=== PATIENT | female | born 1960 | race African-American/Black ===

== ENCOUNTER 2016-07-01 06:30 | Day surgery (SDC) | payer BC ==
[~2016-07-01] VITALS: Ht 170.2 cm; Wt 78.2 kg
[~2016-07-01 06:30] MED LIST: CARB200T16 PO; MONT10TA2 PO
[2016-07-01] MEDS ORDERED: ENBR50IN2 SQ (07:15)
[2016-07-01] MEDS ORDERED: METH2.5T PO (07:15)
[2016-07-01] MEDS ORDERED: GABA300C5 PO (07:15)
[2016-07-01] MEDS ORDERED: TIZA4CAP3 PO (07:15)
[2016-07-01] MEDS ORDERED: TOPR25TA PO (07:15)
[2016-07-01] MEDS ORDERED: TEGR200T PO (07:15)
[2016-07-01] MEDS ORDERED: MILL5TAB (07:15)
[2016-07-01] MEDS ORDERED: FOLI1TAB4 PO (07:15)
[2016-07-01] MEDS ORDERED: VITA100021 SL (07:15)
[2016-07-01 07:20] LABS: AUTOMATED NEUTROPHIL # 3.3 TH/MM3 (1.8-7.7); BASOPHIL # 0.1 TH/MM3 (0-0.2); BASOPHIL % 0.7 % (0.0-2.0); EOSINOPHIL # 0.2 TH/MM3 (0-0.4); EOSINOPHIL % 2.5 % (0.0-4.0); HEMATOCRIT 36.2 % (35.0-46.0); HEMO FLAGS DIFF FINAL; MEAN CORPUSCULAR HEMOGLOBIN 30.8 PG (27.0-34.0); MEAN CORPUSCULAR HGB CONC 33.5 % (32.0-36.0); MONO % 12.1 % (0.0-8.0); NEUT % 44.7 % (16.0-70.0); PLATELET COUNT 202 TH/MM3 (150-450); RED BLOOD COUNT 3.94 MIL/MM3 (4.00-5.30); RED CELL DISTRIBUTION WIDTH 15.8 % (11.6-17.2); WHITE BLOOD COUNT 7.5 TH/MM3 (4.0-11.0)
[2016-07-01] MEDS ORDERED: HEPARIN-NS/PF INJ 500 ML ONE (07:36)
[2016-07-01 07:39] LABS: PROTHROMBIN TIME - PATIENT 10.8 SEC (9.8-11.6)
[2016-07-01 07:41] LABS: APTT (PATIENT) 28.2 SEC (24.3-30.1)
[2016-07-01] MEDS ORDERED: HEPARIN SODIUM - IV 10,000 UNITS/10 ML VIAL ONE (07:48)
[2016-07-01] MEDS ORDERED: MIDAZOLAM HCL 2 MG/2 ML VIAL ONE ×2 (07:48→07:56)
[2016-07-01] MEDS ORDERED: VERAPAMIL HCL 5 MG/2 ML VIAL ONE (07:48)
[2016-07-01 08:12] VITALS: BP 139/79; PULSE 74; RESP 18; TEMP 98.1; O2SAT 98
--- NOTE | 2016-07-01 08:19 | CATHPROC ---
[employer] HIS Report Study Information Study Number Admission Scheduled Start Study Start [id number] 07/01/2016 07/01/2016 Jul 01 2016 7:41AM Referring Institution Admit Source Facility Department 1 Other [facility] - Complaint Clerk Physician and Clinical Staff Initial Micah Morales Process Mold Technician Leon RN, Glen Recorder Liliana Saldaña,(R) (BS) Recorder Jay TafoyaWAGON DRILL OPERATOR(BS) Scrub Elie MonsonWAGON DRILL OPERATOR(BS) Procedures Performed Procedure Location (Site) Vessel Name Coronary Angiograms LCA Left Coronary Coronary Angiograms RCA Right Coronary L Heart Cath LV Gram-hand inj. LV LV Ventricle Equipment Time Data Conversion Developer Description Size Mfg Part Number Used/Scraped TRANSDUCER, TRUWAVE 07:48 BUNDY CEVALLOS * [id number] Used W/STOCKCOCK 07:48 MALLINCKRODT SYRINGE, ANGIOMAT 150ML 150ML [id number] Used [id number] 07:48 [employer]ES PACK, CCL CUSTOM * Used *[id number] 07:48 [employer] SUPPORT, ARTERIAL ADULT [id number] Used 07:48 [employer] PACER PEN, SKIN DUAL W/ RULER * [id number] Used BAND, RADIAL COMPRESSION TR [id number] 08:11 [employer] 29CM Used LARGE 29 *[id number] BAND, RADIAL COMPRESSION TR [id number] 08:12 [employer] 24CM Used SHORT 24 *[id number] 07:48 [employer] MEDICAL WIRE, EXCHANGE 260CM 3MMJ 260CM Used *[id number] 07:45 [employer] WIRE, EXCHANGE 260CM 3MMJ 260CM Used *[id number] 07:48 NAMIC MANIFOLD, 4 PORT * Used *[id number] 08:04 [employer] OMNIPAQUE, 350 MG, 150ML 150ML [id number] Used [id number] 07:48 [employer] BLANKET,WARM AIR CCL * Used *[id number] 07:55 [employer] MEDICAL JELCO NEEDLE 4056 Used CATHETER, FR5 OPTITORQUE [id number] 07:56 [employer] FR 5 Used RADIAL TIG 4.0 *[id number] SHEATH, FR6 TRANSRADIAL 07:46 [employer] FR 6 RM*[id number] Used SLENDER 10CM Equipment Model, Serial, Lot Number and Expiration Data Description Model Number Serial Number Lot Number Expiration Date BAND, RADIAL COMPRESSION TR [id number] 10-14-2017 SHORT 24 History: Current Medications Medication Dosage/Unit Route Frequency Last Date/Time Taken Beta Vincent History: Allergies Allergy Reaction No Known Allergies History: Risk Factors Family History of Hypertension Dyslipidemia Previous KS Previous Heart Failure Premature CAD Yes No Yes No No Prior Valve Prior PCI Prior CABG Surgery No No No Cerebrovascular Peripheral Artery Chronic Lung On Dialysis Diabetes Disease Disease Disease No No No No No History: Symptoms/Diagnosis Selection Items MCKEON SOB History: Stress Tests Stress or Imaging Studies Performed No History: Other Current Smoker No Labs Hgb (g/dl) Hct (%) WBC (l/cumm) Platelets (thousands) 12.00-18.00 37.00-55.00 4.80-10.80 140.00-450.00 12.1 36.2 7.5 202 Creatinine (mg/dl) 0.10-9.00 Not Drawn CPK-MB (ng/ML) 0.00-7.00 Not Drawn Medication Medication Total Dose (Bolus/Oral) Medication Total Dosage/Unit 1% XYLOCAINE 1 mL FENTANYL 75 mcg RADIAL COCKTAIL 5 mL (Bolus) VERSED 3 mg Medications (Bolus/Oral) Medication Time Given Dosage/Unit Administered By Reason 1% XYLOCAINE 07/01/2016 7:52:50 AM 1 mL Micah Subramanian 1 mL 1% XYLOCAINE given in lab by Micah Subramanian in Right Radial via Subcutaneous. VERSED 07/01/2016 7:53:42 AM 2 mg Glen Quintero RN 2 mg VERSED given in lab by Glen Quintero RN in Left Antecubital via Peripheral IV. FENTANYL 07/01/2016 7:53:51 AM 50 mcg Glen Quintero RN 50 mcg FENTANYL given in lab by Glen Quintero RN in Left Antecubital via Peripheral IV. VERSED 07/01/2016 8:00:20 AM 1 mg Glen Quintero RN 1 mg VERSED given in lab by Glen Quintero RN in Left Antecubital via Peripheral IV. FENTANYL 07/01/2016 8:00:45 AM 25 mcg Glen Quintero RN 25 mcg FENTANYL given in lab by Glen Quintero RN in Left Antecubital via Peripheral IV. Ntg 200mcg Verapamil 2.5mg Heparin RADIAL COCKTAIL 07/01/2016 8:01:33 AM 5 mL (Bolus) Micah Subramanian 2500U 5 mL (Bolus) RADIAL COCKTAIL given in lab by Micah Subramanian via Radial. Using [Solution Name]. Ordered by Micah Subramanian. Reason: Ntg 200mcg Verapamil 2.5mg Heparin 2500U. Medication (Drip) Medication Time Given Dosage/Unit Concentration/Unit Diluent (ml) Solution IV Solutions 07/01/2016 7:42:01 AM 0 mL (IV) 500 NaCl .9 IV Solutions given in lab by Glen Quintero RN in Left Antecubital via Peripheral IV. Pump/Drip Flow = 20 ml/hr using NaCl .9. Initial Case Assessment Cardiovascular HR Rhythm NIBP Chest Pain 65 reg 154/67 0 Edema Present Skin color Skin None Normal Warm Dry Circulatory - Right Pulses Dorsalis Pedis Femoral Radial 1 1 1 Scale (0,1,2,3,4,d) Circulatory - Left Pulses Dorsalis Pedis Femoral Radial 1 1 Scale (0,1,2,3,4,d) Circulatory - Lower Extremities Color Lower Right Color Lower Left Normal Normal Neurological State Oriented to time-place- Alert Moves all extremities person Respiration - General Respiration Rate SpO2 (%) (B/min) 9 100 Final Case Assessment Cardiovascular HR Rhythm NIBP Chest Pain 70 reg 125/61 0 Edema Present Skin color Skin None Normal Warm Dry Circulatory - Right Pulses Dorsalis Pedis Femoral Radial 1 1 1 Scale (0,1,2,3,4,d) Circulatory - Left Pulses Dorsalis Pedis Femoral Radial 1 1 Scale (0,1,2,3,4,d) Circulatory - Lower Extremities Color Lower Right Color Lower Left Normal Normal Neurological State Oriented to time-place- Alert Moves all extremities person Respiration - General Respiration Rate SpO2 (%) (B/min) 9 99 Chronological Log Time Study Chronological Log 7:31:21 Patient arrived via Bed. Labs pending, aware. 7:31:26 Patient Name, D.O.B, / Armband Verified By R.N. 7:31:30 Consent signed by the physician and the patient and verified by the Complaint Clerk staff. 7:31:34 Pre-op and post- op instructions given; patient acknowledges understanding of instructions. 7:34:13 MD arrived. 7:40:02 MD arrived. 7:41:42 Verbal Stimulation=2 Physical Stimulation=2 Airway=2 Respiration=2 TOTAL=8. (0=absent, 1=li mited, 2=present) 7:41:45 Presedation assessment performed by Complaint Clerk RN. 7:41:52 Patient has been NPO for More than 6Hrs. 7:41:53 Skin Breakdown none per pt 7:41:54 Patient Warmer Placed on the Table. 7:41:59 [facility] [employer] Protected 7:42:00 A # 20 IV was noted in the Antecubital (left). Grade = 0 IV Solutions given in lab by Glen Quintero RN in Left Antecubital via Peripheral IV. Pump/Drip Fl ow = 20 ml/hr using NaCl 7:42:01 .9. 7:42:01 History and physical on the chart or being dictated. Assessment: Initial Case, HR=65 BPM, Rhythm=reg, HRJR=200/67 mmhg, Chest Pain=0, Edema=None, Col or=Normal, Skin = Warm, Dry Right Pulses: José Miguel Ped=1, Femoral=1, Radial=1 Left Pulses: José Miguel Ped=1, Femoral=1 7:42:02 Lower Right Extremities: Color=Normal Lower Left Extremities: Color=Normal Neurological: State=Alert, Ox3, BRUNO Respiration: Resp=9 B/min, EuY4=724 % Vitals capture started with the following parameters, Patient=Adult, Interval=15 min, Initial Pr xfxdzn=672 mmHg, 7:42:09 Deflation Rate=5 mmHg 7:43:33 HR=66 bpm, JGLE=172/67 mmhg, YvT3=047.0 %, Resp=8 B/min, Pain=0, Silvestre=10, León=2 7:44:53 Reference ECG taken 7:46:22 Bilateral groins prepped with 2% chlorhexidine, and with a 3 min. waiting time 7:47:53 HR=72 bpm, TGRL=761/75 mmhg, LjK2=890.0 %, Resp=16 B/min, Pain=0, Silvestre=10, León=2 7:51:23 Pressure channel 1 zero failed. 7:51:36 Pressure channel 1 zeroed. Time Out. Correct patient, correct procedure,correct physician, power injector not loaded with c ontrast with surgical 7:52:15 team present. Time Out Concurred by , individual staff in procedure 7:52:31 Case Start 7:52:50 1 mL 1% XYLOCAINE given in lab by Micah Subramanian in Right Radial via Subcutaneous. 7:52:52 HR=69 bpm, WXBV=520/74 mmhg, FqL7=800.0 %, Resp=9 B/min, Pain=0, Silvestre=10, León=2 7:53:42 2 mg VERSED given in lab by Glen Quintero RN in Left Antecubital via Peripheral IV. 7:53:51 50 mcg FENTANYL given in lab by Glen Quintero RN in Left Antecubital via Peripheral IV. 7:57:53 HR=65 bpm, QVUM=191/73 mmhg, ZwD5=708.0 %, Resp=11 B/min, Pain=0, Silvestre=10, León=2 8:00:20 1 mg VERSED given in lab by Glen Quintero RN in Left Antecubital via Peripheral IV. 8:00:45 25 mcg FENTANYL given in lab by Glen Quintero RN in Left Antecubital via Peripheral IV. 8:01:02 Access site was Right Radial Artery. A SHEATH, FR6 TRANSRADIAL SLENDER 10CM FR 6 was advanced into the Fem Art (right) using the Perc utaneous 8:01:22 technique. 5 mL (Bolus) RADIAL COCKTAIL given in lab by Micah Subramanian via Radial. Using [Solution Name]. Order ed by Micah Subramanian. 8:01:33 Reason: Ntg 200mcg Verapamil 2.5mg Heparin 2500U. A CATHETER, FR5 OPTITORQUE RADIAL TIG 4.0 FR 5 was advanced over a wire. OMNIPAQUE, 350 MG, 150M L 150ML 8:02:05 was used for injections. 8:02:52 HR=69 bpm, MSCG=086/70 mmhg, ThR0=852.0 %, Resp=12 B/min, Pain=0, Silvestre=10, León=2 8:04:04 The RCA was injected and visualized at various angles. OMNIPAQUE, 350 MG, 150ML 150ML used. 8:05:42 The LCA was injected and visualized at various angles. OMNIPAQUE, 350 MG, 150ML 150ML used. Recorded Pressure: LV, HR=79, Condition=Condition 1 8:07:30 (Left Ventricle) LV 129/8/11 8:07:42 The LV was manually injected with 10 cc's and visualized. OMNIPAQUE, 350 MG, 150ML 150ML use d. 8:07:49 HR=75 bpm, OZTC=618/61 mmhg, SpO2=97.0 %, Resp=18 B/min, Pain=0, Silvestre=10, León=2 Recorded Pressure: LV, Ao, HR=81, Condition=Condition 1 8:07:59 (Left Ventricle) LV 128/18/15, (Aorta) Ao 126/62/92 8:08:43 Catheter was removed 8:08:50 Case End Assessment: Final Case, HR=70 BPM, Rhythm=reg, ZNUO=902/61 mmhg, Chest Pain=0, Edema=None, Col or=Normal, Skin = Warm, Dry Right Pulses: José Miguel Ped=1, Femoral=1, Radial=1 Left Pulses: José Miguel Ped=1, Femoral=1 8:09:47 Lower Right Extremities: Color=Normal Lower Left Extremities: Color=Normal Neurological: State=Alert, Ox3, BRUNO Respiration: Resp=9 B/min, SpO2=99 % Radial Compression Device Used. 15 mLs of air placed in BAND, RADIAL COMPRESSION TR LARGE 29 2 9CM. Affected 8:10:43 hand 99 % O2 saturation. 8:11:05 Sterile dressing applied to site 8:11:06 No case complications noted. 8:11:07 Cine recording checked. 8:11:08 Bedside Report will be given. 8:11:11 Contrast Scanned 8:11:13 Verbal Stimulation=2 Physical Stimulation=2 Airway=2 Respiration=2 TOTAL=8. (0=absent, 1=l imited, 2=present) 8:11:20 A Left Heart Cath was performed. 8:13:31 HR=64 bpm, WFSF=786/65 mmhg, NnQ5=358.0 %, Resp=12 B/min, Pain=0, Silvestre=10, León=2 8:17:19 Vitals capture stopped. 8:20:02 [facility] - Contrast Media Used In Study Contrast Total Opened (mL) Total Used (mL) Total Wasted (mL) Omnipaque 40 40 0 End Study - Radiation Exposure Fluoro Time (minutes) 2.8 End Study - Patient Disposition Complications Transferred To Interventional Outcome No Complaint Clerk Holding No attempt made
[2016-07-01] MEDS ORDERED: oxyCODONE/ACETAMINOPHEN 5 MG/325 MG TAB PO PRN ×2 (08:30)
[2016-07-01] MEDS ORDERED: MISC INFORMATION XX ONE (08:30)
[2016-07-01] MEDS ORDERED: ATROPINE SULFATE 1 MG/ML VIAL IV PRN (08:30)
[2016-07-01] MEDS ORDERED: ONDANSETRON HCL 4 MG/2 ML VIAL IV PRN (08:30)
[2016-07-01] MEDS ORDERED: LIDOCAINE HCL 1% 50 ML VIAL INFIL PRN (08:30)
[2016-07-01] MEDS ORDERED: SODIUM CHLOR 0.9% 250 ML INJ 250 ML IV PRN (08:30)
[2016-07-01] MEDS ORDERED: LORazepam 2 MG/ML VIAL IV PRN (08:30)
[2016-07-01] MEDS ORDERED: SODIUM CHLORIDE 0.9% FLUSH 5 ML FLUSH IVF PRN (08:30)
[2016-07-01 08:49] LABS: BICARBONATE 23.8 MEQ/L (21.0-32.0); POTASSIUM 3.7 MEQ/L (3.5-5.1)
[2016-07-01] MEDS ORDERED: IOHEXOL 350 MG/ML 50 ML BTL (for Cath Lab) OTHER ONE (08:57)
[2016-07-01] MEDS ORDERED: SODIUM CHLORIDE 0.9% FLUSH 5 ML FLUSH IVF SCH (09:00)
--- NOTE | 2016-07-01 11:34 | MB ---
cc: PIERO COLON MD DATE OF CONSULTATION 07/01/2016 DATE OF 1960 REASON FOR CONSULTATION This is a very pleasant 55-year-old patient of Dr. Roberth Waite, Dr. Octavio Elias with a history of aortic insufficiency. He has recently been having some increased symptoms over the past year with dyspnea and fatigue. She has also had a little bit of some chest discomfort when she exerts herself. She underwent 2-D echocardiogram which showed an EF of 55%, right ventricle size normal, left atrium normal, right atrium normal. The aortic valve moderate to severe aortic regurgitation, the mitral valve had some mild regurgitation, the tricuspid has some mild regurgitation. We were consulted to evaluate for aortic valve replacement. PAST MEDICAL HISTORY The patient's past medical history includes: 1. Osteoarthritis 2. Rheumatoid arthritis, she is followed by a Dr. Pacheco. 3. She also has a history of sciatica. 4. She has been on chronic steroid use. 5. She is on prednisone 5 mg daily. 6. She has a history of seizure disorder. No seizures for the last two years, follows with a neurologist, Dr. Moreno. 7. She has had history of some palpitations. 8. Bilateral knee surgery ALLERGIES No known allergies. MEDICATIONS Home medications include: 1. Enbrel 50 mg q. weekly for her arthritis 2. Folic acid and Gabapentin 300 p.o. daily 3. Methotrexate 2.5 p.o. once weekly 4. Prednisone 5, she takes one and a half tablets orally daily, so she takes 7.5 daily 5. Spironolactone 25 p.o. daily 6. She takes Tegretol 200 three times a day 7. Tizanidine 4 mg p.o. three times a day 8. Toprol XL 25 p.o. extended-release daily, just started that apparently for her aortic regurgitation. FAMILY HISTORY Mother is still alive with a history of arthritis and hypertension. Father at 74 with heart disease. SOCIAL HISTORY She lives with her significant other. She is working to get disability because of her arthritis. No tobacco or alcohol. REVIEW OF SYSTEMS GENERAL: No night sweats, fever, heat or cold intolerance. SKIN: No psoriasis, itching or hives. HEENT: No blurred vision or hearing loss. RESPIRATORY: Positive for shortness of breath. No cough. CARDIOVASCULAR: Positive for fatigue, occasional chest pain with the exertion. No paroxysmal nocturnal dyspnea. No orthopnea. GASTROINTESTINAL: No diarrhea or vomiting. GENITOURINARY: No burning frequency, urgency. DATA SYSTEMS ANALYST: Positive for a history of seizure disorder. ENDOCRINOLOGY: No history of hypothyroidism and/or diabetes mellitus. PHYSICAL EXAM On exam, blood pressure 110/60, heart rate of 88 on room air. GENERAL: Patient is awake and alert, no acute distress. HEAD: Normocephalic, atraumatic. EYES: Pupils equal and reactive. EARS, NOSE, AND THROAT: Oral mucosa pink and moist. NECK: Supple. No JVD. HEART: S1-S2 with a grade 2/6 diastolic murmur present. LUNGS: Clear to auscultation. No wheezes, rales or rhonchi. ABDOMEN: Soft and nontender. No masses or organomegaly. EXTREMITIES: No cyanosis, clubbing or edema. LABORATORY FINDINGS Shows hemoglobin 12, hematocrit 36, white cell count 7.5, platelet count 202. Sodium 142, potassium 3.7, BUN 17 with a creatinine of 0.87, INR 1.0. Chest x-ray pending. 2-D echo as above. Cath report today showed no evidence of coronary disease, EF of 55%. EKG showed sinus rhythm with some T-wave inversion nonspecific in her leads 3 and aVF with normal coronaries per cath. IMPRESSION/PLAN 1. This is a very pleasant 55-year-old patient with known moderate to severe aortic regurgitation. Plan will be for aortic valve replacement minimally invasive. Procedures, alternatives and risks have been discussed by Dr. Piero Colon. 2. In the meantime she has history of chronic osteoarthritis, rheumatoid disease on chronic prednisone steroids which may need to be addressed preop and postoperatively. 3. She has a history of seizure disorder with her last seizure two years ago. We will need to continue her Tegretol. All other medications she is to continue. Plan will be for surgery on July 15 2016 and further workup pending. Dictated by ILDA Lou Piero COLLADO/HALLE /10:39 AM /11:25 AM
--- NOTE | 2016-07-01 11:49 | RADRPT ---
EXAM DATE/TIME: 07/01/2016 11:34 [facility] COMPARISON: No previous studies available for comparison. INDICATIONS : Evaluate for pneumonia, pneumothorax or communicable disease. Pre op for aortic valve surgery today. MEDICAL HISTORY : seizures SURGICAL HISTORY : heart cath today. ENCOUNTER: Initial ACUITY: 1 day PAIN SCORE: 0/10 LOCATION: Bilateral chest FINDINGS: PA and lateral views of the chest demonstrate the lungs to be symmetrically aerated without evidence of mass, infiltrate or effusion. Mild cardiomegaly. Pulmonary vessels are normal range.. Osseous str uctures are intact. CONCLUSION: 1. Mild cardiomegaly. Norbert Kwong Jr., MD on July 01, 2016 at 11:47 Board Certified Radiologist. This report was verified electronically.
[2016-07-01 11:57] LABS: BETA HCG QUANT LESS THAN 1 MIU/ML (0-5)
[2016-07-01 11:57] LABS: BLOOD, URINE NEG (NEG); COMMENT (UR) CULT NOT INDICATED; CULTURE IF INDICATED CULT NOT INDICATED; GLUCOSE,URINE NEG (NEG); KETONE, URINE NEG (NEG); MUCUS URINE FEW /lpf (OCC); NITRITE,URINE NEG (NEG); PH, URINE 5.5 (5.0-8.5); SQUAMOUS EPITHELIAL CELL URINE <1 /hpf (0-5); URINE COLOR YELLOW (YELLW/STRAW)
[2016-07-01] MEDS ORDERED: BACITRACIN OINT 0.9 GM PKT TOP ONE (13:15)
[2016-07-01 13:24] LABS: HEMOGLOBIN A1a 1.1 %; HEMOGLOBIN A1b 0.8 %; HEMOGLOBIN Ao 84.3 %; HEMOGLOBIN F 1.5 %; HEMOGLOBIN P3 5.9 %
--- NOTE | 2016-07-01 13:49 | RADRPT ---
EXAM DATE/TIME: 07/01/2016 11:55 [facility] COMPARISON: No previous studies available for comparison. INDICATIONS : PreOp cardiac surgery. MEDICAL HISTORY : Seizures. SURGICAL HISTORY : Right knee arthroscopy. ENCOUNTER: Initial ACUITY: 1 day PAIN SCORE: 2/10 LOCATION: Bilateral neck PEAK SYSTOLIC VELOCITIES (cm/sec): ICA/CCA RATIO: Right: 1.1 Left: 0.7 ICA: Right: 112 Left: 92 CCA: Right: 102 Left: 125 ECA: Right: 71 Left: 91 VERTEBRAL: Right: 66 antegrade Left: 68 antegrade Elevated flow velocities and ICA/CCA ratios have been found to correlate with increased degrees of vessel stenosis, calculated as percentage of diameter relative to a normal segment of distal ICA/CCA FINDINGS: RIGHT CAROTID: No significant stenosis is visualized. The waveforms are within normal limits. LEFT CAROTID: No significant stenosis is visualized. The waveforms are within normal limits. VERTEBRAL ARTERIES: Antegrade flow is seen in both vertebral arteries. MISCELLANEOUS: None. CONCLUSION: Normal examination. Difficult to visualize the distal internal carotid artery on the left. Alfredo Alves MD on July 01, 2016 at 13:47 Board Certified Radiologist. This report was verified electronically.
--- NOTE | 2016-07-01 16:34 | PD.CAR.PN ---
CVT Progress Note Subjective/Hospital Course: sts data discussed with pt RISK SCORES About the STS Risk Calculator Procedure: AV Replacement Risk of Mortality: 0.626% Morbidity or Mortality: 9.922% Long Length of Stay: 3.853% Short Length of Stay: 49.288% Permanent Stroke: 0.707% Prolonged Ventilation: 5.394% DSW Infection: 0.081% Renal Failure: 1.175% Reoperation: 6.217% Objective: Vital Signs Date Time Temp Pulse Resp B/P Pulse Ox O2 Delivery O2 Flow Rate FiO2 07/01/16 08:25 99 Room Air 07/01/16 08:12 98.1 74 18 139/79 98 Labs: Laboratory Tests Test 07/01/16 07/01/16 07/01/16 07/01/16 06:58 08:03 11:20 13:55 White Blood Count 7.5 TH/MM3 (4.0-11.0) Red Blood Count 3.94 MIL/MM3 (4.00-5.30) Hemoglobin 12.1 GM/DL (11.6-15.3) Hematocrit 36.2 % (35.0-46.0) Mean Corpuscular Volume 92.0 FL (80.0-100.0) Mean Corpuscular Hemoglobin 30.8 PG (27.0-34.0) Mean Corpuscular Hemoglobin 33.5 % Concent (32.0-36.0) Red Cell Distribution Width 15.8 % (11.6-17.2) Platelet Count 202 TH/MM3 (150-450) Mean Platelet Volume 8.2 FL (7.0-11.0) Neutrophils (%) (Auto) 44.7 % (16.0-70.0) Lymphocytes (%) (Auto) 40.0 % (9.0-44.0) Monocytes (%) (Auto) 12.1 % (0.0-8.0) Eosinophils (%) (Auto) 2.5 % (0.0-4.0) Basophils (%) (Auto) 0.7 % (0.0-2.0) Neutrophils # (Auto) 3.3 TH/MM3 (1.8-7.7) Lymphocytes # (Auto) 3.0 TH/MM3 (1.0-4.8) Monocytes # (Auto) 0.9 TH/MM3 (0-0.9) Eosinophils # (Auto) 0.2 TH/MM3 (0-0.4) Basophils # (Auto) 0.1 TH/MM3 (0-0.2) CBC Comment DIFF FINAL Differential Comment Prothrombin Time 10.8 SEC (9.8-11.6) Prothromb Time International 1.0 RATIO Ratio Activated Partial 28.2 SEC Thromboplast Time (24.3-30.1) Sodium Level 142 MEQ/L (136-145) Potassium Level 3.7 MEQ/L (3.5-5.1) Chloride Level 109 MEQ/L (98-107) Carbon Dioxide Level 23.8 MEQ/L (21.0-32.0) Anion Gap 9 MEQ/L (5-15) Blood Urea Nitrogen 17 MG/DL (7-18) Creatinine 0.87 MG/DL (0.50-1.00) Estimat Glomerular Filtration 82 ML/MIN (>89) Rate Random Glucose 78 MG/DL (74-106) Hemoglobin A1c 5.4 % (4.3-6.0) Calcium Level 8.1 MG/DL (8.5-10.1) Human Chorionic Gonadotropin, LESS THAN 1 Quant MIU/ML (0-5) Urine Color YELLOW (YELLW/STRAW) Urine Turbidity CLEAR (CLEAR) Urine pH 5.5 (5.0-8.5) Urine Specific [place] 1.050 (1.002-1.035) Urine Protein NEG mg/dL (NEG-TRACE) Urine Glucose (UA) NEG mg/dL (NEG) Urine Ketones NEG mg/dL (NEG) Urine Occult Blood NEG (NEG) Urine Nitrite NEG (NEG) Urine Bilirubin NEG (NEG) Urine Urobilinogen LESS THAN 2.0 MG/DL (LESS THAN 2.0) Urine Leukocyte Esterase NEG (NEG) Urine RBC LESS THAN 1 /hpf (0-3) Urine WBC LESS THAN 1 /hpf (0-5) Urine Squamous Epithelial <1 /hpf (0-5) Cells Urine Mucus FEW /lpf (OCC) Microscopic Urinalysis Comment CULT NOT INDICATED Nasal Screen MRSA (PCR) MRSA NOT DETECTED (NOT DETECT) Blood Type A POSITIVE Antibody Screen NEGATIVE Blood Bank Comment Result Diagram: 07/01/16 0658 07/01/16 0803 Laurie Mascorro July 01, 2016 16:34
--- NOTE | 2016-07-02 22:05 | EKG ---
Date Performed: 07/01/2016 Time Performed: 07:25:00 PTAGE: 55 years EKG: Sinus rhythm . Inferior ST-T changes are nonspecific Borderline ECG PREVIOUS TRACING : 01/29/2016 07.26 Compared to prior tracing no significant change DOCTOR: Micah Subramanian Interpretating Date/Time 07/02/2016 22:04:54
--- NOTE | 2016-07-06 10:39 | RSPPFT ---
DATE OF PROCEDURE: 07/01/16 COMMENTS: Spirometry demonstrates an FEV1 of 1.6 at 67% of predicted, FVC of 1.9 at 67%, FEF 25-75 is 67%. Flow volume loops are unavailable. IMPRESSION: 1. Mild obstructive disease with small airways obstruction.
--- NOTE | 2016-07-29 09:00 | MA ---
cc: MICAH PEPPER MD DATE 07/28/2016 REASON FOR PROCEDURE Severe aortic insufficiency PROCEDURE 1. Left heart catheterization 2. Coronary angiography 3. Left ventriculography TECHNIQUE After informed consent was obtained, the patient was taken to the cardiac catheterization laboratory. The patient was prepped and draped in a sterile fashion. Via modified Seldinger technique, the right radial artery was punctured and a 6-[place] sheath was placed over the guidewire. The diagnostic procedure was performed using a catheter. The patient tolerated the procedure well. No immediate complications were noted. At the end of the procedure, the sheath was removed and a TR band was placed to obtain hemostasis. LEFT VENTRICULOGRAM The left ventriculogram was performed in the PEPPER projection only. The PEPPER projection left ventriculogram did not reveal any segmental wall motion abnormalities. Estimated ejection fraction was 55%. CORONARIES ARTERIES The left main coronary artery is a moderate sized vessel without focal stenotic lesions. The left anterior descending coronary artery normal. The LAD is a moderate sized vessel which gives off multiple diagonal branches. No significant tonic lesions were identified in the left anterior descending coronary artery system. The circumflex coronary artery is a moderate sized vessel without focal stenotic lesions. The right coronary artery is moderate size dominant vessel without focal stenotic lesions. HEMODYNAMICS No significant LV/AO gradient. IMPRESSION 1. Preserved left ventricular systolic function. 2. No significant stenotic lesions identified in the coronary arteries. 3. Severe aortic insufficiency. Micah OLVERA/NINAL /9:21 PM /8:52 AM
[2016-08-02] MEDS ORDERED: COMMODE 3-IN-11 MIS (09:26)
== END 2016-07-01 14:15 | disposition home or self-care (01) ==
LOC: HCAT 06:30 → HDIC 06:31 → HCAT 14:15
PROVIDERS: ATTEND Nuclear Medicine Nuclear Cardiology
DX: I35.1 Nonrheumatic aortic (valve) insufficiency (principal); R06.00 Dyspnea, unspecified; R53.83 Other fatigue; R07.89 Other chest pain; R06.02 Shortness of breath; R94.31 Abnormal electrocardiogram [ECG] [EKG]; G40.909 Epilepsy, unspecified, not intractable, without status epilepticus; M06.9 Rheumatoid arthritis, unspecified; M54.30 Sciatica, unspecified side; Z79.52 Long term (current) use of systemic steroids; Z01.818 Encounter for other preprocedural examination
CPT/HCPCS: 71020; 80048; 81001; 83036; 84702; 85025; 85610; 85730; 86850; 86900; 86901; 87641; 93005; 93458; 93880; 94010; C1769; C1893; J1644; J2250; J3010; Q9967

== ENCOUNTER 2016-07-06 13:49 | Inpatient (IN) | payer BC ==
[~2016-07-06] VITALS: Ht 170.2 cm; Wt 74.5 kg
[~2016-07-06 13:49] MED LIST changes: -CARB200T16 PO; +ENBR50IN2 SQ; +FOLI1TAB4 PO; +GABA300C5 PO; +METH2.5T PO; +MILL5TAB; -MONT10TA2 PO; +TEGR200T PO; +TIZA4CAP3 PO; +TOPR25TA PO; +VITA100021 SL
[2016-07-15] VITALS (11 sets, daily range): BP systolic 90–140; BP diastolic 63–76; PULSE 72–156; RESP 16–18; TEMP 97.7–98.6; O2SAT 77–100
[2016-07-15] MEDS ORDERED: POVIDONE IODINE 5% (ANTISEPSIS KIT) 4 APPLICATIONS EACH NARE PRN (06:15)
[2016-07-15] MEDS ORDERED: SODIUM CHLORIDE 0.9% FLUSH 10 ML FLUSH IV FLUSH PRN ×2 (06:15→13:45)
[2016-07-15] MEDS ORDERED: CEFAZOLIN 500 MG in NS IRR BTL 500 ML IRRIGATION SCH (06:15)
[2016-07-15] MEDS ORDERED: INSULIN HUMAN REGULAR 1,000 UNITS/10 ML VIAL SQ PRN (06:15)
[2016-07-15] MEDS ORDERED: METOPROLOL TARTRATE 25 MG TAB PO PRN (06:15)
[2016-07-15] MEDS ORDERED: METOPROLOL TARTRATE 25 MG TAB PO SCH (06:15)
[2016-07-15] MEDS ORDERED: LACTATED RINGER'S 1000 ML IV PRN (06:15)
[2016-07-15] MEDS ORDERED: SODIUM CHLORID 0.9% 500 ML IV PRN (06:15)
[2016-07-15] MEDS ORDERED: INSULIN REGULAR 100 UNITS in NS 100 ML IV SCH (06:15)
[2016-07-15] MEDS ORDERED: CHLORHEXIDINE GLUCONATE 4% SOLN 120 ML BTL TOPICAL SCH (06:15)
[2016-07-15] MEDS ORDERED: CHLORHEXIDINE GLUCONATE 2 % 1 PACK (2 CLOTHS) TOPICAL PRN (06:15)
[2016-07-15] MEDS ORDERED: ceFAZolin 2 GM PREMIX 50 ML IV SCH (06:15)
[2016-07-15] MEDS ORDERED: GABA600T PO (06:19)
[2016-07-15] MEDS ORDERED: PRED2.5T PO (06:19)
[2016-07-15] MEDS ORDERED: VENTAER INH (06:19)
[2016-07-15] MEDS ORDERED: HUMI40KI SQ (06:19)
[2016-07-15] MEDS ORDERED: METH5INJ SQ (06:19)
[2016-07-15] MEDS ORDERED: FOLI20CA PO (06:19)
[2016-07-15] MEDS ORDERED: HEPARIN SODIUM - SQ 10,000 UNITS/ML VIAL ONE (06:27)
[2016-07-15] MEDS ORDERED: ceFAZolin 2 GM PREMIX 50 ML ONE (06:27)
[2016-07-15] MEDS ORDERED: VANCOMYCIN HCL 1000 MG VIAL ONE (06:27)
[2016-07-15] MEDS ORDERED: CUSTODIOL HTK IRR SOLN 1,000 ML ONE (07:28)
[2016-07-15] MEDS ORDERED: SODIUM BICARBONATE 8.4% INJ 50 ML ONE ×3 (07:29→22:55)
[2016-07-15] MEDS ORDERED: MANNITOL INJ 50 ML ONE (07:29)
[2016-07-15] MEDS ORDERED: POTASSIUM CHLORIDE 20 MEQ/10 ML VIAL ONE (07:29)
[2016-07-15] MEDS ORDERED: HEPARIN SODIUM - IV 10,000 UNITS/10 ML VIAL ONE (07:30)
[2016-07-15] MEDS ORDERED: ALBUMIN HUMAN 25% 12.5 GM/50 ML BAGP IV ONE (07:30)
[2016-07-15] MEDS ORDERED: NS 20 ML/EXPAREL 20 ML/DEXAMETHASONE 4 MG/MORPHINE 10 MG ONE ×4 (07:30)
[2016-07-15] MEDS ORDERED: PROTAMINE SULFATE 250 MG/25 ML VIAL IV ONE (08:56)
[2016-07-15] MEDS ORDERED: ceFAZolin INJ 1,000 MG VIAL IV ONE (11:40)
[2016-07-15] MEDS ORDERED: POTASSIUM CHLOR 20 MEQ PREMIX 100 ML ONE (13:36)
[2016-07-15] MEDS ORDERED: LACTATED RINGER'S 1000 ML INJ 500 ML IV PRN (13:40)
[2016-07-15] MEDS: DOBUTamine PREMIX DRIP 250 ML IV SCH (13:40)
[2016-07-15] MEDS ORDERED: EPINEPHrine (1:1000) INJ 4 MG in DEXTROSE 5% IN WATER INJ 246 ML IV SCH ×2 (13:45)
[2016-07-15] MEDS ORDERED: Post-op Orders (for Pharmacy) MISC OTHER ONE (13:45)
[2016-07-15] MEDS ORDERED: ACETAMINOPHEN 650 MG SUPP RECTAL PRN (13:45)
[2016-07-15] MEDS ORDERED: INSULIN REGULAR (IV INFUSION) 100 UNITS in SODIUM CHLORIDE 0.9% INJ 99 ML IV SCH (13:45)
[2016-07-15] MEDS ORDERED: MEPERIDINE HCL 25 MG/ML VIAL IV PRN (13:45)
[2016-07-15] MEDS ORDERED: NITROGLYCERIN-DEXTROSE INJ 250 ML IV SCH (13:45)
[2016-07-15] MEDS ORDERED: MORPHINE SULFATE 4 MG/ML INJ IV PRN (13:45)
[2016-07-15] MEDS ORDERED: ONDANSETRON HCL 4 MG/2 ML VIAL IV PUSH PRN (13:45)
[2016-07-15] MEDS ORDERED: MAGNESIUM SULFATE INJ 2 GM in SODIUM CHLORIDE 0.9% INJ 100 ML IV PRN ×4 (13:45)
[2016-07-15] MEDS ORDERED: RESP: RACEPINEPHRINE 2.25% 0.5 ML NEB NEB PRN (13:45)
[2016-07-15] MEDS ORDERED: PHENYLEPHRINE INJ 40 MG in DEXTROSE 5% IN WATE 500 ML INJ 496 ML IV SCH ×2 (13:45)
[2016-07-15] MEDS ORDERED: POTASSIUM CHLORIDE 20 MEQ CONTROLLED RELEASE TAB PO PRN ×2 (13:45)
[2016-07-15] MEDS ORDERED: CLEVIDIPINE INJ 50 ML IV SCH (13:45)
[2016-07-15] MEDS ORDERED: POTASSIUM CHLOR 20 MEQ PREMIX 100 ML IV PRN (13:45)
[2016-07-15] MEDS ORDERED: oxyCODONE/ACETAMINOPHEN 5 MG/325 MG TAB PO PRN (13:45)
[2016-07-15] MEDS ORDERED: ALBUMIN HUMAN 5% 12.5 GM/250 ML BOTTLE IV PRN (13:45)
[2016-07-15] MEDS ORDERED: CALCIUM CHLORIDE 10% 1 GRAM/10 ML VIAL IV PRN (13:45)
[2016-07-15] MEDS ORDERED: DOPamine INJ PREMIX 500 ML IV SCH (13:45)
[2016-07-15] MEDS ORDERED: DEXTROSE 50% IN WATER 50 ML VIAL(D50) IV PUSH PRN (13:45)
--- NOTE | 2016-07-15 15:11 | PD.OP ---
cc: Rufus Christianson MD; Micah Subramanian MD Operative Report Date of Surgery: Jul 15, 2016 Preoperative Diagnosis: Postoperative Diagnosis: Procedure: 1. Minimally Invasive AVR with a 19 mm OnX Mechanical Valve 2. Left Percutaneous Femoral Arterial and Venous Cannulation for CPB 3. Intercostal Nerve Block 4. Perclose Arterial Closure x 2 . Surgeon: Rufus Christianson Product Finisher(s): Yolanda To Operation and Findings: PREOPERATIVE DIAGNOSIS: 1. Severe Aortic Insufficiency 2. Moderate Left Ventricular Dysfunction POSTOPERATIVE DIAGNOSIS: Same PRPCEDURE: 1. Minimally Invasive AVR with a 19 mm OnX Mechanical Valve 2. Left Percutaneous Femoral Arterial and Venous Cannulation for CPB 3. Intercostal Nerve Block 4. Perclose Arterial Closure x 2 ANESTHESIA: SCOTTY Miller MD PETROL TANKER DRIVER: Jacinto Posada [facility] INDICATIONS: This is a 55 yo patient with severe Aortic insufficiency presenting for surgical correction of their underlying cardiac pathology. PROCEDURE: Standard monitoring lines and allison were placed. General anesthesia was induced. The patient was prepped and draped in a sterile fashion. Percutaneous access was gained to the left femoral artery and vein. Two Perclose devices were placed on the artery for later closure. The patient was heparinized for cardiopulmonary bypass. The left femoral artery was cannulated with a 17 [employer] arterial cannula percutaneously using standard seldinger technique. Similarly, the left femoral vein was cannulated with a 21 [employer] cannula under MAR guidance and the tip was confirmed to be in the SVC. A 6 cm right anterior thoracotomy was performed and the 3rd rib was shingled. The right internal mammary artery and vein were ligated and divided. An Manas retractor was placed followed by a small chest retractor. The pericardium was opened and a pericardial sling was created using interrupted 0 silk sutures. A small 1 cm incision was made at the 6th intercostal space and an LV vent and pericardial suction were placed through this access port. The LV vent was placed through the Right Superior Pulmonary Vein. The aorta was dissected posteriorly for crossclamp placement. The patient was placed on cardiopulmonary bypass. An aortic cross-clamp was applied and the heart was arrested using cold blood cardioplegia delivered through a 14F catheter. 1.6 L of antegrade Custodiol cardioplegia was infused into the aortic root and into the coronary ostia following the aortotomy. The aorta was opened above the sinotubular ridge and the aortic valve was exposed. The right and left coronary were identified. The valve was resected as well as all annular calcification and was sized for a 19 OnX mechanical valve which was placed with 2-0 pledgeted Tycron valve sutures. The valve seated well. The aorta was closed with two layers of running 4-0 Prolene suture, the first in a horizontal mattress fashion and the second layer of simple running. The patient was systemically rewarmed. The heart was vigorously deaired with a clamp on. Ventricular pacing wire was placed. The clamp was removed, deairing continued. Upon achieving normothermia and intrinsic cardiac activity, the patient was weaned from cardiopulmonary bypass. Strict hemostasis was assured and Protamine administered. Decannulation was carried out without incident and the femoral artery was closed with the Perclose devices. The entry site to the vein was closed with a horizontal mattress suture of 2-0 Silk following manual pressure. It was noted that there was a hematoma at the groin site. A small 2 cm incision was made overlying the cannulation site and the groin explored. The incision was carried down to the vein. No hematoma was encountered but bleeding was noted from the anterior aspect of the femoral vein. This was repaired with a 5- Prolene stitch and hemostasis confirmed. Intraoperative MAR following the procedure showed a well- seated aortic valve with no perivalvular leak. A 28-Slovak chest tube was positioned in the right pleural space and a 24 Joseph drain into the pericardial space. These were secured with 2-0 silk sutures. The 3rd rib was reapproximated to the sternum using a [id number] 0 Ethibond stitch, and to the adjacent rib with a 0 Vicryl suture. Intercostal nerve block was preformed at the level of the incision as well as 2 rib spaces abpve and below using Exparel solution. The fascia and pectoralis were closed with 0 Vicryl. The subcutaneous tissue was closed using a running 3-0 Monocryl suture. The skin was closed with 4-0 Monocryl. Sterile dressings were placed. Similarly, the groin was closed in 3 layers and sterile dressing applied. At the end of the operation, all sponge, instruments, and needle counts were correct. The patient tolerated the procedure well and transferred to the CVICU in stable condition. Rufus Christianson MD Jul 15, 2016 15:11
--- NOTE | 2016-07-15 15:19 | RADRPT ---
EXAM DATE/TIME: 07/15/2016 13:39 [facility] COMPARISON: No previous studies available for comparison. INDICATIONS : Intraoperative instrument count. OR. MEDICAL HISTORY : Seizures. SURGICAL HISTORY : None. ENCOUNTER: Initial ACUITY: 1 day PAIN SCORE: Non-responsive. LOCATION: Bilateral chest FINDINGS: Supine and crosstable lateral views were obtained. There is an ETT terminating just above the tami. There is a right IJ central line with tip obscured likely near the atrium caval junction. There are right-sided chest tubes in place. Lungs are hypoaerated with mild airspace disease in the right lower lung zone and associated volume loss. Cardiomegaly stop contours are exaggerated due to to low lung volumes. No definitive on expected radiopaque foreign bodies are demonstrated. CONCLUSION: 1. Tubes and lines, as above. 2. Low lung volumes with right lower lobe airspace disease and volume loss likely reflecting atelecta sis. 3. No definitive evidence for unexpected radiopaque foreign bodies. Wyatt Monzon MD on July 15, 2016 at 15:13 Board Certified Radiologist. This report was verified electronically.
--- NOTE | 2016-07-15 15:31 | HHI.FF ---
Face to Face Verification Diagnosis: (1) Severe aortic insufficiency (2) Left ventricular dysfunction (3) Seizure disorder (4) S/P AVR (aortic valve replacement) Home Health Nursing Order: Wound care and dressing changes Nursing assessment with vital signs Instructions: Heart and Vascular Surgery patients *Special attention to sternal dressing Mandatory frequency Assess and evaluation, 4 days in a row The next week 3X week 2 times a week for 4 weeks 1 time a week for 5 weeks Schedule Heart and Vascular patients for full 60 day certification period Initial visit Review Open Heart Surgery Discharge Instructions (Sternal precautions, Activity, Elastic hose, Incision care, Driving, Incentive spirometry, Smoking, [place], Work and other) Need Betadine to paint incision Medication reconciliation Importance of follow up care/ check on appointments Make calendar record temperature daily When to call [facility] at Home nurse, review instructions, phone list Incentive Spirometry, demonstration Visit 1- Begin discharge instruction for patient family and/ or caregiver using teach back method- Signs and symptoms of infection Disease characteristics Medicines and side effects Foods and nutrition/ appetite Infection control/ hand washing/ hygiene Visit 2- Continue teaching Discharge instructions- include additional information on smoking cessation , sternal dressing (sternal vac) Visit 3- Continue teaching- Cough and deep breathing, incision monitoring. Choose my plate Visit 4- Continue teaching- Discuss limitations Discuss how they are feeling Discuss progress toward goals Remaining visits- continue teaching and monitoring Incentive spirometry Q1 hr x 10, while awake, also use acapella device hourly whole awake Sternal Breast Bone Precautions: NO pushing or pulling, ( pt must use sternal pillow to support chest with all activities and with coughing ( takes up to 3 months breast bone to heal ) Daily incision care: ok to shower daily, no tub bath. Wash all incisions with liquid dial soap, clean wash cloth to each site, rinse and pat dry. Observe for any signs of infection, such as drainage which is dark yellow, mullins, green or foul smelling. Immediately report to the surgeon any drainage from the chest incision, or legs, and for any abnormal drainage from the chest tube sites. Notify surgeon if any temp >101.5 degrees F. When specialty dressing removed/ or if you do not have one, continue to shower daily as above, then rinse and pat incision dry and paint with betadine daily x 5 days. Allow steri strips to fall off if you have any. Avoid lotions, creams, salves, oils, etc. for the first month F/U appointment: as per DC instructions: PCP in 2 weeks, CV surgeon 2 weeks, [employer] 3-4 weeks For any questions regarding incisions/ dressing / meds / post op care or above Symptoms, Tuesday 8am-5pm Heart & Vascular Surgery Office ( Dr. Christianson & Dr. Licona), After Hours / Nights (5pm -8am) Weekends and Holidays Please call [facility] Cardiac Intermediate Care Unit (CIC) Charge Nurse I have seen patient Jh Portillo on 07/15/16. My clinical findings support the need for the requested home health care services because: Deconditioned w/ increased weakness I certify that my clinical findings support that this patient is homebound because: Post-op weakness Laurie Mascorro Jul 15, 2016 15:31
[2016-07-15] MEDS ORDERED: MIDAZOLAM HCL 5 MG/5 ML VIAL ONE (15:37)
[2016-07-15] MEDS ORDERED: fentaNYL CITRATE 1000 MCG/20 ML VIAL ONE (15:37)
[2016-07-15] MEDS ORDERED: RESP: RACEPINEPHRINE 2.25% 0.5 ML NEB ONE (15:51)
[2016-07-15] MEDS ORDERED: DEXAMETHASONE SOD PHOS 20 MG/5 ML VIAL ONE (15:57)
[2016-07-15] MEDS: CALCIUM CHLORIDE INJ 1 GM in SODIUM CHLORIDE 0.9% INJ 100 ML IV PRN (16:20)
[2016-07-15] MEDS: ACETAMINOPHEN 1000 MG/100 ML VIAL IV SCH ×2 (16:21→20:00)
[2016-07-15] MEDS: ceFAZolin 2 GM PREMIX 50 ML IV SCH (16:21)
--- NOTE | 2016-07-15 16:53 | RADRPT ---
EXAM DATE/TIME: 07/15/2016 15:35 [facility] COMPARISON: CHEST, AP & LAT, July 15, 2016, 13:39. INDICATIONS : Post aortic valve surgery. MEDICAL HISTORY : seizures SURGICAL HISTORY : heart cath ENCOUNTER: Initial ACUITY: 1 day PAIN SCORE: Non-responsive. LOCATION: Bilateral chest FINDINGS: Single AP view of the chest. Endotracheal tube chest into the right mainstem bronchus. Nasogastric tu be is coiled in the stomach. Right IJ central venous catheter in place with the tip in the region of the cavoatrial junction. Right-sided chest tube. Lung volumes are low. Patchy opacity at the right canelo ng base less prominent than on comparison study. CONCLUSION: Endotracheal tube tip is just into the right mainstem bronchus and could be retracted several centime ters. Patchy opacity at the right lung base decreased from the prior study. Findings discussed with t chester patient's nurse. Andrew Fritz MD on July 15, 2016 at 16:46 Board Certified Radiologist. This report was verified electronically.
[2016-07-15] MEDS: METOPROLOL TARTRATE 5 MG/5 ML VIAL IV PUSH PRN (17:06)
[2016-07-15] MEDS: RESP: ALBUTEROL 2.5 MG/IPRATROPIUM 0.5 MG NEB (SCH) NEB ×2 (17:14→21:27)
[2016-07-15] MEDS: KETOROLAC TROMETHAMINE 30 MG/ML (IVP) VIAL IV PUSH PRN ×2 (17:29→23:12)
[2016-07-15] MEDS ORDERED: SODIUM BICARBONATE 8.4% INJ 50 MEQ/50 ML SYR ONE (17:57)
[2016-07-15] MEDS ORDERED: RESP: RACEPINEPHRINE 2.25% 0.5 ML NEB NEB ONE (19:00)
[2016-07-15] MEDS ORDERED: DEXAMETHASONE SOD PHOS 20 MG/5 ML VIAL IV ONE (19:00)
[2016-07-15] MEDS ORDERED: SODIUM BICARBONATE 8.4% INJ 50 MEQ/50 ML SYR IV ONE ×2 (19:15→22:15)
[2016-07-15] MEDS: SODIUM CHLORIDE 0.9% FLUSH 10 ML FLUSH IV FLUSH SCH (21:00)
[2016-07-15] MEDS: AMIODARONE 200 MG TAB PO SCH (21:00)
[2016-07-15] MEDS: RESP: ALBUTEROL 2.5 MG/IPRATROPIUM 0.5 MG NEB (PRN) NEB (23:41)
[2016-07-16] VITALS (17 sets, daily range): BP systolic 112–129; BP diastolic 64–88; PULSE 102–132; RESP 18–21; TEMP 97.1–99.4; O2SAT 95–99
[2016-07-16] MEDS ORDERED: MIDAZOLAM HCL 5 MG/ML VIAL (1 ML) ONE (00:01)
[2016-07-16] MEDS ORDERED: MIDAZOLAM HCL 5 MG/ML VIAL (1 ML) IV PUSH ONE (00:10)
[2016-07-16 00:30] LABS: MEAN CELL VOLUME 82.9 FL (80.0-100.0); MEAN CORPUSCULAR HEMOGLOBIN 27.5 PG (27.0-34.0); MEAN CORPUSCULAR HGB CONC 33.1 % (32.0-36.0); PLATELET COUNT 25 TH/MM3 (150-450); RED BLOOD COUNT 1.68 MIL/MM3 (4.00-5.30); RED CELL DISTRIBUTION WIDTH 21.6 % (11.6-17.2); WHITE BLOOD COUNT 6.4 TH/MM3 (4.0-11.0)
[2016-07-16 00:36] LABS: BLOOD GAS BASE EXCESS -10.5 mmol/L (-2-2); BLOOD GAS CARBOXYHEMOGLOBIN 0.6 % (0-4); BLOOD GAS HCO3 18 mmol/L (22-26); BLOOD GAS METHEMOGLOBIN 0.7 % (0-2); BLOOD GAS O2 HGB SATURATION 98 % (90-100); BLOOD GAS PCO2 59 mmHg (38-42); BLOOD GAS PO2 252 mmHG (61-120); BLOOD GAS TOTAL HGB 4.6 G/DL (12.0-16.0); HEMATOCRIT 13.9 % (35.0-46.0); REVIEW FLAG FINAL; TEMP CORR TO 98.6
[2016-07-16 00:37] LABS: CRITICAL VALUE YES; FIO2 100 %; OXYGEN DEVICE VENTILATOR; VENT SETTINGS A/C14/500/+5PEEP
[2016-07-16 00:39] LABS: DRAW SITE ART LINE; STAT YES
[2016-07-16 00:45] LABS: INTERNATIONAL NORMALIZED RATIO 2.7 RATIO; PROTHROMBIN TIME - PATIENT 30.8 SEC (9.8-11.6)
[2016-07-16] MEDS ORDERED: PROTHROMBIN COMPLEX CONC INJ 2,000 UNITS in SYRINGE/BAG 1 EA IV ONE (01:00)
[2016-07-16 01:06] LABS: BICARBONATE 21.7 MEQ/L (21.0-32.0); MAGNESIUM 2.5 MG/DL (1.5-2.5); POTASSIUM 5.4 MEQ/L (3.5-5.1); TOTAL BILIRUBIN ADULT 0.3 MG/DL (0.2-1.0)
[2016-07-16 01:08] LABS: CALCIUM-PROTEIN CORRECTED 10.4 MG/DL (8.5-10.1)
--- NOTE | 2016-07-16 01:11 | RADRPT ---
EXAM DATE/TIME: 07/16/2016 00:10 [facility] COMPARISON: CHEST SINGLE AP, July 15, 2016, 15:35. INDICATIONS : Post intubation MEDICAL HISTORY : Seizures, heart catheterization SURGICAL HISTORY : aortic valve surgery ENCOUNTER: Initial ACUITY: 1 day PAIN SCORE: Non-responsive. LOCATION: Bilateral chest FINDINGS: The cardiac silhouette is enlarged in transverse diameter. Endotracheal tube is just beyond the feliberto a and should be retracted 2 cm. A right chest tube is in place with small right apical pneumothorax. There is left lower lobe atelectasis versus pneumonia. CONCLUSION: 1. Endotracheal tube as above. And should be retracted 2 cm. 2. Right pneumothorax without tension Inder Wilson MD on July 16, 2016 at 1:06 Board Certified Radiologist. This report was verified electronically.
[2016-07-16] MEDS ORDERED: DEXT 5%-NACL 0.45% 1000 ML INJ 1,000 ML IV SCH (01:15)
[2016-07-16] MEDS ORDERED: IOHEXOL 350 MG/ML 100 ML BTL (for Cath Lab) OTHER ONE (01:35)
[2016-07-16] MEDS ORDERED: HEPARIN SODIUM - IV 10,000 UNITS/10 ML VIAL ONE ×2 (01:48→02:41)
[2016-07-16] MEDS: ACETAMINOPHEN 1000 MG/100 ML VIAL IV SCH ×2 (02:00→08:21)
--- NOTE | 2016-07-16 02:12 | PD.CONS ---
HPI Service Critical Care Medicine Consult Requested By Primary Care Physician Roberth Waite MD History of Present Illness 55-year-old female with history of seizure disorder, some autoimmune disorder on Humira methotrexate and prednisone, history of asthma underwent uncomplicated minimally Invasive AVR with a 19 mm OnX Mechanical Valve via left percutaneous femoral arterial and venous cannulation for CPB. While in the CVICU she became severely hypotensive hypoxemic and suffered with respiratory arrest. She was emergently intubated and regain spontaneous circulations after 2 cycles of CPR and epinephrine injections. She was found to be hypotensive and severely anemic with hemoglobin level 4, platelet count of 25, fibrinogen less than 50. She was thought to be bleeding retroperitoneally and was taken emergently to CAT scan angiogram. However no source of bleeding was found on the CT. Review of Systems ROS Unable to obtain patient is sedated and intubated Past Family Social History Allergies: Coded Allergies: No Known Allergies (Verified , 07/15/16) Past Medical History Seizure disorder Asthma Some autoimmune disorder unable to find out from medical record, patient is on methotrexate and prednisone and Humira Past Surgical History Arthroplasty of the knee Reported Medications Reported Meds & Active Scripts Active Reported Prednisone 2.5 Mg Tab 2.5 Mg PO BID Ventolin Hfa 18 GM Inh (Albuterol Sulfate) 90 Mcg/Act Aer 2 Puff INH Q4-6H PRN Methotrexate Inj 50 Mg/2 Ml Inj 0.8 Ml SQ WEEKLY Gabapentin 600 Mg Tab 600 Mg PO BID Folic Acid 20 Mg Cap 1 Mg PO DAILY Humira 2-Pack Inj (Adalimumab 2-Pack Inj) 40 Mg/0.8 Ml Syr 40 Mg SQ Q14D Tizanidine (Tizanidine HCl) 4 Mg Cap 6 Mg PO TID Tegretol (Carbamazepine) 200 Mg Tab 200 Mg PO TID Toprol XL (Metoprolol Succinate) 25 Mg Tab 25 Mg PO DAILY Active Ordered Medications Current Medications Medications (Trade) Dose Ordered Sig/Everardo Route PRN Reason Start Time Stop Time Status Last Admin Dose Admin Sodium Chloride (NS Flush) 2 ml BID IV FLUSH 07/15/16 21:00 Sodium Chloride 2 ml 2 ml UNSCH PRN IV FLUSH FLUSH AFTER USING IV ACCESS 07/15/16 13:45 Dexmedetomidine HCl 200 mcg/ Sodium Chloride 52 ml @ 0 mls/hr TITRATE IV 07/15/16 13:45 Nitroglycerin/ Dextrose 250 ml @ 0 mls/hr TITRATE IV 07/15/16 13:45 Dobutamine HCl/ Dextrose 250 ml @ 11.55 mls/ hr [id number] IV 07/15/16 13:40 Dopamine HCl/ Dextrose 500 ml @ 0 mls/hr TITRATE IV 07/15/16 13:45 Epinephrine HCl 4 mg/Dextrose 250 ml @ 0 mls/hr TITRATE IV 07/15/16 13:45 Phenylephrine HCl 40 mg/Dextrose 500 ml @ 0 mls/hr TITRATE IV 07/15/16 13:45 Clevidipine (Cleviprex Inj) 50 ml @ 0 mls/hr TITRATE IV 07/15/16 13:45 Albumin Human 12.5 gm 12.5 gm UNSCH PRN IV SEE LABEL COMMENTS 07/15/16 13:45 07/15/16 16:43 Lactated Ringer's (Lr 1000 ml Inj) 500 ml @ 500 mls/hr Q1H PRN IV SEE LABEL COMMENTS 07/15/16 13:40 Aspirin (Aspirin Chew) 81 mg DAILY PO 07/16/16 09:00 Pantoprazole Sodium (Protonix) 40 mg DAILY@06 PO 07/16/16 06:00 Amiodarone HCl (Cordarone) 400 mg Q12HR PO 07/15/16 21:00 Acetaminophen (Tylenol) 650 mg Q4H PRN PO TEMPERATURE > 101 F 07/15/16 13:45 Acetaminophen (Tylenol Supp) 650 mg Q4H PRN RECTAL TEMPERATURE > 101 F 07/15/16 13:45 Acetaminophen (Ofirmev Inj) 1,000 mg Q6H IV 07/15/16 14:00 07/16/16 08:01 07/15/16 16:21 Morphine Sulfate (Morphine Inj) 1 mg Q10M PRN IV PAIN SCALE 1 TO 5 07/15/16 13:45 Meperidine HCl (Demerol Inj) 12.5 mg Q4H PRN IV SEE LABEL COMMENTS 07/15/16 13:45 Oxycodone/ Acetaminophen (Percocet 5-325 Mg) 1 tab Q3H PRN PO PAIN SCALE 1 TO 5 07/15/16 13:45 Oxycodone/ Acetaminophen (Percocet 5-325 Mg) 2 tab Q3H PRN PO PAIN SCALE 6 TO 10 07/15/16 13:45 Ketorolac Tromethamine (Toradol Inj) 15 mg Q6H PRN IV PUSH SEE LABEL COMMENTS 07/15/16 13:45 07/17/16 13:44 07/15/16 23:12 Fentanyl Citrate (fentaNYL INJ) 25 mcg Q1H PRN IV BREAKTHROUGH PAIN 07/15/16 13:45 Ondansetron HCl (Zofran Inj) 4 mg Q6H PRN IV PUSH NAUSEA OR VOMITING 07/15/16 13:45 07/15/16 16:19 Hydralazine HCl (Apresoline Inj) 10 mg Q4H PRN IV SEE LABEL COMMENTS 07/15/16 13:45 Metoprolol Tartrate 2.5 mg 2.5 mg Q1H PRN IV PUSH SEE LABEL COMMENTS 07/15/16 13:45 07/15/16 17:06 Potassium Chloride 100 ml @ 50 mls/hr UNSCH PRN IV SEE LABEL COMMENTS 07/15/16 13:45 Potassium Chloride 100 ml @ 50 mls/hr UNSCH PRN IV SEE LABEL COMMENTS 07/15/16 13:45 Potassium Chloride 100 ml @ 50 mls/hr UNSCH PRN IV SEE LABEL COMMENTS 07/15/16 13:45 Magnesium Sulfate 2 gm/Sodium Chloride 104 ml @ 100 mls/hr UNSCH PRN IV SEE LABEL COMMENTS 07/15/16 13:45 Magnesium Sulfate 2 gm/Sodium Chloride 104 ml @ 50 mls/hr UNSCH PRN IV SEE LABEL COMMENTS 07/15/16 13:45 Calcium Chloride/ Sodium Chloride (Calcium Chloride Inj/NS Inj) 110 ml @ 100 mls/hr UNSCH PRN IV SEE LABEL COMMENTS 07/15/16 13:45 07/15/16 16:20 Calcium Chloride 0.5 gm 0.5 gm UNSCH PRN IV SEE LABEL COMMENTS 07/15/16 13:45 Insulin Human Regular/Sodium Chloride (NovoLIN R (IV INFUSION)/NS Inj) 100 ml @ 0 mls/hr TITRATE IV 07/15/16 13:45 Dextrose 50 ml 50 ml UNSCH PRN IV PUSH HYPOGLYCEMIA-SEE COMMENTS 07/15/16 13:45 07/15/16 22:59 Cefazolin Sodium/ Dextrose 50 ml @ 100 mls/hr Q8H IV 07/15/16 16:00 07/17/16 00:29 07/15/16 16:21 Fentanyl Citrate 250 ml @ 0 mls/hr TITRATE IV 07/16/16 00:30 Midazolam HCl 100 ml @ 0 mls/hr TITRATE IV 07/16/16 00:30 Dextrose/Sodium Chloride (D5W-02/15 NS 1000 ml Inj) 1,000 ml @ 125 mls/hr Q8H IV 07/16/16 01:15 Family History Unable to obtain Social History Negative for tobacco alcohol or illicit drug abuse Physical Exam Vital Signs Vital Signs Date Time Temp Pulse Resp B/P Pulse Ox O2 Delivery O2 Flow Rate FiO2 07/15/16 17:48 97.8 07/15/16 16:00 50 07/15/16 16:00 100 Nasal Cannula 6.00 07/15/16 15:42 97.7 07/15/16 15:30 98.6 148 16 109/63 100 07/15/16 15:30 100 Mechanical Ventilator 07/15/16 15:30 50 07/15/16 15:23 150 07/15/16 06:20 98.0 72 18 140/76 99 Laboratory Laboratory Tests Test 07/15/16 07/15/16 07/16/16 07/16/16 06:05 14:27 00:13 00:20 Blood Type A POSITIVE A POSITIVE A POSITIVE Antibody Screen NEGATIVE Crossmatch Leukocyte-Reduced Leukocyte-Reduced Leukocyte-Reduced Red Blood Red Blood Red Blood Cells Cells Cells Blood Bank Comment White Blood Count 6.4 Red Blood Count 1.68 Hemoglobin 4.6 Hematocrit 13.9 Mean Corpuscular Volume 82.9 Mean Corpuscular Hemoglobin 27.5 Mean Corpuscular Hemoglobin 33.1 Concent Red Cell Distribution Width 21.6 Platelet Count 25 Mean Platelet Volume 7.9 Prothrombin Time 30.8 Prothromb Time International 2.7 Ratio Fibrinogen LESS THAN 50 Blood Gas Puncture Site ART LINE Blood Gas Patient Temperature 98.6 Blood Gas HCO3 18 Blood Gas Base Excess -10.5 Blood Gas Oxygen Saturation 98 Arterial Blood pH 7.10 Arterial Blood Partial 59 Pressure CO2 Arterial Blood Partial 252 Pressure O2 Arterial Blood Oxygen Content 7.0 Arterial Blood 0.6 Carboxyhemoglobin Arterial Blood Methemoglobin 0.7 Blood Gas Hemoglobin 4.6 Oxygen Delivery Device VENTILATOR Blood Gas Ventilator Setting A/C14/500/+5PEEP Blood Gas Inspired Oxygen 100 Sodium Level 158 Potassium Level 5.4 Chloride Level 115 Carbon Dioxide Level 21.7 Anion Gap 21 Blood Urea Nitrogen 14 Creatinine 1.22 Estimat Glomerular Filtration 56 Rate Random Glucose 63 Calcium Level 6.8 Protein Corrected Calcium 10.4 Phosphorus Level 7.6 Magnesium Level 2.5 Total Bilirubin 0.3 Aspartate Amino Transf 184 (AST/SGOT) Alanine Aminotransferase 104 (ALT/SGPT) Alkaline Phosphatase 18 Total Protein 1.7 Albumin 1.0 Test 07/16/16 07/16/16 07/16/16 07/16/16 00:32 00:46 00:47 00:50 Blood Type A POSITIVE A POSITIVE Crossmatch Leukocyte-Reduced Leukocyte-Reduced Red Blood Red Blood Cells Cells Blood Bank Comment Antibody Screen NEGATIVE Test 07/16/16 07/16/16 01:10 01:12 Crossmatch Leukocyte-Reduced Red Blood Cells Blood Bank Comment Date/Time Procedure Status Source Growth 07/15/16 11:56 Gram Stain Received Wound Other Pending 07/15/16 11:56 Wound Culture Received Wound Other Pending 07/15/16 11:56 Fungal Smear - Final Resulted Wound Other NO FUNGAL ELEMENTS SEEN. 07/15/16 11:56 Fungal Culture Resulted Wound Other Pending 07/15/16 11:56 Acid Fast Stain Received Wound Other Pending 07/15/16 11:56 Mycobacterial Culture Received Wound Other Pending 07/15/16 11:56 Cancelled Other Result Diagram: 07/16/16 0020 07/16/16 0020 Imaging Last 24 hours Impressions Chest X-Ray 07/16/16 0000 Signed Impressions: Service Date/Time: Saturday, July 16, 2016 00:10 - CONCLUSION: 1. Endotracheal tube as above. And should be retracted 2 cm. 2. Right pneumothorax without tension Inder Wilson MD Assessment and Plan Assessment and Plan Cardiopulmonary arrest - Due to severe anemia - Transfuse 4 units of PRBCs - Hematology consult - Monitor H&H - Mechanical ventilation Thrombocytopenia - Transfused with 2 units due to high suspicion of an active bleeding Hemolytic anemia - LDH pending - Peripheral blood smear review by pathologist Seizure disorder - Tegretol/gabapentin Aortic valve repair - Management per cardiothoracic surgery DVT GI prophylaxis - Teds SCDs - Omeprazole Critical Care: The total critical care time was 65 minutes. Time to perform other separately billable procedures was not included in the critical care time. Christian Martínez MD Jul 16, 2016 02:12
[2016-07-16] MEDS ORDERED: IOHEXOL 350 MG/ML 10 ML VIAL (for RAD DIAG) IV ONE (02:13)
[2016-07-16] MEDS ORDERED: THROMBIN (TOPICAL) 5,000 UNIT VIAL ONE ×2 (02:20→02:41)
[2016-07-16] MEDS ORDERED: BUPIVACAINE/EPINEPHRINE 0.5% PF 30 ML VIAL ONE ×2 (02:20→02:41)
[2016-07-16] MEDS ORDERED: GELFOAM SIZE 100 ONE ×2 (02:20→02:41)
[2016-07-16] MEDS ORDERED: MIDAZOLAM HCL 5 MG/5 ML VIAL ONE (02:47)
[2016-07-16] MEDS ORDERED: fentaNYL CITRATE 1000 MCG/20 ML VIAL ONE (02:48)
--- NOTE | 2016-07-16 03:54 | RADRPT ---
EXAM DATE/TIME: 07/16/2016 02:04 [facility] COMPARISON: No previous studies available for comparison. INDICATIONS : Cardiac arrest, evaluate retroperitoneal bleed. IV CONTRAST: 100 cc Omnipaque 350 (iohexol) IV ORAL CONTRAST: No oral contrast ingested. RADIATION DOSE: 7.49 CTDIvol (mGy) MEDICAL HISTORY : Non-responsive. SURGICAL HISTORY : Non-responsive. ENCOUNTER: Initial ACUITY: 1 day PAIN SCALE: Non-responsive LOCATION: abdomen TECHNIQUE: Volumetric scanning was performed using a multi-row detector CT scanner. The data was post processed with a variety of visualization algorithms including full volume maximum intensity projection, multi -planar sliding thin slab reformation, curved planar reformation, and surface rendering techniques. Using automated exposure control and adjustment of the mA and/or kV according to patient size, radiat ion dose was kept as low as reasonably achievable to obtain optimal diagnostic quality images. FINDINGS: There is subsegmental atelectasis in the both bases. A small left sided effusion is present. Large v olume ascites is present which is fluid density and not hyperdense as would be expected with hemoperi toneum. Confirmation could be performed with aspiration. The liver and spleen are normal in size and no focal defects are identified. The gallbladder and pancreas are unremarkable. No intrahepatic or ex trahepatic ductal dilatation is seen. The adrenal glands and kidneys appear normal bilaterally. No hy dronephrosis or mass lesions are identified. No retroperitoneal hematoma is identified. There is dive rticulosis without evidence of diverticulitis. CONCLUSION: 1. Ascites 2. No evidence of retroperitoneal hematoma 3. Bibasilar atelectasis and left pleural effusion Inder Wilson MD on July 16, 2016 at 3:45 Board Certified Radiologist. This report was verified electronically.
[2016-07-16 04:30] LABS: BLOOD GAS BASE EXCESS -4.5 mmol/L (-2-2); BLOOD GAS CARBOXYHEMOGLOBIN 1.2 % (0-4); BLOOD GAS HCO3 21 mmol/L (22-26); BLOOD GAS METHEMOGLOBIN 1.4 % (0-2); BLOOD GAS O2 HGB SATURATION 96 % (90-100); BLOOD GAS OXYGEN CONTENT 15.8 Vol % (12.0-20.0); BLOOD GAS PCO2 42 mmHg (38-42); BLOOD GAS PO2 143 mmHg (61-120); BLOOD GAS TOTAL HGB 11.4 G/DL (12.0-16.0); CRITICAL VALUE NO; DRAW SITE ART LINE; FIO2 70 %; OXYGEN DEVICE VENTILATOR; STAT NO; TEMP CORR TO 98.6; VENT SETTINGS PC/AC
[2016-07-16] MEDS: MIDAZOLAM 100 MG/ML INJ 100 ML IV SCH ×3 (04:33→23:24)
[2016-07-16] MEDS: RESP: ALBUTEROL 2.5 MG/IPRATROPIUM 0.5 MG NEB (SCH) NEB ×4 (04:44→23:48)
[2016-07-16] MEDS ORDERED: LIDOCAINE HCL 2% 100 MG/5 ML SYRINGE IV PUSH ONE (05:00)
[2016-07-16] MEDS ORDERED: AMINOCAPROIC ACID INJ 250 MG/ML 20 ML VIAL IV ONE (05:00)
[2016-07-16] MEDS ORDERED: DOPamine INJ PREMIX 500 ML IV ONE (05:00)
[2016-07-16] MEDS ORDERED: PROTAMINE SULFATE 250 MG/25 ML VIAL IV ONE (05:00)
[2016-07-16] MEDS ORDERED: CALCIUM GLUCONATE 10% 1 GM/10 ML VIAL IV ONE (05:00)
[2016-07-16] MEDS ORDERED: MAGNESIUM SULFATE 1000 MG/2 ML VIAL (PED) IV ONE (05:00)
[2016-07-16] MEDS ORDERED: SODIUM BICARBONATE 8.4% INJ 50 MEQ/50 ML SYR IV ONE (05:00)
[2016-07-16] MEDS ORDERED: ceFAZolin INJ 1,000 MG VIAL IV ONE (05:00)
[2016-07-16] MEDS ORDERED: CALCIUM CHLORIDE 10% SOLN 1 GRAM/10 ML SYR IV ONE (05:00)
[2016-07-16] MEDS ORDERED: EPINEPHrine HCL (1:10,000) 1 MG/10 ML SYRINGE IV ONE (05:00)
[2016-07-16] MEDS ORDERED: VECURONIUM BROMIDE 10 MG VIAL IV ONE ×3 (05:00→22:15)
[2016-07-16] MEDS ORDERED: PHENYLEPHRINE HCL 10 MG/ML VIAL IV ONE (05:00)
[2016-07-16] MEDS: PANTOPRAZOLE SOD 40 MG DELAYED RELEASE TAB PO SCH (06:00)
[2016-07-16 06:14] LABS: HEMATOCRIT 31.1 % (35.0-46.0); MEAN CELL VOLUME 84.1 FL (80.0-100.0); MEAN CORPUSCULAR HEMOGLOBIN 29.8 PG (27.0-34.0); MEAN CORPUSCULAR HGB CONC 35.5 % (32.0-36.0); PLATELET COUNT 144 TH/MM3 (150-450); RED CELL DISTRIBUTION WIDTH 15.8 % (11.6-17.2); REVIEW FLAG FINAL; WHITE BLOOD COUNT 5.6 TH/MM3 (4.0-11.0)
[2016-07-16 06:53] LABS: BICARBONATE 23.8 MEQ/L (21.0-32.0); MAGNESIUM 2.4 MG/DL (1.5-2.5); POTASSIUM 3.8 MEQ/L (3.5-5.1)
[2016-07-16] MEDS: ceFAZolin 2 GM PREMIX 50 ML IV SCH ×4 (08:22→23:26)
[2016-07-16] MEDS: POTASSIUM CHLOR 20 MEQ PREMIX 100 ML IV PRN (08:22)
[2016-07-16 08:30] LABS: APTT (PATIENT) 28.5 SEC (24.3-30.1); PROTHROMBIN TIME - PATIENT 11.4 SEC (9.8-11.6)
[2016-07-16 08:55] LABS: MEAN CORPUSCULAR HGB CONC 36.7 % (32.0-36.0)
[2016-07-16] MEDS: ASPIRIN 81 MG CHEW TAB PO SCH (09:00)
[2016-07-16] MEDS: AMIODARONE 200 MG TAB PO SCH (09:06)
[2016-07-16] MEDS: predniSONE 5 MG TAB PO SCH ×2 (09:06→23:25)
[2016-07-16] MEDS: GABAPENTIN 300 MG CAP PO SCH ×2 (09:07→23:25)
[2016-07-16] MEDS: FOLIC ACID 1 MG TAB PO SCH (09:07)
[2016-07-16] MEDS: SODIUM CHLORIDE 0.9% FLUSH 10 ML FLUSH IV FLUSH SCH ×2 (09:09→23:26)
[2016-07-16] MEDS: carBAMazepine 200 MG TAB PO SCH ×3 (09:20→18:26)
[2016-07-16 09:34] LABS: RETIC % 1.3 % (0.4-3.0); REVIEW FLAG FINAL
[2016-07-16 09:43] LABS: ALT (GPT) 823 U/L (10-53); ANION GAP 19 MEQ/L (5-15); AST (GOT) 975 U/L (15-37); BICARBONATE 21.4 MEQ/L (21.0-32.0); BLOOD UREA NITROGEN 17 MG/DL (7-18); CHLORIDE 108 MEQ/L (98-107); GLOMERULAR FILTRATION RATE 54 ML/MIN (>89); POTASSIUM 3.8 MEQ/L (3.5-5.1); SODIUM (NA) 148 MEQ/L (136-145)
[2016-07-16 09:57] LABS: ALKALINE PHOSPHATASE 68 U/L (45-117); FERRITIN 13800 NG/ML (8-252); TOTAL BILIRUBIN ADULT 0.8 MG/DL (0.2-1.0); TRANSFERRIN IRON PROFILE 186 MG/DL (200-360)
[2016-07-16] MEDS ORDERED: PANTOPRAZOLE INJ 80 MG in SODIUM CHLORIDE 0.9% INJ 35 ML IV ONE (10:45)
[2016-07-16] MEDS: SODIUM CHLOR 0.9% 1000 ML INJ 1,000 ML IV SCH ×2 (10:50→23:24)
[2016-07-16] MEDS: DOBUTamine PREMIX DRIP 250 ML IV SCH (11:19)
[2016-07-16 11:33] LABS: AMYLASE 582 U/L (25-115)
--- NOTE | 2016-07-16 11:41 | PD.CAR.PN ---
CVT Progress Note Subjective/Hospital Course: 55/ female, admitted for elective AVR , hx of mod to severe aortic insufficiency EF 55% PMH : osteoarthritis , RA followed by Dr Pacheco on chronic steroid use, Humira , methotrexate , seizure Dz , asthma surgery: 07/15 Minimally Invasive AVR with a 19 mm OnX Mechanical Valve, Left Percutaneous Femoral Arterial and Venous Cannulation for CPB, Intercostal Nerve Block, Perclose Arterial Closure x 2 per CCM note , pt became severely hypotensive hypoxemic and suffered with respiratory arrest. She was emergently re- intubated and regain spontaneous circulations after 2 cycles of CPR and epinephrine injections. She was found to be hypotensive and severely anemic with hemoglobin level 4, platelet count of 25, fibrinogen less than 50. She was thought to be bleeding retroperitoneally and was taken emergently to CAT scan angiogram. However no source of bleeding was found on the CT. She had some coffee ground drainage in NG + bloody stool x one , recieved 8units PRBC,/ 4 FFP, 2 PLT, 2 cryo and Kcentra. 07/16/16 pt remains intubated on vent , will open eyes and respond to simple commands, moves all extremities underwent bedside EGD today , NG trauma in esophagus , gastric varicies gastric fundus, with no evidence of active or recent bleeding elevated LFT's ? shock liver, however elevated amylase and lipase ? acute pancreatitis / elevated ferritin levels ( hemochromatosis ) chest tube drainage 320/12 hrs / on versed and fentanly for sedation CCM following Objective: GENERAL: orally intubated on vent / opens eyes, follows simple commands / RASS - 2 SKIN: Warm and dry. HEAD: Normocephalic. EYES: mild icterus No injection or drainage. scleral edema NECK: Supple, trachea midline. No JVD or lymphadenopathy. CARDIOVASCULAR: Regular rate and rhythm without murmurs, gallops, or rubs. pressure dressing right groin site , right radial cooper, right fem cooper right CVC line RESPIRATORY: coarse bilateral breath sounds, chest tube to wall suction / 320cc / 12 hrs No accessory muscle use. GASTROINTESTINAL: Abdomen distended , slightly firm , hypoactive bowel sounds, ng coffee ground drainage MUSCULOSKELETAL: No cyanosis, general edema , BRUNO BACK: Nontender without obvious deformity. No CVA tenderness. Neuro : lethargic, will open eyes follow simple commands Vital Signs Date Time Temp Pulse Resp B/P Pulse Ox O2 Delivery O2 Flow Rate FiO2 07/16/16 07:40 99 40 07/16/16 04:44 96 60 07/16/16 03:00 132 07/16/16 03:00 98 Mechanical Ventilator 70 07/16/16 03:00 97.6 132 18 113/64 96 128/84 07/16/16 03:00 70 07/16/16 02:34 97 70 07/16/16 02:00 99 100 07/16/16 01:40 98 70 07/16/16 00:35 95 100 07/16/16 00:15 18 07/15/16 23:00 99 Non-Rebreather 15.00 07/15/16 23:00 97.9 155 18 90/65 100 07/15/16 23:00 155 07/15/16 21:20 77 Venturi Mask 6.00 50 07/15/16 20:30 18 07/15/16 19:00 98.6 156 18 109/70 100 116/70 07/15/16 19:00 100 Simple Mask 6.00 07/15/16 19:00 156 07/15/16 17:48 97.8 07/15/16 16:03 96 Nasal Cannula 5.00 07/15/16 16:03 96 Nasal Cannula 5 07/15/16 16:00 50 07/15/16 16:00 100 Nasal Cannula 6.00 07/15/16 15:42 97.7 07/15/16 15:30 98.6 148 16 109/63 100 07/15/16 15:30 100 Mechanical Ventilator 07/15/16 15:30 50 07/15/16 15:27 95 50 07/15/16 15:23 150 Labs: Laboratory Tests Test 07/16/16 07/16/16 07/16/16 07/16/16 00:13 00:20 00:32 00:46 Blood Type A POSITIVE A POSITIVE Crossmatch Leukocyte-Reduced Leukocyte-Reduced Red Blood Red Blood Cells Cells Blood Bank Comment White Blood Count 6.4 TH/MM3 (4.0-11.0) Red Blood Count 1.68 MIL/MM3 (4.00-5.30) Hemoglobin 4.6 GM/DL (11.6-15.3) Hematocrit 13.9 % (35.0-46.0) Mean Corpuscular Volume 82.9 FL (80.0-100.0) Mean Corpuscular Hemoglobin 27.5 PG (27.0-34.0) Mean Corpuscular Hemoglobin 33.1 % Concent (32.0-36.0) Red Cell Distribution Width 21.6 % (11.6-17.2) Platelet Count 25 TH/MM3 (150-450) Mean Platelet Volume 7.9 FL (7.0-11.0) Blood Smear Pathologist Review Prothrombin Time 30.8 SEC (9.8-11.6) Prothromb Time International 2.7 RATIO Ratio Fibrinogen LESS THAN 50 mg/dL (227-377) Blood Gas Puncture Site ART LINE Blood Gas Patient Temperature 98.6 Blood Gas HCO3 18 mmol/L (22-26) Blood Gas Base Excess -10.5 mmol/L (-2-2) Blood Gas Oxygen Saturation 98 % (90-100) Arterial Blood pH 7.10 (7.380-7.420) Arterial Blood Partial 59 mmHg (38-42) Pressure CO2 Arterial Blood Partial 252 mmHG Pressure O2 (61-120) Arterial Blood Oxygen Content 7.0 Vol % (12.0-20.0) Arterial Blood 0.6 % (0-4) Carboxyhemoglobin Arterial Blood Methemoglobin 0.7 % (0-2) Blood Gas Hemoglobin 4.6 G/DL (12.0-16.0) Oxygen Delivery Device VENTILATOR Blood Gas Ventilator Setting A/C14/500/+5PEEP Blood Gas Inspired Oxygen 100 % Sodium Level 158 MEQ/L (136-145) Potassium Level 5.4 MEQ/L (3.5-5.1) Chloride Level 115 MEQ/L (98-107) Carbon Dioxide Level 21.7 MEQ/L (21.0-32.0) Anion Gap 21 MEQ/L (5-15) Blood Urea Nitrogen 14 MG/DL (7-18) Creatinine 1.22 MG/DL (0.50-1.00) Estimat Glomerular Filtration 56 ML/MIN (>89) Rate Random Glucose 63 MG/DL (74-106) Calcium Level 6.8 MG/DL (8.5-10.1) Protein Corrected Calcium 10.4 MG/DL (8.5-10.1) Phosphorus Level 7.6 MG/DL (2.5-4.9) Magnesium Level 2.5 MG/DL (1.5-2.5) Total Bilirubin 0.3 MG/DL (0.2-1.0) Aspartate Amino Transf 184 U/L (15-37) (AST/SGOT) Alanine Aminotransferase 104 U/L (10-53) (ALT/SGPT) Alkaline Phosphatase 18 U/L (45-117) Total Protein 1.7 GM/DL (6.4-8.2) Albumin 1.0 GM/DL (3.4-5.0) Test 07/16/16 07/16/16 07/16/16 07/16/16 00:47 00:50 01:10 01:12 Blood Bank Comment Blood Type A POSITIVE Antibody Screen NEGATIVE Crossmatch Leukocyte-Reduced Leukocyte-Reduced Red Blood Red Blood Cells Cells Test 07/16/16 07/16/16 07/16/16 07/16/16 04:18 05:45 07:45 08:52 Blood Gas Puncture Site ART LINE Blood Gas Patient Temperature 98.6 Blood Gas HCO3 21 mmol/L (22-26) Blood Gas Base Excess -4.5 mmol/L (-2-2) Blood Gas Oxygen Saturation 96 % (90-100) Arterial Blood pH 7.31 (7.380-7.420) Arterial Blood Partial 42 mmHg (38-42) Pressure CO2 Arterial Blood Partial 143 mmHg Pressure O2 (61-120) Arterial Blood Oxygen Content 15.8 Vol % (12.0-20.0) Arterial Blood 1.2 % (0-4) Carboxyhemoglobin Arterial Blood Methemoglobin 1.4 % (0-2) Blood Gas Hemoglobin 11.4 G/DL (12.0-16.0) Oxygen Delivery Device VENTILATOR Blood Gas Ventilator Setting PC/AC Blood Gas Inspired Oxygen 70 % White Blood Count 5.6 TH/MM3 (4.0-11.0) Red Blood Count 3.70 MIL/MM3 (4.00-5.30) Hemoglobin 11.0 GM/DL (11.6-15.3) Hematocrit 31.1 % (35.0-46.0) Mean Corpuscular Volume 84.1 FL (80.0-100.0) Mean Corpuscular Hemoglobin 29.8 PG (27.0-34.0) Mean Corpuscular Hemoglobin 35.5 % Concent (32.0-36.0) Red Cell Distribution Width 15.8 % (11.6-17.2) Platelet Count 144 TH/MM3 (150-450) Mean Platelet Volume 7.3 FL (7.0-11.0) Reticulocyte Count 1.3 % (0.4-3.0) Absolute Reticulocyte Count 48.5 MIL/L (20.0-150.0) Haptoglobin 80 MG/DL (30-200) Sodium Level 148 MEQ/L (136-145) Potassium Level 3.8 MEQ/L (3.5-5.1) Chloride Level 108 MEQ/L (98-107) Carbon Dioxide Level 21.4 MEQ/L (21.0-32.0) Anion Gap 19 MEQ/L (5-15) Blood Urea Nitrogen 17 MG/DL (7-18) Creatinine 1.25 MG/DL (0.50-1.00) Estimat Glomerular Filtration 54 ML/MIN (>89) Rate Random Glucose 105 MG/DL (74-106) Calcium Level 8.0 MG/DL (8.5-10.1) Magnesium Level 2.4 MG/DL (1.5-2.5) Iron Level 248 MCG/DL (50-170) Total Iron Binding Capacity 260 MCG/DL (250-450) Percent Iron Saturation 95.2 % (20-50) Ferritin 60769 NG/ML (8-252) Total Bilirubin 0.8 MG/DL (0.2-1.0) Aspartate Amino Transf 975 U/L (15-37) (AST/SGOT) Alanine Aminotransferase 823 U/L (10-53) (ALT/SGPT) Alkaline Phosphatase 68 U/L (45-117) Lactate Dehydrogenase 1512 U/L (84-246) Total Protein 6.2 GM/DL (6.4-8.2) Albumin 3.4 GM/DL (3.4-5.0) Prothrombin Time 11.4 SEC (9.8-11.6) Prothromb Time International 1.0 RATIO Ratio Activated Partial 28.5 SEC Thromboplast Time (24.3-30.1) Fibrinogen 402 mg/dL (227-377) Blood Type A POSITIVE Direct Antiglobulin Test NEGATIVE (Shanae) (NEGATIVE) Result Diagram: 07/16/1645 07/16/1645 Telemetry: NSR > ST Plan: Assessment and Plan s/p Cardiopulmonary arrest/ PEA - 2/2 to severe anemia - s/p total transfusion 8 units of PRBCs/ 2 PLT, 2 Cryo , - Hematology consult GI consult s/p EGD no active bleeding, on protonix gtt, possible colonoscopy in am - Monitor H&H - Mechanical ventilation/ s/p resp acidosis / pancytopenia - Transfused with 4 units FFP 2 units PLT, 2 Cryo and kcentra / due to high suspicion of an active bleeding Hemolytic anemia - LDH pending - Peripheral blood smear review by pathologist high level of ferritin elevated LFT 2/2 ? shock liver, elevated amylase and lipase / ? acute & chronic pancreatitis Seizure disorder - Tegretol/gabapentin Aortic valve repair mechanical valve, hold ASA for now, will need to start anticoagulation in 2-3 days HX of severe OS/ RA on methotrexate , chronic steroid use , Humira DVT GI prophylaxis - Teds SCDs/ protonix gtt appreciate [facility] assistance Laurie Mascorro Jul 16, 2016 11:41
[2016-07-16] MEDS ORDERED: PROPOFOL 200 MG/20 ML AMP IV ONE (11:48)
--- NOTE | 2016-07-16 12:02 | GIPROC ---
[facility] [address] [facility]. [facility], [address] EGD PROCEDURE REPORT EXAM DATE: 07/16/2016 PATIENT NAME: Jh Portillo MR #: [id number] BIRTHDATE: 1960 ATTENDING: Vega Radford MD ORDER #: [id number] ENVIRONMENTAL PROGRAM MANAGER: Shahriar Pena and Yuli Campos STATUS: inpatient INDICATIONS: The patient is a 55 yr old female here for an EGD due to anemia PROCEDURE PERFORMED: EGD, diagnostic MEDICATIONS: None and Per Anesthesia. TOPICAL ANESTHETIC: none CONSENT: The patient understands the risks and benefits of the procedure and understands that these risks include, but are not limited to: sedation, allergic reaction, infection, perforation and/or bleeding. Alternative means of evaluation and treatment include, among others: physical exam, x-rays, and/or surgical intervention. The patient elects to proceed with this endoscopic procedure. medical equipment was checked for proper function. Hand hygiene and appropriate measures for infection prevention was taken. After the risks, benefits and alternatives of the procedure were thoroughly explained, Informed consent was verified, confirmed and timeout was successfully executed by the treatment team. The patient was anesthetized with topical anesthesia and the Pentax EG-[id number] endoscope was introduced through the mouth and advanced to the second portion of the duodenum. Retroflexed views revealed varices The gastroscope was then slowly withdrawn and removed. ESOPHAGUS: Evidence of NG trauma. STOMACH: There were medium-sized non bleeding gastric varices in the gastric fundus. Nasogastric tube trauma was evident in the entire examined stomach characterized by erythema. DUODENUM: Was evident nasogastric tube trauma, in the 1st part of the duodenum, and 2nd part duodenum characterized by erythema. ADVERSE EVENTS: There were no complications. IMPRESSIONS: 1. Evidence of NG trauma in the esophagus 2. There were medium-sized isloated gastric varices in the gastric fundus, no evidence of active or recent bleeding 3. Nasogastric tube trauma was evident in the entire examined stomach 4. Was evident nasogastric tube trauma, in the 1st part of the duodenum, and 2nd part duodenum 5. No evidence of Active or recent bleeding RECOMMENDATIONS: 1. Continue PPI 2. Abdominal ultrasound as outpatient when more stable. PATIENT CONDITION: stable DISPOSITION: Observation REPEAT EXAM: Return as needed for EGD / EUS after discharge and medical/Cardiac clearance. Vega Radford MD eSigned: Vega Radford MD 07/16/2016 12:01 PM cc: PATIENT NAME: Jh Portillo MR#: [id number]
[2016-07-16] MEDS: PANTOPRAZOLE INJ 80 MG in SODIUM CHLORIDE 0.9% INJ 100 ML IV SCH ×2 (12:56→23:24)
[2016-07-16 13:20] LABS: HEMATOCRIT 28.7 % (35.0-46.0); MEAN CELL VOLUME 83.4 FL (80.0-100.0); MEAN CORPUSCULAR HEMOGLOBIN 29.8 PG (27.0-34.0); MEAN CORPUSCULAR HGB CONC 35.8 % (32.0-36.0); PLATELET COUNT 129 TH/MM3 (150-450); RED BLOOD COUNT 3.44 MIL/MM3 (4.00-5.30); RED CELL DISTRIBUTION WIDTH 15.6 % (11.6-17.2); REVIEW FLAG FINAL; WHITE BLOOD COUNT 7.1 TH/MM3 (4.0-11.0)
[2016-07-16] MEDS ORDERED: PEG (High)/E-LYTE SOLN 4000 ML BTL NG ONE (13:30)
[2016-07-16] MEDS: fentaNYL DRIP 250 ML IV SCH (13:45)
--- NOTE | 2016-07-16 14:45 | ECHLIM ---
Study Study Date:07/16/2016 STUDY CONCLUSIONS SUMMARY - Left ventricle: The cavity size was normal. Wall thickness was increased in a pattern of mild LVH. Systolic function was at the lower limits of normal. The estimated ejection fraction was in the range of 50% to 55%. Although no diagnostic regional wall motion abnormality was identified, this possibility cannot be completely excluded on the basis of this study. - Pericardium, extracardiac: A small pericardial effusion was identified anterior to the heart. There was no evidence of hemodynamic compromise. There was a left pleural effusion. If LV function is below 40, please consider prescribing an ACEI or ARB or document rationale for non-use. PROCEDURE DATA Procedure: Transthoracic echocardiography. Image quality was adequate. The study was technically limited due to poor acoustic window availability. Scanning was performed from the parasternal, apical, and subcostal acoustic windows. Study completion: The patient tolerated the procedure well. Transthoracic echocardiography. M-mode, limited 2D, limited spectral Doppler, and color Doppler. CARDIAC ANATOMY LEFT VENTRICLE: The cavity size was normal. Wall thickness was increased in a pattern of mild LVH. Systolic function was at the lower limits of normal. The estimated ejection fraction was in the range of 50% to 55%. Although no diagnostic regional wall motion abnormality was identified, this possibility cannot be completely excluded on the basis of this study. AORTIC VALVE: Not well visualized. Normal thickness leaflets. Doppler: There was no stenosis. AORTA: Aortic root: The aortic root was poorly visualized and normal in size. MITRAL VALVE: Structurally normal valve. Normal thickness leaflets, . LEFT ATRIUM: The atrium was normal in size. RIGHT VENTRICLE: The cavity size was normal. Wall thickness was normal. PULMONIC VALVE: Not visualized. TRICUSPID VALVE: Structurally normal valve. Normal thickness leaflets. PULMONARY ARTERY: Not visualized. Systolic pressure could not be accurately estimated. RIGHT ATRIUM: The atrium was normal in size. PERICARDIUM: A small pericardial effusion was identified anterior to the heart. There was no evidence of hemodynamic compromise. SYSTEMIC VEINS: Not visualized. Pleura: There was a left pleural effusion. Prepared and signed by Alfredo Zayas [id number]
--- NOTE | 2016-07-16 14:47 | MB ---
cc: VEGA VALVERDE MD DATE OF CONSULTATION 07/16/16 TYPE OF CONSULTATION GI consult. HISTORY OF PRESENT ILLNESS A 55-year-old female patient with history of autoimmune disorder requiring treatment with methotrexate, Humira and prednisolone and history of seizure disorder who underwent uncomplicated minimally invasive AVR that was unremarkable. Later on she developed in the ICU severe hypotension, hypoxia and respiratory arrest requiring intubation. The NG tube revealed some coffee-ground material but no blood coming out from rectally or dark stools during. During the evaluation the patient was found to have hemoglobin of 4 and platelet count of 25, fibrinogen less than 50. Review of that retroperitoneal bleeding was suspected. A CAT scan was done that was negative for intraperitoneal bleeding. In view of her chronic use of steroids and recurrent event of coffee-ground material and anemia an endoscopy was requested and GI consulted for further evaluation. The patient was seen and evaluated, currently in the ICU, intubated. Her NG tube is negative for any active blood at this time and her rectal showed no fresh blood from there. Hemodynamically stable here. PAST MEDICAL HISTORY The past medical history as seen in her initial H&P. She had a history of seizure disorder, asthma, autoimmune disease requiring immunosuppressive medication. PAST SURGICAL HISTORY She had an arthroplasty and she had an AVR yesterday. MEDICATIONS 1. Prednisolone. 2. Ventolin. 3. Methotrexate. 4. Gabapentin. 5. Folic acid. 6. Humira. 7. Carbamazepine. 8. Metoprolol. FAMILY HISTORY Unobtainable at this time. SOCIAL HISTORY Unobtainable but from the chart negative for tobacco, alcohol or drug abuse. REVIEW OF SYSTEMS Unobtainable at the current time while intubated. PHYSICAL EXAMINATION GENERAL: On examination the patient is hemodynamically stable at the current time. Does not appear to be in distress. VITAL SIGNS: Stable vital signs with a temperature of 97, blood pressure of 150/64, respiratory rate of 18, pulse of 152. HEAD/NECK: Examination intubated with in the endotracheal tube in place. No thyromegaly. Pupils equal and reactive to light. Supple neck. CHEST: Clear to auscultation bilaterally with good air entry bilaterally. HEART: Regular rate and rhythm. ABDOMEN:. Soft, nontender. EXTREMITIES: Normal pulses. No edema. NEURO: Difficult to assess while intubated and sedated. LABORATORY DATA Hemoglobin 4.6, hematocrit 13.9 up to 11 and 31.1 after transfusion. White count 5.6, platelet count 144, INR 1 and fibrinogen 402, platelet count 144. ASSESSMENT A 55-year-old female patient who presented with : 1. Coffee-ground vomiting. 2. Severe anemia. 3. Hypertension or hypoxemia. 4. Chronic use of steroid and immunosuppressive medication. 5. CAT scan showing no evidence of retroperitoneal bleeding or any other source of bleeding. 6. One small/medium size bloody BM RECOMMENDATIONS 1. Agree with supportive care. 2. Continue intubation for airway protection at the current time. 3. Will proceed with endoscopic evaluation after obtaining the consent, patient will need chcf anticoagulation. 4. High dose of proton pump inhibitor. 5. Frequent H&H. 6. Correct any coagulopathy. 7. Further recommendations to follow. Thank you for the consult. Vega KWONG /11:34 AM /2:31 PM MTDRichard
[2016-07-16 15:44] LABS: INDIRECT BILIRUBIN 0.4 MG/DL (0.0-0.8); TOTAL BILIRUBIN ADULT 0.6 MG/DL (0.2-1.0)
--- NOTE | 2016-07-16 16:58 | MB ---
cc: MILTON OSORIO DATE OF CONSULTATION 07/16/16 DATE OF 1960. REASON FOR CONSULTATION Patient with severe anemia and thrombocytopenia. HISTORY OF PRESENT ILLNESS This is a 55-year-old female who is acutely ill and is currently in respiratory failure. She recently underwent minimally invasive AVR with a mechanical valve via left percutaneous femoral arterial and venous cannulation. She has a history of autoimmune disorder and is on Humira, and methotrexate and prednisone. She also has a history of seizure disorder. Post AVR replacement, she became acutely ill. She was hypotensive and suffered a respiratory arrest. She was emergently intubated. CPR was given and received epinephrine injections. Spontaneous circulations were achieved after two cycles of CPR. She was hypotensive and was found to have a hemoglobin of four and her platelet count was 25,000. The patient was found to have a fibrinogen of 50. She has undergone a CT scan of the abdomen which did not show any acute intra-abdominal pathology. The patient has been given packed red blood cell transfusion. Additionally, she has been given FFP and cryoprecipitate. A total of four units of packed red blood cells were ordered for transfusion. Two units of platelets were also ordered. She has not had any obvious bleeding. REVIEW OF SYSTEMS Unable to be obtained due to the patient's current clinical status. PAST MEDICAL HISTORY 1. History of aortic insufficiency status post AVR 2. Seizure disorder, 4. Asthma, 5. History of autoimmune disorder. The patient was on methotrexate, prednisone and Humira. PAST SURGICAL HISTORY 1. AVR 2. Arthroplasty of the knee. MEDICATIONS 1. Pantoprazole GTT. 2. Aspirin 81 mg p.o. daily. 3. Tegretol 200 mg p.o. t.i.d. 4. Gabapentin 600 mg p.o. b.i.d. 5. Folic acid 1 mg p.o. daily. 6. Prednisone 2.5 mg p.o. b.i.d. 7. Cephazolin IV q.8 h. 8. DuoNeb q.6 h p.r.n. Currently on 9. Dopamine. 10. Epinephrine 11. Phenylephrine GTT. 12. Tylenol 650 p.o. q. 4 hours. 13. Acetaminophen 60 mg q.4 h p.r.n. 14. Morphine sulfate injection. 15. Percocet 5/325. 16. Zofran 4 mg IV q.6 h p.r.n. ALLERGIES NO KNOWN DRUG ALLERGIES. FAMILY HISTORY AND SOCIAL HISTORY Unable to be obtained. PHYSICAL EXAMINATION VITAL SIGNS: Blood pressure is 123/86, pulse is in the 100s, temperature is 97.7. She is currently on mechanical ventilation. FIO2 of 40. GENERAL: Acutely ill patient who is mechanically ventilated. HEENT: Pupils are equal, round, reactive. EOMI. No oral thrush. ET tube in place. NECK: Supple. No JVD, no bruits. No lymphadenopathy. CHEST: Clear to auscultation bilaterally. CARDIAC: S1-S2. ABDOMEN: Soft, nontender, nondistended. Bowel sounds are present. EXTREMITIES: Without any edema, erythema or cyanosis. SKIN: Without any petechiae, lesion or bruises. NEUROLOGIC: Unable to be assessed. She is currently sedated and ventilated. LYMPH NODE EXAM: No lymphadenopathy on exam. LABORATORY DATA WBC 7.1, hemoglobin is 10.3, platelet count is 129. Serum chemistries show sodium of 148, potassium 3.8, chloride 108, CO2 21.4, anion gap 19, BUN 17, creatinine 1.25, GFR 54. Serum iron is 284, TIBC 260, percent saturation 95.2, ferritin is 13,800, total bilirubin is 0.8, AST is 975, ALT is 823, alk phos is 18, LDH is 1512, total protein 6.2, albumin is 3.4, amylase is 582, lipase is 662, fibrinogen was 50. She received FFP and cryoprecipitate and now fibrinogen is 402. PT is 11.4, INR is one. IMAGING STUDIES CT of the abdomen and pelvis was reviewed. No acute intra-abdominal processes. ASSESSMENT/PLAN This is a 55-year-old female who recently underwent minimally invasive AVR with a mechanical valve, history of seizure disorder, auto immune disorder. She became hypotensive, hypoxic and had respiratory failure in the CV ICU. She has multiorgan failure. I have been consulted to make recommendations regarding her anemia and thrombocytopenia. 1. Acute anemia postoperatively. Her total bilirubin is within normal range. She has multiorgan failure. She has liver failure and kidney failure. She is hypoxemic, septic and hypotensive. All of these causes are contributing to her anemia. She is also postoperative. She does not appear to be hemolyzing, since her total bilirubin is within normal range. We will check haptoglobin. We will also check direct Shanae test. Check CBC every eight hours. Transfuse to keep hemoglobin greater than 7.5. She was on Methotrexate prior to her admission. She has been receiving this for quite sometime by IV means on a weekly basis by her Rn Operating Room. In the setting of multiple issues above, methotrexate can cause severe cytopenias. However, it has been more than a week since she had MTX. It has been more than likely cleared systemically. Nevertheless, check MTX levels. Leucovorin is of limited utility at this time. Will start her on high dose folic acid and B12. 2. Thrombocytopenia secondary to DIC consumption and acute illness. She received platelet transfusion. Her platelet count is now 129,000. Review of the peripheral smear does not show significant schistocytes or RBC fragments. This does not appear to be a microangiopathic process. This is likely DIC. Transfuse platelets to keep platelet count greater than 30,000. 3. DIC. Fibrinogen was low. Check coags and fibrinogen on daily basis. If her fibrinogen is less than 50, give cryoprecipitate to keep fibrinogen greater than 150. 4. Status post minimally invasive AVR with mechanical valve. Hold anticoagulation until we have ruled out any GI bleeding. We should obtain a stool hemoccult. Thank you for allowing me to participate in the care of this patient. We will continue to follow this patient along. MD DAX Emmanuel/ /1:59 PM /4:35 PM [place]
[2016-07-16 19:35] LABS: HEMATOCRIT 27.3 % (35.0-46.0); MEAN CELL VOLUME 81.6 FL (80.0-100.0); MEAN CORPUSCULAR HEMOGLOBIN 29.9 PG (27.0-34.0); PLATELET COUNT 118 TH/MM3 (150-450); RED BLOOD COUNT 3.34 MIL/MM3 (4.00-5.30); RED CELL DISTRIBUTION WIDTH 15.7 % (11.6-17.2); WHITE BLOOD COUNT 7.7 TH/MM3 (4.0-11.0)
[2016-07-16 19:43] LABS: REVIEW FLAG FINAL
[2016-07-16] MEDS ORDERED: FOLIC ACID 1 MG/0.2 ML INJ IM SCH (19:45)
--- NOTE | 2016-07-16 19:47 | RADRPT ---
EXAM DATE/TIME: 07/16/2016 19:23 [place] COMPARISON: No previous studies available for comparison. INDICATIONS : Ascites. MEDICAL HISTORY : Hypertension. Seizures. Aortic stenosis. Blood transfusion. Asthma. SURGICAL HISTORY : Aortic valve replacement. Bilateral knee surgery. ENCOUNTER: Initial ACUITY: 1 day PAIN SCORE: Nonresponsive. LOCATION: Bilateral abdomen. AREA EVALUATED: Abdominal quadrants. FINDINGS: Imaging of the abdomen and pelvis was performed to evaluate for ascites for possible paracentesis. A moderate amount of ascites is seen scattered throughout the abdomen. CONCLUSION: Moderate volume of ascites. Sufficient volume for paracentesis. Norbert Kwong Jr., MD on July 16, 2016 at 19:40 Board Certified Radiologist. This report was verified electronically.
[2016-07-16] MEDS ORDERED: ATROPINE SULFATE 1 MG/10 ML SYRINGE ONE (20:23)
[2016-07-16] MEDS ORDERED: EPINEPHrine HCL (1:10,000) 1 MG/10 ML SYRINGE ONE (20:23)
[2016-07-16] MEDS ORDERED: CYANOCOBALAMIN 1000 MCG/ML VIAL IM SCH (21:00)
[2016-07-16 21:02] LABS: MEAN CORPUSCULAR HGB CONC 36.8 % (32.0-36.0)
--- NOTE | 2016-07-16 22:35 | RADRPT ---
EXAM DATE/TIME: 07/16/2016 21:23 [facility] COMPARISON: No previous studies available for comparison. INDICATIONS : Ascites. MEDICAL HISTORY : Hypertension. Seizures. Aortic stenosis. SURGICAL HISTORY : Bilateral knee arthroscopy. ENCOUNTER: Initial ACUITY: 1 day PAIN SCORE: Non-responsive LOCATION: Left lower quadrant FLUID: Total volume of 2,600 cc of sanguinous fluid was removed. Fluid was sent to lab for ordered studies. Post procedure scanning reveals no hematoma or other complication. TECHNIQUE: 1. Ultrasound guidance for abdominal paracentesis. 2. Paracentesis. The risks, benefits, and alternatives to ultrasound guided paracentesis were explained to the patient in detail including the risk of bleeding and infection. Written and verbal informed consent was obt ained. With the patient on the ultrasound table, ultrasound imaging was used to select the most appropriate approach for paracentesis. Overlying skin was prepped and draped in the usual sterile fashion and wi th a local anesthetic, a dermatotomy was made with an 11 blade scalpel. A 6 Swiss [id number] ca theter was introduced into the peritoneal cavity and fluid was collected. Sanguinous fluid was obtain ed. The patient tolerated the procedure well and left the ultrasound suite in stable condition. CONCLUSION: Uncomplicated ultrasound guided paracentesis. Sanguinous fluid obtained. Sample sent to the lab as re quested. Norbert Kwong Jr., MD on July 16, 2016 at 22:31 Board Certified Radiologist. This report was verified electronically.
[2016-07-16] MEDS ORDERED: FOLIC ACID INJ 1 MG in SYRINGE/BAG 1 EA IM SCH (23:00)
[2016-07-16 23:44] LABS: PERITONEAL LYMPHS 20 %; PERITONEAL MONOS 3 %; PERITONEAL POLYS(SEGS) 74 %; PERITONEAL WBC 1568503 /MM3 (0-10)
[2016-07-16] MEDS ORDERED: VECURONIUM BROMIDE 10 MG VIAL IV PRN (23:45)
[2016-07-17] VITALS (19 sets, daily range): BP systolic 91–176; BP diastolic 64–92; PULSE 87–140; RESP 14–30; TEMP 99.1–101.5; O2SAT 90–100
[2016-07-17 00:31] LABS: BLOOD GAS BASE EXCESS 1.6 mmol/L (-2-2); BLOOD GAS CARBOXYHEMOGLOBIN 1.6 % (0-4); BLOOD GAS HCO3 23 mmol/L (22-26); BLOOD GAS METHEMOGLOBIN 1.4 % (0-2); BLOOD GAS O2 HGB SATURATION 94 % (90-100); BLOOD GAS PCO2 23 mmHg (38-42); BLOOD GAS PO2 79 mmHg (61-120); BLOOD GAS TOTAL HGB 10.5 G/DL (12.0-16.0); TEMP CORR TO 98.6
[2016-07-17 00:34] LABS: CRITICAL VALUE YES; OXYGEN DEVICE VENTILATOR; VENT SETTINGS PC/AC
[2016-07-17 00:35] LABS: DRAW SITE ART LINE; FIO2 40 %; STAT NO
[2016-07-17 00:38] LABS: HEMATOCRIT 29.1 % (35.0-46.0); MEAN CELL VOLUME 82.7 FL (80.0-100.0); MEAN CORPUSCULAR HEMOGLOBIN 29.3 PG (27.0-34.0); MEAN CORPUSCULAR HGB CONC 35.4 % (32.0-36.0); PLATELET COUNT 110 TH/MM3 (150-450); RED BLOOD COUNT 3.52 MIL/MM3 (4.00-5.30); RED CELL DISTRIBUTION WIDTH 15.8 % (11.6-17.2); REVIEW FLAG FINAL; WHITE BLOOD COUNT 8.3 TH/MM3 (4.0-11.0)
[2016-07-17] MEDS ORDERED: PROPOFOL 500 MG/50 ML INJ 50 ML ONE (00:58)
[2016-07-17] MEDS: POTASSIUM CHLOR 20 MEQ PREMIX 100 ML IV PRN ×4 (01:14→20:11)
[2016-07-17] MEDS: ACETAMINOPHEN 325 MG TAB PO PRN (01:15)
[2016-07-17] MEDS ORDERED: Vancomycin Consult Pharmacy 1 EA OTHER SCH (01:30)
[2016-07-17] MEDS ORDERED: VANCOMYCIN INJ 1,000 MG in SODIUM CHLOR 0.9% 250 ML INJ 250 ML IV ONE (01:30)
[2016-07-17] MEDS ORDERED: VANCOMYCIN 1,000 MG/NS 250 ML IV ONE ×2 (02:00)
[2016-07-17] MEDS ORDERED: CEFEPIME 2000 MG/NS 100 ML IV ONE ×2 (02:00)
[2016-07-17] MEDS: fentaNYL DRIP 250 ML IV SCH ×2 (02:27→16:10)
[2016-07-17] MEDS: PROPOFOL 1000 MG/100 ML IV SCH ×4 (02:28→20:11)
[2016-07-17] MEDS: MIDAZOLAM 100 MG/ML INJ 100 ML IV SCH (02:28)
[2016-07-17] MEDS: CALCIUM CHLORIDE INJ 1 GM in SODIUM CHLORIDE 0.9% INJ 100 ML IV PRN ×2 (03:55→16:14)
--- NOTE | 2016-07-17 04:16 | RADRPT ---
EXAM DATE/TIME: 07/17/2016 03:21 [facility] COMPARISON: CHEST SINGLE AP, July 16, 2016, 0:10. INDICATIONS : Shortness of breath, possible pulmonary disease. MEDICAL HISTORY : Seizures SURGICAL HISTORY : Aortic valve replacement ENCOUNTER: Subsequent ACUITY: 2 days PAIN SCORE: Non-responsive. LOCATION: Bilateral chest FINDINGS: Lines and tubes are present not significantly changed with the exception of repositioning of the endo tracheal tube which is now approximated to 3 cm above the tami. There is perivascular pulmonary suzanne ma worse on the left slightly worse. Left lung base consolidation may be present. CONCLUSION: Worsening pulmonary edema. Flaco Rod MD on July 17, 2016 at 4:14 Board Certified Radiologist. This report was verified electronically.
[2016-07-17] MEDS: RESP: ALBUTEROL 2.5 MG/IPRATROPIUM 0.5 MG NEB (SCH) NEB ×3 (04:24→16:07)
[2016-07-17 04:38] LABS: BACTERIA, URINE FEW /hpf; BLOOD, URINE LARGE (NEG); GLUCOSE,URINE NEG (NEG); KETONE, URINE NEG (NEG); MUCUS URINE FEW /lpf (OCC); NITRITE,URINE NEG (NEG); URINE COLOR YELLOW (YELLW/STRAW)
[2016-07-17 04:39] LABS: COMMENT (UR) CATH-CULTURE IND; CULTURE IF INDICATED CATH CULTURE IND
[2016-07-17 06:04] LABS: HEMATOCRIT 27.8 % (35.0-46.0); MEAN CORPUSCULAR HEMOGLOBIN 30.5 PG (27.0-34.0); PLATELET COUNT 109 TH/MM3 (150-450); RED BLOOD COUNT 3.35 MIL/MM3 (4.00-5.30); RED CELL DISTRIBUTION WIDTH 16.4 % (11.6-17.2); WHITE BLOOD COUNT 9.3 TH/MM3 (4.0-11.0)
[2016-07-17 06:16] LABS: REVIEW FLAG FINAL
[2016-07-17 06:19] LABS: ANION GAP 7 MEQ/L (5-15); BICARBONATE 28.1 MEQ/L (21.0-32.0); BLOOD UREA NITROGEN 25 MG/DL (7-18); CHLORIDE 115 MEQ/L (98-107); MAGNESIUM 2.3 MG/DL (1.5-2.5); POTASSIUM 4.1 MEQ/L (3.5-5.1); SODIUM (NA) 150 MEQ/L (136-145)
[2016-07-17 06:37] LABS: ALKALINE PHOSPHATASE 64 U/L (45-117); ALT (GPT) 1943 U/L (10-53); AST (GOT) 4237 U/L (15-37); TOTAL BILIRUBIN ADULT 0.5 MG/DL (0.2-1.0)
[2016-07-17 07:39] LABS: BLOOD GAS BASE EXCESS 0.6 mmol/L (-2-2); BLOOD GAS CARBOXYHEMOGLOBIN 1.4 % (0-4); BLOOD GAS HCO3 24 mmol/L (22-26); BLOOD GAS METHEMOGLOBIN 1.5 % (0-2); BLOOD GAS O2 HGB SATURATION 95 % (90-100); BLOOD GAS OXYGEN CONTENT 14.2 Vol % (12.0-20.0); BLOOD GAS PCO2 37 mmHg (38-42); BLOOD GAS PO2 97 mmHg (61-120); BLOOD GAS TOTAL HGB 10.6 G/DL (12.0-16.0); TEMP CORR TO 98.6
[2016-07-17 07:40] LABS: CRITICAL VALUE NO; DRAW SITE ART LINE; FIO2 40 %; OXYGEN DEVICE VENTILATOR; STAT NO; VENT SETTINGS PRVC/AC
[2016-07-17] MEDS: PANTOPRAZOLE INJ 80 MG in SODIUM CHLORIDE 0.9% INJ 100 ML IV SCH ×2 (07:44→17:07)
--- NOTE | 2016-07-17 07:57 | PD.CAR.PN ---
CVT Progress Note Subjective/Hospital Course: 55/ female, admitted for elective AVR , hx of mod to severe aortic insufficiency EF 55% PMH : osteoarthritis , RA followed by Dr Pacheco on chronic steroid use, Humira , methotrexate , seizure Dz , asthma surgery: 07/15 Minimally Invasive AVR with a 19 mm OnX Mechanical Valve, Left Percutaneous Femoral Arterial and Venous Cannulation for CPB, Intercostal Nerve Block, Perclose Arterial Closure x 2 per CCM note , pt became severely hypotensive hypoxemic and suffered with respiratory arrest. She was emergently re- intubated and regain spontaneous circulations after 2 cycles of CPR and epinephrine injections. She was found to be hypotensive and severely anemic with hemoglobin level 4, platelet count of 25, fibrinogen less than 50. She was thought to be bleeding retroperitoneally and was taken emergently to CAT scan angiogram. However no source of bleeding was found on the CT. She had some coffee ground drainage in NG + bloody stool x one , recieved 8units PRBC,/ 4 FFP, 2 PLT, 2 cryo and Kcentra. 07/16/16 pt remains intubated on vent , will open eyes and respond to simple commands, moves all extremities underwent bedside EGD today , NG trauma in esophagus , gastric varicies gastric fundus, with no evidence of active or recent bleeding elevated LFT's ? shock liver, however elevated amylase and lipase ? acute pancreatitis / elevated ferritin levels ( hemochromatosis ) chest tube drainage 320/12 hrs / on versed and fentanyl for sedation CCM following 07/17 Clinically stable s/p large volume paracentesis of bloody fluid last pm (2.6 L). Hgb stable stable on ventilator. May benefit from gently diuresis Greatly appreciate all the consultants input Planned colonoscopy today Continue CT to drainage Objective: Vital Signs Date Time Temp Pulse Resp B/P Pulse Ox O2 Delivery O2 Flow Rate FiO2 07/17/16 07:52 100 Mechanical Ventilator 40 07/17/16 07:52 40 07/17/16 07:26 14 07/17/16 04:24 96 40 07/17/16 04:00 99.4 105 14 109/69 97 116/68 07/17/16 04:00 104 07/17/16 04:00 97 Mechanical Ventilator 40 07/17/16 04:00 40 07/17/16 01:12 95 40 07/17/16 00:00 120 07/17/16 00:00 40 07/17/16 00:00 101.5 120 14 157/92 99 176/82 07/17/16 00:00 99 Mechanical Ventilator 40 07/16/16 22:30 97 40 07/16/16 21:23 95 100 07/16/16 20:15 98 40 07/16/16 20:00 102 07/16/16 20:00 40 07/16/16 20:00 99.4 102 21 112/64 97 116/78 07/16/16 20:00 97 Mechanical Ventilator 40 07/16/16 16:10 98 40 07/16/16 15:00 99 Mechanical Ventilator 40 07/16/16 15:00 103 07/16/16 15:00 40 07/16/16 15:00 99.3 103 18 125/85 99 124/78 07/16/16 14:18 99 40 07/16/16 11:00 97.7 105 18 123/86 99 117/74 Arterial Line 07/16/16 11:00 99 Mechanical Ventilator 40 07/16/16 11:00 40 07/16/16 11:00 105 07/16/16 08:30 97.1 106 18 113/88 99 129/82 Arterial Line Labs: Laboratory Tests Test 07/16/16 07/17/16 07/17/16 07/17/16 21:51 00:15 04:10 05:45 Peritoneal Fluid WBC 4179236 /MM3 (0-10) Peritoneal Fluid RBC 38824 /MM3 (0-0) Peritoneal Fluid Neutrophils 74 % Peritoneal Fluid Lymphocytes 20 % Peritoneal Fluid Monocytes 3 % Peritoneal Fluid Comment White Blood Count 8.3 TH/MM3 9.3 TH/MM3 (4.0-11.0) (4.0-11.0) Red Blood Count 3.52 MIL/MM3 3.35 MIL/MM3 (4.00-5.30) (4.00-5.30) Hemoglobin 10.3 GM/DL 10.2 GM/DL (11.6-15.3) (11.6-15.3) Hematocrit 29.1 % 27.8 % (35.0-46.0) (35.0-46.0) Mean Corpuscular Volume 82.7 FL 83.0 FL (80.0-100.0) (80.0-100.0) Mean Corpuscular Hemoglobin 29.3 PG 30.5 PG (27.0-34.0) (27.0-34.0) Mean Corpuscular Hemoglobin 35.4 % 36.8 % Concent (32.0-36.0) (32.0-36.0) Red Cell Distribution Width 15.8 % 16.4 % (11.6-17.2) (11.6-17.2) Platelet Count 110 TH/MM3 109 TH/MM3 (150-450) (150-450) Mean Platelet Volume 7.8 FL 7.7 FL (7.0-11.0) (7.0-11.0) Blood Gas Puncture Site ART LINE Blood Gas Patient Temperature 98.6 Blood Gas HCO3 23 mmol/L (22-26) Blood Gas Base Excess 1.6 mmol/L (-2-2) Blood Gas Oxygen Saturation 94 % (90-100) Arterial Blood pH 7.62 (7.380-7.420) Arterial Blood Partial 23 mmHg (38-42) Pressure CO2 Arterial Blood Partial 79 mmHg Pressure O2 (61-120) Arterial Blood Oxygen Content 14.0 Vol % (12.0-20.0) Arterial Blood 1.6 % (0-4) Carboxyhemoglobin Arterial Blood Methemoglobin 1.4 % (0-2) Blood Gas Hemoglobin 10.5 G/DL (12.0-16.0) Oxygen Delivery Device VENTILATOR Blood Gas Ventilator Setting PC/AC Blood Gas Inspired Oxygen 40 % Carbamazepine (Tegretol) Level 5.9 MCG/ML (4.0-12.0) Urine Color YELLOW (YELLW/STRAW) Urine Turbidity HAZY (CLEAR) Urine pH 7.0 (5.0-8.5) Urine Specific [place] 1.031 (1.002-1.035) Urine Protein 100 mg/dL (NEG-TRACE) Urine Glucose (UA) NEG mg/dL (NEG) Urine Ketones NEG mg/dL (NEG) Urine Occult Blood LARGE (NEG) Urine Nitrite NEG (NEG) Urine Bilirubin NEG (NEG) Urine Urobilinogen LESS THAN 2.0 MG/DL (LESS THAN 2.0) Urine Leukocyte Esterase NEG (NEG) Urine RBC 4 /hpf (0-3) Urine WBC 4 /hpf (0-5) Urine Amorphous Sediment MOD Urine Bacteria FEW /hpf (NONE) Urine Mucus FEW /lpf (OCC) Microscopic Urinalysis Comment CATH-CULTURE IND Sodium Level 150 MEQ/L (136-145) Potassium Level 4.1 MEQ/L (3.5-5.1) Chloride Level 115 MEQ/L (98-107) Carbon Dioxide Level 28.1 MEQ/L (21.0-32.0) Anion Gap 7 MEQ/L (5-15) Blood Urea Nitrogen 25 MG/DL (7-18) Creatinine 1.21 MG/DL (0.50-1.00) Random Glucose 114 MG/DL (74-106) Calcium Level 7.9 MG/DL (8.5-10.1) Phosphorus Level 2.9 MG/DL (2.5-4.9) Magnesium Level 2.3 MG/DL (1.5-2.5) Total Bilirubin 0.5 MG/DL (0.2-1.0) Aspartate Amino Transf 4237 U/L (AST/SGOT) (15-37) Alanine Aminotransferase 1943 U/L (ALT/SGPT) (10-53) Alkaline Phosphatase 64 U/L (45-117) Total Protein 4.8 GM/DL (6.4-8.2) Albumin 2.4 GM/DL (3.4-5.0) Test 07/17/16 06:00 Blood Gas Puncture Site ART LINE Blood Gas Patient Temperature 98.6 Blood Gas HCO3 24 mmol/L (22-26) Blood Gas Base Excess 0.6 mmol/L (-2-2) Blood Gas Oxygen Saturation 95 % (90-100) Arterial Blood pH 7.43 (7.380-7.420) Arterial Blood Partial 37 mmHg (38-42) Pressure CO2 Arterial Blood Partial 97 mmHg Pressure O2 (61-120) Arterial Blood Oxygen Content 14.2 Vol % (12.0-20.0) Arterial Blood 1.4 % (0-4) Carboxyhemoglobin Arterial Blood Methemoglobin 1.5 % (0-2) Blood Gas Hemoglobin 10.6 G/DL (12.0-16.0) Oxygen Delivery Device VENTILATOR Blood Gas Ventilator Setting PRVC/AC Blood Gas Inspired Oxygen 40 % Result Diagram: 07/17/16 0545 07/17/16 0545 Rufus Christianson MD Jul 17, 2016 07:57
[2016-07-17] MEDS: SODIUM CHLORIDE 0.9% FLUSH 10 ML FLUSH IV FLUSH SCH ×2 (08:42→21:22)
[2016-07-17] MEDS: FOLIC ACID 1 MG TAB PO SCH (08:43)
[2016-07-17] MEDS: DOBUTamine PREMIX DRIP 250 ML IV SCH (08:43)
[2016-07-17] MEDS: predniSONE 5 MG TAB PO SCH ×2 (08:43→21:23)
[2016-07-17] MEDS: carBAMazepine 200 MG TAB PO SCH ×3 (08:43→17:46)
[2016-07-17] MEDS: GABAPENTIN 300 MG CAP PO SCH ×2 (08:43→21:23)
[2016-07-17 09:05] LABS: APTT (PATIENT) 28.2 SEC (24.3-30.1); INTERNATIONAL NORMALIZED RATIO 1.1 RATIO; PROTHROMBIN TIME - PATIENT 12.5 SEC (9.8-11.6)
[2016-07-17] MEDS: CEFEPIME INJ 2,000 MG in SODIUM CHLORIDE 0.9% INJ 100 ML IV SCH ×2 (10:03→17:47)
[2016-07-17] MEDS ORDERED: NOREPINEPHRINE 4 MG/D5W 250 ML IV SCH (10:30)
--- NOTE | 2016-07-17 11:42 | HHI.GIFU ---
Subjective Remarks Still without BM after bowel prep, hemodynamically stable and still intubated. Objective Vitals I&O Vital Signs Date Time Temp Pulse Resp B/P Pulse Ox O2 Delivery O2 Flow Rate FiO2 07/17/16 11:05 40 07/17/16 11:05 99 Mechanical Ventilator 40 07/17/16 11:04 117 07/17/16 11:03 99.5 112 14 91/65 99 131/75 07/17/16 09:47 93 40 07/17/16 08:18 87 07/17/16 08:17 99.1 87 14 131/74 100 136/81 07/17/16 07:52 100 Mechanical Ventilator 40 07/17/16 07:52 40 07/17/16 07:26 14 07/17/16 04:24 96 40 07/17/16 04:00 99.4 105 14 109/69 97 116/68 07/17/16 04:00 104 07/17/16 04:00 97 Mechanical Ventilator 40 07/17/16 04:00 40 07/17/16 01:12 95 40 07/17/16 00:00 120 07/17/16 00:00 40 07/17/16 00:00 101.5 120 14 157/92 99 176/82 07/17/16 00:00 99 Mechanical Ventilator 40 07/16/16 22:30 97 40 07/16/16 21:23 95 100 07/16/16 20:15 98 40 07/16/16 20:00 102 07/16/16 20:00 40 07/16/16 20:00 99.4 102 21 112/64 97 116/78 07/16/16 20:00 97 Mechanical Ventilator 40 07/16/16 16:10 98 40 07/16/16 15:00 99 Mechanical Ventilator 40 07/16/16 15:00 103 07/16/16 15:00 40 07/16/16 15:00 99.3 103 18 125/85 99 124/78 07/16/16 14:18 99 40 I/O 07/16/16 07/16/16 07/16/16 07/17/16 07/17/16 07/17/16 07:00 15:00 23:00 07:00 15:00 23:00 Intake Total 4177 ml 1463 ml 3817 ml Output Total 1145 ml 835 ml 3960 ml Balance 3032 ml 628 ml -143 ml Intake Oral 0 ml 0 ml IV Total 829 ml 1343 ml 2370 ml Tube Feeding 1447 ml Packed Cells 1250 ml FFP 1065 ml Platelets 548 ml Cryoprecipitate 485 ml Other 120 ml Output Urine Total 675 ml 705 ml 770 ml Stool Total 0 ml Gastric Drainage Total 150 ml 450 ml Chest Tube Drainage Total 320 ml 130 ml 140 ml Drainage Total 2600 ml # Bowel Movements 1 0 0 Laboratory Laboratory Tests Test 07/16/16 07/16/16 07/16/16 07/16/16 12:40 14:40 19:00 21:51 White Blood Count 7.1 7.7 Red Blood Count 3.44 3.34 Hemoglobin 10.3 10.0 Hematocrit 28.7 27.3 Mean Corpuscular Volume 83.4 81.6 Mean Corpuscular Hemoglobin 29.8 29.9 Mean Corpuscular Hemoglobin 35.8 36.7 Concent Red Cell Distribution Width 15.6 15.7 Platelet Count 129 118 Mean Platelet Volume 7.7 7.9 Haptoglobin 48 Total Bilirubin 0.6 Direct Bilirubin 0.2 Indirect Bilirubin 0.4 Peritoneal Fluid WBC 1363326 Peritoneal Fluid RBC 47767 Peritoneal Fluid Neutrophils 74 Peritoneal Fluid Lymphocytes 20 Peritoneal Fluid Monocytes 3 Peritoneal Fluid Comment Test 07/17/16 07/17/16 07/17/16 07/17/16 00:15 04:10 05:45 06:00 White Blood Count 8.3 9.3 Red Blood Count 3.52 3.35 Hemoglobin 10.3 10.2 Hematocrit 29.1 27.8 Mean Corpuscular Volume 82.7 83.0 Mean Corpuscular Hemoglobin 29.3 30.5 Mean Corpuscular Hemoglobin 35.4 36.8 Concent Red Cell Distribution Width 15.8 16.4 Platelet Count 110 109 Mean Platelet Volume 7.8 7.7 Blood Gas Puncture Site ART LINE ART LINE Blood Gas Patient Temperature 98.6 98.6 Blood Gas HCO3 23 24 Blood Gas Base Excess 1.6 0.6 Blood Gas Oxygen Saturation 94 95 Arterial Blood pH 7.62 7.43 Arterial Blood Partial 23 37 Pressure CO2 Arterial Blood Partial 79 97 Pressure O2 Arterial Blood Oxygen Content 14.0 14.2 Arterial Blood 1.6 1.4 Carboxyhemoglobin Arterial Blood Methemoglobin 1.4 1.5 Blood Gas Hemoglobin 10.5 10.6 Oxygen Delivery Device VENTILATOR VENTILATOR Blood Gas Ventilator Setting PC/AC PRVC/AC Blood Gas Inspired Oxygen 40 40 Methotrexate Level 0.00 Carbamazepine (Tegretol) Level 5.9 Urine Color YELLOW Urine Turbidity HAZY Urine pH 7.0 Urine Specific [place] 1.031 Urine Protein 100 Urine Glucose (UA) NEG Urine Ketones NEG Urine Occult Blood LARGE Urine Nitrite NEG Urine Bilirubin NEG Urine Urobilinogen LESS THAN 2.0 Urine Leukocyte Esterase NEG Urine RBC 4 Urine WBC 4 Urine Amorphous Sediment MOD Urine Bacteria FEW Urine Mucus FEW Microscopic Urinalysis Comment CATH-CULTURE IND Sodium Level 150 Potassium Level 4.1 Chloride Level 115 Carbon Dioxide Level 28.1 Anion Gap 7 Blood Urea Nitrogen 25 Creatinine 1.21 Random Glucose 114 Calcium Level 7.9 Phosphorus Level 2.9 Magnesium Level 2.3 Total Bilirubin 0.5 Aspartate Amino Transf 4237 (AST/SGOT) Alanine Aminotransferase 1943 (ALT/SGPT) Alkaline Phosphatase 64 Total Protein 4.8 Albumin 2.4 Test 07/17/16 08:00 Prothrombin Time 12.5 Prothromb Time International 1.1 Ratio Activated Partial 28.2 Thromboplast Time Fibrinogen 470 Date/Time Procedure Status Source Growth 07/17/16 05:45 Aerobic Blood Culture Received Blood Peripheral Pending 07/17/16 05:45 Anaerobic Blood Culture Received Blood Peripheral Pending 07/17/16 04:10 Urine Culture Received Urine Catheterized Urine Pending 07/17/16 04:10 Gram Stain - Final Resulted Sputum Endotracheal 07/17/16 04:10 Sputum Culture Resulted Sputum Endotracheal Pending 07/15/16 11:56 Fungal Smear - Final Resulted Wound Other NO FUNGAL ELEMENTS SEEN. 07/15/16 11:56 Fungal Culture Resulted Wound Other Pending 07/15/16 11:56 Acid Fast Stain - Final Resulted Wound Other NO ACID FAST BACILLI SEEN 07/15/16 11:56 Mycobacterial Culture Resulted Wound Other Pending 07/15/16 11:56 Cancelled Other Physical Exam HEENT: Intubated and NG in place CHEST: Chest is clear to auscultation and percussion. CARDIAC: Regular rate and rhythm with no murmur gallop or rubs. ABDOMEN: Distended and no tenderness EXTREMITIES: No clubbing, cyanosis, or edema. SKIN: Normal; no rash; no jaundice. 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 - Will hold on colonoscopy for now (no BM's despite bowel prep), unstable at the current time - Proton pump inhibitor. - Frequent H&H. - Correct any coagulopathy. - Further recommendations to follow. Vega Radford MD Jul 17, 2016 11:42
[2016-07-17] MEDS: VANCOMYCIN INJ 1,600 MG in SODIUM CHLORID 0.9% 500 ML INJ 500 ML IV SCH (12:10)
--- NOTE | 2016-07-17 13:46 | HHI.CCPN ---
Subjective Remarks/Hospital Course 07/16: 55-year-old female with history of seizure disorder, some autoimmune disorder on Humira methotrexate and prednisone, history of asthma underwent uncomplicated minimally Invasive AVR with a 19 mm OnX Mechanical Valve via left percutaneous femoral arterial and venous cannulation for CPB. While in the CVICU she became severely hypotensive hypoxemic and suffered with respiratory arrest. She was emergently intubated and regain spontaneous circulations after 2 cycles of CPR and epinephrine injections. She was found to be hypotensive and severely anemic with hemoglobin level 4, platelet count of 25, fibrinogen less than 50. She was thought to be bleeding retroperitoneally and was taken emergently to CAT scan angiogram. However no source of bleeding was found on the CT. patient did have significant amount of ascites noted on CAT scan. She underwent an EGD which revealed a gastric varix and an esophageal ulcer however no active bleeding. She subsequently underwent paracentesis with drainage of 2.6 L of dark blood from peritoneal cavity which was most definitely the source of her blood loss. 07/17: Remains sedated, orally intubated on mechanical ventilation. Patient spiked a temperature last night and was initiated on empiric antibiotic coverage at [facility] and [facility] after obtaining cultures. Being prepped for colonoscopy however has not had any BMs. Discussed with Dr. Radford from GI who was okay with proceeding with extubation at this point. Objective Vital Signs Date Time Temp Pulse Resp B/P Pulse Ox O2 Delivery O2 Flow Rate FiO2 07/17/16 11:05 40 07/17/16 11:05 99 Mechanical Ventilator 07/17/16 11:04 117 07/17/16 11:03 99.5 14 91/65 131/75 07/15/16 23:00 15.00 Intake and Output 07/16/16 07/16/16 07/17/16 08:00 16:00 00:00 Intake Total 4177 ml 1463 ml Output Total 1145 ml 835 ml Balance 3032 ml 628 ml Result Diagram: 07/17/16 0545 07/17/16 0545 Other Results Laboratory Tests Test 07/16/16 07/16/16 07/16/16 07/17/16 14:40 19:00 21:51 00:15 Haptoglobin 48 MG/DL Total Bilirubin 0.6 MG/DL Direct Bilirubin 0.2 MG/DL Indirect Bilirubin 0.4 MG/DL White Blood Count 7.7 TH/MM3 8.3 TH/MM3 Red Blood Count 3.34 MIL/MM3 3.52 MIL/MM3 Hemoglobin 10.0 GM/DL 10.3 GM/DL Hematocrit 27.3 % 29.1 % Mean Corpuscular Volume 81.6 FL 82.7 FL Mean Corpuscular Hemoglobin 29.9 PG 29.3 PG Mean Corpuscular Hemoglobin 36.7 % 35.4 % Concent Red Cell Distribution Width 15.7 % 15.8 % Platelet Count 118 TH/MM3 110 TH/MM3 Mean Platelet Volume 7.9 FL 7.8 FL Peritoneal Fluid WBC 1697740 /MM3 Peritoneal Fluid RBC 80811 /MM3 Peritoneal Fluid Neutrophils 74 % Peritoneal Fluid Lymphocytes 20 % Peritoneal Fluid Monocytes 3 % Peritoneal Fluid Comment Blood Gas Puncture Site ART LINE Blood Gas Patient Temperature 98.6 Blood Gas HCO3 23 mmol/L Blood Gas Base Excess 1.6 mmol/L Blood Gas Oxygen Saturation 94 % Arterial Blood pH 7.62 Arterial Blood Partial 23 mmHg Pressure CO2 Arterial Blood Partial 79 mmHg Pressure O2 Arterial Blood Oxygen Content 14.0 Vol % Arterial Blood 1.6 % Carboxyhemoglobin Arterial Blood Methemoglobin 1.4 % Blood Gas Hemoglobin 10.5 G/DL Oxygen Delivery Device VENTILATOR Blood Gas Ventilator Setting PC/AC Blood Gas Inspired Oxygen 40 % Methotrexate Level 0.00 COMMENT Carbamazepine (Tegretol) Level 5.9 MCG/ML Test 07/17/16 07/17/16 07/17/16 07/17/16 04:10 05:45 06:00 08:00 Urine Color YELLOW Urine Turbidity HAZY Urine pH 7.0 Urine Specific [place] 1.031 Urine Protein 100 mg/dL Urine Glucose (UA) NEG mg/dL Urine Ketones NEG mg/dL Urine Occult Blood LARGE Urine Nitrite NEG Urine Bilirubin NEG Urine Urobilinogen LESS THAN 2.0 MG/DL Urine Leukocyte Esterase NEG Urine RBC 4 /hpf Urine WBC 4 /hpf Urine Amorphous Sediment MOD Urine Bacteria FEW /hpf Urine Mucus FEW /lpf Microscopic Urinalysis Comment CATH-CULTURE IND White Blood Count 9.3 TH/MM3 Red Blood Count 3.35 MIL/MM3 Hemoglobin 10.2 GM/DL Hematocrit 27.8 % Mean Corpuscular Volume 83.0 FL Mean Corpuscular Hemoglobin 30.5 PG Mean Corpuscular Hemoglobin 36.8 % Concent Red Cell Distribution Width 16.4 % Platelet Count 109 TH/MM3 Mean Platelet Volume 7.7 FL Sodium Level 150 MEQ/L Potassium Level 4.1 MEQ/L Chloride Level 115 MEQ/L Carbon Dioxide Level 28.1 MEQ/L Anion Gap 7 MEQ/L Blood Urea Nitrogen 25 MG/DL Creatinine 1.21 MG/DL Random Glucose 114 MG/DL Calcium Level 7.9 MG/DL Phosphorus Level 2.9 MG/DL Magnesium Level 2.3 MG/DL Total Bilirubin 0.5 MG/DL Aspartate Amino Transf 4237 U/L (AST/SGOT) Alanine Aminotransferase 1943 U/L (ALT/SGPT) Alkaline Phosphatase 64 U/L Total Protein 4.8 GM/DL Albumin 2.4 GM/DL Blood Gas Puncture Site ART LINE Blood Gas Patient Temperature 98.6 Blood Gas HCO3 24 mmol/L Blood Gas Base Excess 0.6 mmol/L Blood Gas Oxygen Saturation 95 % Arterial Blood pH 7.43 Arterial Blood Partial 37 mmHg Pressure CO2 Arterial Blood Partial 97 mmHg Pressure O2 Arterial Blood Oxygen Content 14.2 Vol % Arterial Blood 1.4 % Carboxyhemoglobin Arterial Blood Methemoglobin 1.5 % Blood Gas Hemoglobin 10.6 G/DL Oxygen Delivery Device VENTILATOR Blood Gas Ventilator Setting PRVC/AC Blood Gas Inspired Oxygen 40 % Prothrombin Time 12.5 SEC Prothromb Time International 1.1 RATIO Ratio Activated Partial 28.2 SEC Thromboplast Time Fibrinogen 470 mg/dL Imaging Last Impressions Chest X-Ray 07/17/16 0000 Signed Impressions: Service Date/Time: Sunday, July 17, 2016 03:21 - CONCLUSION: Worsening pulmonary edema. Flaco Rod MD Cyst Biopsy Asp-Paracentesis US 07/16/16 0000 Signed Impressions: Service Date/Time: Saturday, July 16, 2016 21:23 - CONCLUSION: Uncomplicated ultrasound guided paracentesis. Sanguinous fluid obtained. Sample sent to the lab as requested. Norbert Kwong Jr., MD Abdomen/Pelvis CT 07/16/16 0000 Signed Impressions: Service Date/Time: Saturday, July 16, 2016 02:04 - CONCLUSION: 1. Ascites 2. No evidence of retroperitoneal hematoma 3. Bibasilar atelectasis and left pleural effusion Inder Wilson MD Abdomen Ultrasound 07/16/16 0000 Signed Impressions: Service Date/Time: Saturday, July 16, 2016 19:23 - CONCLUSION: Moderate volume of ascites. Sufficient volume for paracentesis. Norbert Kwong Jr., MD Objective Remarks HEENT/ Neuro: Sedated, orally intubated, Pallor present, no icterus, tongue/ mucosa moist Neck: No JVD Chest/Pulm: on mech vent, good air entry bilaterally, no wheezing or crackles CVS: S1-S2 regular, no murmur GI/abdomen: soft, nontender, bowel sounds sluggish Extremities: warm bilaterally, no edema Urinary Catheter: Yes Assessment to: Continue Vascular Central Line Catheter: Yes Assessment to: Continue A/P Assessment and Plan Cardiopulmonary arrest - Due to severe anemia secondary to hemoperitoneum possibly related to ectopic varix. - Transfused 4 units of PRBCs/ 4 FFP, 2 PLT, 2 cryo and Kcentra - Status post paracentesis with removal of 2.6 L of bloody peritoneal fluid on . - Hematology consulted. Repeat coags normalized. - Monitor CBC Acute respiratory failure on mechanical ventilation - On Mechanical ventilation. Vent bundle, bronchodilators as needed. CPap trials to decide extubation. - Daily IV fluids, diurese with Lasix. Coffee-ground NG aspirate/bloody bowel movement -Status post EGD which revealed gastric varix and esophageal ulcer which was felt to be secondary to OG tube. Being prepped for colonoscopy however has not had any bowel movement. Dr. Radford from GI following. Discussed with Dr. Radford who will decide further imaging to evaluate for ectopic varix. Elevated LFTs - Secondary to shock liver from hypotension secondary to cardiac arrest. Seizure disorder - Tegretol/gabapentin Aortic valve repair - Management per cardiothoracic surgery -Received 4 units of PRBCs Intra-Op. -Will eventually require anticoagulation once cleared by GI Fever: - SIRS secondary to hemoperitoneum versus sepsis. Cultures obtained. Empiric antibiotics initiated including VAC/Zosyn. DVT GI prophylaxis - Teds SCDs - Omeprazole Critical Care: The total critical care time was 45 minutes. Time to perform other separately billable procedures was not included in the critical care time. Cm Curtis MD Jul 17, 2016 13:46
[2016-07-17] MEDS: METOPROLOL TARTRATE 5 MG/5 ML VIAL IV PUSH PRN (14:31)
--- NOTE | 2016-07-17 15:28 | EKG ---
Date Performed: 07/16/2016 Time Performed: 05:29:24 PTAGE: 55 years EKG: Sinus tachycardia Possible inferior infarct - age undetermined Abnormal ECG Since PREVIOUS TRACING 07/01/2016, T waves inferiorly are new and the QRS voltage has generall y diminished. PREVIOUS TRACIN07/01/2016 07.25 DOCTOR: Igor Meza Interpretating Date/Time 07/17/2016 15:27:50
[2016-07-17] MEDS: CYANOCOBALAMIN 1000 MCG/ML VIAL SQ SCH (15:59)
[2016-07-17] MEDS ORDERED: FUROSEMIDE 20 MG/2 ML VIAL IV PUSH STA (19:27)
[2016-07-18] VITALS (20 sets, daily range): BP systolic 91–131; BP diastolic 54–70; PULSE 84–130; RESP 14–16; TEMP 94.4–101.3; O2SAT 94–99
[2016-07-18] MEDS: POTASSIUM CHLOR 20 MEQ PREMIX 100 ML IV PRN ×4 (00:41→17:56)
[2016-07-18] MEDS: PROPOFOL 1000 MG/100 ML IV SCH ×4 (00:42→22:38)
[2016-07-18] MEDS: CEFEPIME INJ 2,000 MG in SODIUM CHLORIDE 0.9% INJ 100 ML IV SCH ×3 (02:16→17:44)
[2016-07-18] MEDS: RESP: ALBUTEROL 2.5 MG/IPRATROPIUM 0.5 MG NEB (SCH) NEB ×4 (03:29→20:42)
--- NOTE | 2016-07-18 04:32 | RADRPT ---
EXAM DATE/TIME: 07/18/2016 03:55 [facility] COMPARISON: CHEST SINGLE AP, July 17, 2016, 3:21. INDICATIONS : Shortness of breath, possible pulmonary disease. MEDICAL HISTORY : Seizures SURGICAL HISTORY : Aortic valve replacement ENCOUNTER: Subsequent ACUITY: 3 days PAIN SCORE: Non-responsive. LOCATION: Bilateral chest FINDINGS: Lines and tubes are present not significantly changed. No definite pneumothorax is seen for technique . There is slight worsening bilateral mixed interstitial and alveolar process. Heart and mediastinum are unremarkable for technique. CONCLUSION: Slight worsening bilateral mixed interstitial and alveolar process. Flaco Rod MD on July 18, 2016 at 4:30 Board Certified Radiologist. This report was verified electronically.
[2016-07-18 04:43] LABS: AUTOMATED NEUTROPHIL # 8.5 TH/MM3 (1.8-7.7); BASOPHIL % 0.4 % (0.0-2.0); EOSINOPHIL # 0.2 TH/MM3 (0-0.4); EOSINOPHIL % 2.1 % (0.0-4.0); HEMATOCRIT 29.4 % (35.0-46.0); LYMPH % 10.9 % (9.0-44.0); LYMPHOCYTE # 1.1 TH/MM3 (1.0-4.8); MEAN CELL VOLUME 84.4 FL (80.0-100.0); MEAN CORPUSCULAR HEMOGLOBIN 30.1 PG (27.0-34.0); MEAN CORPUSCULAR HGB CONC 35.6 % (32.0-36.0); MONO % 5.3 % (0.0-8.0); NEUT % 81.3 % (16.0-70.0); PLATELET COUNT 90 TH/MM3 (150-450); RED BLOOD COUNT 3.48 MIL/MM3 (4.00-5.30); RED CELL DISTRIBUTION WIDTH 16.4 % (11.6-17.2); WHITE BLOOD COUNT 10.5 TH/MM3 (4.0-11.0)
[2016-07-18 04:46] LABS: HEMO FLAGS AUTO DIFF
[2016-07-18] MEDS: fentaNYL DRIP 250 ML IV SCH ×2 (04:53→16:18)
[2016-07-18] MEDS: PANTOPRAZOLE INJ 80 MG in SODIUM CHLORIDE 0.9% INJ 100 ML IV SCH ×2 (04:53→13:02)
[2016-07-18 05:09] LABS: ANION GAP 5 MEQ/L (5-15); BICARBONATE 27.7 MEQ/L (21.0-32.0); BLOOD UREA NITROGEN 18 MG/DL (7-18); CHLORIDE 112 MEQ/L (98-107); GLOMERULAR FILTRATION RATE 70 ML/MIN (>89); MAGNESIUM 2.1 MG/DL (1.5-2.5); POTASSIUM 4.2 MEQ/L (3.5-5.1); SODIUM (NA) 145 MEQ/L (136-145)
[2016-07-18 05:16] LABS: BANDS 21 % (0-6); CORRECTED NUCLEATED RBC 3 /100 WBC (0-0); EOSINOPHILS 1 % (0-4); MYELOCYTES 1 % (0-0); NEUTROPHIL # MANUAL DIFF 9.5 TH/MM3 (1.8-7.7); POLYS (SEG NEUTROPHILS) 68 % (16-70); WBC DIFF SAMPLE 100
[2016-07-18 05:17] LABS: DOHLE BODIES PRESENT (NONE SEEN); OVALOCYTES 1+ (NORMAL); PLATELET ESTIMATE SMEAR LOW (NORMAL); PLATELET MORPHOLOGY NORMAL (NORMAL); SCAN/DIFF FINAL DIFF MANUAL; TEARDROP RBCS 1+ (NORMAL)
[2016-07-18] MEDS: VANCOMYCIN INJ 1,600 MG in SODIUM CHLORID 0.9% 500 ML INJ 500 ML IV SCH (05:20)
[2016-07-18 05:31] LABS: BLOOD GAS BASE EXCESS -0.3 mmol/L (-2-2); BLOOD GAS CARBOXYHEMOGLOBIN 1.6 % (0-4); BLOOD GAS HCO3 25 mmol/L (22-26); BLOOD GAS METHEMOGLOBIN 1.8 % (0-2); BLOOD GAS O2 HGB SATURATION 92 % (90-100); BLOOD GAS OXYGEN CONTENT 13.1 Vol % (12.0-20.0); BLOOD GAS PCO2 45 mmHg (38-42); BLOOD GAS PO2 77 mmHg (61-120); BLOOD GAS TOTAL HGB 10.1 G/DL (12.0-16.0); CRITICAL VALUE NO; OXYGEN DEVICE VENTILATOR; TEMP CORR TO 98.6
[2016-07-18 05:32] LABS: DRAW SITE ART LINE; FIO2 40 %; STAT NO; VENT SETTINGS PRVC/AC
[2016-07-18 05:37] LABS: ALKALINE PHOSPHATASE 98 U/L (45-117); ALT (GPT) 2195 U/L (10-53); AST (GOT) 3460 U/L (15-37); TOTAL BILIRUBIN ADULT 0.9 MG/DL (0.2-1.0)
[2016-07-18] MEDS: DOBUTamine PREMIX DRIP 250 ML IV SCH (06:37)
[2016-07-18] MEDS ORDERED: FUROSEMIDE 20 MG/2 ML VIAL IV PUSH ONE (08:00)
--- NOTE | 2016-07-18 08:29 | PD.CAR.PN ---
CVT Progress Note Subjective/Hospital Course: 55/ female, admitted for elective AVR , hx of mod to severe aortic insufficiency EF 55% PMH : osteoarthritis , RA followed by Dr Pacheco on chronic steroid use, Humira , methotrexate , seizure Dz , asthma surgery: 07/15 Minimally Invasive AVR with a 19 mm OnX Mechanical Valve, Left Percutaneous Femoral Arterial and Venous Cannulation for CPB, Intercostal Nerve Block, Perclose Arterial Closure x 2 per CCM note , pt became severely hypotensive hypoxemic and suffered with respiratory arrest. She was emergently re- intubated and regain spontaneous circulations after 2 cycles of CPR and epinephrine injections. She was found to be hypotensive and severely anemic with hemoglobin level 4, platelet count of 25, fibrinogen less than 50. She was thought to be bleeding retroperitoneally and was taken emergently to CAT scan angiogram. However no source of bleeding was found on the CT. She had some coffee ground drainage in NG + bloody stool x one , recieved 8units PRBC,/ 4 FFP, 2 PLT, 2 cryo and Kcentra. 07/16/16 pt remains intubated on vent , will open eyes and respond to simple commands, moves all extremities underwent bedside EGD today , NG trauma in esophagus , gastric varicies gastric fundus, with no evidence of active or recent bleeding elevated LFT's ? shock liver, however elevated amylase and lipase ? acute pancreatitis / elevated ferritin levels ( hemochromatosis ) chest tube drainage 320/12 hrs / on versed and fentanyl for sedation CCM following 07/17 Clinically stable s/p large volume paracentesis of bloody fluid last pm (2.6 L). Hgb stable stable on ventilator. May benefit from gently diuresis Greatly appreciate all the consultants input Planned colonoscopy today Continue CT to drainage 07/[address] removed without difficulty Will need some sort of anticoagulation for the mechanical aortic valve. Will discuss with GI and CCM regarding low-dose IV heparin gtt vs SQ Lovenox Planned Colonoscopy Greatly appreciate Dr. Radford and Dr. Curtis's input and assistance in her care Objective: Vital Signs Date Time Temp Pulse Resp B/P Pulse Ox O2 Delivery O2 Flow Rate FiO2 07/18/16 07:55 97 40 07/18/16 07:37 95 Mechanical Ventilator 40 07/18/16 07:37 40 07/18/16 07:35 105 07/18/16 07:33 100.8 105 14 112/61 95 07/18/16 04:00 40 07/18/16 04:00 116 07/18/16 04:00 97 Mechanical Ventilator 40 07/18/16 04:00 101.3 117 14 131/70 07/18/16 03:32 97 40 07/18/16 00:37 97 40 07/18/16 00:00 97 Mechanical Ventilator 40 07/18/16 00:00 40 07/18/16 00:00 110 07/18/16 00:00 101.2 110 14 111/63 96 07/17/16 22:15 97 40 07/17/16 20:25 90 50 07/17/16 20:00 97 Mechanical Ventilator 50 07/17/16 20:00 100.0 103 14 93/64 97 107/66 07/17/16 20:00 40 07/17/16 20:00 102 07/17/16 18:04 99.6 07/17/16 16:00 91 40 07/17/16 15:24 40 07/17/16 15:24 99 Mechanical Ventilator 40 07/17/16 15:21 140 07/17/16 15:14 101.2 140 30 91/65 94 131/75 07/17/16 14:20 90 40 07/17/16 14:19 100.6 07/17/16 11:05 40 07/17/16 11:05 99 Mechanical Ventilator 40 07/17/16 11:04 117 07/17/16 11:03 99.5 112 14 91/65 99 131/75 07/17/16 09:47 93 40 Labs: Laboratory Tests Test 07/18/16 07/18/16 04:15 05:23 White Blood Count 10.5 TH/MM3 (4.0-11.0) Red Blood Count 3.48 MIL/MM3 (4.00-5.30) Hemoglobin 10.5 GM/DL (11.6-15.3) Hematocrit 29.4 % (35.0-46.0) Mean Corpuscular Volume 84.4 FL (80.0-100.0) Mean Corpuscular Hemoglobin 30.1 PG (27.0-34.0) Mean Corpuscular Hemoglobin 35.6 % Concent (32.0-36.0) Red Cell Distribution Width 16.4 % (11.6-17.2) Platelet Count 90 TH/MM3 (150-450) Mean Platelet Volume 8.5 FL (7.0-11.0) Neutrophils (%) (Auto) 81.3 % (16.0-70.0) Lymphocytes (%) (Auto) 10.9 % (9.0-44.0) Monocytes (%) (Auto) 5.3 % (0.0-8.0) Eosinophils (%) (Auto) 2.1 % (0.0-4.0) Basophils (%) (Auto) 0.4 % (0.0-2.0) Neutrophils # (Auto) 8.5 TH/MM3 (1.8-7.7) Lymphocytes # (Auto) 1.1 TH/MM3 (1.0-4.8) Monocytes # (Auto) 0.6 TH/MM3 (0-0.9) Eosinophils # (Auto) 0.2 TH/MM3 (0-0.4) Basophils # (Auto) 0.0 TH/MM3 (0-0.2) CBC Comment AUTO DIFF Differential Total Cells 100 Counted Neutrophils % (Manual) 68 % (16-70) Band Neutrophils % 21 % (0-6) Lymphocytes % 7 % (9-44) Monocytes % 2 % (0-8) Eosinophils % 1 % (0-4) Neutrophils # (Manual) 9.5 TH/MM3 (1.8-7.7) Myelocytes 1 % (0-0) Nucleated Red Blood Cells 3 /100 WBC (0-0) Differential Comment FINAL DIFF MANUAL Dohle Bodies PRESENT (NONE SEEN) Platelet Estimate LOW (NORMAL) Platelet Morphology Comment NORMAL (NORMAL) Tear Drop Cells 1+ (NORMAL) Ovalocytes 1+ (NORMAL) Sodium Level 145 MEQ/L (136-145) Potassium Level 4.2 MEQ/L (3.5-5.1) Chloride Level 112 MEQ/L (98-107) Carbon Dioxide Level 27.7 MEQ/L (21.0-32.0) Anion Gap 5 MEQ/L (5-15) Blood Urea Nitrogen 18 MG/DL (7-18) Creatinine 1.00 MG/DL (0.50-1.00) Estimat Glomerular Filtration 70 ML/MIN (>89) Rate Random Glucose 101 MG/DL (74-106) Calcium Level 8.0 MG/DL (8.5-10.1) Phosphorus Level 2.1 MG/DL (2.5-4.9) Magnesium Level 2.1 MG/DL (1.5-2.5) Total Bilirubin 0.9 MG/DL (0.2-1.0) Aspartate Amino Transf 3460 U/L (AST/SGOT) (15-37) Alanine Aminotransferase 2195 U/L (ALT/SGPT) (10-53) Alkaline Phosphatase 98 U/L (45-117) Total Protein 5.3 GM/DL (6.4-8.2) Albumin 2.3 GM/DL (3.4-5.0) Blood Gas Puncture Site ART LINE Blood Gas Patient Temperature 98.6 Blood Gas HCO3 25 mmol/L (22-26) Blood Gas Base Excess -0.3 mmol/L (-2-2) Blood Gas Oxygen Saturation 92 % (90-100) Arterial Blood pH 7.36 (7.380-7.420) Arterial Blood Partial 45 mmHg (38-42) Pressure CO2 Arterial Blood Partial 77 mmHg Pressure O2 (61-120) Arterial Blood Oxygen Content 13.1 Vol % (12.0-20.0) Arterial Blood 1.6 % (0-4) Carboxyhemoglobin Arterial Blood Methemoglobin 1.8 % (0-2) Blood Gas Hemoglobin 10.1 G/DL (12.0-16.0) Oxygen Delivery Device VENTILATOR Blood Gas Ventilator Setting PRVC/AC Blood Gas Inspired Oxygen 40 % Result Diagram: 07/18/16 0415 07/18/16 0415 Rufus Christianson MD Jul 18, 2016 08:29
[2016-07-18] MEDS: MIDAZOLAM 100 MG/ML INJ 100 ML IV SCH (08:31)
[2016-07-18] MEDS: FOLIC ACID 1 MG TAB PO SCH (09:00)
[2016-07-18] MEDS: predniSONE 5 MG TAB PO SCH ×2 (09:00→22:37)
[2016-07-18] MEDS: CYANOCOBALAMIN 1000 MCG/ML VIAL SQ SCH (09:00)
[2016-07-18] MEDS: carBAMazepine 200 MG TAB PO SCH ×3 (09:00→18:14)
[2016-07-18] MEDS: SODIUM CHLORIDE 0.9% FLUSH 10 ML FLUSH IV FLUSH SCH ×2 (09:00→22:37)
[2016-07-18] MEDS: GABAPENTIN 300 MG CAP PO SCH ×2 (09:00→22:37)
[2016-07-18] MEDS ORDERED: PEG (High)/E-LYTE SOLN 4000 ML BTL NG ONE (09:30)
--- NOTE | 2016-07-18 09:30 | HHI.GIFU ---
Subjective Remarks Still intubated, started to have BM's watery green and no blood. Objective Vitals I&O Vital Signs Date Time Temp Pulse Resp B/P Pulse Ox O2 Delivery O2 Flow Rate FiO2 07/18/16 09:22 97 40 07/18/16 09:04 40 07/18/16 09:04 97 40 07/18/16 07:55 97 40 07/18/16 07:37 95 Mechanical Ventilator 40 07/18/16 07:37 40 07/18/16 07:35 105 07/18/16 07:33 100.8 105 14 112/61 95 07/18/16 04:00 40 07/18/16 04:00 116 07/18/16 04:00 97 Mechanical Ventilator 40 07/18/16 04:00 101.3 117 14 131/70 07/18/16 03:32 97 40 07/18/16 00:37 97 40 07/18/16 00:00 97 Mechanical Ventilator 40 07/18/16 00:00 40 07/18/16 00:00 110 07/18/16 00:00 101.2 110 14 111/63 96 07/17/16 22:15 97 40 07/17/16 20:25 90 50 07/17/16 20:00 97 Mechanical Ventilator 50 07/17/16 20:00 100.0 103 14 93/64 97 107/66 07/17/16 20:00 40 07/17/16 20:00 102 07/17/16 18:04 99.6 07/17/16 16:00 91 40 07/17/16 15:24 40 07/17/16 15:24 99 Mechanical Ventilator 40 07/17/16 15:21 140 07/17/16 15:14 101.2 140 30 91/65 94 131/75 07/17/16 14:20 90 40 07/17/16 14:19 100.6 07/17/16 11:05 40 07/17/16 11:05 99 Mechanical Ventilator 40 07/17/16 11:04 117 07/17/16 11:03 99.5 112 14 91/65 99 131/75 07/17/16 09:47 93 40 I/O 07/17/16 07/17/16 07/17/16 07/18/16 07/18/16 07/18/16 07:00 15:00 23:00 07:00 15:00 23:00 Intake Total 3817 ml 3510 ml 1539 ml Output Total 3960 ml 1475 ml 3085 ml Balance -143 ml 2035 ml -1546 ml Intake Oral 0 ml 0 ml IV Total 2370 ml 1510 ml 1539 ml Tube Feeding 1447 ml Tube Irrigant 2000 ml Output Urine Total 770 ml 545 ml 2325 ml Stool Total 0 ml 400 ml 300 ml Gastric Drainage Total 450 ml 350 ml 400 ml Chest Tube Drainage Total 140 ml 180 ml 60 ml Drainage Total 2600 ml # Bowel Movements 0 Laboratory Laboratory Tests Test 07/18/16 07/18/16 04:15 05:23 White Blood Count 10.5 Red Blood Count 3.48 Hemoglobin 10.5 Hematocrit 29.4 Mean Corpuscular Volume 84.4 Mean Corpuscular Hemoglobin 30.1 Mean Corpuscular Hemoglobin 35.6 Concent Red Cell Distribution Width 16.4 Platelet Count 90 Mean Platelet Volume 8.5 Neutrophils (%) (Auto) 81.3 Lymphocytes (%) (Auto) 10.9 Monocytes (%) (Auto) 5.3 Eosinophils (%) (Auto) 2.1 Basophils (%) (Auto) 0.4 Neutrophils # (Auto) 8.5 Lymphocytes # (Auto) 1.1 Monocytes # (Auto) 0.6 Eosinophils # (Auto) 0.2 Basophils # (Auto) 0.0 CBC Comment AUTO DIFF Differential Total Cells 100 Counted Neutrophils % (Manual) 68 Band Neutrophils % 21 Lymphocytes % 7 Monocytes % 2 Eosinophils % 1 Neutrophils # (Manual) 9.5 Myelocytes 1 Nucleated Red Blood Cells 3 Differential Comment FINAL DIFF MANUAL Dohle Bodies PRESENT Platelet Estimate LOW Platelet Morphology Comment NORMAL Tear Drop Cells 1+ Ovalocytes 1+ Sodium Level 145 Potassium Level 4.2 Chloride Level 112 Carbon Dioxide Level 27.7 Anion Gap 5 Blood Urea Nitrogen 18 Creatinine 1.00 Estimat Glomerular Filtration 70 Rate Random Glucose 101 Calcium Level 8.0 Phosphorus Level 2.1 Magnesium Level 2.1 Total Bilirubin 0.9 Aspartate Amino Transf 3460 (AST/SGOT) Alanine Aminotransferase 2195 (ALT/SGPT) Alkaline Phosphatase 98 Total Protein 5.3 Albumin 2.3 Blood Gas Puncture Site ART LINE Blood Gas Patient Temperature 98.6 Blood Gas HCO3 25 Blood Gas Base Excess -0.3 Blood Gas Oxygen Saturation 92 Arterial Blood pH 7.36 Arterial Blood Partial 45 Pressure CO2 Arterial Blood Partial 77 Pressure O2 Arterial Blood Oxygen Content 13.1 Arterial Blood 1.6 Carboxyhemoglobin Arterial Blood Methemoglobin 1.8 Blood Gas Hemoglobin 10.1 Oxygen Delivery Device VENTILATOR Blood Gas Ventilator Setting PRVC/AC Blood Gas Inspired Oxygen 40 Date/Time Procedure Status Source Growth 07/17/16 05:45 Aerobic Blood Culture Received Blood Peripheral Pending 07/17/16 05:45 Anaerobic Blood Culture Received Blood Peripheral Pending 07/17/16 04:10 Urine Culture Received Urine Catheterized Urine Pending 07/17/16 04:10 Gram Stain - Final Resulted Sputum Endotracheal 07/17/16 04:10 Sputum Culture Resulted Sputum Endotracheal Pending 07/15/16 11:56 Fungal Smear - Final Resulted Wound Other NO FUNGAL ELEMENTS SEEN. 07/15/16 11:56 Fungal Culture Resulted Wound Other Pending 07/15/16 11:56 Acid Fast Stain - Final Resulted Wound Other NO ACID FAST BACILLI SEEN 07/15/16 11:56 Mycobacterial Culture Resulted Wound Other Pending 07/15/16 11:56 Cancelled Other Physical Exam HEENT: Intubated and NG in place CHEST: Chest is clear to auscultation and percussion. CARDIAC: Regular rate and rhythm with no murmur gallop or rubs. ABDOMEN: Distended and no tenderness EXTREMITIES: No clubbing, cyanosis, or edema. SKIN: Normal; no rash; no jaundice. 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 - Supportive care. - Proton pump inhibitor. - Frequent H&H. - Daily LFT's - Further recommendations to follow. Vega Radford MD Jul 18, 2016 09:30
--- NOTE | 2016-07-18 10:09 | HHI.CCPN ---
Subjective Remarks/Hospital Course 07/16: 55-year-old female with history of seizure disorder, some autoimmune disorder on Humira methotrexate and prednisone, history of asthma underwent uncomplicated minimally Invasive AVR with a 19 mm OnX Mechanical Valve via left percutaneous femoral arterial and venous cannulation for CPB. While in the CVICU she became severely hypotensive hypoxemic and suffered with respiratory arrest. She was emergently intubated and regain spontaneous circulations after 2 cycles of CPR and epinephrine injections. She was found to be hypotensive and severely anemic with hemoglobin level 4, platelet count of 25, fibrinogen less than 50. She was thought to be bleeding retroperitoneally and was taken emergently to CAT scan angiogram. However no source of bleeding was found on the CT. patient did have significant amount of ascites noted on CAT scan. She underwent an EGD which revealed a gastric varix and an esophageal ulcer however no active bleeding. She subsequently underwent paracentesis with drainage of 2.6 L of dark blood from peritoneal cavity which was most definitely the source of her blood loss. 07/17: Remains sedated, orally intubated on mechanical ventilation. Patient spiked a temperature last night and was initiated on empiric antibiotic coverage at [facility] and [facility] after obtaining cultures. Being prepped for colonoscopy however has not had any BMs. Discussed with Dr. Radford from GI who was okay with proceeding with extubation at this point. 07/18: Remains sedated, orally intubated on mechanical ventilation. Being prepped for colonoscopy. Greenish BMs however no blood noted. Hemoglobin remained stable currently. Chest tube/ pacer wires removed. Being diuresed with Lasix. Objective Vital Signs Date Time Temp Pulse Resp B/P Pulse Ox O2 Delivery O2 Flow Rate FiO2 07/18/16 09:22 97 40 07/18/16 07:37 Mechanical Ventilator 07/18/16 07:35 105 07/18/16 07:33 100.8 14 112/61 07/15/16 23:00 15.00 Intake and Output 07/17/16 07/17/16 07/18/16 08:00 16:00 00:00 Intake Total 3817 ml 3510 ml Output Total 3960 ml 1475 ml Balance -143 ml 2035 ml Result Diagram: 07/18/16 0415 07/18/16 0415 Other Results Laboratory Tests Test 07/18/16 05:23 Blood Gas Puncture Site ART LINE Blood Gas Patient Temperature 98.6 Blood Gas HCO3 25 mmol/L (22-26) Blood Gas Base Excess -0.3 mmol/L (-2-2) Blood Gas Oxygen Saturation 92 % (90-100) Arterial Blood pH 7.36 (7.380-7.420) Arterial Blood Partial 45 mmHg (38-42) Pressure CO2 Arterial Blood Partial 77 mmHg Pressure O2 (61-120) Arterial Blood Oxygen Content 13.1 Vol % (12.0-20.0) Arterial Blood 1.6 % (0-4) Carboxyhemoglobin Arterial Blood Methemoglobin 1.8 % (0-2) Blood Gas Hemoglobin 10.1 G/DL (12.0-16.0) Oxygen Delivery Device VENTILATOR Blood Gas Ventilator Setting PRVC/AC Blood Gas Inspired Oxygen 40 % Imaging Last Impressions Chest X-Ray 07/17/16 0000 Signed Impressions: Service Date/Time: Sunday, July 17, 2016 03:21 - CONCLUSION: Worsening pulmonary edema. Flaco oRd MD Cyst Biopsy Asp-Paracentesis US 07/16/16 0000 Signed Impressions: Service Date/Time: Saturday, July 16, 2016 21:23 - CONCLUSION: Uncomplicated ultrasound guided paracentesis. Sanguinous fluid obtained. Sample sent to the lab as requested. Norbert Kwong Jr., MD Abdomen/Pelvis CT 07/16/16 0000 Signed Impressions: Service Date/Time: Saturday, July 16, 2016 02:04 - CONCLUSION: 1. Ascites 2. No evidence of retroperitoneal hematoma 3. Bibasilar atelectasis and left pleural effusion Inder Wilson MD Abdomen Ultrasound 07/16/16 0000 Signed Impressions: Service Date/Time: Saturday, July 16, 2016 19:23 - CONCLUSION: Moderate volume of ascites. Sufficient volume for paracentesis. 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 - Postop transfused 4 units of PRBCs/ 4 FFP, 2 PLT, 2 cryo and Kcentra - Status post paracentesis with removal of 2.6 L of bloody peritoneal fluid on . - Hematology consulted. Repeat coags normalized. - Monitor CBC Acute respiratory failure on mechanical ventilation - On Mechanical ventilation. Vent bundle, bronchodilators as needed. CPap trials to decide extubation. - Off IV fluids, diurese with Lasix. Coffee-ground NG aspirate/bloody bowel movement -Status post EGD which revealed gastric varix and esophageal ulcer which was felt to be secondary to OG tube. Being prepped for colonoscopy. Dr. Radford from GI following. Discussed with Dr. Radford who will decide further imaging to evaluate for ectopic varix. GI cleared for heparin anticoagulation while awaiting colonoscopy. Elevated LFTs - Secondary to shock liver from hypotension secondary to cardiac arrest. Follow LFTs. Seizure disorder - Tegretol/gabapentin Aortic incompetence status post aortic valve replacement with mechanical aortic valve POD#4 - Management per cardiothoracic surgery -Received 4 units of PRBCs Intra-Op. -Anticoagulation with heparin which has been cleared by GI. Fever: - SIRS secondary to hemoperitoneum versus sepsis. Cultures obtained. Empiric antibiotics initiated including Vanc/Zosyn. All cultures negative so far. DVT GI prophylaxis - Teds SCDs -Protonix Discuss with Dr. Christianson, discussed with Dr. Radford, discussed with FIRST GRADE TEACHER. Critical Care: The total critical care time was 45 minutes. Time to perform other separately billable procedures was not included in the critical care time. Cm Curtis MD Jul 18, 2016 10:09
[2016-07-18] MEDS ORDERED: DEXMEDETOMIDINE INJ 200 MCG in SODIUM CHLORIDE 0.9% INJ 50 ML IV SCH (10:30)
[2016-07-18] MEDS ORDERED: DEXMEDETOMIDINE HCL 200 MCG/2 ML VIAL ONE (10:32)
[2016-07-18] MEDS ORDERED: SODIUM CHLORIDE 0.9% INJ 50 ML ONE (10:33)
[2016-07-18] MEDS: HEPARIN-D5W INJ 250 ML IV SCH (11:05)
[2016-07-18] MEDS: CALCIUM CHLORIDE INJ 1 GM in SODIUM CHLORIDE 0.9% INJ 100 ML IV PRN (14:14)
[2016-07-19] VITALS (15 sets, daily range): BP systolic 96–157; BP diastolic 64–87; PULSE 63–82; RESP 14; TEMP 95.7–98.4; O2SAT 92–100
[2016-07-19] MEDS: VANCOMYCIN INJ 1,600 MG in SODIUM CHLORID 0.9% 500 ML INJ 500 ML IV SCH (00:49)
[2016-07-19] MEDS: CEFEPIME INJ 2,000 MG in SODIUM CHLORIDE 0.9% INJ 100 ML IV SCH ×3 (02:00→18:27)
[2016-07-19] MEDS: PROPOFOL 1000 MG/100 ML IV SCH ×3 (03:22→14:43)
[2016-07-19] MEDS: PANTOPRAZOLE INJ 80 MG in SODIUM CHLORIDE 0.9% INJ 100 ML IV SCH ×3 (03:22→13:33)
[2016-07-19] MEDS: RESP: ALBUTEROL 2.5 MG/IPRATROPIUM 0.5 MG NEB (SCH) NEB ×2 (03:29→09:18)
[2016-07-19] MEDS: DOBUTamine PREMIX DRIP 250 ML IV SCH (04:16)
[2016-07-19] MEDS: fentaNYL DRIP 250 ML IV SCH (05:36)
[2016-07-19] MEDS: MIDAZOLAM 100 MG/ML INJ 100 ML IV SCH ×2 (05:37→08:38)
[2016-07-19 06:21] LABS: APTT (PATIENT) 40.6 SEC (24.3-30.1)
[2016-07-19 07:48] LABS: AUTOMATED NEUTROPHIL # 10.2 TH/MM3 (1.8-7.7); BASOPHIL % 0.2 % (0.0-2.0); EOSINOPHIL # 0.3 TH/MM3 (0-0.4); EOSINOPHIL % 2.7 % (0.0-4.0); HEMATOCRIT 27.6 % (35.0-46.0); LYMPH % 7.6 % (9.0-44.0); MEAN CELL VOLUME 84.8 FL (80.0-100.0); MEAN CORPUSCULAR HEMOGLOBIN 28.2 PG (27.0-34.0); MEAN CORPUSCULAR HGB CONC 33.2 % (32.0-36.0); MONO % 9.2 % (0.0-8.0); NEUT % 80.3 % (16.0-70.0); PLATELET COUNT 77 TH/MM3 (150-450); RED BLOOD COUNT 3.25 MIL/MM3 (4.00-5.30); RED CELL DISTRIBUTION WIDTH 16.5 % (11.6-17.2); WHITE BLOOD COUNT 12.8 TH/MM3 (4.0-11.0)
[2016-07-19 07:51] LABS: HEMO FLAGS AUTO DIFF
[2016-07-19 08:03] LABS: ANION GAP 10 MEQ/L (5-15); AST (GOT) 855 U/L (15-37); BICARBONATE 24.2 MEQ/L (21.0-32.0); BLOOD UREA NITROGEN 13 MG/DL (7-18); CHLORIDE 113 MEQ/L (98-107); GLOMERULAR FILTRATION RATE 101 ML/MIN (>89); POTASSIUM 3.6 MEQ/L (3.5-5.1); SODIUM (NA) 147 MEQ/L (136-145)
[2016-07-19 08:10] LABS: ALKALINE PHOSPHATASE 127 U/L (45-117); ALT (GPT) 1365 U/L (10-53); TOTAL BILIRUBIN ADULT 1.1 MG/DL (0.2-1.0)
[2016-07-19 08:33] LABS: BANDS 14 % (0-6); CORRECTED NUCLEATED RBC 3 /100 WBC (0-0); EOSINOPHILS 2 % (0-4); METAMYELOCYTES 1 % (0-1); MYELOCYTES 1 % (0-0); NEUTROPHIL # MANUAL DIFF 10.6 TH/MM3 (1.8-7.7); POLYS (SEG NEUTROPHILS) 67 % (16-70); WBC DIFF SAMPLE 100
[2016-07-19 08:34] LABS: PLATELET ESTIMATE SMEAR LOW (NORMAL); PLATELET MORPHOLOGY NORMAL (NORMAL); SCAN/DIFF FINAL DIFF MANUAL
[2016-07-19] MEDS: POTASSIUM CHLOR 20 MEQ PREMIX 100 ML IV PRN (08:37)
[2016-07-19] MEDS: SODIUM CHLORIDE 0.9% FLUSH 10 ML FLUSH IV FLUSH SCH ×2 (09:00→21:51)
[2016-07-19] MEDS: GABAPENTIN 300 MG CAP PO SCH ×2 (09:14→21:49)
[2016-07-19] MEDS: carBAMazepine 200 MG TAB PO SCH ×3 (09:15→18:16)
[2016-07-19] MEDS: FOLIC ACID 1 MG TAB PO SCH (09:16)
[2016-07-19] MEDS: predniSONE 5 MG TAB PO SCH ×2 (09:16→21:49)
[2016-07-19] MEDS: CYANOCOBALAMIN 1000 MCG/ML VIAL SQ SCH (09:17)
[2016-07-19] MEDS ORDERED: POTASSIUM CHLORIDE 25 MEQ EFFERVESCENT TAB PO ONE (10:00)
[2016-07-19] MEDS ORDERED: FUROSEMIDE 20 MG/2 ML VIAL IV PUSH ONE ×2 (10:00→21:00)
--- NOTE | 2016-07-19 10:26 | PD.CAR.PN ---
CVT Progress Note CVT: POD #: 6 Subjective/Hospital Course: 55/ female, admitted for elective AVR , hx of mod to severe aortic insufficiency EF 55% PMH : osteoarthritis , RA followed by Dr Pacheco on chronic steroid use, Humira , methotrexate , seizure Dz , asthma surgery: 07/15 Minimally Invasive AVR with a 19 mm OnX Mechanical Valve, Left Percutaneous Femoral Arterial and Venous Cannulation for CPB, Intercostal Nerve Block, Perclose Arterial Closure x 2 per CCM note , pt became severely hypotensive hypoxemic and suffered with respiratory arrest. She was emergently re- intubated and regain spontaneous circulations after 2 cycles of CPR and epinephrine injections. She was found to be hypotensive and severely anemic with hemoglobin level 4, platelet count of 25, fibrinogen less than 50. She was thought to be bleeding retroperitoneally and was taken emergently to CAT scan angiogram. However no source of bleeding was found on the CT. She had some coffee ground drainage in NG + bloody stool x one , recieved 8units PRBC,/ 4 FFP, 2 PLT, 2 cryo and Kcentra. 07/16/16 pt remains intubated on vent , will open eyes and respond to simple commands, moves all extremities underwent bedside EGD today , NG trauma in esophagus , gastric varicies gastric fundus, with no evidence of active or recent bleeding elevated LFT's ? shock liver, however elevated amylase and lipase ? acute pancreatitis / elevated ferritin levels ( hemochromatosis ) chest tube drainage 320/12 hrs / on versed and fentanyl for sedation CCM following 07/17 Clinically stable s/p large volume paracentesis of bloody fluid last pm (2.6 L). Hgb stable stable on ventilator. May benefit from gently diuresis Greatly appreciate all the consultants input Planned colonoscopy today Continue CT to drainage 07/[address] removed without difficulty Will need some sort of anticoagulation for the mechanical aortic valve. Will discuss with GI and CCM regarding low-dose IV heparin gtt vs SQ Lovenox Planned Colonoscopy Greatly appreciate Dr. Radford and Dr. Curtis's input and assistance in her care 07/19 pt to start on precedex, to facilitate weaning from ventilator/ start CPAP trials today scleral edema improved still volume overloaded, however diuresing well on low dose heparin gtt , no further signs of bleeding, for colonoscopy today on no pressors, Objective: GENERAL: RASS -3/ orally intubated SKIN: Warm and dry., general edema HEAD: Normocephalic. EYES: No scleral icterus. No injection or drainage. NECK: Supple, trachea midline. No JVD or lymphadenopathy. CARDIOVASCULAR: Regular rate and rhythm without murmurs, gallops, or rubs + click RESPIRATORY: Breath sounds coarse bilaterally, on PRVC mode 40% fio2 No accessory muscle use. GASTROINTESTINAL: Abdomen slightly distended , hypoactive bowel sounds MUSCULOSKELETAL: No cyanosis, or edema. BACK: Nontender without obvious deformity. No CVA tenderness. Vital Signs Date Time Temp Pulse Resp B/P Pulse Ox O2 Delivery O2 Flow Rate FiO2 07/19/16 08:39 97 40 07/19/16 07:30 72 07/19/16 07:30 97.7 72 14 105/65 100 122/70 07/19/16 07:30 40 07/19/16 07:30 100 Mechanical Ventilator 40 07/19/16 04:00 99 Mechanical Ventilator 40 07/19/16 04:00 78 07/19/16 04:00 98.4 78 14 96/68 92 114/64 07/19/16 04:00 40 07/19/16 03:32 95 40 07/19/16 01:00 95 40 07/19/16 00:00 82 07/19/16 00:00 99 Mechanical Ventilator 40 07/19/16 00:00 98.1 82 14 103/71 95 122/69 07/19/16 00:00 40 07/18/16 22:37 97 40 07/18/16 20:20 97 40 07/18/16 20:00 84 07/18/16 20:00 99 Mechanical Ventilator 40 07/18/16 20:00 94.4 84 14 91/68 99 110/62 07/18/16 20:00 40 07/18/16 17:57 99.2 07/18/16 16:10 96 40 07/18/16 15:13 99.0 96 16 111/56 95 07/18/16 15:13 99 07/18/16 15:12 40 07/18/16 15:11 95 Mechanical Ventilator 40 07/18/16 14:06 99 40 07/18/16 12:12 100.9 07/18/16 11:09 97 Mechanical Ventilator 40 07/18/16 11:08 130 07/18/16 11:08 40 07/18/16 11:06 101.3 130 16 120/54 97 07/18/16 10:22 94 40 Labs: Laboratory Tests Test 07/19/16 07/19/16 04:55 07:40 Activated Partial 40.6 SEC Thromboplast Time (24.3-30.1) White Blood Count 12.8 TH/MM3 (4.0-11.0) Red Blood Count 3.25 MIL/MM3 (4.00-5.30) Hemoglobin 9.2 GM/DL (11.6-15.3) Hematocrit 27.6 % (35.0-46.0) Mean Corpuscular Volume 84.8 FL (80.0-100.0) Mean Corpuscular Hemoglobin 28.2 PG (27.0-34.0) Mean Corpuscular Hemoglobin 33.2 % Concent (32.0-36.0) Red Cell Distribution Width 16.5 % (11.6-17.2) Platelet Count 77 TH/MM3 (150-450) Mean Platelet Volume 8.5 FL (7.0-11.0) Neutrophils (%) (Auto) 80.3 % (16.0-70.0) Lymphocytes (%) (Auto) 7.6 % (9.0-44.0) Monocytes (%) (Auto) 9.2 % (0.0-8.0) Eosinophils (%) (Auto) 2.7 % (0.0-4.0) Basophils (%) (Auto) 0.2 % (0.0-2.0) Neutrophils # (Auto) 10.2 TH/MM3 (1.8-7.7) Lymphocytes # (Auto) 1.0 TH/MM3 (1.0-4.8) Monocytes # (Auto) 1.2 TH/MM3 (0-0.9) Eosinophils # (Auto) 0.3 TH/MM3 (0-0.4) Basophils # (Auto) 0.0 TH/MM3 (0-0.2) CBC Comment AUTO DIFF Differential Total Cells 100 Counted Neutrophils % (Manual) 67 % (16-70) Band Neutrophils % 14 % (0-6) Lymphocytes % 10 % (9-44) Monocytes % 5 % (0-8) Eosinophils % 2 % (0-4) Neutrophils # (Manual) 10.6 TH/MM3 (1.8-7.7) Metamyelocytes 1 % (0-1) Myelocytes 1 % (0-0) Nucleated Red Blood Cells 3 /100 WBC (0-0) Differential Comment FINAL DIFF MANUAL Platelet Estimate LOW (NORMAL) Platelet Morphology Comment NORMAL (NORMAL) Sodium Level 147 MEQ/L (136-145) Potassium Level 3.6 MEQ/L (3.5-5.1) Chloride Level 113 MEQ/L (98-107) Carbon Dioxide Level 24.2 MEQ/L (21.0-32.0) Anion Gap 10 MEQ/L (5-15) Blood Urea Nitrogen 13 MG/DL (7-18) Creatinine 0.73 MG/DL (0.50-1.00) Estimat Glomerular Filtration 101 ML/MIN Rate (>89) Random Glucose 75 MG/DL (74-106) Calcium Level 8.2 MG/DL (8.5-10.1) Total Bilirubin 1.1 MG/DL (0.2-1.0) Aspartate Amino Transf 855 U/L (15-37) (AST/SGOT) Alanine Aminotransferase 1365 U/L (ALT/SGPT) (10-53) Alkaline Phosphatase 127 U/L (45-117) Total Protein 5.1 GM/DL (6.4-8.2) Albumin 2.0 GM/DL (3.4-5.0) Result Diagram: 07/19/16 0740 07/19/16 0740 Telemetry: NSR (1) Left ventricular dysfunction (2) Severe aortic insufficiency (3) S/P AVR (aortic valve replacement) Plan: now on low dose heparin gtt, monitor for signs of bleeding will need to keep INR 2-2.5 x 90 days, then 1.5-1.8 (4) Seizure disorder Plan: on tegretol and gabapentin (5) Pancytopenia Plan: HGB stable at 9.2 monitor plt's now 77 (6) Blood loss anemia Plan: s/p multiple transfusion concern for TRALI (7) ventilator dependent respiratory failure Plan: CPAP trials today (8) Shock liver Plan: indices improving Laurie Mascorro Jul 19, 2016 10:26
[2016-07-19] MEDS: DEXMEDETOMIDINE INJ 200 MCG in SODIUM CHLORIDE 0.9% INJ 50 ML IV SCH ×5 (11:42→21:50)
--- NOTE | 2016-07-19 13:03 | GIPROC ---
[facility] [address] [facility]. [facility], [address] COLONOSCOPY PROCEDURE REPORT EXAM DATE: 07/19/2016 PATIENT NAME: Jh Portillo MR #: [id number] BIRTHDATE: 1960 ENDOSCOPIST: Vega Radford MD ORDER #: [id number] SHOT COAT TENDER: Max Dalton and Antolin Feng STATUS: inpatient INDICATIONS: The patient is a 55 yr old female here for a colonoscopy due to hematochezia PROCEDURE PERFORMED: Colonoscopy with biopsy MEDICATIONS: None and Per Anesthesia. PREP QUALITY: poor PREP TYPE:GoLytely ESTIMATED BLOOD LOSS: None CONSENT: The patient understands the risks and benefits of the procedure and understands that these risks include, but are not limited to: sedation, allergic reaction, infection, perforation and/or bleeding. Alternative means of evaluation and treatment include, among others: physical exam, x-rays, and/or surgical intervention. The patient elects to proceed with this endoscopic procedure. medical equipment was checked for proper function. Hand hygiene and appropriate measures for infection prevention was taken. After the risks, benefits and alternatives of the procedure were thoroughly explained, Informed consent was verified, confirmed and timeout was successfully executed by the treatment team. A digital exam was performed The Pentax [id number] and [id number] endoscope was introduced through the anus and advanced to the cecum, which was identified by both the appendix and ileocecal valve. The instrument was then slowly withdrawn as the colon was fully examined. COLON FINDINGS: A medium sized diffuse patch of colitis was found in the rectum. The mucosa was ulcerated, erythematous and edematous. Multiple biopsies were performed using cold forceps. Moderate sized internal hemorrhoids were found. Retroflexed views revealed internal hemorrhoids and Retroflexed views revealed medium internal hemorrhoids The scope was then completely withdrawn from the patient and the procedure terminated. PROCEDURE WITHDRAWAL TIME:8minutes ADVERSE EVENTS: There were no complications. IMPRESSIONS: 1. Medium sized diffuse colitis was found in the rectum; The mucosa was ulcerated, erythematous and edematous; multiple biopsies were performed using cold forceps 2. Moderate sized internal hemorrhoids RECOMMENDATIONS: Await biopsy results. Biopsy results will not be ready for 7-10 days. If you don't hear from us in two weeks, call our office for results. RECALL: NONE Vega Radford MD eSigned: Vega Radford MD 07/19/2016 1:02 PM cc: PATIENT NAME: Jh Portillo MR#: [id number]
--- NOTE | 2016-07-19 13:44 | HHI.CCPN ---
Subjective Remarks/Hospital Course 07/16: 55-year-old female with history of seizure disorder, some autoimmune disorder on Humira methotrexate and prednisone, history of asthma underwent uncomplicated minimally Invasive AVR with a 19 mm OnX Mechanical Valve via left percutaneous femoral arterial and venous cannulation for CPB. While in the CVICU she became severely hypotensive hypoxemic and suffered with respiratory arrest. She was emergently intubated and regain spontaneous circulations after 2 cycles of CPR and epinephrine injections. She was found to be hypotensive and severely anemic with hemoglobin level 4, platelet count of 25, fibrinogen less than 50. She was thought to be bleeding retroperitoneally and was taken emergently to CAT scan angiogram. However no source of bleeding was found on the CT. patient did have significant amount of ascites noted on CAT scan. She underwent an EGD which revealed a gastric varix and an esophageal ulcer however no active bleeding. She subsequently underwent paracentesis with drainage of 2.6 L of dark blood from peritoneal cavity which was most definitely the source of her blood loss. 07/17: Remains sedated, orally intubated on mechanical ventilation. Patient spiked a temperature last night and was initiated on empiric antibiotic coverage at [facility] after obtaining cultures. Being prepped for colonoscopy however has not had any BMs. Discussed with Dr. Radford from GI who was okay with proceeding with extubation at this point. 07/18: Remains sedated, orally intubated on mechanical ventilation. Being prepped for colonoscopy. Greenish BMs however no blood noted. Hemoglobin remained stable currently. Chest tube/ pacer wires removed. Being diuresed with Lasix. 07/19: Sedated, orally intubated on mechanical ventilation. Colonoscopy performed today which revealed colitis in the rectum with hemorrhoids. Was placed on heparin for anticoagulation last evening which was held for colonoscopy today. Being diuresed to mobilize fluid. Objective Vital Signs Date Time Temp Pulse Resp B/P Pulse Ox O2 Delivery O2 Flow Rate FiO2 07/19/16 12:41 97.8 69 14 130/85 144/81 07/19/16 12:41 Mechanical Ventilator 07/19/16 08:39 97 40 07/15/16 23:00 15.00 Intake and Output 07/18/16 07/18/16 07/19/16 08:00 16:00 00:00 Intake Total 1539 ml 5430 ml Output Total 3085 ml 3100 ml Balance -1546 ml 2330 ml Result Diagram: 07/19/16 0740 07/19/16 0740 Other Results Microbiology Date/Time Procedure Status Source Growth 07/16/16 21:51 Gram Stain - Final Complete Fluid Peritoneal Fluid 07/16/16 21:51 Body Fluid Culture - Final Complete Fluid Peritoneal Fluid NO GROWTH IN 72 HRS.--AEROBICALLY OR ... 07/17/16 04:10 Gram Stain - Final Complete Sputum Endotracheal 07/17/16 04:10 Sputum Culture - Final Complete Sputum Endotracheal RARE GROWTH NORMAL RESPIRATORY JASON 07/17/16 04:10 Urine Culture - Final Complete Urine Catheterized Urine NO GROWTH IN 48 HOURS. Imaging Last Impressions Chest X-Ray 07/17/16 0000 Signed Impressions: Service Date/Time: Sunday, July 17, 2016 03:21 - CONCLUSION: Worsening pulmonary edema. Flaco Rod MD Cyst Biopsy Asp-Paracentesis US 07/16/16 0000 Signed Impressions: Service Date/Time: Saturday, July 16, 2016 21:23 - CONCLUSION: Uncomplicated ultrasound guided paracentesis. Sanguinous fluid obtained. Sample sent to the lab as requested. Norbert Kwong Jr., MD Abdomen/Pelvis CT 07/16/16 0000 Signed Impressions: Service Date/Time: Saturday, July 16, 2016 02:04 - CONCLUSION: 1. Ascites 2. No evidence of retroperitoneal hematoma 3. Bibasilar atelectasis and left pleural effusion Inder Wilson MD Abdomen Ultrasound 07/16/16 0000 Signed Impressions: Service Date/Time: Saturday, July 16, 2016 19:23 - CONCLUSION: Moderate volume of ascites. Sufficient volume for paracentesis. 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 - Postop transfused 4 units of PRBCs/ 4 FFP, 2 PLT, 2 cryo and Kcentra - Status post paracentesis with removal of 2.6 L of bloody peritoneal fluid on . - Hematology consulted. Repeat coags normalized. - Monitor CBC. Thrombocytopenia noted. We will send HIT screen - Hematology following. Acute respiratory failure on mechanical ventilation - On Mechanical ventilation. Vent bundle, bronchodilators as needed. CPap trials to decide extubation. - Off IV fluids, diurese with Lasix. Coffee-ground NG aspirate/bloody bowel movement -Status post EGD which revealed gastric varix and esophageal ulcer which was felt to be secondary to OG tube. Dr. Radford from GI following. Discussed with Dr. Radford who will decide further imaging to evaluate for ectopic varix. GI cleared for heparin anticoagulation. Colonoscopy performed revealed colitis and rectum with ulceration from which biopsies were taken and Internal hemorrhoids. Elevated LFTs - Secondary to shock liver from hypotension secondary to cardiac arrest. Follow LFTs. Seizure disorder - Tegretol/gabapentin Aortic incompetence status post aortic valve replacement with mechanical aortic valve POD#4 - Management per cardiothoracic surgery -Received 4 units of PRBCs Intra-Op. -Anticoagulation with heparin which has been cleared by GI. Fever: - SIRS secondary to hemoperitoneum versus sepsis. Cultures obtained. Empiric antibiotics initiated including Vanc/Zosyn. All cultures negative so far. DVT GI prophylaxis - Teds SCDs -Protonix Discuss with Dr. Christianson, discussed with CANTEEN OPERATOR. Critical Care: The total critical care time was 45 minutes. Time to perform other separately billable procedures was not included in the critical care time. Cm Curtis MD Jul 19, 2016 13:44
[2016-07-19] MEDS: hydrALAZINE HCL 20 MG/ML VIAL IV PRN (13:52)
[2016-07-19] MEDS: RESP: ALBUTEROL 2.5 MG/IPRATROPIUM 0.5 MG NEB (PRN) NEB ×2 (16:44→22:40)
[2016-07-19] MEDS ORDERED: PHARMACY ORDERED LAB ONE (17:45)
[2016-07-19] MEDS: niCARdipine INJ 25 MG in SODIUM CHLOR 0.9% 250 ML INJ 250 ML IV SCH (18:17)
[2016-07-20] VITALS (17 sets, daily range): BP systolic 106–152; BP diastolic 70–87; PULSE 76–90; RESP 16–25; TEMP 96.9–99.2; O2SAT 98–100
[2016-07-20] MEDS: CEFEPIME INJ 2,000 MG in SODIUM CHLORIDE 0.9% INJ 100 ML IV SCH ×3 (02:56→18:13)
[2016-07-20] MEDS: DEXMEDETOMIDINE INJ 200 MCG in SODIUM CHLORIDE 0.9% INJ 50 ML IV SCH ×5 (02:57→08:28)
[2016-07-20] MEDS: niCARdipine INJ 25 MG in SODIUM CHLOR 0.9% 250 ML INJ 250 ML IV SCH ×2 (02:57→07:31)
[2016-07-20] MEDS: PROPOFOL 1000 MG/100 ML IV SCH ×2 (02:57→08:28)
[2016-07-20] MEDS: HEPARIN-D5W INJ 250 ML IV SCH (02:58)
[2016-07-20 04:50] LABS: BODY FLUID LDH 354 U/L (()); BODY FLUID LDH SOURCE PERITONEAL (())
[2016-07-20] MEDS: RESP: ALBUTEROL 2.5 MG/IPRATROPIUM 0.5 MG NEB (PRN) NEB (04:51)
[2016-07-20 05:03] LABS: AUTOMATED NEUTROPHIL # 8.6 TH/MM3 (1.8-7.7); BASOPHIL % 0.3 % (0.0-2.0); EOSINOPHIL # 0.3 TH/MM3 (0-0.4); EOSINOPHIL % 2.5 % (0.0-4.0); LYMPH % 8.7 % (9.0-44.0); MEAN CELL VOLUME 83.5 FL (80.0-100.0); MEAN CORPUSCULAR HEMOGLOBIN 28.1 PG (27.0-34.0); MEAN CORPUSCULAR HGB CONC 33.7 % (32.0-36.0); MONO % 11.9 % (0.0-8.0); NEUT % 76.6 % (16.0-70.0); PLATELET COUNT 83 TH/MM3 (150-450); RED BLOOD COUNT 3.47 MIL/MM3 (4.00-5.30); RED CELL DISTRIBUTION WIDTH 15.9 % (11.6-17.2); WHITE BLOOD COUNT 11.3 TH/MM3 (4.0-11.0)
[2016-07-20 05:04] LABS: HEMO FLAGS AUTO DIFF
[2016-07-20 05:28] LABS: ANION GAP 9 MEQ/L (5-15); AST (GOT) 421 U/L (15-37); BICARBONATE 25.9 MEQ/L (21.0-32.0); BLOOD UREA NITROGEN 16 MG/DL (7-18); CHLORIDE 110 MEQ/L (98-107); GLOMERULAR FILTRATION RATE 104 ML/MIN (>89); POTASSIUM 3.2 MEQ/L (3.5-5.1); SODIUM (NA) 145 MEQ/L (136-145)
[2016-07-20 05:35] LABS: ALKALINE PHOSPHATASE 124 U/L (45-117); ALT (GPT) 1047 U/L (10-53); TOTAL BILIRUBIN ADULT 1.1 MG/DL (0.2-1.0)
--- NOTE | 2016-07-20 06:20 | RADRPT ---
EXAM DATE/TIME: 07/20/2016 04:25 [place] COMPARISON: CHEST SINGLE AP, July 18, 2016, 3:55. INDICATIONS : Shortness of breath. MEDICAL HISTORY : Seizures. SURGICAL HISTORY : None. ENCOUNTER: Subsequent ACUITY: 1 week PAIN SCORE: 0/10 LOCATION: Bilateral chest FINDINGS: A single view of the chest demonstrates the endotracheal, nasogastric tube and right IJ central venou s catheter all in good position. Areas of consolidation throughout the right lung and left lung are u nchanged. A right chest tube has been removed. I do not see any pneumothorax. The cardiomediastinal contours are unremarkable. Osseous structures are intact. CONCLUSION: Patchy areas of consolidation right worse in left, tubes and catheter are in good position. Alfredo Alves MD on July 20, 2016 at 6:18 Board Certified Radiologist. This report was verified electronically.
[2016-07-20 06:58] LABS: PLATELET ESTIMATE SMEAR LOW (NORMAL); SCAN/DIFF AUTO DIFF CONFIRMED
[2016-07-20 07:01] LABS: PLATELET MORPHOLOGY NORMAL (NORMAL)
[2016-07-20 07:02] LABS: DOHLE BODIES PRESENT (NONE SEEN)
[2016-07-20] MEDS: POTASSIUM CHLOR 20 MEQ PREMIX 100 ML IV PRN ×2 (07:32→09:48)
[2016-07-20 08:59] LABS: MAGNESIUM 1.8 MG/DL (1.5-2.5)
[2016-07-20] MEDS: RESP: ALBUTEROL 2.5 MG/IPRATROPIUM 0.5 MG NEB (SCH) NEB ×3 (09:18→20:46)
[2016-07-20] MEDS: SODIUM CHLORIDE 0.9% FLUSH 10 ML FLUSH IV FLUSH SCH ×2 (09:48→21:37)
[2016-07-20] MEDS: CYANOCOBALAMIN 1000 MCG/ML VIAL SQ SCH (09:53)
[2016-07-20] MEDS: carBAMazepine 200 MG TAB PO SCH ×3 (09:53→18:12)
[2016-07-20] MEDS: FOLIC ACID 1 MG TAB PO SCH (09:53)
[2016-07-20] MEDS: GABAPENTIN 300 MG CAP PO SCH ×2 (09:53→21:35)
[2016-07-20] MEDS: predniSONE 5 MG TAB PO SCH ×2 (09:54→21:35)
[2016-07-20] MEDS: METOPROLOL TARTRATE 25 MG TAB PO SCH ×2 (09:54→21:35)
[2016-07-20] MEDS: FUROSEMIDE 20 MG/2 ML VIAL IV PUSH SCH (09:59)
[2016-07-20] MEDS: POTASSIUM CHLORIDE 20 MEQ PWD PACKET NG SCH (10:07)
[2016-07-20] MEDS ORDERED: DEXAMETHASONE SOD PHOS 4 MG/ML VIAL IV ONE (11:30)
--- NOTE | 2016-07-20 12:56 | HHI.GIFU ---
Subjective Remarks Still intubated, no evidence of GI bleeding Objective Vitals I&O Vital Signs Date Time Temp Pulse Resp B/P Pulse Ox O2 Delivery O2 Flow Rate FiO2 07/20/16 12:39 99 40 07/20/16 11:28 99 40 07/20/16 11:00 81 25 106/70 99 133/81 07/20/16 11:00 100 Mechanical Ventilator 40 07/20/16 11:00 40 07/20/16 11:00 81 07/20/16 08:25 40 07/20/16 07:56 98 40 07/20/16 07:00 98.7 86 19 121/76 100 136/76 07/20/16 07:00 40 07/20/16 07:00 86 07/20/16 07:00 100 Mechanical Ventilator 40 07/20/16 04:51 98 40 07/20/16 03:00 97.6 78 16 116/84 99 137/74 07/20/16 03:00 99 Mechanical Ventilator 40 07/20/16 03:00 40 07/20/16 03:00 76 07/20/16 02:30 98 40 07/20/16 01:00 97.1 07/19/16 23:00 97.9 72 14 109/72 99 125/74 07/19/16 23:00 72 07/19/16 23:00 98 Mechanical Ventilator 40 07/19/16 23:00 40 07/19/16 22:40 98 40 07/19/16 22:00 96.9 07/19/16 20:55 97 40 07/19/16 19:00 64 07/19/16 19:00 40 07/19/16 19:00 95.7 63 14 111/68 97 125/73 07/19/16 19:00 99 Mechanical Ventilator 40 07/19/16 16:00 40 07/19/16 16:00 99 Mechanical Ventilator 40 07/19/16 16:00 66 07/19/16 15:30 67 14 136/86 99 157/87 07/19/16 14:45 99 40 I/O 07/19/16 07/19/16 07/19/16 07/20/16 07/20/16 07/20/16 07:00 15:00 23:00 07:00 15:00 23:00 Intake Total 1324 ml 1232 ml 1317 ml Output Total 3175 ml 4945 ml 4005 ml Balance -1851 ml -3713 ml -2688 ml Intake Oral 0 ml IV Total 1324 ml 1097 ml 1257 ml Tube Irrigant 135 ml 60 ml Output Urine Total 875 ml 4945 ml 4000 ml Stool Total 1500 ml Gastric Drainage Total 800 ml 5 ml # Bowel Movements 1 Laboratory Laboratory Tests Test 07/20/16 04:50 White Blood Count 11.3 Red Blood Count 3.47 Hemoglobin 9.8 Hematocrit 29.0 Mean Corpuscular Volume 83.5 Mean Corpuscular Hemoglobin 28.1 Mean Corpuscular Hemoglobin 33.7 Concent Red Cell Distribution Width 15.9 Platelet Count 83 Mean Platelet Volume 8.5 Neutrophils (%) (Auto) 76.6 Lymphocytes (%) (Auto) 8.7 Monocytes (%) (Auto) 11.9 Eosinophils (%) (Auto) 2.5 Basophils (%) (Auto) 0.3 Neutrophils # (Auto) 8.6 Lymphocytes # (Auto) 1.0 Monocytes # (Auto) 1.3 Eosinophils # (Auto) 0.3 Basophils # (Auto) 0.0 CBC Comment AUTO DIFF Differential Comment AUTO DIFF CONFIRMED Dohle Bodies PRESENT Platelet Estimate LOW Platelet Morphology Comment NORMAL Activated Partial 34.0 Thromboplast Time Sodium Level 145 Potassium Level 3.2 Chloride Level 110 Carbon Dioxide Level 25.9 Anion Gap 9 Blood Urea Nitrogen 16 Creatinine 0.71 Estimat Glomerular Filtration 104 Rate Random Glucose 91 Calcium Level 8.6 Phosphorus Level 2.8 Magnesium Level 1.8 Total Bilirubin 1.1 Aspartate Amino Transf 421 (AST/SGOT) Alanine Aminotransferase 1047 (ALT/SGPT) Alkaline Phosphatase 124 Total Protein 5.5 Albumin 2.0 Date/Time Procedure Status Source Growth 07/17/16 05:45 Aerobic Blood Culture - Preliminary Resulted Blood Peripheral NO GROWTH IN 3 DAYS 07/17/16 05:45 Anaerobic Blood Culture - Preliminary Resulted Blood Peripheral NO GROWTH IN 3 DAYS 07/17/16 04:10 Urine Culture - Final Complete Urine Catheterized Urine NO GROWTH IN 48 HOURS. 07/17/16 04:10 Gram Stain - Final Complete Sputum Endotracheal 07/17/16 04:10 Sputum Culture - Final Complete Sputum Endotracheal RARE GROWTH NORMAL RESPIRATORY JASON Physical Exam HEENT: Intubated and NG in place CHEST: Chest is clear to auscultation and percussion. CARDIAC: Regular rate and rhythm with no murmur gallop or rubs. ABDOMEN: Distended and no tenderness EXTREMITIES: No clubbing, cyanosis, or edema. SKIN: Normal; no rash; no jaundice. PLATE HANGER: sedated Assessment and Plan Plan - Anemia, acute blood loss, - Gastric/ Fundal Varices - Hemoperitoneum, like rupture of ectopic varices - Acute elevation of liver enzymes, hepatocellular injury, shocked liver - Proctitis, biopsies pending RECOMMENDATIONS - Await biopsy results - CT ( Arterio and venous) when more stable to role out ectopic varix - Supportive care. - Proton pump inhibitor. - Frequent H&H. - Daily LFT's - Further recommendations to follow. Vega Radford MD Jul 20, 2016 12:56
--- NOTE | 2016-07-20 13:01 | PD.ONC.PN ---
Subjective Subjective Remarks Afebrile overnight. Per nurse, patient is not responsive off sedation. No bleeding. Tolerating heparin gtt. Objective Data Date Time Temp Pulse Resp B/P Pulse Ox O2 Delivery O2 Flow Rate FiO2 07/20/16 12:39 99 40 07/20/16 11:28 99 40 07/20/16 11:00 81 25 106/70 99 133/81 07/20/16 11:00 100 Mechanical Ventilator 40 07/20/16 11:00 40 07/20/16 11:00 81 07/20/16 08:25 40 07/20/16 07:56 98 40 07/20/16 07:00 98.7 86 19 121/76 100 136/76 07/20/16 07:00 40 07/20/16 07:00 86 07/20/16 07:00 100 Mechanical Ventilator 40 07/20/16 04:51 98 40 07/20/16 03:00 97.6 78 16 116/84 99 137/74 07/20/16 03:00 99 Mechanical Ventilator 40 07/20/16 03:00 40 07/20/16 03:00 76 07/20/16 02:30 98 40 07/20/16 01:00 97.1 07/19/16 23:00 97.9 72 14 109/72 99 125/74 07/19/16 23:00 72 07/19/16 23:00 98 Mechanical Ventilator 40 07/19/16 23:00 40 07/19/16 22:40 98 40 07/19/16 22:00 96.9 07/19/16 20:55 97 40 07/19/16 19:00 64 07/19/16 19:00 40 07/19/16 19:00 95.7 63 14 111/68 97 125/73 07/19/16 19:00 99 Mechanical Ventilator 40 07/19/16 16:00 40 07/19/16 16:00 99 Mechanical Ventilator 40 07/19/16 16:00 66 07/19/16 15:30 67 14 136/86 99 157/87 07/19/16 14:45 99 40 07/20/16 07/20/16 07/20/16 07:00 15:00 23:00 Intake Total 1317 ml Output Total 4005 ml Balance -2688 ml Result Diagram: 07/20/16 0450 07/20/16 0450 Laboratory Results Laboratory Tests Test 07/20/16 04:50 White Blood Count 11.3 TH/MM3 Red Blood Count 3.47 MIL/MM3 Hemoglobin 9.8 GM/DL Hematocrit 29.0 % Mean Corpuscular Volume 83.5 FL Mean Corpuscular Hemoglobin 28.1 PG Mean Corpuscular Hemoglobin 33.7 % Concent Red Cell Distribution Width 15.9 % Platelet Count 83 TH/MM3 Mean Platelet Volume 8.5 FL Neutrophils (%) (Auto) 76.6 % Lymphocytes (%) (Auto) 8.7 % Monocytes (%) (Auto) 11.9 % Eosinophils (%) (Auto) 2.5 % Basophils (%) (Auto) 0.3 % Neutrophils # (Auto) 8.6 TH/MM3 Lymphocytes # (Auto) 1.0 TH/MM3 Monocytes # (Auto) 1.3 TH/MM3 Eosinophils # (Auto) 0.3 TH/MM3 Basophils # (Auto) 0.0 TH/MM3 CBC Comment AUTO DIFF Differential Comment AUTO DIFF CONFIRMED Dohle Bodies PRESENT Platelet Estimate LOW Platelet Morphology Comment NORMAL Activated Partial 34.0 SEC Thromboplast Time Sodium Level 145 MEQ/L Potassium Level 3.2 MEQ/L Chloride Level 110 MEQ/L Carbon Dioxide Level 25.9 MEQ/L Anion Gap 9 MEQ/L Blood Urea Nitrogen 16 MG/DL Creatinine 0.71 MG/DL Estimat Glomerular Filtration 104 ML/MIN Rate Random Glucose 91 MG/DL Calcium Level 8.6 MG/DL Phosphorus Level 2.8 MG/DL Magnesium Level 1.8 MG/DL Total Bilirubin 1.1 MG/DL Aspartate Amino Transf 421 U/L (AST/SGOT) Alanine Aminotransferase 1047 U/L (ALT/SGPT) Alkaline Phosphatase 124 U/L Total Protein 5.5 GM/DL Albumin 2.0 GM/DL Imaging Studies Last 24 hours Impressions Chest X-Ray 07/20/16 0600 Signed Impressions: Service Date/Time: Wednesday, July 20, 2016 04:25 - CONCLUSION: Patchy areas of consolidation right worse in left, tubes and catheter are in good position. Alfredo Alves MD Administered Medications Medications (Trade) Dose Ordered Sig/Everardo Route PRN Reason Start Time Stop Time Status Last Admin Dose Admin Sodium Chloride (NS Flush) 2 ml BID IV FLUSH 07/15/16 21:00 07/20/16 09:48 Albumin Human (Albumin 5% Inj) 12.5 gm UNSCH PRN IV SEE LABEL COMMENTS 07/15/16 13:45 07/15/16 16:43 Pantoprazole Sodium (Protonix) 40 mg DAILY@06 PO 07/16/16 06:00 Hold 07/16/16 06:00 Acetaminophen (Tylenol) 650 mg Q4H PRN PO TEMPERATURE > 101 F 07/15/16 13:45 07/17/16 01:15 Ondansetron HCl (Zofran Inj) 4 mg Q6H PRN IV PUSH NAUSEA OR VOMITING 07/15/16 13:45 07/15/16 16:19 Hydralazine HCl (Apresoline Inj) 10 mg Q4H PRN IV SEE LABEL COMMENTS 07/15/16 13:45 07/19/16 13:52 Metoprolol Tartrate 2.5 mg 2.5 mg Q1H PRN IV PUSH SEE LABEL COMMENTS 07/15/16 13:45 07/17/16 14:31 Potassium Chloride 100 ml @ 50 mls/hr UNSCH PRN IV SEE LABEL COMMENTS 07/15/16 13:45 07/20/16 09:48 Potassium Chloride 100 ml @ 50 mls/hr UNSCH PRN IV SEE LABEL COMMENTS 07/15/16 13:45 07/17/16 02:28 Potassium Chloride (KCl 20 Meq Premix Inj) 100 ml @ 50 mls/hr UNSCH PRN IV SEE LABEL COMMENTS 07/15/16 13:45 07/20/16 05:48 Dextrose (D50w (Vial) Inj) 50 ml UNSCH PRN IV PUSH HYPOGLYCEMIA-SEE COMMENTS 07/15/16 13:45 07/15/16 22:59 Carbamazepine (TEGretol) 200 mg TID PO 07/16/16 09:00 07/20/16 09:53 Gabapentin (Neurontin) 600 mg BID PO 07/16/16 09:00 07/20/16 09:53 Folic Acid (Folate) 1 mg DAILY PO 07/16/16 09:00 07/20/16 09:53 Prednisone 2.5 mg 2.5 mg BID PO 07/16/16 09:00 07/20/16 09:54 Propofol 100 ml @ 0 mls/hr TITRATE IV 07/17/16 01:30 07/20/16 08:28 Cefepime HCl/ Sodium Chloride (Maxipime Inj/NS Inj) 100 ml @ 200 mls/hr Q8H IV 07/17/16 10:00 07/20/16 09:54 Cyanocobalamin 1000 mcg 1,000 mcg DAILY SQ 07/17/16 14:00 07/20/16 09:53 Heparin Sodium/ Dextrose 250 ml @ 0.5 mls/hr Q24H IV 07/18/16 11:00 07/20/16 02:58 Nicardipine HCl/ Sodium Chloride (Cardene Inj/NS 250 ml Inj) 260 ml @ 0 mls/hr TITRATE IV 07/19/16 17:45 07/20/16 07:31 Metoprolol Tartrate (Lopressor) 12.5 mg Q12HR PO 07/20/16 09:00 07/20/16 09:54 Furosemide (Lasix Inj) 20 mg DAILY IV PUSH 07/20/16 10:00 07/20/16 09:59 Potassium Chloride (KCl Powder) 20 meq DAILY NG 07/20/16 10:00 07/20/16 10:07 Objective Remarks GENERAL: Young woman, lying in bed supine, intubated, sedated. SKIN: Warm and dry. HEAD: Normocephalic. EYES: No injection or drainage. NECK: Supple, trachea midline. CARDIOVASCULAR: +S1/S2 RESPIRATORY: anterior [place] clear. GASTROINTESTINAL: Abdomen soft, nondistended. EXTREMITIES: No cyanosis NEUROLOGICAL: intubated, sedated. Assessment/Plan Problem List: (1) Blood loss anemia Status: Acute Plan: multifactorial d/t: sepsis, liver insufficiency, post-operative bleeding --no evidence of hemolysis --ela test negative --transfuse to keep hemoglobin greater than 7.5. --MTX level=0.00 --colonoscopy on 07/19 showed: Medium sized diffuse colitis found in the rectum; The mucosa was ulcerated, erythematous and edematous; multiple biopsies were performed using cold forcepsModerate sized internal hemorrhoids (2) Thrombocytopenia Status: Acute Plan: --secondary to DIC consumption and acute illness. --platelet count improving --Transfuse platelets to keep platelet count greater than 30,000. (3) S/P AVR (aortic valve replacement) Status: Acute Plan: --currently on heparin gtt Assessment 55y/o female with severe anemia and thrombocytopenia. History (from initial consult): underwent minimally invasive AVR with a mechanical valve via left percutaneous femoral arterial and venous cannulation. Post AVR replacement, she became acutely ill. She was hypotensive and suffered a respiratory arrest. She was emergently intubated. CPR was given and received epinephrine injections. Spontaneous circulations were achieved after two cycles of CPR. She was hypotensive and was found to have a hemoglobin of four and her platelet count was 25,000. The patient was found to have a fibrinogen of 50. She has undergone a CT scan of the abdomen which did not show any acute intra-abdominal pathology. The patient has been given packed red blood cell transfusion. Additionally, she has been given FFP and cryoprecipitate. A total of four units of packed red blood cells were ordered for transfusion. Two units of platelets were also ordered. She has not had any obvious bleeding. history of autoimmune disorder-->on Humira, and methotrexate and prednisone. history of seizure disorder. Plan 1. monitor CBC, coags 2. continue heparin gtt 3. monitor closely for bleeding. Attending Statement The exam, history, and the medical decision-making described in the above note were completed with the assistance of the mid-level provider. I reviewed and agree with the findings presented. I attest that I had a [id number] encounter with the patient on the same day, and personally performed and documented my assessment and findings in the medical record Malena Levy Jul 20, 2016 13:01 Benton Moran MD Jul 21, 2016 00:25
--- NOTE | 2016-07-20 13:43 | PD.CAR.PN ---
CVT Progress Note Subjective/Hospital Course: 55/ female, admitted for elective AVR , hx of mod to severe aortic insufficiency EF 55% PMH : osteoarthritis , RA followed by Dr Pacheco on chronic steroid use, Humira , methotrexate , seizure Dz , asthma surgery: 07/15 Minimally Invasive AVR with a 19 mm OnX Mechanical Valve, Left Percutaneous Femoral Arterial and Venous Cannulation for CPB, Intercostal Nerve Block, Perclose Arterial Closure x 2 per CCM note , pt became severely hypotensive hypoxemic and suffered with respiratory arrest. She was emergently re- intubated and regain spontaneous circulations after 2 cycles of CPR and epinephrine injections. She was found to be hypotensive and severely anemic with hemoglobin level 4, platelet count of 25, fibrinogen less than 50. She was thought to be bleeding retroperitoneally and was taken emergently to CAT scan angiogram. However no source of bleeding was found on the CT. She had some coffee ground drainage in NG + bloody stool x one , recieved 8units PRBC,/ 4 FFP, 2 PLT, 2 cryo and Kcentra. 07/16/16 pt remains intubated on vent , will open eyes and respond to simple commands, moves all extremities underwent bedside EGD today , NG trauma in esophagus , gastric varicies gastric fundus, with no evidence of active or recent bleeding elevated LFT's ? shock liver, however elevated amylase and lipase ? acute pancreatitis / elevated ferritin levels ( hemochromatosis ) chest tube drainage 320/12 hrs / on versed and fentanyl for sedation CCM following 07/17 Clinically stable s/p large volume paracentesis of bloody fluid last pm (2.6 L). Hgb stable stable on ventilator. May benefit from gently diuresis Greatly appreciate all the consultants input Planned colonoscopy today Continue CT to drainage 07/[address] removed without difficulty Will need some sort of anticoagulation for the mechanical aortic valve. Will discuss with GI and CCM regarding low-dose IV heparin gtt vs SQ Lovenox Planned Colonoscopy Greatly appreciate Dr. Radford and Dr. Curtis's input and assistance in her care 07/19 pt to start on precedex, to facilitate weaning from ventilator/ start CPAP trials today scleral edema improved still volume overloaded, however diuresing well on low dose heparin gtt , no further signs of bleeding, for colonoscopy today on no pressors, 07/20/16 on precedex and low dose propofol did not tolerate CPAP trails diuresing well, add additional low dose today vent weaning per CCM on no pressors, not following commands LFT's improving repeat CT abdomen pending Objective: GENERAL: SKIN: Warm and dry/ incision intact to chest HEAD: Normocephalic. EYES: scleral icterus. No injection or drainage. NECK: Supple, trachea midline. No JVD or lymphadenopathy. CARDIOVASCULAR: Regular rate and rhythm without murmurs, gallops, or rubs. general edema RESPIRATORY: coarse breath sounds, Breath sounds equal bilaterally. No accessory muscle use. orally intubated on vent GASTROINTESTINAL: Abdomen soft, slightly distended + bowel sounds MUSCULOSKELETAL: No cyanosis, or edema. BACK: Nontender without obvious deformity. No CVA tenderness. Vital Signs Date Time Temp Pulse Resp B/P Pulse Ox O2 Delivery O2 Flow Rate FiO2 07/20/16 12:39 99 40 07/20/16 11:28 99 40 07/20/16 11:00 81 25 106/70 99 133/81 07/20/16 11:00 100 Mechanical Ventilator 40 07/20/16 11:00 40 07/20/16 11:00 81 07/20/16 08:25 40 07/20/16 07:56 98 40 07/20/16 07:00 98.7 86 19 121/76 100 136/76 07/20/16 07:00 40 07/20/16 07:00 86 07/20/16 07:00 100 Mechanical Ventilator 40 07/20/16 04:51 98 40 07/20/16 03:00 97.6 78 16 116/84 99 137/74 07/20/16 03:00 99 Mechanical Ventilator 40 07/20/16 03:00 40 07/20/16 03:00 76 07/20/16 02:30 98 40 07/20/16 01:00 97.1 07/19/16 23:00 97.9 72 14 109/72 99 125/74 07/19/16 23:00 72 07/19/16 23:00 98 Mechanical Ventilator 40 07/19/16 23:00 40 07/19/16 22:40 98 40 07/19/16 22:00 96.9 07/19/16 20:55 97 40 07/19/16 19:00 64 07/19/16 19:00 40 07/19/16 19:00 95.7 63 14 111/68 97 125/73 07/19/16 19:00 99 Mechanical Ventilator 40 07/19/16 16:00 40 07/19/16 16:00 99 Mechanical Ventilator 40 07/19/16 16:00 66 07/19/16 15:30 67 14 136/86 99 157/87 07/19/16 14:45 99 40 Labs: Laboratory Tests Test 07/20/16 04:50 White Blood Count 11.3 TH/MM3 (4.0-11.0) Red Blood Count 3.47 MIL/MM3 (4.00-5.30) Hemoglobin 9.8 GM/DL (11.6-15.3) Hematocrit 29.0 % (35.0-46.0) Mean Corpuscular Volume 83.5 FL (80.0-100.0) Mean Corpuscular Hemoglobin 28.1 PG (27.0-34.0) Mean Corpuscular Hemoglobin 33.7 % Concent (32.0-36.0) Red Cell Distribution Width 15.9 % (11.6-17.2) Platelet Count 83 TH/MM3 (150-450) Mean Platelet Volume 8.5 FL (7.0-11.0) Neutrophils (%) (Auto) 76.6 % (16.0-70.0) Lymphocytes (%) (Auto) 8.7 % (9.0-44.0) Monocytes (%) (Auto) 11.9 % (0.0-8.0) Eosinophils (%) (Auto) 2.5 % (0.0-4.0) Basophils (%) (Auto) 0.3 % (0.0-2.0) Neutrophils # (Auto) 8.6 TH/MM3 (1.8-7.7) Lymphocytes # (Auto) 1.0 TH/MM3 (1.0-4.8) Monocytes # (Auto) 1.3 TH/MM3 (0-0.9) Eosinophils # (Auto) 0.3 TH/MM3 (0-0.4) Basophils # (Auto) 0.0 TH/MM3 (0-0.2) CBC Comment AUTO DIFF Differential Comment AUTO DIFF CONFIRMED Dohle Bodies PRESENT (NONE SEEN) Platelet Estimate LOW (NORMAL) Platelet Morphology Comment NORMAL (NORMAL) Activated Partial 34.0 SEC Thromboplast Time (24.3-30.1) Sodium Level 145 MEQ/L (136-145) Potassium Level 3.2 MEQ/L (3.5-5.1) Chloride Level 110 MEQ/L (98-107) Carbon Dioxide Level 25.9 MEQ/L (21.0-32.0) Anion Gap 9 MEQ/L (5-15) Blood Urea Nitrogen 16 MG/DL (7-18) Creatinine 0.71 MG/DL (0.50-1.00) Estimat Glomerular Filtration 104 ML/MIN Rate (>89) Random Glucose 91 MG/DL (74-106) Calcium Level 8.6 MG/DL (8.5-10.1) Phosphorus Level 2.8 MG/DL (2.5-4.9) Magnesium Level 1.8 MG/DL (1.5-2.5) Total Bilirubin 1.1 MG/DL (0.2-1.0) Aspartate Amino Transf 421 U/L (15-37) (AST/SGOT) Alanine Aminotransferase 1047 U/L (ALT/SGPT) (10-53) Alkaline Phosphatase 124 U/L (45-117) Total Protein 5.5 GM/DL (6.4-8.2) Albumin 2.0 GM/DL (3.4-5.0) Result Diagram: 07/20/1644907/20/16449 Telemetry: NSR (1) Left ventricular dysfunction (2) Severe aortic insufficiency (3) S/P AVR (aortic valve replacement) Plan: now on low dose heparin gtt, monitor for signs of bleeding will need to keep INR 2-2.5 x 90 days, then 1.5-1.8 (4) Seizure disorder Plan: on tegretol and gabapentin (5) Pancytopenia Plan: HGB stable at 9.2 monitor plt's now 77 (6) Blood loss anemia Plan: s/p multiple transfusion concern for TRALI (7) ventilator dependent respiratory failure Plan: CPAP trials daily vent per CCM (8) Shock liver Plan: indices improving (9) Encephalopathy acute Laurie Mascorro Jul 20, 2016 13:43
--- NOTE | 2016-07-20 14:01 | HHI.CCPN ---
Subjective Remarks/Hospital Course 07/16: 55-year-old female with history of seizure disorder, some autoimmune disorder on Humira methotrexate and prednisone, history of asthma underwent uncomplicated minimally Invasive AVR with a 19 mm OnX Mechanical Valve via left percutaneous femoral arterial and venous cannulation for CPB. While in the CVICU she became severely hypotensive hypoxemic and suffered with respiratory arrest. She was emergently intubated and regain spontaneous circulations after 2 cycles of CPR and epinephrine injections. She was found to be hypotensive and severely anemic with hemoglobin level 4, platelet count of 25, fibrinogen less than 50. She was thought to be bleeding retroperitoneally and was taken emergently to CAT scan angiogram. However no source of bleeding was found on the CT. patient did have significant amount of ascites noted on CAT scan. She underwent an EGD which revealed a gastric varix and an esophageal ulcer however no active bleeding. She subsequently underwent paracentesis with drainage of 2.6 L of dark blood from peritoneal cavity which was most definitely the source of her blood loss. 07/17: Remains sedated, orally intubated on mechanical ventilation. Patient spiked a temperature last night and was initiated on empiric antibiotic coverage at [facility] and [facility] after obtaining cultures. Being prepped for colonoscopy however has not had any BMs. Discussed with Dr. Radford from GI who was okay with proceeding with extubation at this point. 07/18: Remains sedated, orally intubated on mechanical ventilation. Being prepped for colonoscopy. Greenish BMs however no blood noted. Hemoglobin remained stable currently. Chest tube/ pacer wires removed. Being diuresed with Lasix. 07/19: Sedated, orally intubated on mechanical ventilation. Colonoscopy performed today which revealed colitis in the rectum with hemorrhoids. Was placed on heparin for anticoagulation last evening which was held for colonoscopy today. Being diuresed to mobilize fluid. 07/20: Remains sedated, arousable, gets agitated on lightening sedation, orally intubated on mechanical ventilation. On heparin for anticoagulation. Underwent colonoscopy yesterday. Diuresed and is -8 L in the last 24 hours. Chest x-ray continues to show bilateral infiltrates/pulmonary edema pattern raising concern for transfusion related acute lung injury (TRALI). Objective Vital Signs Date Time Temp Pulse Resp B/P Pulse Ox O2 Delivery O2 Flow Rate FiO2 07/20/16 12:39 99 40 07/20/16 11:00 81 25 106/70 133/81 07/20/16 11:00 Mechanical Ventilator 07/20/16 07:00 98.7 Intake and Output 07/19/16 07/19/16 07/19/16 07:59 15:59 23:59 Intake Total 1324 ml 1232 ml Output Total 3175 ml 4945 ml Balance -1851 ml -3713 ml Result Diagram: 07/20/16 0450 07/20/16 0450 Other Results Laboratory Tests Test 07/20/16 04:50 White Blood Count 11.3 TH/MM3 Red Blood Count 3.47 MIL/MM3 Hemoglobin 9.8 GM/DL Hematocrit 29.0 % Mean Corpuscular Volume 83.5 FL Mean Corpuscular Hemoglobin 28.1 PG Mean Corpuscular Hemoglobin 33.7 % Concent Red Cell Distribution Width 15.9 % Platelet Count 83 TH/MM3 Mean Platelet Volume 8.5 FL Neutrophils (%) (Auto) 76.6 % Lymphocytes (%) (Auto) 8.7 % Monocytes (%) (Auto) 11.9 % Eosinophils (%) (Auto) 2.5 % Basophils (%) (Auto) 0.3 % Neutrophils # (Auto) 8.6 TH/MM3 Lymphocytes # (Auto) 1.0 TH/MM3 Monocytes # (Auto) 1.3 TH/MM3 Eosinophils # (Auto) 0.3 TH/MM3 Basophils # (Auto) 0.0 TH/MM3 CBC Comment AUTO DIFF Differential Comment AUTO DIFF CONFIRMED Dohle Bodies PRESENT Platelet Estimate LOW Platelet Morphology Comment NORMAL Activated Partial 34.0 SEC Thromboplast Time Sodium Level 145 MEQ/L Potassium Level 3.2 MEQ/L Chloride Level 110 MEQ/L Carbon Dioxide Level 25.9 MEQ/L Anion Gap 9 MEQ/L Blood Urea Nitrogen 16 MG/DL Creatinine 0.71 MG/DL Estimat Glomerular Filtration 104 ML/MIN Rate Random Glucose 91 MG/DL Calcium Level 8.6 MG/DL Phosphorus Level 2.8 MG/DL Magnesium Level 1.8 MG/DL Total Bilirubin 1.1 MG/DL Aspartate Amino Transf 421 U/L (AST/SGOT) Alanine Aminotransferase 1047 U/L (ALT/SGPT) Alkaline Phosphatase 124 U/L Total Protein 5.5 GM/DL Albumin 2.0 GM/DL Imaging Last 48 hours Impressions Chest X-Ray 07/20/16 0600 Signed Impressions: Service Date/Time: Wednesday, July 20, 2016 04:25 - CONCLUSION: Patchy areas of consolidation right worse in left, tubes and catheter are in good position. Alfredo Alves MD Last Impressions Chest X-Ray 07/17/16 0000 Signed Impressions: Service Date/Time: Sunday, July 17, 2016 03:21 - CONCLUSION: Worsening pulmonary edema. Flaco Rod MD Cyst Biopsy Asp-Paracentesis US 07/16/16 0000 Signed Impressions: Service Date/Time: Saturday, July 16, 2016 21:23 - CONCLUSION: Uncomplicated ultrasound guided paracentesis. Sanguinous fluid obtained. Sample sent to the lab as requested. Norbert Kwong Jr., MD Abdomen/Pelvis CT 07/16/16 0000 Signed Impressions: Service Date/Time: Saturday, July 16, 2016 02:04 - CONCLUSION: 1. Ascites 2. No evidence of retroperitoneal hematoma 3. Bibasilar atelectasis and left pleural effusion Inder Wilson MD Abdomen Ultrasound 07/16/16 0000 Signed Impressions: Service Date/Time: Saturday, July 16, 2016 19:23 - CONCLUSION: Moderate volume of ascites. Sufficient volume for paracentesis. Norbert Kwong Jr., MD Objective Remarks HEENT/ Neuro: Sedated, orally intubated, Pallor present, no icterus, tongue/ mucosa moist Neck: No JVD Chest/Pulm: on mech vent, good air entry bilaterally, no wheezing or crackles CVS: S1-S2 regular, no murmur GI/abdomen: soft, nontender, bowel sounds sluggish Extremities: warm bilaterally, no edema A/P Assessment and Plan Neuro: Seizure disorder - Tegretol/gabapentin Sedation with propofol, daily sedation vacation. Precedex as needed with sedation vacation for C Pap trials to control agitation. CVS Cardiopulmonary arrest - Due to severe anemia secondary to hemoperitoneum possibly related to ectopic varix . - Postop transfused 4 units of PRBCs/ 4 FFP, 2 PLT, 2 cryo and Kcentra - Status post paracentesis with removal of 2.6 L of bloody peritoneal fluid on . - Hematology consulted. Repeat coags normalized. - Monitor CBC. Thrombocytopenia noted. We will send HIT screen - Hematology following. Pulm Acute respiratory failure on mechanical ventilation - On Mechanical ventilation. Vent bundle, bronchodilators as needed. CPap trials to decide extubation. - Off IV fluids, diuresed with Lasix. - Suspect TRALI. Will obtain CT chest for further evaluation of bilateral infiltrates. GI/ liver: Coffee-ground NG aspirate/bloody bowel movement -Status post EGD which revealed gastric varix and esophageal ulcer which was felt to be secondary to OG tube. Dr. Radford from GI following. GI cleared for heparin anticoagulation. Colonoscopy performed revealed colitis and rectum with ulceration from which biopsies were taken and Internal hemorrhoids. Elevated LFTs - Secondary to shock liver from hypotension secondary to cardiac arrest. Follow LFTs. CT abdomen pelvis reveals possible cirrhotic liver and an atrophic spleen per discussion with Dr. Singh from radiology. We'll repeat CT abdomen pelvis with IV contrast for evaluation of ectopic varix and to follow-up on hemoperitoneum. Tube feeds while intubated. Aortic incompetence status post aortic valve replacement with mechanical aortic valve POD#5 - Management per cardiothoracic surgery -Received 4 units of PRBCs Intra-Op. -Anticoagulation with heparin which has been cleared by GI. ID Fever: - SIRS secondary to hemoperitoneum versus sepsis. Cultures obtained. Empiric antibiotics initiated including Vanc/Cefepime. All cultures negative so far. Vanc stopped 07/19. - Follow up CT chest for further evaluation of infiltrates. DVT GI prophylaxis - Teds SCDs -Protonix Discuss with Dr. Christianson, discussed with [employer]. D/W Dr. Shahriar Singh from Radiology Critical Care: The total critical care time was 45 minutes. Time to perform other separately billable procedures was not included in the critical care time. Cm Curtis MD Jul 20, 2016 14:01
[2016-07-20 16:17] LABS: HEPARIN AB OD 0.147 O.D. (0.000-0.300); HEPARIN INDUCED PLATELET AB NEGATIVE (NEGATIVE)
[2016-07-20] MEDS ORDERED: IOHEXOL 350 MG/ML 10 ML VIAL (for RAD DIAG) IV ONE (17:42)
--- NOTE | 2016-07-20 18:03 | RADRPT ---
EXAM DATE/TIME: 07/20/2016 17:29 [facility] COMPARISON: CHEST SINGLE AP, July 20, 2016, 4:25. INDICATIONS : Evaluate bilateral infiltrates. IV CONTRAST: 92 cc Omnipaque 350 (iohexol) IV ; Cumulative dose for multiple exams. RADIATION DOSE: 17.54 CTDIvol (mGy) ; Combined studies - Thorax/Abdomen/Pelvis MEDICAL HISTORY : Hypertension. Seizures. Cardiovascular diseaseautoimmune disorder, cardiac arrest SURGICAL HISTORY : Non-responsive. ENCOUNTER: Initial ACUITY: 4 - 6 days PAIN SCALE: Non-responsive LOCATION: chest TECHNIQUE: Volumetric scanning of the chest was performed. Using automated exposure control and adjustment of t he mA and/or kV according to patient size, radiation dose was kept as low as reasonably achievable to obtain optimal diagnostic quality images. FINDINGS: LUNGS: Multiple patchy areas of consolidation are present in both the upper and lower lobes, subsegmental in distribution. There is sparing of the pulmonary apices and the superior segment of the left lower l obe. There is herniation of the lung between the anterior right 2nd and 3rd rib. No evidence of pne umothorax. PLEURA: Bilateral pleural effusions measure up to 3.3 cm in thickness on the left and 2.1 cm on the right. MEDIASTINUM: No evidence of mediastinal adenopathy. The hilar regions are unremarkable. AXILLAE: Within normal limits. No lymphadenopathy. SKELETAL: No fracture seen. MISCELLANEOUS: Gastric tube tip projects within the stomach. ET tube well above the tami. Right internal jugular catheter tip at the cavoatrial junction. CONCLUSION: Multifocal subsegmental consolidative infiltrates in both lungs and moderate-sized bilateral pleural effusions. Norbert Figueroa MD on July 20, 2016 at 17:55 Board Certified Radiologist. This report was verified electronically.
--- NOTE | 2016-07-20 18:09 | RADRPT ---
EXAM DATE/TIME: 07/20/2016 17:29 [facility] COMPARISON: CTA ABDOMEN & PELVIS W 3D RECON, July 16, 2016, 2:04. INDICATIONS : Evalaute for hemoperitoneum. IV CONTRAST: 92 cc Omnipaque 350 (iohexol) IV ORAL CONTRAST: No oral contrast ingested. RADIATION DOSE: 17.54 CTDIvol (mGy) ; Combined studies - Thorax/Abdomen/Pelvis MEDICAL HISTORY : Cardiovascular disease. Hypertension. Seizures.autoimmune disorder, cardiac arrest SURGICAL HISTORY : Non-responsive. ENCOUNTER: Initial ACUITY: 4 - 6 days PAIN SCALE: Non-responsive LOCATION: abdomen TECHNIQUE: Volumetric scanning of the abdomen and pelvis was performed. Using automated exposure control and ad justment of the mA and/or kV according to patient size, radiation dose was kept as low as reasonably achievable to obtain optimal diagnostic quality images. FINDINGS: There is a small amount of ascites tracking in the upper right paracolic gutter, significantly decrea sed from prior CT a 07/16/16. There is moderate amount of free fluid residual in the pelvis, measuring up to 5 cm in thickness. LIVER: Abnormal appearance to liver with a linear area extending from the anterior liver surface into the ju nction of the right and left lobe. The findings suggest a liver laceration. No solid lesions seen i n the liver. No calcified gallstones. No biliary ductal dilatation. SPLEEN: Normal size without lesion. PANCREAS: Within normal limits. KIDNEYS: Normal in size and shape. There is no mass, stone or hydronephrosis. ADRENAL GLANDS: Within normal limits. VASCULAR: There is no aortic aneurysm. BOWEL/MESENTERY: No dilated loops of small or large bowel. There is gas seen diffusely throughout loops of small cristobal ed bowel. ABDOMINAL WALL: Within normal limits. RETROPERITONEUM: There is no lymphadenopathy. BLADDER: Matthews catheter. REPRODUCTIVE: Within normal limits. INGUINAL: There is no lymphadenopathy or hernia. There is induration of the subcutaneous fat about the lateral pelvis and proximal thighs bilaterally. MUSCULOSKELETAL: Within normal limits for patient age. CONCLUSION: 1. Findings suggest laceration of the liver extending to the anterior margin between the left and rig ht lobe.. 2. Significant decrease in the amount of abdominal pelvic fluid with moderate residual pelvic fluid 3. Subcutaneous induration proximal and lateral thigh/pelvis. Norbert Figueroa MD on July 20, 2016 at 18:01 Board Certified Radiologist. This report was verified electronically.
[2016-07-20 21:21] LABS: HEMATOCRIT 30.5 % (35.0-46.0)
[2016-07-20 21:22] LABS: REVIEW FLAG FINAL
[2016-07-20 21:40] LABS: APTT (PATIENT) 51.4 SEC (24.3-30.1)
[2016-07-20] MEDS: DEXMEDETOMIDINE INJ 400 MCG in SODIUM CHLORIDE 0.9% INJ 96 ML IV SCH (22:17)
[2016-07-21] VITALS (12 sets, daily range): BP systolic 109–140; BP diastolic 73–79; PULSE 66–119; RESP 14–18; TEMP 97.6–98.7; O2SAT 98–100
[2016-07-21] MEDS: CEFEPIME INJ 2,000 MG in SODIUM CHLORIDE 0.9% INJ 100 ML IV SCH ×3 (01:36→18:25)
[2016-07-21] MEDS: PROPOFOL 1000 MG/100 ML IV SCH ×3 (01:37→22:30)
[2016-07-21] MEDS: niCARdipine INJ 25 MG in SODIUM CHLOR 0.9% 250 ML INJ 250 ML IV SCH ×2 (02:47→22:15)
[2016-07-21] MEDS: RESP: ALBUTEROL 2.5 MG/IPRATROPIUM 0.5 MG NEB (SCH) NEB ×4 (04:15→21:35)
[2016-07-21] MEDS: DEXMEDETOMIDINE INJ 400 MCG in SODIUM CHLORIDE 0.9% INJ 96 ML IV SCH ×2 (04:49→22:01)
[2016-07-21] MEDS: HEPARIN-D5W INJ 250 ML IV SCH (04:51)
[2016-07-21 05:08] LABS: AUTOMATED NEUTROPHIL # 7.9 TH/MM3 (1.8-7.7); BASOPHIL % 0.2 % (0.0-2.0); EOSINOPHIL # 0.1 TH/MM3 (0-0.4); HEMATOCRIT 29.6 % (35.0-46.0); LYMPH % 11.2 % (9.0-44.0); LYMPHOCYTE # 1.2 TH/MM3 (1.0-4.8); MEAN CELL VOLUME 84.5 FL (80.0-100.0); MEAN CORPUSCULAR HEMOGLOBIN 27.9 PG (27.0-34.0); MEAN CORPUSCULAR HGB CONC 33.1 % (32.0-36.0); MONO % 16.2 % (0.0-8.0); NEUT % 71.4 % (16.0-70.0); PLATELET COUNT 88 TH/MM3 (150-450); RED CELL DISTRIBUTION WIDTH 15.8 % (11.6-17.2); WHITE BLOOD COUNT 11.1 TH/MM3 (4.0-11.0)
[2016-07-21 05:09] LABS: ALT (GPT) 802 U/L (10-53); ANION GAP 11 MEQ/L (5-15); AST (GOT) 218 U/L (15-37); BICARBONATE 27.5 MEQ/L (21.0-32.0); BLOOD UREA NITROGEN 13 MG/DL (7-18); CHLORIDE 108 MEQ/L (98-107); GLOMERULAR FILTRATION RATE 115 ML/MIN (>89); POTASSIUM 3.4 MEQ/L (3.5-5.1); SODIUM (NA) 146 MEQ/L (136-145)
[2016-07-21 05:10] LABS: HEMO FLAGS AUTO DIFF
[2016-07-21 05:11] LABS: ALKALINE PHOSPHATASE 137 U/L (45-117); TOTAL BILIRUBIN ADULT 1.2 MG/DL (0.2-1.0)
[2016-07-21 05:21] LABS: APTT (PATIENT) 44.3 SEC (24.3-30.1); PROTHROMBIN TIME - PATIENT 10.6 SEC (9.8-11.6)
[2016-07-21] MEDS: POTASSIUM CHLOR 20 MEQ PREMIX 100 ML IV PRN (05:41)
[2016-07-21 06:49] LABS: BANDS 1 % (0-6); CORRECTED NUCLEATED RBC 1 /100 WBC (0-0); EOSINOPHILS 1 % (0-4); METAMYELOCYTES 3 % (0-1); NEUTROPHIL # MANUAL DIFF 9.2 TH/MM3 (1.8-7.7); PLATELET ESTIMATE SMEAR LOW (NORMAL); PLATELET MORPHOLOGY NORMAL (NORMAL); POLYS (SEG NEUTROPHILS) 79 % (16-70); SCAN/DIFF FINAL DIFF MANUAL; WBC DIFF SAMPLE 100
[2016-07-21 06:51] LABS: ACANTHOCYTES OCC (NORMAL)
[2016-07-21] MEDS: GABAPENTIN 300 MG CAP PO SCH ×2 (07:40→21:53)
[2016-07-21] MEDS: FOLIC ACID 1 MG TAB PO SCH (07:40)
[2016-07-21] MEDS: predniSONE 5 MG TAB PO SCH ×2 (07:40→21:54)
[2016-07-21] MEDS: METOPROLOL TARTRATE 25 MG TAB PO SCH ×2 (07:40→21:54)
[2016-07-21] MEDS: carBAMazepine 200 MG TAB PO SCH ×3 (07:40→18:24)
[2016-07-21] MEDS: POTASSIUM CHLORIDE 20 MEQ PWD PACKET NG SCH (07:41)
[2016-07-21] MEDS: FUROSEMIDE 20 MG/2 ML VIAL IV PUSH SCH (07:41)
[2016-07-21] MEDS: CYANOCOBALAMIN 1000 MCG/ML VIAL SQ SCH (07:42)
[2016-07-21] MEDS: SODIUM CHLORIDE 0.9% FLUSH 10 ML FLUSH IV FLUSH SCH ×2 (07:42→21:54)
[2016-07-21] MEDS ORDERED: MIDAZOLAM HCL 5 MG/ML VIAL (1 ML) ONE (09:15)
--- NOTE | 2016-07-21 12:33 | RADRPT ---
EXAM DATE/TIME: 07/21/2016 11:52 [facility] COMPARISON: CT THORAX W CONTRAST, July 20, 2016, 17:29. CHEST SINGLE AP, July 20, 2016, 4:25. INDICATIONS : Short of breath. MEDICAL HISTORY : Hypertension. Cardiovascular disease. Seizures, auto immune disorder, cardiac arrest. SURGICAL HISTORY : None. ENCOUNTER: Initial ACUITY: 4 - 6 days PAIN SCORE: Non-responsive. LOCATION: Bilateral chest FINDINGS: ET tube, nasogastric tube and central venous catheter are in good position. Mild interstitial edema is present, improving in the interval. There is no pneumothorax. CONCLUSION: Interval improvement with less interstitial edema. Silvestre Singh MD FACR on July 21, 2016 at 12:16 Board Certified Radiologist. This report was verified electronically.
--- NOTE | 2016-07-21 13:04 | PD.CAR.PN ---
CVT Progress Note Subjective/Hospital Course: 55/ female, admitted for elective AVR , hx of mod to severe aortic insufficiency EF 55% PMH : osteoarthritis , RA followed by Dr Pacheco on chronic steroid use, Humira , methotrexate , seizure Dz , asthma surgery: 07/15 Minimally Invasive AVR with a 19 mm OnX Mechanical Valve, Left Percutaneous Femoral Arterial and Venous Cannulation for CPB, Intercostal Nerve Block, Perclose Arterial Closure x 2 per CCM note , pt became severely hypotensive hypoxemic and suffered with respiratory arrest. She was emergently re- intubated and regain spontaneous circulations after 2 cycles of CPR and epinephrine injections. She was found to be hypotensive and severely anemic with hemoglobin level 4, platelet count of 25, fibrinogen less than 50. She was thought to be bleeding retroperitoneally and was taken emergently to CAT scan angiogram. However no source of bleeding was found on the CT. She had some coffee ground drainage in NG + bloody stool x one , recieved 8units PRBC,/ 4 FFP, 2 PLT, 2 cryo and Kcentra. 07/16/16 pt remains intubated on vent , will open eyes and respond to simple commands, moves all extremities underwent bedside EGD today , NG trauma in esophagus , gastric varicies gastric fundus, with no evidence of active or recent bleeding elevated LFT's ? shock liver, however elevated amylase and lipase ? acute pancreatitis / elevated ferritin levels ( hemochromatosis ) chest tube drainage 320/12 hrs / on versed and fentanyl for sedation CCM following 07/17 Clinically stable s/p large volume paracentesis of bloody fluid last pm (2.6 L). Hgb stable stable on ventilator. May benefit from gently diuresis Greatly appreciate all the consultants input Planned colonoscopy today Continue CT to drainage 07/[address] removed without difficulty Will need some sort of anticoagulation for the mechanical aortic valve. Will discuss with GI and CCM regarding low-dose IV heparin gtt vs SQ Lovenox Planned Colonoscopy Greatly appreciate Dr. Radford and Dr. Curtis's input and assistance in her care 07/19 pt to start on precedex, to facilitate weaning from ventilator/ start CPAP trials today scleral edema improved still volume overloaded, however diuresing well on low dose heparin gtt , no further signs of bleeding, for colonoscopy today on no pressors, 07/20/16 on precedex and low dose propofol did not tolerate CPAP trails diuresing well, add additional low dose today vent weaning per CCM on no pressors, not following commands LFT's improving repeat CT abdomen pending 07/21/16 still on low dose precedex CT scan resulted / + liver lac/ general surgery consulted HGB stable at 9.8 remains on vent / not following commands Heparin gtt at 800units /hr Objective: GENERAL: sedated on vent / orally intubated / 40% fi02 SKIN: Warm and dry. HEAD: Normocephalic. EYES: No scleral icterus. No injection or drainage. NECK: Supple, trachea midline. No JVD or lymphadenopathy. CARDIOVASCULAR: Regular rate and rhythm without murmurs, gallops, or rubs. RESPIRATORY: coarse bilateral breath sounds Breath sounds equal bilaterally. No accessory muscle use. GASTROINTESTINAL: Abdomen soft, non-tender, nondistended. MUSCULOSKELETAL: No cyanosis, or edema. BACK: Nontender without obvious deformity. No CVA tenderness. Vital Signs Date Time Temp Pulse Resp B/P Pulse Ox O2 Delivery O2 Flow Rate FiO2 07/21/16 12:42 100 45 07/21/16 08:00 99 40 07/21/16 06:40 99 40 07/21/16 04:15 100 40 07/21/16 03:00 40 07/21/16 03:00 66 07/21/16 03:00 97.6 66 18 140/77 99 07/21/16 03:00 99 Mechanical Ventilator 40 07/21/16 01:02 99 40 07/20/16 23:00 90 07/20/16 23:00 40 07/20/16 23:00 100 Mechanical Ventilator 40 07/20/16 23:00 99.2 90 18 129/79 100 07/20/16 22:09 100 40 07/20/16 20:47 100 40 07/20/16 19:00 97.3 84 18 152/87 100 07/20/16 19:00 100 Mechanical Ventilator 40 07/20/16 19:00 84 07/20/16 17:15 100 100 07/20/16 16:05 99 40 07/20/16 16:04 86 07/20/16 16:04 40 07/20/16 16:04 100 Mechanical Ventilator 40 07/20/16 16:04 96.9 83 24 110/81 100 Arterial Line 07/20/16 13:51 99 40 Labs: Laboratory Tests Test 07/21/16 04:40 White Blood Count 11.1 TH/MM3 (4.0-11.0) Red Blood Count 3.50 MIL/MM3 (4.00-5.30) Hemoglobin 9.8 GM/DL (11.6-15.3) Hematocrit 29.6 % (35.0-46.0) Mean Corpuscular Volume 84.5 FL (80.0-100.0) Mean Corpuscular Hemoglobin 27.9 PG (27.0-34.0) Mean Corpuscular Hemoglobin 33.1 % Concent (32.0-36.0) Red Cell Distribution Width 15.8 % (11.6-17.2) Platelet Count 88 TH/MM3 (150-450) Mean Platelet Volume 9.0 FL (7.0-11.0) Neutrophils (%) (Auto) 71.4 % (16.0-70.0) Lymphocytes (%) (Auto) 11.2 % (9.0-44.0) Monocytes (%) (Auto) 16.2 % (0.0-8.0) Eosinophils (%) (Auto) 1.0 % (0.0-4.0) Basophils (%) (Auto) 0.2 % (0.0-2.0) Neutrophils # (Auto) 7.9 TH/MM3 (1.8-7.7) Lymphocytes # (Auto) 1.2 TH/MM3 (1.0-4.8) Monocytes # (Auto) 1.8 TH/MM3 (0-0.9) Eosinophils # (Auto) 0.1 TH/MM3 (0-0.4) Basophils # (Auto) 0.0 TH/MM3 (0-0.2) CBC Comment AUTO DIFF Differential Total Cells 100 Counted Neutrophils % (Manual) 79 % (16-70) Band Neutrophils % 1 % (0-6) Lymphocytes % 7 % (9-44) Monocytes % 9 % (0-8) Eosinophils % 1 % (0-4) Neutrophils # (Manual) 9.2 TH/MM3 (1.8-7.7) Metamyelocytes 3 % (0-1) Nucleated Red Blood Cells 1 /100 WBC (0-0) Differential Comment FINAL DIFF MANUAL Platelet Estimate LOW (NORMAL) Platelet Morphology Comment NORMAL (NORMAL) Helmet Cells (NORMAL) Acanthocytes OCC (NORMAL) Prothrombin Time 10.6 SEC (9.8-11.6) Prothromb Time International 1.0 RATIO Ratio Activated Partial 44.3 SEC Thromboplast Time (24.3-30.1) Sodium Level 146 MEQ/L (136-145) Potassium Level 3.4 MEQ/L (3.5-5.1) Chloride Level 108 MEQ/L (98-107) Carbon Dioxide Level 27.5 MEQ/L (21.0-32.0) Anion Gap 11 MEQ/L (5-15) Blood Urea Nitrogen 13 MG/DL (7-18) Creatinine 0.65 MG/DL (0.50-1.00) Estimat Glomerular Filtration 115 ML/MIN Rate (>89) Random Glucose 101 MG/DL (74-106) Calcium Level 8.9 MG/DL (8.5-10.1) Phosphorus Level 3.2 MG/DL (2.5-4.9) Magnesium Level 2.0 MG/DL (1.5-2.5) Total Bilirubin 1.2 MG/DL (0.2-1.0) Aspartate Amino Transf 218 U/L (15-37) (AST/SGOT) Alanine Aminotransferase 802 U/L (10-53) (ALT/SGPT) Alkaline Phosphatase 137 U/L (45-117) Ammonia LESS THAN 10 MCMOL/L (11-32) Total Protein 6.1 GM/DL (6.4-8.2) Albumin 2.3 GM/DL (3.4-5.0) Result Diagram: 07/21/1643907/21/16439 (1) Left ventricular dysfunction (2) Severe aortic insufficiency (3) S/P AVR (aortic valve replacement) Plan: now on low dose heparin gtt, monitor for signs of bleeding will need to keep INR 2-2.5 x 90 days, then 1.5-1.8 (4) Seizure disorder Plan: on tegretol and gabapentin (5) Pancytopenia Plan: HGB stable at 9.2>9.8 monitor plt's now 77>88/ neg HIT panel (6) Blood loss anemia Plan: s/p multiple transfusion concern for TRALI (7) ventilator dependent respiratory failure Plan: CPAP trials daily vent per [facility] (8) Shock liver Plan: indices improving (9) Encephalopathy acute (10) Liver laceration Plan: general surgery consulted Laurie Mascorro Jul 21, 2016 13:04
--- NOTE | 2016-07-21 14:04 | HHI.CCPN ---
Subjective Remarks/Hospital Course 07/16: 55-year-old female with history of seizure disorder, some autoimmune disorder on Humira methotrexate and prednisone, history of asthma underwent uncomplicated minimally Invasive AVR with a 19 mm OnX Mechanical Valve via left percutaneous femoral arterial and venous cannulation for CPB. While in the CVICU she became severely hypotensive hypoxemic and suffered with respiratory arrest. She was emergently intubated and regain spontaneous circulations after 2 cycles of CPR and epinephrine injections. She was found to be hypotensive and severely anemic with hemoglobin level 4, platelet count of 25, fibrinogen less than 50. She was thought to be bleeding retroperitoneally and was taken emergently to CAT scan angiogram. However no source of bleeding was found on the CT. patient did have significant amount of ascites noted on CAT scan. She underwent an EGD which revealed a gastric varix and an esophageal ulcer however no active bleeding. She subsequently underwent paracentesis with drainage of 2.6 L of dark blood from peritoneal cavity which was most definitely the source of her blood loss. 07/17: Remains sedated, orally intubated on mechanical ventilation. Patient spiked a temperature last night and was initiated on empir[facility] after obtaining cultures. Being prepped for colonoscopy however has not had any BMs. Discussed with Dr. Radford from GI who was okay with proceeding with extubation at this point. 07/18: Remains sedated, orally intubated on mechanical ventilation. Being prepped for colonoscopy. Greenish BMs however no blood noted. Hemoglobin remained stable currently. Chest tube/ pacer wires removed. Being diuresed with Lasix. 07/19: Sedated, orally intubated on mechanical ventilation. Colonoscopy performed today which revealed colitis in the rectum with hemorrhoids. Was placed on heparin for anticoagulation last evening which was held for colonoscopy today. Being diuresed to mobilize fluid. 07/20: Remains sedated, arousable, gets agitated on lightening sedation, orally intubated on mechanical ventilation. On heparin for anticoagulation. Underwent colonoscopy yesterday. Diuresed and is -8 L in the last 24 hours. Chest x-ray continues to show bilateral infiltrates/pulmonary edema pattern raising concern for transfusion related acute lung injury (TRALI). 07/21: Sedated, arousable, orally intubated on mechanical ventilation. On heparin for anticoagulation. CT abdomen and pelvis done on 07/20 revealed what looks like a liver laceration with some free fluid in the pelvis. CT chest with bilateral infiltrates and bilateral small effusions. Objective Vital Signs Date Time Temp Pulse Resp B/P Pulse Ox O2 Delivery O2 Flow Rate FiO2 07/21/16 12:42 100 45 07/21/16 03:00 66 07/21/16 03:00 97.6 18 140/77 07/21/16 03:00 Mechanical Ventilator Intake and Output 07/20/16 07/20/16 07/21/16 08:00 16:00 00:00 Intake Total 1317 ml 1362 ml Output Total 4005 ml 5800 ml Balance -2688 ml -4438 ml Result Diagram: 07/21/16 0440 07/21/16 0440 Other Results Laboratory Tests Test 07/20/16 07/21/16 21:10 04:40 Hemoglobin 10.1 GM/DL 9.8 GM/DL Hematocrit 30.5 % 29.6 % Activated Partial 51.4 SEC 44.3 SEC Thromboplast Time White Blood Count 11.1 TH/MM3 Red Blood Count 3.50 MIL/MM3 Mean Corpuscular Volume 84.5 FL Mean Corpuscular Hemoglobin 27.9 PG Mean Corpuscular Hemoglobin 33.1 % Concent Red Cell Distribution Width 15.8 % Platelet Count 88 TH/MM3 Mean Platelet Volume 9.0 FL Neutrophils (%) (Auto) 71.4 % Lymphocytes (%) (Auto) 11.2 % Monocytes (%) (Auto) 16.2 % Eosinophils (%) (Auto) 1.0 % Basophils (%) (Auto) 0.2 % Neutrophils # (Auto) 7.9 TH/MM3 Lymphocytes # (Auto) 1.2 TH/MM3 Monocytes # (Auto) 1.8 TH/MM3 Eosinophils # (Auto) 0.1 TH/MM3 Basophils # (Auto) 0.0 TH/MM3 CBC Comment AUTO DIFF Differential Total Cells 100 Counted Neutrophils % (Manual) 79 % Band Neutrophils % 1 % Lymphocytes % 7 % Monocytes % 9 % Eosinophils % 1 % Neutrophils # (Manual) 9.2 TH/MM3 Metamyelocytes 3 % Nucleated Red Blood Cells 1 /100 WBC Differential Comment FINAL DIFF MANUAL Platelet Estimate LOW Platelet Morphology Comment NORMAL Helmet Cells Acanthocytes OCC Prothrombin Time 10.6 SEC Prothromb Time International 1.0 RATIO Ratio Sodium Level 146 MEQ/L Potassium Level 3.4 MEQ/L Chloride Level 108 MEQ/L Carbon Dioxide Level 27.5 MEQ/L Anion Gap 11 MEQ/L Blood Urea Nitrogen 13 MG/DL Creatinine 0.65 MG/DL Estimat Glomerular Filtration 115 ML/MIN Rate Random Glucose 101 MG/DL Calcium Level 8.9 MG/DL Phosphorus Level 3.2 MG/DL Magnesium Level 2.0 MG/DL Total Bilirubin 1.2 MG/DL Aspartate Amino Transf 218 U/L (AST/SGOT) Alanine Aminotransferase 802 U/L (ALT/SGPT) Alkaline Phosphatase 137 U/L Ammonia LESS THAN 10 MCMOL/L Total Protein 6.1 GM/DL Albumin 2.3 GM/DL Imaging Last 48 hours Impressions Chest X-Ray 07/20/16 0600 Signed Impressions: Service Date/Time: Wednesday, July 20, 2016 04:25 - CONCLUSION: Patchy areas of consolidation right worse in left, tubes and catheter are in good position. Alfredo Alves MD Chest CT 07/20/16 0000 Signed Impressions: Service Date/Time: Wednesday, July 20, 2016 17:29 - CONCLUSION: Multifocal subsegmental consolidative infiltrates in both lungs and moderate-sized bilateral pleural effusions. Norbert Figueroa MD Abdomen/Pelvis CT 07/20/16 0000 Signed Impressions: Service Date/Time: Wednesday, July 20, 2016 17:29 - CONCLUSION: 1. Findings suggest laceration of the liver extending to the anterior margin between the left and right lobe.. 2. Significant decrease in the amount of abdominal pelvic fluid with moderate residual pelvic fluid 3. Subcutaneous induration proximal and lateral thigh/pelvis. Norbert Figueroa MD Last Impressions Chest X-Ray 07/17/16 0000 Signed Impressions: Service Date/Time: Sunday, July 17, 2016 03:21 - CONCLUSION: Worsening pulmonary edema. Flaco Rod MD Cyst Biopsy Asp-Paracentesis US 07/16/16 0000 Signed Impressions: Service Date/Time: Saturday, July 16, 2016 21:23 - CONCLUSION: Uncomplicated ultrasound guided paracentesis. Sanguinous fluid obtained. Sample sent to the lab as requested. Norbert Kwong Jr., MD Abdomen/Pelvis CT 07/16/16 0000 Signed Impressions: Service Date/Time: Saturday, July 16, 2016 02:04 - CONCLUSION: 1. Ascites 2. No evidence of retroperitoneal hematoma 3. Bibasilar atelectasis and left pleural effusion Inder Wilson MD Abdomen Ultrasound 07/16/16 0000 Signed Impressions: Service Date/Time: Saturday, July 16, 2016 19:23 - CONCLUSION: Moderate volume of ascites. Sufficient volume for paracentesis. Norbert Kwong Jr., MD Objective Remarks HEENT/ Neuro: Sedated, arousable, follows commands on lightening sedation. Remains Orally intubated, Pallor present, no icterus, tongue/ mucosa moist Neck: Right IJ central line in place Chest/Pulm: on mech vent, good air entry bilaterally, no wheezing or crackles CVS: S1-S2 regular, no murmur GI/abdomen: soft, nontender, bowel sounds sluggish Extremities: warm bilaterally, bilateral edema Urinary Catheter: Yes Assessment to: Continue Vascular Central Line Catheter: Yes Assessment to: Continue A/P Assessment and Plan Neuro: Seizure disorder - Tegretol/gabapentin Sedation with propofol, daily sedation vacation. Precedex as needed with sedation vacation for C Pap trials to control agitation. CVS Cardiopulmonary arrest - Due to severe anemia secondary to hemoperitoneum most likely secondary to liver laceration noted on CT done on 07/20 - Postop transfused 4 units of PRBCs/ 4 FFP, 2 PLT, 2 cryo and Kcentra - Status post paracentesis with removal of 2.6 L of bloody peritoneal fluid on . - Hematology consulted and following. Repeat coags normalized. - Monitor CBC. Thrombocytopenia noted. HIT screen negative Pulm Acute respiratory failure on mechanical ventilation - On Mechanical ventilation. Vent bundle, bronchodilators as needed. CPap trials to decide extubation. - Off IV fluids, diuresed with Lasix. - Suspect TRALI. CT chest with bilateral infiltrates and small effusions GI/ liver: Coffee-ground NG aspirate/bloody bowel movement -Status post EGD which revealed gastric varix and esophageal ulcer which was felt to be secondary to OG tube. Dr. Radford from GI following. GI cleared for heparin anticoagulation. Colonoscopy performed revealed colitis and rectum with ulceration from which biopsies were taken and Internal hemorrhoids. Elevated LFTs - shock liver from hypotension secondary to cardiac arrest. Follow LFTs. Repeat CT abdomen pelvis with IV contrast on 07/20 to follow-up on hemoperitoneum and to evaluate source off previous bleeding revealed liver laceration and moderate pelvic fluid significantly decreased compared to previous CAT scan. Discussed with Dr. Christianson on 07/20, consulted general surgery and discussed with Dr. Hewitt who recommends abdominal binder. Tube feeds while intubated. Aortic incompetence status post aortic valve replacement with mechanical aortic valve POD#6 - Management per cardiothoracic surgery -Received 4 units of PRBCs Intra-Op. -Anticoagulation with heparin which has been cleared by GI. Plan to keep PTT 40 -45 seconds per d/w Dr. Christianson in view of findings of liver laceration and will watch for any drop in hemoglobin. ID Fever: - SIRS secondary to hemoperitoneum versus sepsis. Cultures obtained. Empiric antibiotics initiated including Vanc/Cefepime. All cultures negative so far. Vanc stopped 07/19. - Follow up CT chest for further evaluation of infiltrates. DVT GI prophylaxis - Teds SCDs -Protonix Discuss with Dr. Christianson, discussed with HVAC/R SERVICE TECHNICIAN. D/W Radiologist on 07/20 Critical Care: The total critical care time was 45 minutes. Time to perform other separately billable procedures was not included in the critical care time. Cm Curtis MD Jul 21, 2016 14:04
[2016-07-21] MEDS ORDERED: FUROSEMIDE 20 MG/2 ML VIAL IV PUSH ONE (14:15)
[2016-07-21] MEDS ORDERED: POTASSIUM CHLOR 40 MEQ PREMIX 100 ML IV ONE (14:15)
--- NOTE | 2016-07-21 15:54 | PD.CONS ---
cc: Andrey Hewitt MD [facility] Service CONSULTATION NOTE FOR SURGICAL ATTENDING, DR. ANDREY HEWITT General Surgery Consult Requested By Dr. Curtis Reason for Consult Evaluation of liver laceration Primary Care Physician Roberth aWite MD History of Present Illness This is a 55-year-old female with a past medical history of seizure disorder, autoimmune disorder, and asthma who had a uncomplicated minimally invasive AVR with a 19 mm OnX Mechanical Valve via left percutaneous femoral arterial and venous cannulation for CPB on July 15. After reviewing the chart during this admission, post operatively she became severely hypotensive and had a respiratory arrest. She was emergently intubated by the Payroll Services Analyst and had 2 rounds of CPR and epinephrine injections. Laboratory work showed a hemoglobin of 4 and platelet count of 25. She was emergently taken to angiography but no bleeding source was found at that time. The CAT scan did show ascites and the patient did have a paracentesis at the bedside with the drainage of 2.6 L of dark blood from the peritoneal cavity. The patient has remained intubated and sedated on high levels of mechanical ventilation. She was transfused during this hospitalization and possible had a TRALI. She has been started on a heparin drip during this hospitalization. On July 20 her abdomen continued to be distended and a CT was obtained which showed a liver laceration. A General Surgery consultation has been requested for evaluation of liver laceration Review of Systems ROS Limitations: Clinical Condition, Intubated Past Family Social History Past Medical History Obtained for EMR: Seizure disorder Asthma Unknown autoimmune disorder Past Surgical History Obtained from EMR Atrial valve replacement (this admission) Arthroplasty of the knee Allergies: Coded Allergies: No Known Allergies (Verified , 07/15/16) Active Ordered Medications Current Medications Medications (Trade) Dose Ordered Sig/Everardo Route Start Time Stop Time Status Last Admin (NS Flush) 2 ml BID IV FLUSH 07/15/16 21:00 07/21/16 07:42 Sodium Chloride 2 ml 2 ml UNSCH PRN IV FLUSH 07/15/16 13:45 Nitroglycerin/ Dextrose 250 ml @ 0 mls/hr TITRATE IV 07/15/16 13:45 (Neosynephrine Inj/D5W 500 ml Inj) 500 ml @ 0 mls/hr TITRATE IV 07/15/16 13:45 Albumin Human 12.5 gm 12.5 gm UNSCH PRN IV 07/15/16 13:45 07/15/16 16:43 (Lr 1000 ml Inj) 500 ml @ 500 mls/hr Q1H PRN IV 07/15/16 13:40 (Aspirin Chew) 81 mg DAILY PO 07/16/16 09:00 Hold (Protonix) 40 mg DAILY@06 PO 07/16/16 06:00 07/16/16 06:00 (Tylenol) 650 mg Q4H PRN PO 07/15/16 13:45 07/17/16 01:15 (Morphine Inj) 1 mg Q10M PRN IV 07/15/16 13:45 (Percocet 5-325 Mg) 1 tab Q3H PRN PO 07/15/16 13:45 (fentaNYL INJ) 25 mcg Q1H PRN IV 07/15/16 13:45 (Zofran Inj) 4 mg Q6H PRN IV PUSH 07/15/16 13:45 07/15/16 16:19 (Apresoline Inj) 10 mg Q4H PRN IV 07/15/16 13:45 07/19/16 13:52 Metoprolol Tartrate 2.5 mg 2.5 mg Q1H PRN IV PUSH 07/15/16 13:45 07/17/16 14:31 Potassium Chloride 100 ml @ 50 mls/hr UNSCH PRN IV 07/15/16 13:45 07/20/16 09:48 Potassium Chloride 100 ml @ 50 mls/hr UNSCH PRN IV 07/15/16 13:45 07/21/16 05:41 Potassium Chloride 100 ml @ 50 mls/hr UNSCH PRN IV 07/15/16 13:45 07/20/16 05:48 Magnesium Sulfate 2 gm/Sodium Chloride 104 ml @ 100 mls/hr UNSCH PRN IV 07/15/16 13:45 Magnesium Sulfate 2 gm/Sodium Chloride 104 ml @ 50 mls/hr UNSCH PRN IV 07/15/16 13:45 07/21/16 07:39 (NovoLIN R (IV INFUSION)/NS Inj) 100 ml @ 0 mls/hr TITRATE IV 07/15/16 13:45 (D50w (Vial) Inj) 50 ml UNSCH PRN IV PUSH 07/15/16 13:45 07/15/16 22:59 (TEGretol) 200 mg TID PO 07/16/16 09:00 07/21/16 14:08 (Neurontin) 600 mg BID PO 07/16/16 09:00 07/21/16 07:40 (Folate) 1 mg DAILY PO 07/16/16 09:00 07/21/16 07:40 Prednisone 2.5 mg 2.5 mg BID PO 07/16/16 09:00 07/21/16 07:40 Propofol 100 ml @ 0 mls/hr TITRATE IV 07/17/16 01:30 07/21/16 06:24 Cefepime HCl 2000 mg/Sodium Chloride 100 ml @ 200 mls/hr Q8H IV 07/17/16 10:00 07/21/16 10:00 (Levophed-Dextrose Drip) 250 ml @ 0 mls/hr TITRATE IV 07/17/16 10:30 Cyanocobalamin 1000 mcg 1,000 mcg DAILY SQ 07/17/16 14:00 07/21/16 07:42 Heparin Sodium/ Dextrose 250 ml @ 0.5 mls/hr Q24H IV 07/18/16 11:00 07/21/16 04:51 (Cardene Inj/NS 250 ml Inj) 260 ml @ 0 mls/hr TITRATE IV 07/19/16 17:45 07/21/16 02:47 Metoprolol Tartrate 12.5 mg 12.5 mg Q12HR PO 07/20/16 09:00 07/21/16 07:40 Dexmedetomidine HCl 400 mcg/ Sodium Chloride 100 ml @ 0 mls/hr TITRATE IV 07/20/16 11:30 07/21/16 04:49 (KCl 40 Meq Premix Inj) 100 ml @ 25 mls/hr ONCE ONCE IV 07/21/16 14:15 07/21/16 18:14 07/21/16 14:15 Family History Unable to obtain Social History Unable to obtain from patient but electronic medical record does indicate the patient has denied tobacco use, EtOH use, and illicit drugs. Physical Exam Vital Signs Vital Signs Date Time Temp Pulse Resp B/P Pulse Ox O2 Delivery O2 Flow Rate FiO2 07/21/16 15:00 99 Mechanical Ventilator 40 07/21/16 15:00 66 07/21/16 15:00 40 07/21/16 12:42 100 45 07/21/16 11:00 99 Mechanical Ventilator 40 07/21/16 11:00 40 07/21/16 11:00 119 07/21/16 10:58 98 40 07/21/16 10:25 99 45 07/21/16 08:00 99 40 07/21/16 07:00 40 07/21/16 07:00 66 07/21/16 07:00 99 Mechanical Ventilator 40 07/21/16 06:40 99 40 07/21/16 04:15 100 40 07/21/16 03:00 40 07/21/16 03:00 66 07/21/16 03:00 97.6 66 18 140/77 99 07/21/16 03:00 99 Mechanical Ventilator 40 07/21/16 01:02 99 40 07/20/16 23:00 90 07/20/16 23:00 40 07/20/16 23:00 100 Mechanical Ventilator 40 07/20/16 23:00 99.2 90 18 129/79 100 07/20/16 22:09 100 40 07/20/16 20:47 100 40 07/20/16 19:00 97.3 84 18 152/87 100 07/20/16 19:00 100 Mechanical Ventilator 40 07/20/16 19:00 84 07/20/16 17:15 100 100 07/20/16 16:05 99 40 07/20/16 16:04 86 07/20/16 16:04 40 07/20/16 16:04 100 Mechanical Ventilator 40 07/20/16 16:04 96.9 83 24 110/81 100 Arterial Line Physical Exam GENERAL: 55 year old female acutely ill resting in bed in the Cardiovascular ICU on mechanical ventilation. SKIN: Warm and dry. HEAD: Atraumatic. Normocephalic. EYES: Pupils equal and round. No scleral icterus. No injection or drainage. ENT: No nasal bleeding or discharge. Mucous membranes pink and moist. NECK: Trachea midline. CARDIOVASCULAR: Regular rate and rhythm. RESPIRATORY: No accessory muscle use. Clear to auscultation. Breath sounds equal bilaterally. GASTROINTESTINAL: Abdomen soft, minimally distended. Measuring device in place for measuring girth. Abdominal binder in place. MUSCULOSKELETAL: Extremities without clubbing, cyanosis, or edema. No obvious deformities. NEUROLOGICAL: Unable to examine PSYCHIATRIC: Unable to examine. Laboratory Laboratory Tests Test 07/20/16 07/21/16 21:10 04:40 Hemoglobin 10.1 9.8 Hematocrit 30.5 29.6 Activated Partial 51.4 44.3 Thromboplast Time White Blood Count 11.1 Red Blood Count 3.50 Mean Corpuscular Volume 84.5 Mean Corpuscular Hemoglobin 27.9 Mean Corpuscular Hemoglobin 33.1 Concent Red Cell Distribution Width 15.8 Platelet Count 88 Mean Platelet Volume 9.0 Neutrophils (%) (Auto) 71.4 Lymphocytes (%) (Auto) 11.2 Monocytes (%) (Auto) 16.2 Eosinophils (%) (Auto) 1.0 Basophils (%) (Auto) 0.2 Neutrophils # (Auto) 7.9 Lymphocytes # (Auto) 1.2 Monocytes # (Auto) 1.8 Eosinophils # (Auto) 0.1 Basophils # (Auto) 0.0 CBC Comment AUTO DIFF Differential Total Cells 100 Counted Neutrophils % (Manual) 79 Band Neutrophils % 1 Lymphocytes % 7 Monocytes % 9 Eosinophils % 1 Neutrophils # (Manual) 9.2 Metamyelocytes 3 Nucleated Red Blood Cells 1 Differential Comment FINAL DIFF MANUAL Platelet Estimate LOW Platelet Morphology Comment NORMAL Helmet Cells Acanthocytes OCC Prothrombin Time 10.6 Prothromb Time International 1.0 Ratio Sodium Level 146 Potassium Level 3.4 Chloride Level 108 Carbon Dioxide Level 27.5 Anion Gap 11 Blood Urea Nitrogen 13 Creatinine 0.65 Estimat Glomerular Filtration 115 Rate Random Glucose 101 Calcium Level 8.9 Phosphorus Level 3.2 Magnesium Level 2.0 Total Bilirubin 1.2 Aspartate Amino Transf 218 (AST/SGOT) Alanine Aminotransferase 802 (ALT/SGPT) Alkaline Phosphatase 137 Ammonia LESS THAN 10 Total Protein 6.1 Albumin 2.3 Date/Time Procedure Status Source Growth 07/17/16 05:45 Aerobic Blood Culture - Preliminary Resulted Blood Peripheral NO GROWTH IN 4 DAYS 07/17/16 05:45 Anaerobic Blood Culture - Preliminary Resulted Blood Peripheral NO GROWTH IN 4 DAYS 07/17/16 04:10 Urine Culture - Final Complete Urine Catheterized Urine NO GROWTH IN 48 HOURS. 07/17/16 04:10 Gram Stain - Final Complete Sputum Endotracheal 07/17/16 04:10 Sputum Culture - Final Complete Sputum Endotracheal RARE GROWTH NORMAL RESPIRATORY JASON Result Diagram: 07/21/16 0440 07/21/16 0440 Imaging Last 48 hours Impressions Chest X-Ray 07/20/16 0600 Signed Impressions: Service Date/Time: Wednesday, July 20, 2016 04:25 - CONCLUSION: Patchy areas of consolidation right worse in left, tubes and catheter are in good position. Alfredo Alves MD Chest CT 07/20/16 0000 Signed Impressions: Service Date/Time: Wednesday, July 20, 2016 17:29 - CONCLUSION: Multifocal subsegmental consolidative infiltrates in both lungs and moderate-sized bilateral pleural effusions. Norbert Figueroa MD Abdomen/Pelvis CT 07/20/16 0000 Signed Impressions: Service Date/Time: Wednesday, July 20, 2016 17:29 - CONCLUSION: 1. Findings suggest laceration of the liver extending to the anterior margin between the left and right lobe.. 2. Significant decrease in the amount of abdominal pelvic fluid with moderate residual pelvic fluid 3. Subcutaneous induration proximal and lateral thigh/pelvis. Norbert Figueroa MD Assessment and Plan Assessment and Plan 55 year old female with recent AVR; respiratory arrest and intubation; s/p paracentesis of dark blood with repeat CT abd/pelvis indicating liver laceration -Abdominal binder -Continue to monitor Hmg---currently 9.8 -Hemodynamically patient is stable -Will continue to monitor closely -No operative plans at this time -Thank you for this consult; General Surgery will follow Attending Statement CONSULTATION NOTE FOR SURGICAL ATTENDING, DR. ANDREY HEWITT I agree with above assessment and plan. The exam, history, and the medical decision-making described in the above note were completed with the assistance of the mid-level provider. I reviewed and agree with the findings presented. I attest that I had a [id number] encounter with the patient on the same day, and personally performed and documented my assessment and findings in the medical record. Patient seen in the ICU Family at the bedside Abdominal exam fairly benign Reviewed CT scan and other imaging Discussed with Dr. Hoffman Somewhat unusual finding after this type of surgery I question if she had fall prior to coming to the hospital The following services were provided during this hospital visit: Chart data review, vital sign assessments/reviewing monitor data Review of consultations notes if present. Medication orders/review and/or management Ordering and/or reviewing lab tests Ordering and/or interpreting/reviewing x-rays and/or diagnostic studies Care of the patient and discussion of the patient with the care team Documentation time To help prompt me to consider important information that might be impacting today's encounter and assessment, information from prior notes written by myself or my colleagues may have been "brought forward/copy and pasted" into today's note. Katiuska Sharma Jul 21, 2016 15:54 Andrey Hewitt MD Jul 21, 2016 16:52
[2016-07-21 17:28] LABS: HEMATOCRIT 30.1 % (35.0-46.0); REVIEW FLAG FINAL
[2016-07-21 21:14] LABS: APTT (PATIENT) 41.6 SEC (24.3-30.1)
[2016-07-22] VITALS (17 sets, daily range): BP systolic 99–175; BP diastolic 55–83; PULSE 72–122; RESP 14–24; TEMP 97.9–100.3; O2SAT 90–100
[2016-07-22] MEDS: CEFEPIME INJ 2,000 MG in SODIUM CHLORIDE 0.9% INJ 100 ML IV SCH ×3 (01:30→17:02)
[2016-07-22] MEDS: PROPOFOL 1000 MG/100 ML IV SCH ×3 (01:41→10:53)
[2016-07-22] MEDS: RESP: ALBUTEROL 2.5 MG/IPRATROPIUM 0.5 MG NEB (SCH) NEB ×4 (04:01→20:55)
[2016-07-22] MEDS: DEXMEDETOMIDINE INJ 400 MCG in SODIUM CHLORIDE 0.9% INJ 96 ML IV SCH (05:01)
[2016-07-22 05:23] LABS: APTT (PATIENT) 32.5 SEC (24.3-30.1)
[2016-07-22 05:41] LABS: ALKALINE PHOSPHATASE 136 U/L (45-117); ALT (GPT) 534 U/L (10-53); ANION GAP 11 MEQ/L (5-15); AST (GOT) 144 U/L (15-37); BICARBONATE 28.5 MEQ/L (21.0-32.0); BLOOD UREA NITROGEN 13 MG/DL (7-18); CHLORIDE 108 MEQ/L (98-107); GLOMERULAR FILTRATION RATE 104 ML/MIN (>89); POTASSIUM 3.1 MEQ/L (3.5-5.1); SODIUM (NA) 147 MEQ/L (136-145)
[2016-07-22] MEDS: PANTOPRAZOLE SOD 40 MG DELAYED RELEASE TAB PO SCH (06:00)
[2016-07-22] MEDS: PANTOPRAZOLE SODIUM 40 MG VIAL IV PUSH SCH (06:08)
[2016-07-22] MEDS: CYANOCOBALAMIN 1000 MCG/ML VIAL SQ SCH (08:22)
[2016-07-22] MEDS: GABAPENTIN 300 MG CAP PO SCH ×2 (08:23→21:36)
[2016-07-22] MEDS: METOPROLOL TARTRATE 25 MG TAB PO SCH ×2 (08:23→21:37)
[2016-07-22] MEDS: predniSONE 5 MG TAB PO SCH ×2 (08:24→21:36)
[2016-07-22] MEDS: FOLIC ACID 1 MG TAB PO SCH (08:24)
[2016-07-22] MEDS: carBAMazepine 200 MG TAB PO SCH ×3 (08:25→17:01)
[2016-07-22] MEDS: SODIUM CHLORIDE 0.9% FLUSH 10 ML FLUSH IV FLUSH SCH ×2 (08:26→21:35)
[2016-07-22] MEDS: HEPARIN-D5W INJ 250 ML IV SCH (08:30)
--- NOTE | 2016-07-22 09:47 | RADRPT ---
EXAM DATE/TIME: 07/22/2016 09:10 [place] COMPARISON: CT THORAX W CONTRAST, July 20, 2016, 17:29. CHEST SINGLE AP, July 21, 2016, 11:52. INDICATIONS : Follow-up respiratory failure. MEDICAL HISTORY : Hypertension. Cardiovascular disease. Seizures. Autoimmune disease. Cardiac arrest. SURGICAL HISTORY : None. ENCOUNTER: Subsequent ACUITY: 1 day PAIN SCORE: Non-responsive. LOCATION: Bilateral chest FINDINGS: Endotracheal tube tip well below the tami. Right internal jugular catheter tip in the right atrium . Gastric tube side-port within the stomach. Multiple cardiac leads project over the chest. There are bilateral hazy opacities in the mid and lower lungs without focal areas of consolidation. Portio ns of the right hemidiaphragm are no longer discernible. The left hemidiaphragm remains fairly well delineated. CONCLUSION: 1. Lines and tubes in good position. 2. Lateral lower lung opacities suggest combination of infiltrates or pleural effusions. 3. CT thorax from 2 days ago had also demonstrated consolidative infiltrate in the right upper lob e; no focal opacities seen in the right upper lung on today's chest x-ray. Norbert Figueroa MD on July 22, 2016 at 9:37 Board Certified Radiologist. This report was verified electronically.
[2016-07-22 10:13] LABS: AUTOMATED NEUTROPHIL # 9.1 TH/MM3 (1.8-7.7); BASOPHIL # 0.1 TH/MM3 (0-0.2); BASOPHIL % 0.6 % (0.0-2.0); EOSINOPHIL # 0.5 TH/MM3 (0-0.4); EOSINOPHIL % 3.9 % (0.0-4.0); HEMATOCRIT 29.1 % (35.0-46.0); LYMPH % 12.5 % (9.0-44.0); LYMPHOCYTE # 1.6 TH/MM3 (1.0-4.8); MEAN CELL VOLUME 83.8 FL (80.0-100.0); MEAN CORPUSCULAR HEMOGLOBIN 28.3 PG (27.0-34.0); MEAN CORPUSCULAR HGB CONC 33.8 % (32.0-36.0); MONO % 12.6 % (0.0-8.0); NEUT % 70.4 % (16.0-70.0); PLATELET COUNT 101 TH/MM3 (150-450); RED BLOOD COUNT 3.47 MIL/MM3 (4.00-5.30); RED CELL DISTRIBUTION WIDTH 15.6 % (11.6-17.2); WHITE BLOOD COUNT 12.9 TH/MM3 (4.0-11.0)
[2016-07-22 10:14] LABS: HEMO FLAGS AUTO DIFF
[2016-07-22 10:22] LABS: APTT (PATIENT) 40.9 SEC (24.3-30.1)
[2016-07-22] MEDS ORDERED: RESP: RACEPINEPHRINE 2.25% 0.5 ML NEB ONE (10:28)
[2016-07-22] MEDS ORDERED: FUROSEMIDE 20 MG/2 ML VIAL IV PUSH ONE (10:30)
[2016-07-22] MEDS ORDERED: POTASSIUM CHLOR 40 MEQ PREMIX 100 ML IV ONE (10:30)
--- NOTE | 2016-07-22 10:46 | HHI.CCPN ---
Subjective Remarks/Hospital Course 07/16: 55-year-old female with history of seizure disorder, some autoimmune disorder on Humira methotrexate and prednisone, history of asthma underwent uncomplicated minimally Invasive AVR with a 19 mm OnX Mechanical Valve via left percutaneous femoral arterial and venous cannulation for CPB. While in the CVICU she became severely hypotensive hypoxemic and suffered with respiratory arrest. She was emergently intubated and regain spontaneous circulations after 2 cycles of CPR and epinephrine injections. She was found to be hypotensive and severely anemic with hemoglobin level 4, platelet count of 25, fibrinogen less than 50. She was thought to be bleeding retroperitoneally and was taken emergently to CAT scan angiogram. However no source of bleeding was found on the CT. patient did have significant amount of ascites noted on CAT scan. She underwent an EGD which revealed a gastric varix and an esophageal ulcer however no active bleeding. She subsequently underwent paracentesis with drainage of 2.6 L of dark blood from peritoneal cavity which was most definitely the source of her blood loss. 07/17: Remains sedated, orally intubated on mechanical ventilation. Patient spiked a temperature last night and was initiated on empiric antibiotic coverage at [facility] and [facility] after obtaining cultures. Being prepped for colonoscopy however has not had any BMs. Discussed with Dr. Radford from GI who was okay with proceeding with extubation at this point. 07/18: Remains sedated, orally intubated on mechanical ventilation. Being prepped for colonoscopy. Greenish BMs however no blood noted. Hemoglobin remained stable currently. Chest tube/ pacer wires removed. Being diuresed with Lasix. 07/19: Sedated, orally intubated on mechanical ventilation. Colonoscopy performed today which revealed colitis in the rectum with hemorrhoids. Was placed on heparin for anticoagulation last evening which was held for colonoscopy today. Being diuresed to mobilize fluid. 07/20: Remains sedated, arousable, gets agitated on lightening sedation, orally intubated on mechanical ventilation. On heparin for anticoagulation. Underwent colonoscopy yesterday. Diuresed and is -8 L in the last 24 hours. Chest x-ray continues to show bilateral infiltrates/pulmonary edema pattern raising concern for transfusion related acute lung injury (TRALI). 07/21: Sedated, arousable, orally intubated on mechanical ventilation. On heparin for anticoagulation. CT abdomen and pelvis done on 07/20 revealed what looks like a liver laceration with some free fluid in the pelvis. CT chest with bilateral infiltrates and bilateral small effusions. 07/22: Arouses off sedation. On Precedex. Remains on heparin for anticoagulation. Diuresed well overnight. No evidence of active bleeding at this time. Started on tube feeds yesterday which have been held for possible extubation. Objective Vital Signs Date Time Temp Pulse Resp B/P Pulse Ox O2 Delivery O2 Flow Rate FiO2 07/22/16 09:30 100 40 07/22/16 04:00 84 07/22/16 04:00 98.3 14 102/66 07/22/16 04:00 Mechanical Ventilator Intake and Output 07/21/16 07/21/16 07/22/16 08:00 16:00 00:00 Intake Total 1015 ml 900 ml Output Total 3850 ml 3850 ml Balance -2835 ml -2950 ml Result Diagram: 07/22/16 1000 07/22/16 0455 Imaging Last 48 hours Impressions Chest X-Ray 07/20/16 0600 Signed Impressions: Service Date/Time: Wednesday, July 20, 2016 04:25 - CONCLUSION: Patchy areas of consolidation right worse in left, tubes and catheter are in good position. Alfredo Alves MD Chest CT 07/20/16 0000 Signed Impressions: Service Date/Time: Wednesday, July 20, 2016 17:29 - CONCLUSION: Multifocal subsegmental consolidative infiltrates in both lungs and moderate-sized bilateral pleural effusions. Norbert Figueroa MD Abdomen/Pelvis CT 07/20/16 0000 Signed Impressions: Service Date/Time: Wednesday, July 20, 2016 17:29 - CONCLUSION: 1. Findings suggest laceration of the liver extending to the anterior margin between the left and right lobe.. 2. Significant decrease in the amount of abdominal pelvic fluid with moderate residual pelvic fluid 3. Subcutaneous induration proximal and lateral thigh/pelvis. Norbert Figueroa MD Last Impressions Chest X-Ray 07/17/16 0000 Signed Impressions: Service Date/Time: Sunday, July 17, 2016 03:21 - CONCLUSION: Worsening pulmonary edema. Flaco Rod MD Cyst Biopsy Asp-Paracentesis US 07/16/16 0000 Signed Impressions: Service Date/Time: Saturday, July 16, 2016 21:23 - CONCLUSION: Uncomplicated ultrasound guided paracentesis. Sanguinous fluid obtained. Sample sent to the lab as requested. Norbert Kwong Jr., MD Abdomen/Pelvis CT 07/16/16 0000 Signed Impressions: Service Date/Time: Saturday, July 16, 2016 02:04 - CONCLUSION: 1. Ascites 2. No evidence of retroperitoneal hematoma 3. Bibasilar atelectasis and left pleural effusion Inder Wilson MD Abdomen Ultrasound 07/16/16 0000 Signed Impressions: Service Date/Time: Saturday, July 16, 2016 19:23 - CONCLUSION: Moderate volume of ascites. Sufficient volume for paracentesis. Norbert Kwong Jr., MD Objective Remarks HEENT/ Neuro: Sedated, arousable, follows commands on lightening sedation. Remains Orally intubated, Pallor present, no icterus, tongue/ mucosa moist Neck: Right IJ central line in place Chest/Pulm: on mech vent, good air entry bilaterally, no wheezing or crackles CVS: S1-S2 regular, no murmur GI/abdomen: soft, nontender, bowel sounds sluggish Extremities: warm bilaterally, trace edema Urinary Catheter: Yes Assessment to: Continue A/P Assessment and Plan Neuro: Seizure disorder - Tegretol/gabapentin Sedation with propofol held for for C Pap trials Precedex gtt to control agitation. CVS Cardiopulmonary arrest - Due to severe anemia secondary to hemoperitoneum most likely secondary to liver laceration noted on CT done on 07/20 - Postop transfused 4 units of PRBCs/ 4 FFP, 2 PLT, 2 cryo and Kcentra - Status post paracentesis with removal of 2.6 L of bloody peritoneal fluid on . - Hematology consulted and following. Repeat coags normalized. - Monitor CBC. Thrombocytopenia noted. HIT screen negative Pulm Acute respiratory failure on mechanical ventilation - On Mechanical ventilation. Vent bundle, bronchodilators as needed. CPap trials to decide extubation. - Off IV fluids, diuresed with Lasix. - Suspect TRALI. CT chest with bilateral infiltrates and small effusions GI/ liver: Coffee-ground NG aspirate/bloody bowel movement -Status post EGD which revealed gastric varix and esophageal ulcer which was felt to be secondary to OG tube. Dr. Radford from GI following. GI cleared for heparin anticoagulation. Colonoscopy performed revealed colitis and rectum with ulceration from which biopsies were taken and Internal hemorrhoids. Elevated LFTs - shock liver from hypotension secondary to cardiac arrest. Follow LFTs. Repeat CT abdomen pelvis with IV contrast on 07/20 to follow-up on hemoperitoneum and to evaluate source off previous bleeding revealed liver laceration and moderate pelvic fluid significantly decreased compared to previous CAT scan. Discussed with Dr. Christianson on 07/20, consulted general surgery and discussed with Dr. Hewitt who recommends abdominal binder. Tolerating tube feeds which were held for possible extubation Aortic incompetence status post aortic valve replacement with mechanical aortic valve POD#7 - Management per cardiothoracic surgery -Received 4 units of PRBCs Intra-Op. -Anticoagulation with heparin which has been cleared by GI. Plan to keep PTT 40 -45 seconds per d/w Dr. Christianson in view of findings of liver laceration and will watch for any drop in hemoglobin. ID Fever: - SIRS secondary to hemoperitoneum versus sepsis. Cultures obtained. Empiric antibiotics initiated including Vanc/Cefepime. All cultures negative so far. Vanc stopped 07/19. - Follow up CT chest on 07/20 showed Multifocal subsegmental consolidative infiltrates in both lungs and moderate-sized bilateral pleural effusions. 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 Critical Care: The total critical care time was 35 minutes. Time to perform other separately billable procedures was not included in the critical care time. Addendum: Patient tolerated C Pap trial and was extubated around 10:40 AM. Cm Curtis MD Jul 22, 2016 10:46
[2016-07-22 11:05] LABS: BANDS 29 % (0-6); EOSINOPHILS 4 % (0-4); METAMYELOCYTES 1 % (0-1); MYELOCYTES 1 % (0-0); NEUTROPHIL # MANUAL DIFF 10.4 TH/MM3 (1.8-7.7); POLYS (SEG NEUTROPHILS) 50 % (16-70); WBC DIFF SAMPLE 100
[2016-07-22 11:06] LABS: PLATELET ESTIMATE SMEAR LOW (NORMAL); PLATELET MORPHOLOGY NORMAL (NORMAL); SCAN/DIFF FINAL DIFF MANUAL
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
--- NOTE | 2016-07-22 12:45 | HHI.GIFU ---
Subjective Remarks No evidence of active GI bleeding, still NPO Objective Vitals I&O Vital Signs Date Time Temp Pulse Resp B/P Pulse Ox O2 Delivery O2 Flow Rate FiO2 07/22/16 11:00 112 07/22/16 11:00 97.9 113 24 112/73 99 07/22/16 11:00 100 Nasal Cannula 3.00 07/22/16 10:45 40 07/22/16 10:30 40 07/22/16 10:30 99 Nasal Cannula 4 07/22/16 10:30 99 Nasal Cannula 4.00 07/22/16 10:15 100 40 07/22/16 10:15 40 07/22/16 10:00 40 07/22/16 09:35 100 40 07/22/16 09:30 100 40 07/22/16 07:46 90 40 07/22/16 07:00 98.1 73 14 133/81 100 07/22/16 07:00 72 07/22/16 07:00 100 Mechanical Ventilator 40 07/22/16 04:20 99 40 07/22/16 04:00 84 07/22/16 04:00 98.3 74 14 102/66 98 07/22/16 04:00 40 07/22/16 04:00 98 Mechanical Ventilator 40 07/22/16 02:00 99.0 86 14 99/55 99 07/22/16 01:07 100 40 07/22/16 00:20 84 07/22/16 00:00 99.0 86 14 114/70 100 07/21/16 23:30 40 07/21/16 23:30 98 Mechanical Ventilator 40 07/21/16 20:00 100 Mechanical Ventilator 40 07/21/16 20:00 83 07/21/16 20:00 40 07/21/16 20:00 98.7 83 14 116/79 100 07/21/16 15:00 99 Mechanical Ventilator 40 07/21/16 15:00 97.6 73 18 109/73 99 07/21/16 15:00 66 07/21/16 15:00 40 I/O 07/21/16 07/21/16 07/21/16 07/22/16 07/22/16 07/22/16 06:59 14:59 22:59 06:59 14:59 22:59 Intake Total 1015 ml 900 ml 1173 ml Output Total 3850 ml 3850 ml 1875 ml Balance -2835 ml -2950 ml -702 ml IV Total 1015 ml 900 ml 998 ml Tube Feeding 175 ml Output Urine Total 3750 ml 3850 ml 1875 ml Gastric Drainage Total 100 ml # Bowel Movements 0 0 Laboratory Laboratory Tests Test 07/21/16 07/22/16 07/22/16 16:45 04:55 10:00 Hemoglobin 10.4 9.8 Hematocrit 30.1 29.1 Activated Partial 41.6 32.5 40.9 Thromboplast Time Sodium Level 147 Potassium Level 3.1 Chloride Level 108 Carbon Dioxide Level 28.5 Anion Gap 11 Blood Urea Nitrogen 13 Creatinine 0.71 Estimat Glomerular Filtration 104 Rate Random Glucose 105 Calcium Level 8.1 Total Bilirubin 1.0 Aspartate Amino Transf 144 (AST/SGOT) Alanine Aminotransferase 534 (ALT/SGPT) Alkaline Phosphatase 136 Total Protein 5.9 Albumin 2.1 White Blood Count 12.9 Red Blood Count 3.47 Mean Corpuscular Volume 83.8 Mean Corpuscular Hemoglobin 28.3 Mean Corpuscular Hemoglobin 33.8 Concent Red Cell Distribution Width 15.6 Platelet Count 101 Mean Platelet Volume 8.8 Neutrophils (%) (Auto) 70.4 Lymphocytes (%) (Auto) 12.5 Monocytes (%) (Auto) 12.6 Eosinophils (%) (Auto) 3.9 Basophils (%) (Auto) 0.6 Neutrophils # (Auto) 9.1 Lymphocytes # (Auto) 1.6 Monocytes # (Auto) 1.6 Eosinophils # (Auto) 0.5 Basophils # (Auto) 0.1 CBC Comment AUTO DIFF Differential Total Cells 100 Counted Neutrophils % (Manual) 50 Band Neutrophils % 29 Lymphocytes % 11 Monocytes % 4 Eosinophils % 4 Neutrophils # (Manual) 10.4 Metamyelocytes 1 Myelocytes 1 Differential Comment FINAL DIFF MANUAL Platelet Estimate LOW Platelet Morphology Comment NORMAL Red Cell Morphology Comment NORMAL Physical Exam HEENT:normal CHEST: Chest is clear to auscultation and percussion. CARDIAC: Regular rate and rhythm with no murmur gallop or rubs. ABDOMEN: Distended and no tenderness EXTREMITIES: No clubbing, cyanosis, or edema. SKIN: Normal; no rash; no jaundice. 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 - Proton pump inhibitor. - Frequent H&H. - Daily LFT's - Will sign off for now, please notify us if needed. Vega Radford MD Jul 22, 2016 12:45
[2016-07-22] MEDS: METOPROLOL TARTRATE 5 MG/5 ML VIAL IV PUSH PRN ×3 (13:07→23:11)
[2016-07-22] MEDS: RESP: ALBUTEROL 2.5 MG/IPRATROPIUM 0.5 MG NEB (PRN) NEB (14:02)
--- NOTE | 2016-07-22 16:22 | PD.CAR.PN ---
CVT Progress Note Subjective/Hospital Course: 55/ female, admitted for elective AVR , hx of mod to severe aortic insufficiency EF 55% PMH : osteoarthritis , RA followed by Dr Pacheco on chronic steroid use, Humira , methotrexate , seizure Dz , asthma surgery: 07/15 Minimally Invasive AVR with a 19 mm OnX Mechanical Valve, Left Percutaneous Femoral Arterial and Venous Cannulation for CPB, Intercostal Nerve Block, Perclose Arterial Closure x 2 per CCM note , pt became severely hypotensive hypoxemic and suffered with respiratory arrest. She was emergently re- intubated and regain spontaneous circulations after 2 cycles of CPR and epinephrine injections. She was found to be hypotensive and severely anemic with hemoglobin level 4, platelet count of 25, fibrinogen less than 50. She was thought to be bleeding retroperitoneally and was taken emergently to CAT scan angiogram. However no source of bleeding was found on the CT. She had some coffee ground drainage in NG + bloody stool x one , recieved 8units PRBC,/ 4 FFP, 2 PLT, 2 cryo and Kcentra. 07/16/16 pt remains intubated on vent , will open eyes and respond to simple commands, moves all extremities underwent bedside EGD today , NG trauma in esophagus , gastric varicies gastric fundus, with no evidence of active or recent bleeding elevated LFT's ? shock liver, however elevated amylase and lipase ? acute pancreatitis / elevated ferritin levels ( hemochromatosis ) chest tube drainage 320/12 hrs / on versed and fentanyl for sedation CCM following 07/17 Clinically stable s/p large volume paracentesis of bloody fluid last pm (2.6 L). Hgb stable stable on ventilator. May benefit from gently diuresis Greatly appreciate all the consultants input Planned colonoscopy today Continue CT to drainage 07/[address] removed without difficulty Will need some sort of anticoagulation for the mechanical aortic valve. Will discuss with GI and CCM regarding low-dose IV heparin gtt vs SQ Lovenox Planned Colonoscopy Greatly appreciate Dr. Radford and Dr. Curtis's input and assistance in her care 07/19 pt to start on precedex, to facilitate weaning from ventilator/ start CPAP trials today scleral edema improved still volume overloaded, however diuresing well on low dose heparin gtt , no further signs of bleeding, for colonoscopy today on no pressors, 07/20/16 on precedex and low dose propofol did not tolerate CPAP trails diuresing well, add additional low dose today vent weaning per CCM on no pressors, not following commands LFT's improving repeat CT abdomen pending 07/21/16 still on low dose precedex CT scan resulted / + liver lac/ general surgery consulted HGB stable at 9.8 remains on vent / not following commands Heparin gtt at 800units /hr 07/22 pt weaned and extubated, following commands will need pt/ot / speech will need to discuss timing to start low dose ASA with Dr Hewitt also when able to transition to lovenox instead of heparin Objective: GENERAL: pt awake , extubated , following commands SKIN: Warm and dry. HEAD: Normocephalic. EYES: No scleral icterus. No injection or drainage. NECK: Supple, trachea midline. No JVD or lymphadenopathy. CARDIOVASCULAR: Regular rate and rhythm without murmurs, gallops, or rubs. general edema RESPIRATORY: few coarse breath sounds Breath sounds equal bilaterally. No accessory muscle use. GASTROINTESTINAL: Abdomen soft, non-tender, nondistended. MUSCULOSKELETAL: No cyanosis, or edema. BACK: Nontender without obvious deformity. No CVA tenderness. Vital Signs Date Time Temp Pulse Resp B/P Pulse Ox O2 Delivery O2 Flow Rate FiO2 07/22/16 11:00 112 07/22/16 11:00 97.9 113 24 112/73 99 07/22/16 11:00 100 Nasal Cannula 3.00 07/22/16 10:45 40 07/22/16 10:30 40 07/22/16 10:30 99 Nasal Cannula 4 07/22/16 10:30 99 Nasal Cannula 4.00 07/22/16 10:15 100 40 07/22/16 10:15 40 07/22/16 10:00 40 07/22/16 09:35 100 40 07/22/16 09:30 100 40 07/22/16 07:46 90 40 07/22/16 07:00 98.1 73 14 133/81 100 07/22/16 07:00 72 07/22/16 07:00 100 Mechanical Ventilator 40 07/22/16 04:20 99 40 07/22/16 04:00 84 07/22/16 04:00 98.3 74 14 102/66 98 07/22/16 04:00 40 07/22/16 04:00 98 Mechanical Ventilator 40 07/22/16 02:00 99.0 86 14 99/55 99 07/22/16 01:07 100 40 07/22/16 00:20 84 07/22/16 00:00 99.0 86 14 114/70 100 07/21/16 23:30 40 07/21/16 23:30 98 Mechanical Ventilator 40 07/21/16 20:00 100 Mechanical Ventilator 40 07/21/16 20:00 83 07/21/16 20:00 40 07/21/16 20:00 98.7 83 14 116/79 100 Labs: Laboratory Tests Test 07/22/16 07/22/16 04:55 10:00 Activated Partial 32.5 SEC 40.9 SEC Thromboplast Time (24.3-30.1) (24.3-30.1) Sodium Level 147 MEQ/L (136-145) Potassium Level 3.1 MEQ/L (3.5-5.1) Chloride Level 108 MEQ/L (98-107) Carbon Dioxide Level 28.5 MEQ/L (21.0-32.0) Anion Gap 11 MEQ/L (5-15) Blood Urea Nitrogen 13 MG/DL (7-18) Creatinine 0.71 MG/DL (0.50-1.00) Estimat Glomerular Filtration 104 ML/MIN Rate (>89) Random Glucose 105 MG/DL (74-106) Calcium Level 8.1 MG/DL (8.5-10.1) Total Bilirubin 1.0 MG/DL (0.2-1.0) Aspartate Amino Transf 144 U/L (15-37) (AST/SGOT) Alanine Aminotransferase 534 U/L (10-53) (ALT/SGPT) Alkaline Phosphatase 136 U/L (45-117) Total Protein 5.9 GM/DL (6.4-8.2) Albumin 2.1 GM/DL (3.4-5.0) White Blood Count 12.9 TH/MM3 (4.0-11.0) Red Blood Count 3.47 MIL/MM3 (4.00-5.30) Hemoglobin 9.8 GM/DL (11.6-15.3) Hematocrit 29.1 % (35.0-46.0) Mean Corpuscular Volume 83.8 FL (80.0-100.0) Mean Corpuscular Hemoglobin 28.3 PG (27.0-34.0) Mean Corpuscular Hemoglobin 33.8 % Concent (32.0-36.0) Red Cell Distribution Width 15.6 % (11.6-17.2) Platelet Count 101 TH/MM3 (150-450) Mean Platelet Volume 8.8 FL (7.0-11.0) Neutrophils (%) (Auto) 70.4 % (16.0-70.0) Lymphocytes (%) (Auto) 12.5 % (9.0-44.0) Monocytes (%) (Auto) 12.6 % (0.0-8.0) Eosinophils (%) (Auto) 3.9 % (0.0-4.0) Basophils (%) (Auto) 0.6 % (0.0-2.0) Neutrophils # (Auto) 9.1 TH/MM3 (1.8-7.7) Lymphocytes # (Auto) 1.6 TH/MM3 (1.0-4.8) Monocytes # (Auto) 1.6 TH/MM3 (0-0.9) Eosinophils # (Auto) 0.5 TH/MM3 (0-0.4) Basophils # (Auto) 0.1 TH/MM3 (0-0.2) CBC Comment AUTO DIFF Differential Total Cells 100 Counted Neutrophils % (Manual) 50 % (16-70) Band Neutrophils % 29 % (0-6) Lymphocytes % 11 % (9-44) Monocytes % 4 % (0-8) Eosinophils % 4 % (0-4) Neutrophils # (Manual) 10.4 TH/MM3 (1.8-7.7) Metamyelocytes 1 % (0-1) Myelocytes 1 % (0-0) Differential Comment FINAL DIFF MANUAL Platelet Estimate LOW (NORMAL) Platelet Morphology Comment NORMAL (NORMAL) Red Cell Morphology Comment NORMAL (NORMAL) Result Diagram: 07/22/16 1000 07/22/16 2532 Telemetry: NSR (1) Left ventricular dysfunction (2) Severe aortic insufficiency (3) S/P AVR (aortic valve replacement) Plan: heparin gtt, monitor for signs of bleeding HGB stable start baby ASA when ok with general surgery and GI transition to lovenox when ok with general surgery start coumadin in 3-4 weeks / will discuss with general surgery will need to keep INR 2-2.5 x 90 days, then 1.5-1.8 (4) Seizure disorder Plan: on tegretol and gabapentin (5) Pancytopenia Plan: HGB stable monitor plt's now 77>88 >101 / neg HIT panel (6) Blood loss anemia Plan: s/p multiple transfusion concern for TRALI (7) Shock liver Plan: indices improving (8) Encephalopathy acute (9) Liver laceration Plan: general surgery no surgery indicated, abdominal binder in place stable H&h Laurie Mascorro Jul 22, 2016 16:22
[2016-07-22 17:32] LABS: HEMATOCRIT 29.6 % (35.0-46.0); REVIEW FLAG FINAL
[2016-07-23] VITALS (15 sets, daily range): BP systolic 118–184; BP diastolic 74–111; PULSE 97–123; RESP 19–24; TEMP 98.6–99.8; O2SAT 96–99
[2016-07-23] MEDS: METOPROLOL TARTRATE 5 MG/5 ML VIAL IV PUSH PRN ×2 (00:10→18:23)
[2016-07-23] MEDS: hydrALAZINE HCL 20 MG/ML VIAL IV PRN (00:24)
[2016-07-23] MEDS ORDERED: FUROSEMIDE 40 MG/4 ML VIAL ONE (00:41)
[2016-07-23] MEDS ORDERED: FUROSEMIDE 20 MG/2 ML VIAL IV PUSH ONE ×2 (00:45→16:15)
[2016-07-23] MEDS ORDERED: DEXMEDETOMIDINE HCL 200 MCG/2 ML VIAL ONE (00:49)
[2016-07-23 00:56] LABS: HEMATOCRIT 32.1 % (35.0-46.0); REVIEW FLAG FINAL
[2016-07-23] MEDS ORDERED: POTASSIUM CHLOR 20 MEQ PREMIX 100 ML IV ONE (01:00)
[2016-07-23] MEDS: CEFEPIME INJ 2,000 MG in SODIUM CHLORIDE 0.9% INJ 100 ML IV SCH ×3 (01:06→17:02)
[2016-07-23] MEDS: DEXMEDETOMIDINE INJ 200 MCG in SODIUM CHLORIDE 0.9% INJ 50 ML IV SCH ×4 (01:08→08:40)
[2016-07-23 02:28] LABS: ALKALINE PHOSPHATASE 166 U/L (45-117); ALT (GPT) 494 U/L (10-53); ANION GAP 8 MEQ/L (5-15); AST (GOT) 120 U/L (15-37); BICARBONATE 30.7 MEQ/L (21.0-32.0); BLOOD UREA NITROGEN 13 MG/DL (7-18); CHLORIDE 107 MEQ/L (98-107); GLOMERULAR FILTRATION RATE 89 ML/MIN (>89); POTASSIUM 3.7 MEQ/L (3.5-5.1); SODIUM (NA) 146 MEQ/L (136-145); TOTAL BILIRUBIN ADULT 1.1 MG/DL (0.2-1.0)
[2016-07-23] MEDS: POTASSIUM CHLOR 20 MEQ PREMIX 100 ML IV PRN ×2 (02:54→08:41)
[2016-07-23] MEDS: RESP: ALBUTEROL 2.5 MG/IPRATROPIUM 0.5 MG NEB (SCH) NEB ×4 (03:39→21:44)
[2016-07-23] MEDS: PANTOPRAZOLE SODIUM 40 MG VIAL IV PUSH SCH (05:47)
[2016-07-23] MEDS: PANTOPRAZOLE SOD 40 MG DELAYED RELEASE TAB PO SCH (05:47)
--- NOTE | 2016-07-23 05:55 | RADRPT ---
EXAM DATE/TIME: 07/23/2016 04:41 [facility] COMPARISON: CHEST SINGLE AP, July 22, 2016, 9:10. INDICATIONS : Evaluate after respiratory failure. MEDICAL HISTORY : Hypertension. Cardiovascular disease. Seizures, autoimmune disease SURGICAL HISTORY : None. ENCOUNTER: Subsequent ACUITY: 1 week PAIN SCORE: Non-responsive. LOCATION: Bilateral chest FINDINGS: Bibasilar consolidation with small effusions again noted, not significantly changed. No pneumothorax. Endotracheal tube and nasogastric tube has been removed. Right internal jugular central venous cathet er remains in place, tip in the right atrium. CONCLUSION: 1. Endotracheal tube and nasogastric tube out. Unchanged right IJ central venous catheter with tip in the right atrium. 2. Mild bibasilar consolidation and small effusions not significantly changed. Reginald Rick MD on July 23, 2016 at 5:52 Board Certified Radiologist. This report was verified electronically.
[2016-07-23] MEDS: METOPROLOL TARTRATE 25 MG TAB PO SCH ×2 (08:36→20:29)
[2016-07-23] MEDS: GABAPENTIN 300 MG CAP PO SCH ×2 (08:36→20:29)
[2016-07-23] MEDS: carBAMazepine 200 MG TAB PO SCH ×3 (08:37→16:24)
[2016-07-23] MEDS: FOLIC ACID 1 MG TAB PO SCH (08:37)
[2016-07-23] MEDS: predniSONE 5 MG TAB PO SCH ×2 (08:37→20:29)
[2016-07-23] MEDS: SODIUM CHLORIDE 0.9% FLUSH 10 ML FLUSH IV FLUSH SCH ×2 (08:41→20:33)
[2016-07-23] MEDS: CYANOCOBALAMIN 1000 MCG/ML VIAL SQ SCH (09:15)
[2016-07-23] MEDS: HEPARIN-D5W INJ 250 ML IV SCH (09:27)
[2016-07-23 09:51] LABS: APTT (PATIENT) 45.7 SEC (24.3-30.1)
[2016-07-23 10:04] LABS: BICARBONATE 27.5 MEQ/L (21.0-32.0); MAGNESIUM 2.1 MG/DL (1.5-2.5); POTASSIUM 3.7 MEQ/L (3.5-5.1)
--- NOTE | 2016-07-23 14:24 | HHI.PR ---
Subjective Subjective Notes DAILY PROGRESS NOTE FOR SURGICAL ATTENDING, DR. ANDREY HEWITT Resting in bed on BiPAP Objective Vitals/I&O Vital Signs Date Time Temp Pulse Resp B/P Pulse Ox O2 Delivery O2 Flow Rate FiO2 07/23/16 12:40 99 Bi-Pap 40 07/23/16 12:40 110 19 133/75 07/23/16 08:09 4.00 07/23/16 07:33 99.6 Labs Laboratory Tests Test 07/22/16 07/23/16 07/23/16 07/23/16 17:00 00:30 00:50 09:00 Hemoglobin 9.9 11.0 Hematocrit 29.6 32.1 Sodium Level 146 145 Potassium Level 3.7 3.7 Chloride Level 107 108 Carbon Dioxide Level 30.7 27.5 Anion Gap 8 10 Blood Urea Nitrogen 13 15 Creatinine 0.81 0.74 Estimat Glomerular Filtration 89 99 Rate Random Glucose 134 91 Calcium Level 8.9 8.4 Total Bilirubin 1.1 Aspartate Amino Transf 120 (AST/SGOT) Alanine Aminotransferase 494 (ALT/SGPT) Alkaline Phosphatase 166 Total Protein 7.0 Albumin 2.6 Activated Partial 45.7 Thromboplast Time Magnesium Level 2.1 Radiology Allergies Coded Allergies Type Severity Reaction Last Updated Verified No Known Allergies 07/15/16 Yes Recent Impressions Chest X-Ray 07/26/16 0000 Signed Impressions: Service Date/Time: Tuesday, July 26, 2016 08:19 - CONCLUSION: 1. Improvement with better aeration on the left. 2. Consolidative changes persist right base. Silvestre Singh MD FACR Chest X-Ray 07/24/16 0600 Signed Impressions: Service Date/Time: Sunday, July 24, 2016 03:15 - CONCLUSION: 1. Interval increase in opacity at the right lung base. There are apparent bilateral effusions. 2. Interval removal of right internal jugular central venous line. 3. Cardiomegaly. Juan Chakraborty MD // 06:00 18:00 06:00 18:00 06:00 18:00 Intake Total 1188 ml 1020 ml 310 ml 1970 ml 1812 ml Output Total 3900 ml 900 ml 1700 ml 2590 ml 1580 ml Balance -2712 ml 120 ml -1390 ml -620 ml 232 ml Intake Oral 720 ml 820 ml 210 ml 1220 ml 740 ml IV Total 468 ml 200 ml 100 ml 750 ml 1072 ml Output Urine Total 3900 ml 900 ml 1700 ml 2590 ml 1580 ml # Voids 0 # Bowel Movements 0 0 1 2 0 Laboratory Tests Test 07/24/16 07/24/16 07/25/16 07/25/16 03:55 10:30 04:47 10:25 Activated Partial 30.4 SEC 30.0 SEC Thromboplast Time White Blood Count 16.9 TH/MM3 20.1 TH/MM3 Red Blood Count 4.12 MIL/MM3 3.96 MIL/MM3 Hemoglobin 11.3 GM/DL 11.3 GM/DL Hematocrit 35.2 % 34.1 % Mean Corpuscular Volume 85.4 FL 86.0 FL Mean Corpuscular Hemoglobin 27.5 PG 28.5 PG Mean Corpuscular Hemoglobin 32.3 % 33.1 % Concent Red Cell Distribution Width 15.5 % 15.2 % Platelet Count 139 TH/MM3 148 TH/MM3 Mean Platelet Volume 9.7 FL 10.0 FL Neutrophils (%) (Auto) 73.4 % 73.8 % Lymphocytes (%) (Auto) 12.2 % 11.7 % Monocytes (%) (Auto) 11.9 % 12.8 % Eosinophils (%) (Auto) 2.0 % 1.3 % Basophils (%) (Auto) 0.5 % 0.4 % Neutrophils # (Auto) 12.4 TH/MM3 14.8 TH/MM3 Lymphocytes # (Auto) 2.1 TH/MM3 2.4 TH/MM3 Monocytes # (Auto) 2.0 TH/MM3 2.6 TH/MM3 Eosinophils # (Auto) 0.3 TH/MM3 0.3 TH/MM3 Basophils # (Auto) 0.1 TH/MM3 0.1 TH/MM3 CBC Comment AUTO DIFF AUTO DIFF Differential Total Cells 100 100 Counted Neutrophils % (Manual) 71 % 64 % Band Neutrophils % 11 % 10 % Lymphocytes % 11 % 11 % Monocytes % 7 % 14 % Neutrophils # (Manual) 13.9 TH/MM3 14.9 TH/MM3 Differential Comment FINAL DIFF FINAL DIFF MANUAL MANUAL Platelet Estimate LOW NORMAL Platelet Morphology Comment NORMAL NORMAL Sodium Level 142 MEQ/L 141 MEQ/L Potassium Level 3.6 MEQ/L 3.4 MEQ/L Chloride Level 105 MEQ/L 106 MEQ/L Carbon Dioxide Level 26.9 MEQ/L 21.7 MEQ/L Anion Gap 10 MEQ/L 13 MEQ/L Blood Urea Nitrogen 16 MG/DL 15 MG/DL Creatinine 0.84 MG/DL 0.77 MG/DL Estimat Glomerular Filtration 86 ML/MIN 95 ML/MIN Rate Random Glucose 128 MG/DL 114 MG/DL Calcium Level 8.6 MG/DL 8.1 MG/DL Phosphorus Level 1.8 MG/DL 2.3 MG/DL Magnesium Level 2.2 MG/DL 2.1 MG/DL Total Bilirubin 1.0 MG/DL 0.9 MG/DL Aspartate Amino Transf 77 U/L 74 U/L (AST/SGOT) Alanine Aminotransferase 315 U/L 254 U/L (ALT/SGPT) Alkaline Phosphatase 142 U/L 127 U/L Total Protein 7.2 GM/DL 7.0 GM/DL Albumin 2.6 GM/DL 2.7 GM/DL Eosinophils % 1 % Nucleated Red Blood Cells 1 /100 WBC Polychromasia 2.4 % Urine Color YELLOW Urine Turbidity CLEAR Urine pH 8.0 Urine Specific Horton 1.014 Urine Protein 100 mg/dL Urine Glucose (UA) 70 mg/dL Urine Ketones NEG mg/dL Urine Occult Blood MOD Urine Nitrite NEG Urine Bilirubin NEG Urine Urobilinogen LESS THAN 2.0 MG/DL Urine Leukocyte Esterase NEG Urine RBC 2 /hpf Urine WBC 2 /hpf Urine Bacteria RARE /hpf Urine Mucus FEW /lpf Urine Yeast (Budding) OCC Microscopic Urinalysis Comment CATH-CULTURE IND Test 07/26/16 04:09 White Blood Count 17.7 TH/MM3 Red Blood Count 4.09 MIL/MM3 Hemoglobin 11.7 GM/DL Hematocrit 35.1 % Mean Corpuscular Volume 85.7 FL Mean Corpuscular Hemoglobin 28.6 PG Mean Corpuscular Hemoglobin 33.3 % Concent Red Cell Distribution Width 15.5 % Platelet Count 141 TH/MM3 Mean Platelet Volume 9.7 FL Neutrophils (%) (Auto) 75.8 % Lymphocytes (%) (Auto) 10.1 % Monocytes (%) (Auto) 12.7 % Eosinophils (%) (Auto) 0.9 % Basophils (%) (Auto) 0.5 % Neutrophils # (Auto) 13.4 TH/MM3 Lymphocytes # (Auto) 1.8 TH/MM3 Monocytes # (Auto) 2.2 TH/MM3 Eosinophils # (Auto) 0.2 TH/MM3 Basophils # (Auto) 0.1 TH/MM3 CBC Comment AUTO DIFF Differential Total Cells 100 Counted Neutrophils % (Manual) 76 % Band Neutrophils % 2 % Lymphocytes % 8 % Monocytes % 11 % Eosinophils % 1 % Basophils % 1 % Neutrophils # (Manual) 14.0 TH/MM3 Myelocytes 1 % Differential Comment FINAL DIFF MANUAL Atypical Lymphocytes % Platelet Estimate NORMAL Platelet Morphology Comment NORMAL Polychromasia 2.1 % Acanthocytes OCC Keratocytes OCC Activated Partial 28.0 SEC Thromboplast Time Sodium Level 140 MEQ/L Potassium Level 3.3 MEQ/L Chloride Level 107 MEQ/L Carbon Dioxide Level 24.1 MEQ/L Anion Gap 9 MEQ/L Blood Urea Nitrogen 14 MG/DL Creatinine 0.79 MG/DL Estimat Glomerular Filtration 92 ML/MIN Rate Random Glucose 113 MG/DL Calcium Level 8.6 MG/DL Total Bilirubin 0.9 MG/DL Aspartate Amino Transf 69 U/L (AST/SGOT) Alanine Aminotransferase 195 U/L (ALT/SGPT) Alkaline Phosphatase 119 U/L Total Protein 7.0 GM/DL Albumin 2.8 GM/DL Procedure Category Date Status Time Complete Blood Count LAB 07/24/16 Complete With Diff 09:24 Complete Blood Count LAB 07/25/16 Complete With Diff 06:00 Comprehensive LAB 07/24/16 Complete Metabolic Panel 09:24 Comprehensive LAB 07/25/16 Complete Metabolic Panel 06:00 Magnesium (Mg) LAB 07/24/16 Complete 09:24 Phosphorus (Po4) LAB 07/24/16 Complete 09:24 Metoprolol Tartrate MED 07/24/16 Complete (Lopressor) 21:00 Metoprolol Tartrate MED 07/24/16 Complete (Lopressor) 10:15 Potassium Phosphate MED 07/24/16 In Process (K-Phos) 11:30 Metoprolol Tartrate MED 07/24/16 In Process Inj (Lopressor Inj) 12:25 Quetiapine (Seroquel) MED 07/25/16 Complete 00:30 Haloperidol Inj MED 07/25/16 In Process (Haldol Inj) 00:30 Melatonin (Melatonin) MED 07/25/16 Complete 00:30 Melatonin (Melatonin) MED 07/25/16 In Process 21:00 Urinalysis - C+S If LAB 07/25/16 Complete Indicated 08:51 Specimen To Be NORMAN 07/25/16 In Process Collected 08:51 Sputum Culture And CHLOE 07/25/16 In Process Gram Stain 08:51 Albuterol-Ipratropium MED 07/25/16 Complete Neb (Duoneb Neb) 12:00 Vancomycin Inj MED 07/25/16 Complete (Vancomycin Inj) 09:00 Consult Infectious CONS 07/25/16 Transmitted Disease Complete Blood Count LAB 07/26/16 Complete With Diff 06:00 Comprehensive LAB 07/26/16 Complete Metabolic Panel 06:00 Magnesium (Mg) LAB 07/25/16 Complete 08:51 Phosphorus (Po4) LAB 07/25/16 Complete 08:51 Vascular Access Team NORMAN 07/25/16 In Process Consult/P 09:22 Vascular Poc IMGUS 07/25/16 Taken Ultrasound (Hub Use Only)Inp Phy CONS 07/25/16 Transmitted Cons/Ref Diltiazem (Cardizem) MED 07/25/16 In Process 10:30 Aztreonam Inj MED 07/25/16 In Process (Azactam Inj) 14:00 Urine Culture CHLOE 07/25/16 In Process 10:25 Chest, Single Ap RADDIAG 07/26/16 Resulted Sodium Chlor 0.9% MED 07/26/16 In Process 1000 Ml Inj (Ns 1000 M 09:00 Complete Blood Count LAB 07/27/16 Verified With Diff 06:00 Comprehensive LAB 07/27/16 Verified Metabolic Panel 06:00 Magnesium (Mg) LAB 07/27/16 Verified 06:00 Phosphorus (Po4) LAB 07/27/16 Verified 06:00 Metoprolol Tartrate MED 07/26/16 In Process (Lopressor) 22:00 Vital Signs Date Time Temp Pulse Resp B/P Pulse Ox O2 Delivery O2 Flow Rate FiO2 07/26/16 15:15 112 07/26/16 15:13 98.9 129 18 127/77 97 07/26/16 15:13 97 Room Air 07/26/16 11:10 100 Room Air 07/26/16 11:10 98.0 117 20 123/82 100 07/26/16 11:00 120 07/26/16 08:05 94 Room Air 07/26/16 08:05 98.6 128 20 152/92 94 07/26/16 07:36 96 21 07/26/16 07:00 126 07/26/16 03:19 99.0 124 16 149/76 96 07/26/16 03:19 96 Room Air 07/26/16 03:19 125 07/25/16 23:16 108 07/25/16 23:16 99.1 109 16 155/90 96 07/25/16 23:16 96 Room Air 07/25/16 21:00 109 122/82 07/25/16 20:54 95 21 07/25/16 19:32 96 Room Air 07/25/16 19:32 100.7 125 18 161/95 96 07/25/16 19:00 120 07/25/16 16:23 134 07/25/16 16:23 97.6 134 16 148/97 97 07/25/16 16:23 97 Room Air 07/25/16 11:36 99 Nasal Cannula 2.00 07/25/16 11:36 114 07/25/16 11:36 114 18 164/95 99 07/25/16 09:37 95 21 07/25/16 07:38 97.6 134 16 142/88 97 07/25/16 07:38 97 Nasal Cannula 2.00 07/25/16 07:38 134 07/25/16 03:00 97.9 136 20 139/75 97 07/25/16 03:00 98 Nasal Cannula 0.50 07/25/16 03:00 129 07/25/16 00:31 22 07/24/16 23:00 97.9 127 20 167/86 98 07/24/16 23:00 129 07/24/16 23:00 98 Nasal Cannula 0.50 07/24/16 22:05 18 07/24/16 21:43 96 Nasal Cannula 3.00 07/24/16 19:00 127 07/24/16 19:00 98.2 127 20 161/92 94 07/24/16 19:00 94 Nasal Cannula 0.50 07/24/16 16:32 92 Nasal Cannula 3.00 07/24/16 15:00 95 Nasal Cannula 1.00 07/24/16 15:00 98.8 116 15 142/83 99 07/24/16 15:00 115 07/24/16 11:04 98 Nasal Cannula 3.00 07/24/16 11:04 97.9 123 20 154/95 98 07/24/16 11:00 110 07/24/16 09:35 99 Nasal Cannula 3.00 07/24/16 08:05 99.4 143 20 133/93 98 07/24/16 08:05 98 Nasal Cannula 3.00 07/24/16 07:00 110 07/24/16 03:00 119 07/24/16 03:00 98.7 119 20 129/82 99 07/24/16 03:00 99 Nasal Cannula 4.00 07/23/16 23:00 112 07/23/16 23:00 99.2 112 20 138/88 99 07/23/16 23:00 99 Nasal Cannula 4.00 07/23/16 20:30 98 35 Cardiovascular: Regular Lungs: Clear Abdomen: Non-distended, Non-tender Extremities: No edema A/P Assessment and Plan 55 year old female s/p minimally invasive AVR; with liver laceration of unknown etiology -Hmg stable today---11 -VSS; hemodynamically stable -Continue abdominal binder -on BiPAP -We will continue to monitor patient -Okay from GS standpoint to transition to Lovenox -Discussed with Dr. Curtis and Sherie GONSALES -GS will see peripherally over the weekend Attending Statement NOTE FOR SURGICAL ATTENDING, DR. ANDREY HEWITT I agree with above assessment and plan. The exam, history, and the medical decision-making described in the above note were completed with the assistance of the mid-level provider. I reviewed and agree with the findings presented. I attest that I had a [id number] encounter with the patient on the same day, and personally performed and documented my assessment and findings in the medical record. Patient seen Appear stable Continue monitoring The following services were provided during this hospital visit: Chart data review, vital sign assessments/reviewing monitor data Review of consultations notes if present. Medication orders/review and/or management Ordering and/or reviewing lab tests Ordering and/or interpreting/reviewing x-rays and/or diagnostic studies Care of the patient and discussion of the patient with the care team Documentation time To help prompt me to consider important information that might be impacting today's encounter and assessment, information from prior notes written by myself or my colleagues may have been "brought forward/copy and pasted" into today's note. Katiuska Sharma Jul 23, 2016 14:24 Andrey Hewitt MD Jul 26, 2016 19:24
--- NOTE | 2016-07-23 15:16 | HHI.CCPN ---
Subjective Remarks/Hospital Course 07/16: 55-year-old female with history of seizure disorder, some autoimmune disorder on Humira methotrexate and prednisone, history of asthma underwent uncomplicated minimally Invasive AVR with a 19 mm OnX Mechanical Valve via left percutaneous femoral arterial and venous cannulation for CPB. While in the CVICU she became severely hypotensive hypoxemic and suffered with respiratory arrest. She was emergently intubated and regain spontaneous circulations after 2 cycles of CPR and epinephrine injections. She was found to be hypotensive and severely anemic with hemoglobin level 4, platelet count of 25, fibrinogen less than 50. She was thought to be bleeding retroperitoneally and was taken emergently to CAT scan angiogram. However no source of bleeding was found on the CT. patient did have significant amount of ascites noted on CAT scan. She underwent an EGD which revealed a gastric varix and an esophageal ulcer however no active bleeding. She subsequently underwent paracentesis with drainage of 2.6 L of dark blood from peritoneal cavity which was most definitely the source of her blood loss. 07/17: Remains sedated, orally intubated on mechanical ventilation. Patient spiked a temperature last night and was initiated on empiric antibiotic coverage at [facility] and [facility] after obtaining cultures. Being prepped for colonoscopy however has not had any BMs. Discussed with Dr. Radford from GI who was okay with proceeding with extubation at this point. 07/18: Remains sedated, orally intubated on mechanical ventilation. Being prepped for colonoscopy. Greenish BMs however no blood noted. Hemoglobin remained stable currently. Chest tube/ pacer wires removed. Being diuresed with Lasix. 07/19: Sedated, orally intubated on mechanical ventilation. Colonoscopy performed today which revealed colitis in the rectum with hemorrhoids. Was placed on heparin for anticoagulation last evening which was held for colonoscopy today. Being diuresed to mobilize fluid. 07/20: Remains sedated, arousable, gets agitated on lightening sedation, orally intubated on mechanical ventilation. On heparin for anticoagulation. Underwent colonoscopy yesterday. Diuresed and is -8 L in the last 24 hours. Chest x-ray continues to show bilateral infiltrates/pulmonary edema pattern raising concern for transfusion related acute lung injury (TRALI). 07/21: Sedated, arousable, orally intubated on mechanical ventilation. On heparin for anticoagulation. CT abdomen and pelvis done on 07/20 revealed what looks like a liver laceration with some free fluid in the pelvis. CT chest with bilateral infiltrates and bilateral small effusions. 07/22: Arouses off sedation. On Precedex. Remains on heparin for anticoagulation. Diuresed well overnight. No evidence of active bleeding at this time. Started on tube feeds yesterday which have been held for possible extubation. 07/23: Extubated on 07/22. Requiring BiPAP. Being diuresed. Hemoglobin remained stable. On Precedex for anxiety as needed. Objective Vital Signs Date Time Temp Pulse Resp B/P Pulse Ox O2 Delivery O2 Flow Rate FiO2 07/23/16 12:40 99 Bi-Pap 40 07/23/16 12:40 110 19 133/75 07/23/16 08:09 4.00 07/23/16 07:33 99.6 Intake and Output 07/22/16 07/22/16 07/23/16 08:00 16:00 00:00 Intake Total 1173 ml 660 ml Output Total 1875 ml 2550 ml Balance -702 ml -1890 ml Result Diagram: 07/23/16 0030 07/23/16 0900 Imaging Last 48 hours Impressions Chest X-Ray 07/20/16 0600 Signed Impressions: Service Date/Time: Wednesday, July 20, 2016 04:25 - CONCLUSION: Patchy areas of consolidation right worse in left, tubes and catheter are in good position. Alfredo Alves MD Chest CT 07/20/16 0000 Signed Impressions: Service Date/Time: Wednesday, July 20, 2016 17:29 - CONCLUSION: Multifocal subsegmental consolidative infiltrates in both lungs and moderate-sized bilateral pleural effusions. Norbert Figueroa MD Abdomen/Pelvis CT 07/20/16 0000 Signed Impressions: Service Date/Time: Wednesday, July 20, 2016 17:29 - CONCLUSION: 1. Findings suggest laceration of the liver extending to the anterior margin between the left and right lobe.. 2. Significant decrease in the amount of abdominal pelvic fluid with moderate residual pelvic fluid 3. Subcutaneous induration proximal and lateral thigh/pelvis. Norbert Figueroa MD Last Impressions Chest X-Ray 07/17/16 0000 Signed Impressions: Service Date/Time: Sunday, July 17, 2016 03:21 - CONCLUSION: Worsening pulmonary edema. Flaco Rod MD Cyst Biopsy Asp-Paracentesis US 07/16/16 0000 Signed Impressions: Service Date/Time: Saturday, July 16, 2016 21:23 - CONCLUSION: Uncomplicated ultrasound guided paracentesis. Sanguinous fluid obtained. Sample sent to the lab as requested. Norbert Kwong Jr., MD Abdomen/Pelvis CT 07/16/16 0000 Signed Impressions: Service Date/Time: Saturday, July 16, 2016 02:04 - CONCLUSION: 1. Ascites 2. No evidence of retroperitoneal hematoma 3. Bibasilar atelectasis and left pleural effusion Inder Wilson MD Abdomen Ultrasound 07/16/16 0000 Signed Impressions: Service Date/Time: Saturday, July 16, 2016 19:23 - CONCLUSION: Moderate volume of ascites. Sufficient volume for paracentesis. Norbert Kwong Jr., MD Objective Remarks HEENT/ Neuro: Awake, alert, Pallor present, no icterus, tongue/ mucosa moist Neck: Right IJ central line in place Chest/Pulm: On BiPAP with full facemask, good air entry bilaterally, scattered rhonchi, no wheezing or crackles CVS: S1-S2 regular, no murmur GI/abdomen: soft, nontender, bowel sounds sluggish Extremities: warm bilaterally, trace edema A/P Assessment and Plan Neuro: Seizure disorder - Tegretol/gabapentin Precedex gtt to control anxiety CVS Cardiopulmonary arrest - Due to severe anemia secondary to hemoperitoneum most likely secondary to liver laceration noted on CT done on 07/20 - Postop transfused 4 units of PRBCs/ 4 FFP, 2 PLT, 2 cryo and Kcentra - Status post paracentesis with removal of 2.6 L of bloody peritoneal fluid on . - Hematology consulted and following. Repeat coags normalized. - Monitor CBC. Thrombocytopenia noted. HIT screen negative Pulm Acute respiratory failure on BIPAP - bronchodilators as needed. Extubated on 07/22. - Off IV fluids, diurese with Lasix. - Suspect TRALI. CT chest with bilateral infiltrates and small effusions GI/ liver: Coffee-ground NG aspirate/bloody bowel movement -Status post EGD which revealed gastric varix and esophageal ulcer which was felt to be secondary to OG tube. Dr. Radford from GI following. GI cleared for heparin anticoagulation. Colonoscopy performed 6/58 revealed colitis and rectum with ulceration from which biopsies were taken and Internal hemorrhoids. Elevated LFTs - shock liver from hypotension secondary to cardiac arrest. Follow LFTs. Repeat CT abdomen pelvis with IV contrast on 07/20 to follow-up on hemoperitoneum and to evaluate source off previous bleeding revealed liver laceration and moderate pelvic fluid significantly decreased compared to previous CAT scan. Discussed with Dr. Christianson on 07/20, consulted general surgery and discussed with Dr. Hewitt who recommends abdominal binder. Advance by mouth diet if patient tolerates being off BiPAP intermittently. Aortic incompetence status post aortic valve replacement with mechanical aortic valve POD#7 - Management per cardiothoracic surgery -Received 4 units of PRBCs Intra-Op. -Anticoagulation with heparin which has been cleared by GI. Cleared for anticoagulation with Lovenox by Dr. Hewitt on 07/23 ID Fever: - SIRS secondary to hemoperitoneum versus sepsis. Cultures obtained. Empiric antibiotics initiated including Vanc/Cefepime. All cultures negative so far. Vanc stopped 07/19. - Follow up CT chest on 07/20 showed Multifocal subsegmental consolidative infiltrates in both lungs and moderate-sized bilateral pleural effusions. Remains on cefepime. Plan to complete 7 days of cefepime and then reevaluate. DVT GI prophylaxis - Teds SCDs, heparin -Protonix Discuss with PROCESS VALIDATION ENGINEER. Critical Care: The total critical care time was 30 minutes. Time to perform other separately billable procedures was not included in the critical care time. Addendum: Patient tolerated C Pap trial and was extubated around 10:40 AM. Cm Curtis MD Jul 23, 2016 15:16
--- NOTE | 2016-07-23 15:37 | PD.CAR.PN ---
CVT Progress Note Subjective/Hospital Course: 55/ female, admitted for elective AVR , hx of mod to severe aortic insufficiency EF 55% PMH : osteoarthritis , RA followed by Dr Pacheco on chronic steroid use, Humira , methotrexate , seizure Dz , asthma surgery: 07/15 Minimally Invasive AVR with a 19 mm OnX Mechanical Valve, Left Percutaneous Femoral Arterial and Venous Cannulation for CPB, Intercostal Nerve Block, Perclose Arterial Closure x 2 per CCM note , pt became severely hypotensive hypoxemic and suffered with respiratory arrest. She was emergently re- intubated and regain spontaneous circulations after 2 cycles of CPR and epinephrine injections. She was found to be hypotensive and severely anemic with hemoglobin level 4, platelet count of 25, fibrinogen less than 50. She was thought to be bleeding retroperitoneally and was taken emergently to CAT scan angiogram. However no source of bleeding was found on the CT. She had some coffee ground drainage in NG + bloody stool x one , recieved 8units PRBC,/ 4 FFP, 2 PLT, 2 cryo and Kcentra. 07/16/16 pt remains intubated on vent , will open eyes and respond to simple commands, moves all extremities underwent bedside EGD today , NG trauma in esophagus , gastric varicies gastric fundus, with no evidence of active or recent bleeding elevated LFT's ? shock liver, however elevated amylase and lipase ? acute pancreatitis / elevated ferritin levels ( hemochromatosis ) chest tube drainage 320/12 hrs / on versed and fentanyl for sedation CCM following 07/17 Clinically stable s/p large volume paracentesis of bloody fluid last pm (2.6 L). Hgb stable stable on ventilator. May benefit from gently diuresis Greatly appreciate all the consultants input Planned colonoscopy today Continue CT to drainage 07/[address] removed without difficulty Will need some sort of anticoagulation for the mechanical aortic valve. Will discuss with GI and CCM regarding low-dose IV heparin gtt vs SQ Lovenox Planned Colonoscopy Greatly appreciate Dr. Radford and Dr. Curtis's input and assistance in her care 07/19 pt to start on precedex, to facilitate weaning from ventilator/ start CPAP trials today scleral edema improved still volume overloaded, however diuresing well on low dose heparin gtt , no further signs of bleeding, for colonoscopy today on no pressors, 07/20/16 on precedex and low dose propofol did not tolerate CPAP trails diuresing well, add additional low dose today vent weaning per [facility] on no pressors, not following commands LFT's improving repeat CT abdomen pending 07/21/16 still on low dose precedex CT scan resulted / + liver lac/ general surgery consulted HGB stable at 9.8 remains on vent / not following commands Heparin gtt at 800units /hr 07/22 pt weaned and extubated, following commands will need pt/ot / speech will need to discuss timing to start low dose ASA with Dr Hewitt also when able to transition to lovenox instead of heparin 07/23 requiring intermittent Bipap, still on precedex for anxiety with Bipap additional diuresis given await speech eval ok to start lovenox per general surgery/ will leave to [facility] for timing / in event pt may need thoracentesis she will also need a picc line and CVC line removed Objective: GENERAL: awake , sleepy weak / requiring intermittent Bipap SKIN: Warm and dry. HEAD: Normocephalic. EYES: No scleral icterus. No injection or drainage. NECK: Supple, trachea midline. No JVD or lymphadenopathy. CARDIOVASCULAR: Regular rate and rhythm without murmurs, gallops, or rubs + click / general edema . RESPIRATORY: diminished in bases Breath sounds equal bilaterally. coarse bilateral breath sounds GASTROINTESTINAL: Abdomen soft, non-tender, nondistended. / abd binder in place MUSCULOSKELETAL: No cyanosis, or edema. BACK: Nontender without obvious deformity. No CVA tenderness. Vital Signs Date Time Temp Pulse Resp B/P Pulse Ox O2 Delivery O2 Flow Rate FiO2 07/23/16 15:26 114 07/23/16 15:26 98.9 114 19 157/88 99 07/23/16 15:26 99 Bi-Pap 40 07/23/16 12:40 99 Bi-Pap 40 07/23/16 12:40 110 19 133/75 99 07/23/16 12:40 110 07/23/16 08:09 99 Nasal Cannula 4.00 07/23/16 07:33 97 07/23/16 07:33 99 Bi-Pap 40 07/23/16 07:33 99.6 97 20 118/74 99 07/23/16 07:15 96 40 07/23/16 04:00 99.8 107 21 121/77 99 07/23/16 04:00 99 Bi-Pap 40 07/23/16 03:40 98 40 07/23/16 03:00 109 07/23/16 01:00 97 Bi-Pap 40 07/23/16 00:50 97 40 07/23/16 00:00 99.4 123 24 184/111 97 07/23/16 00:00 97 Nasal Cannula 3.00 07/22/16 23:00 122 07/22/16 20:00 100 Nasal Cannula 3.00 07/22/16 20:00 100.3 120 22 175/83 100 07/22/16 19:00 120 07/22/16 16:29 100 Nasal Cannula 3.00 07/22/16 16:29 99.1 116 20 120/74 99 07/22/16 16:29 112 Labs: Laboratory Tests Test 07/23/16 09:00 Activated Partial 45.7 SEC Thromboplast Time (24.3-30.1) Sodium Level 145 MEQ/L (136-145) Potassium Level 3.7 MEQ/L (3.5-5.1) Chloride Level 108 MEQ/L (98-107) Carbon Dioxide Level 27.5 MEQ/L (21.0-32.0) Anion Gap 10 MEQ/L (5-15) Blood Urea Nitrogen 15 MG/DL (7-18) Creatinine 0.74 MG/DL (0.50-1.00) Estimat Glomerular Filtration 99 ML/MIN (>89) Rate Random Glucose 91 MG/DL (74-106) Calcium Level 8.4 MG/DL (8.5-10.1) Magnesium Level 2.1 MG/DL (1.5-2.5) Result Diagram: 07/23/16 0030 07/23/16 0900 Telemetry: NSR (1) Left ventricular dysfunction (2) Severe aortic insufficiency (3) S/P AVR (aortic valve replacement) Plan: heparin gtt, monitor for signs of bleeding HGB stable start baby ASA when ok with general surgery and GI transition to lovenox when ok CCM start coumadin in 3-4 weeks / will discuss with general surgery will need to keep INR 2-2.5 x 90 days, then 1.5-1.8 (4) Seizure disorder Plan: on tegretol and gabapentin (5) Pancytopenia Plan: HGB stable monitor plt's now 77>88 >101 / neg HIT panel (6) Shock liver Plan: indices improving (7) Encephalopathy acute (8) Liver laceration Plan: general surgery no surgery indicated, abdominal binder in place stable H&h (9) Pleural effusion, bilateral Plan: may need thoracentesis if still requiring intermittent Bipap to improve ventilation / oxygenation Laurie Mascorro Jul 23, 2016 15:37
[2016-07-23] MEDS: ENOXAPARIN SODIUM 80 MG/0.8 ML SYRINGE SQ SCH (17:02)
[2016-07-24] VITALS (11 sets, daily range): BP systolic 129–167; BP diastolic 82–95; PULSE 110–143; RESP 15–20; TEMP 97.9–99.4; O2SAT 92–99
[2016-07-24] MEDS: CEFEPIME INJ 2,000 MG in SODIUM CHLORIDE 0.9% INJ 100 ML IV SCH ×3 (01:53→17:24)
[2016-07-24] MEDS: RESP: ALBUTEROL 2.5 MG/IPRATROPIUM 0.5 MG NEB (SCH) NEB ×2 (03:09→09:36)
[2016-07-24 04:43] LABS: APTT (PATIENT) 30.4 SEC (24.3-30.1)
--- NOTE | 2016-07-24 04:55 | RADRPT ---
EXAM DATE/TIME: 07/24/2016 03:15 [place] COMPARISON: CHEST SINGLE AP, July 23, 2016, 4:41. INDICATIONS : Shortness of breath, followup consolidation.. MEDICAL HISTORY : Hypertension. Cardiovascular disease. Seizures SURGICAL HISTORY : None. ENCOUNTER: Subsequent ACUITY: 1 week PAIN SCORE: Non-responsive. LOCATION: Bilateral chest FINDINGS: A single AP semierect view of the chest was obtained and demonstrates an interval increase in the opa city at the right lung base with obscuration of the hemidiaphragm and blunting the costophrenic angle . Milder hazy opacities present the left lung base. The left costophrenic angle is blunted as well. T here is moderate cardiomegaly. The previously noted right internal jugular central venous line has be en removed. The bony thorax remains intact. CONCLUSION: 1. Interval increase in opacity at the right lung base. There are apparent bilateral effusions. 2. Interval removal of right internal jugular central venous line. 3. Cardiomegaly. Juan Chakraborty MD on July 24, 2016 at 4:51 Board Certified Radiologist. This report was verified electronically.
[2016-07-24] MEDS: PANTOPRAZOLE SODIUM 40 MG VIAL IV PUSH SCH (05:56)
[2016-07-24] MEDS: PANTOPRAZOLE SOD 40 MG DELAYED RELEASE TAB PO SCH (05:56)
[2016-07-24] MEDS: ENOXAPARIN SODIUM 80 MG/0.8 ML SYRINGE SQ SCH ×2 (05:56→17:25)
[2016-07-24] MEDS: GABAPENTIN 300 MG CAP PO SCH ×2 (09:28→20:39)
[2016-07-24] MEDS: carBAMazepine 200 MG TAB PO SCH ×3 (09:29→17:25)
[2016-07-24] MEDS: predniSONE 5 MG TAB PO SCH ×2 (09:29→20:40)
[2016-07-24] MEDS: CYANOCOBALAMIN 1000 MCG/ML VIAL SQ SCH (09:29)
[2016-07-24] MEDS: FOLIC ACID 1 MG TAB PO SCH (09:29)
[2016-07-24] MEDS: SODIUM CHLORIDE 0.9% FLUSH 10 ML FLUSH IV FLUSH SCH ×2 (09:30→20:39)
--- NOTE | 2016-07-24 09:40 | HHI.CCPN ---
Subjective Remarks/Hospital Course 07/16: 55-year-old female with history of seizure disorder, some autoimmune disorder on Humira methotrexate and prednisone, history of asthma underwent uncomplicated minimally Invasive AVR with a 19 mm OnX Mechanical Valve via left percutaneous femoral arterial and venous cannulation for CPB. While in the CVICU she became severely hypotensive hypoxemic and suffered with respiratory arrest. She was emergently intubated and regain spontaneous circulations after 2 cycles of CPR and epinephrine injections. She was found to be hypotensive and severely anemic with hemoglobin level 4, platelet count of 25, fibrinogen less than 50. She was thought to be bleeding retroperitoneally and was taken emergently to CAT scan angiogram. However no source of bleeding was found on the CT. patient did have significant amount of ascites noted on CAT scan. She underwent an EGD which revealed a gastric varix and an esophageal ulcer however no active bleeding. She subsequently underwent paracentesis with drainage of 2.6 L of dark blood from peritoneal cavity which was most definitely the source of her blood loss. 07/17: Remains sedated, orally intubated on mechanical ventilation. Patient spiked a temperature last night and was initiated on empiric antibiotic coverage at [facility] and [facility] after obtaining cultures. Being prepped for colonoscopy however has not had any BMs. Discussed with Dr. Radford from GI who was okay with proceeding with extubation at this point. 07/18: Remains sedated, orally intubated on mechanical ventilation. Being prepped for colonoscopy. Greenish BMs however no blood noted. Hemoglobin remained stable currently. Chest tube/ pacer wires removed. Being diuresed with Lasix. 07/19: Sedated, orally intubated on mechanical ventilation. Colonoscopy performed today which revealed colitis in the rectum with hemorrhoids. Was placed on heparin for anticoagulation last evening which was held for colonoscopy today. Being diuresed to mobilize fluid. 07/20: Remains sedated, arousable, gets agitated on lightening sedation, orally intubated on mechanical ventilation. On heparin for anticoagulation. Underwent colonoscopy yesterday. Diuresed and is -8 L in the last 24 hours. Chest x-ray continues to show bilateral infiltrates/pulmonary edema pattern raising concern for transfusion related acute lung injury (TRALI). 07/21: Sedated, arousable, orally intubated on mechanical ventilation. On heparin for anticoagulation. CT abdomen and pelvis done on 07/20 revealed what looks like a liver laceration with some free fluid in the pelvis. CT chest with bilateral infiltrates and bilateral small effusions. 07/22: Arouses off sedation. On Precedex. Remains on heparin for anticoagulation. Diuresed well overnight. No evidence of active bleeding at this time. Started on tube feeds yesterday which have been held for possible extubation. 07/23: Extubated on 07/22. Requiring BiPAP. Being diuresed. Hemoglobin remained stable. On Precedex for anxiety as needed. 07/24 Patient is off BIPAP on 3L oxygen with good sats. Afebrile. On no drips ( Off Heparin and Precedex drips). Tachycardic. Objective Vital Signs Date Time Temp Pulse Resp B/P Pulse Ox O2 Delivery O2 Flow Rate FiO2 07/24/16 08:05 99.4 143 20 133/93 98 07/24/16 08:05 Nasal Cannula 3.00 07/23/16 20:30 35 Intake and Output 07/23/16 07/23/16 07/24/16 08:00 16:00 00:00 Intake Total 702 ml 588 ml Output Total 2325 ml 2600 ml Balance -1623 ml -2012 ml Result Diagram: 07/23/16 0030 07/23/16 0900 Other Results Laboratory Tests Test 07/24/16 03:55 Activated Partial 30.4 SEC Thromboplast Time Imaging Last Impressions Chest X-Ray 07/24/16 0600 Signed Impressions: Service Date/Time: Sunday, July 24, 2016 03:15 - CONCLUSION: 1. Interval increase in opacity at the right lung base. There are apparent bilateral effusions. 2. Interval removal of right internal jugular central venous line. 3. Cardiomegaly. Juan Chakraborty MD Chest CT 07/20/16 0000 Signed Impressions: Service Date/Time: Wednesday, July 20, 2016 17:29 - CONCLUSION: Multifocal subsegmental consolidative infiltrates in both lungs and moderate-sized bilateral pleural effusions. Norbert Figueroa MD Abdomen/Pelvis CT 07/20/16 0000 Signed Impressions: Service Date/Time: Wednesday, July 20, 2016 17:29 - CONCLUSION: 1. Findings suggest laceration of the liver extending to the anterior margin between the left and right lobe.. 2. Significant decrease in the amount of abdominal pelvic fluid with moderate residual pelvic fluid 3. Subcutaneous induration proximal and lateral thigh/pelvis. Norbert Figueroa MD Cyst Biopsy Asp-Paracentesis US 07/16/16 0000 Signed Impressions: Service Date/Time: Saturday, July 16, 2016 21:23 - CONCLUSION: Uncomplicated ultrasound guided paracentesis. Sanguinous fluid obtained. Sample sent to the lab as requested. Norbert Kwong Jr., MD Abdomen Ultrasound 07/16/16 0000 Signed Impressions: Service Date/Time: Saturday, July 16, 2016 19:23 - CONCLUSION: Moderate volume of ascites. Sufficient volume for paracentesis. Norbert Kwong Jr., MD Objective Remarks GENERAL: Patient is 55 yo lying in bed in no acute resp distress. SKIN: Warm and dry. HEAD: Normocephalic. EYES: No scleral icterus. No injection or drainage. NECK: Supple, trachea midline. No JVD or lymphadenopathy. CARDIOVASCULAR: Regular rate and rhythm without murmurs, gallops, or rubs. RESPIRATORY: Breath sounds equal bilaterally. No accessory muscle use. GASTROINTESTINAL: Abdomen soft, non-tender, nondistended. MUSCULOSKELETAL: No cyanosis, or edema. Neuro: Awake and alert A/P Assessment and Plan Neuro: Seizure disorder - Tegretol/gabapentin Monitor neuro status and avoid sedatives CVS Cardiopulmonary arrest Aortic incompetence status post aortic valve replacement with mechanical aortic valve - Management per cardiothoracic surgery -Received 4 units of PRBCs Intra-Op. -Anticoagulation with Lovenox which has been cleared by GI/Surgery. -Monitor HR and BP keep MAP>65mmHg -Increase Lopressor 50mg BID for HR/BP control. On ASA daily -Echo showed EF 50-55% Pulm Acute respiratory failure-Extubated on 07/22. -? TRALI. CT chest with bilateral infiltrates and small effusions Continue with oxygen keep sat >92% Bronchodilators, NIPPV PRN for resp distress GI/ liver: s/p Coffee-ground NG aspirate/bloody bowel movement -Status post EGD which revealed gastric varix and esophageal ulcer which was felt to be secondary to OG tube. Dr. Radford from GI following. GI cleared for anticoagulation. Colonoscopy performed 07/19 revealed colitis and rectum with ulceration from which biopsies were taken and Internal hemorrhoids. Elevated LFTs - shock liver from hypotension secondary to cardiac arrest. Follow LFTs. Repeat CT abdomen pelvis with IV contrast on 07/20 to follow-up on hemoperitoneum and to evaluate source off previous bleeding revealed liver laceration and moderate pelvic fluid significantly decreased compared to previous CAT scan. Discussed with Dr. Christianson on 07/20, consulted general surgery and discussed with Dr. Hewitt who recommends abdominal binder. On PO heart healthy diet Heme: - s/p Severe anemia secondary to hemoperitoneum most likely secondary to liver laceration noted on CT done on 07/20 - Postop transfused 4 units of PRBCs/ 4 FFP, 2 PLT, 2 cryo and Kcentra - Status post paracentesis with removal of 2.6 L of bloody peritoneal fluid on . - Hematology consulted and following. Repeat coags normalized. - Monitor CBC. Thrombocytopenia improving. HIT screen negative ID Monitor for signs of infections ( Fever, WBC) Plan to complete 7 days of cefepime- started on 07/17. Cultures NGTD. DVT GI prophylaxis - Teds SCDs, Loveox 80mg BID -Protonix Discuss with BIOINFORMATICS ANALYST. Check labs today Level 3 Alexei Caba MD Jul 24, 2016 09:40
[2016-07-24] MEDS: METOPROLOL TARTRATE 50 MG TAB PO SCH ×2 (10:08→20:39)
[2016-07-24 10:53] LABS: AUTOMATED NEUTROPHIL # 12.4 TH/MM3 (1.8-7.7); BASOPHIL # 0.1 TH/MM3 (0-0.2); BASOPHIL % 0.5 % (0.0-2.0); EOSINOPHIL # 0.3 TH/MM3 (0-0.4); HEMATOCRIT 35.2 % (35.0-46.0); LYMPH % 12.2 % (9.0-44.0); LYMPHOCYTE # 2.1 TH/MM3 (1.0-4.8); MEAN CELL VOLUME 85.4 FL (80.0-100.0); MEAN CORPUSCULAR HEMOGLOBIN 27.5 PG (27.0-34.0); MEAN CORPUSCULAR HGB CONC 32.3 % (32.0-36.0); MONO % 11.9 % (0.0-8.0); NEUT % 73.4 % (16.0-70.0); PLATELET COUNT 139 TH/MM3 (150-450); RED BLOOD COUNT 4.12 MIL/MM3 (4.00-5.30); RED CELL DISTRIBUTION WIDTH 15.5 % (11.6-17.2); WHITE BLOOD COUNT 16.9 TH/MM3 (4.0-11.0)
[2016-07-24 10:55] LABS: HEMO FLAGS AUTO DIFF
[2016-07-24 11:22] LABS: ALKALINE PHOSPHATASE 142 U/L (45-117); ALT (GPT) 315 U/L (10-53); ANION GAP 10 MEQ/L (5-15); AST (GOT) 77 U/L (15-37); BANDS 11 % (0-6); BICARBONATE 26.9 MEQ/L (21.0-32.0); BLOOD UREA NITROGEN 16 MG/DL (7-18); CHLORIDE 105 MEQ/L (98-107); GLOMERULAR FILTRATION RATE 86 ML/MIN (>89); MAGNESIUM 2.2 MG/DL (1.5-2.5); NEUTROPHIL # MANUAL DIFF 13.9 TH/MM3 (1.8-7.7); POLYS (SEG NEUTROPHILS) 71 % (16-70); POTASSIUM 3.6 MEQ/L (3.5-5.1); SODIUM (NA) 142 MEQ/L (136-145); WBC DIFF SAMPLE 100
[2016-07-24 11:23] LABS: PLATELET ESTIMATE SMEAR LOW (NORMAL); PLATELET MORPHOLOGY NORMAL (NORMAL); SCAN/DIFF FINAL DIFF MANUAL
--- NOTE | 2016-07-24 11:27 | PD.CAR.PN ---
CVT Progress Note CVT: POD #: 9 Subjective/Hospital Course: 55/ female, admitted for elective AVR , hx of mod to severe aortic insufficiency EF 55% PMH : osteoarthritis , RA followed by Dr Pacheco on chronic steroid use, Humira , methotrexate , seizure Dz , asthma surgery: 07/15 Minimally Invasive AVR with a 19 mm OnX Mechanical Valve, Left Percutaneous Femoral Arterial and Venous Cannulation for CPB, Intercostal Nerve Block, Perclose Arterial Closure x 2 per CCM note , pt became severely hypotensive hypoxemic and suffered with respiratory arrest. She was emergently re- intubated and regain spontaneous circulations after 2 cycles of CPR and epinephrine injections. She was found to be hypotensive and severely anemic with hemoglobin level 4, platelet count of 25, fibrinogen less than 50. She was thought to be bleeding retroperitoneally and was taken emergently to CAT scan angiogram. However no source of bleeding was found on the CT. She had some coffee ground drainage in NG + bloody stool x one , recieved 8units PRBC,/ 4 FFP, 2 PLT, 2 cryo and Kcentra. 07/16/16 pt remains intubated on vent , will open eyes and respond to simple commands, moves all extremities underwent bedside EGD today , NG trauma in esophagus , gastric varicies gastric fundus, with no evidence of active or recent bleeding elevated LFT's ? shock liver, however elevated amylase and lipase ? acute pancreatitis / elevated ferritin levels ( hemochromatosis ) chest tube drainage 320/12 hrs / on versed and fentanyl for sedation CCM following 07/17 Clinically stable s/p large volume paracentesis of bloody fluid last pm (2.6 L). Hgb stable stable on ventilator. May benefit from gently diuresis Greatly appreciate all the consultants input Planned colonoscopy today Continue CT to drainage 07/[address] removed without difficulty Will need some sort of anticoagulation for the mechanical aortic valve. Will discuss with GI and CCM regarding low-dose IV heparin gtt vs SQ Lovenox Planned Colonoscopy Greatly appreciate Dr. Radford and Dr. Curtis's input and assistance in her care 07/19 pt to start on precedex, to facilitate weaning from ventilator/ start CPAP trials today scleral edema improved still volume overloaded, however diuresing well on low dose heparin gtt , no further signs of bleeding, for colonoscopy today on no pressors, 07/20/16 on precedex and low dose propofol did not tolerate CPAP trails diuresing well, add additional low dose today vent weaning per [facility] on no pressors, not following commands LFT's improving repeat CT abdomen pending 07/21/16 still on low dose precedex CT scan resulted / + liver lac/ general surgery consulted HGB stable at 9.8 remains on vent / not following commands Heparin gtt at 800units /hr 07/22 pt weaned and extubated, following commands will need pt/ot / speech will need to discuss timing to start low dose ASA with Dr Hewitt also when able to transition to lovenox instead of heparin 07/23 requiring intermittent Bipap, still on precedex for anxiety with Bipap additional diuresis given await speech eval ok to start lovenox per general surgery/ will leave to [facility] for timing / in event pt may need thoracentesis she will also need a picc line and CVC line removed 07/24/16 Up in chair for the first time since surgery. Off CPAP. Somewhat confused, tachycardic. Tolerating regular diet. Objective: Vital Signs Date Time Temp Pulse Resp B/P Pulse Ox O2 Delivery O2 Flow Rate FiO2 07/24/16 11:04 98 Nasal Cannula 3.00 07/24/16 11:04 97.9 123 20 154/95 98 07/24/16 09:35 99 Nasal Cannula 3.00 07/24/16 08:05 99.4 143 20 133/93 98 07/24/16 08:05 98 Nasal Cannula 3.00 07/24/16 07:00 110 07/24/16 03:00 119 07/24/16 03:00 98.7 119 20 129/82 99 07/24/16 03:00 99 Nasal Cannula 4.00 07/23/16 23:00 112 07/23/16 23:00 99.2 112 20 138/88 99 07/23/16 23:00 99 Nasal Cannula 4.00 07/23/16 20:30 98 35 07/23/16 19:00 98.6 120 20 132/80 99 07/23/16 19:00 99 Nasal Cannula 4.00 07/23/16 19:00 120 07/23/16 18:10 97 35 07/23/16 17:25 98 Nasal Cannula 4.00 07/23/16 15:26 114 07/23/16 15:26 98.9 114 19 157/88 99 07/23/16 15:26 99 Bi-Pap 40 07/23/16 12:40 99 Bi-Pap 40 07/23/16 12:40 110 19 133/75 99 07/23/16 12:40 110 Labs: Laboratory Tests Test 07/24/16 07/24/16 03:55 10:30 Activated Partial 30.4 SEC Thromboplast Time (24.3-30.1) White Blood Count 16.9 TH/MM3 (4.0-11.0) Red Blood Count 4.12 MIL/MM3 (4.00-5.30) Hemoglobin 11.3 GM/DL (11.6-15.3) Hematocrit 35.2 % (35.0-46.0) Mean Corpuscular Volume 85.4 FL (80.0-100.0) Mean Corpuscular Hemoglobin 27.5 PG (27.0-34.0) Mean Corpuscular Hemoglobin 32.3 % Concent (32.0-36.0) Red Cell Distribution Width 15.5 % (11.6-17.2) Platelet Count 139 TH/MM3 (150-450) Mean Platelet Volume 9.7 FL (7.0-11.0) Neutrophils (%) (Auto) 73.4 % (16.0-70.0) Lymphocytes (%) (Auto) 12.2 % (9.0-44.0) Monocytes (%) (Auto) 11.9 % (0.0-8.0) Eosinophils (%) (Auto) 2.0 % (0.0-4.0) Basophils (%) (Auto) 0.5 % (0.0-2.0) Neutrophils # (Auto) 12.4 TH/MM3 (1.8-7.7) Lymphocytes # (Auto) 2.1 TH/MM3 (1.0-4.8) Monocytes # (Auto) 2.0 TH/MM3 (0-0.9) Eosinophils # (Auto) 0.3 TH/MM3 (0-0.4) Basophils # (Auto) 0.1 TH/MM3 (0-0.2) CBC Comment AUTO DIFF Result Diagram: 07/24/16 1030 07/23/16 0900 Imaging: Last 24 hours Impressions Chest X-Ray 6/10/17 0600 Signed Impressions: Service Date/Time: Sunday, July 24, 2016 03:15 - CONCLUSION: 1. Interval increase in opacity at the right lung base. There are apparent bilateral effusions. 2. Interval removal of right internal jugular central venous line. 3. Cardiomegaly. Juan Chakraborty MD Cardiovascular: IRR Telemetry: ST with frequent PVCs Pulmonary: Decreased BS on right GI/: NABS, NT Incision: dry and intact Plan: Continue in CVICU today PT/OT Lopressor 5 mg IV for HTN and tachycardia Concerned about underlying infection given leukocytosis with tachycardia. Encourage free water intake. Consider transfer to stepdown tomorrow or Tuesday Encourage PO intake (1) Left ventricular dysfunction (2) Severe aortic insufficiency (3) S/P AVR (aortic valve replacement) Plan: heparin gtt, monitor for signs of bleeding HGB stable start baby ASA when ok with general surgery and GI transition to lovenox when ok CCM start coumadin in 3-4 weeks / will discuss with general surgery will need to keep INR 2-2.5 x 90 days, then 1.5-1.8 (4) Seizure disorder Plan: on tegretol and gabapentin (5) Pancytopenia Plan: HGB stable monitor plt's now 77>88 >101 / neg HIT panel (6) Shock liver Plan: indices improving (7) Encephalopathy acute (8) Liver laceration Plan: general surgery no surgery indicated, abdominal binder in place stable H&h (9) Pleural effusion, bilateral Plan: may need thoracentesis if still requiring intermittent Bipap to improve ventilation / oxygenation Kathy Licona MD Jul 24, 2016 11:27
[2016-07-24] MEDS: POTASSIUM PHOSPHATE MONOBASIC 500 MG TAB PO SCH ×2 (11:47→20:40)
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
[2016-07-24] MEDS: METOPROLOL TARTRATE 5 MG/5 ML VIAL IV PUSH PRN ×2 (12:41→21:03)
[2016-07-24] MEDS: RESP: ALBUTEROL 2.5 MG/IPRATROPIUM 0.5 MG NEB (PRN) NEB ×2 (16:31→21:42)
[2016-07-24] MEDS: hydrALAZINE HCL 20 MG/ML VIAL IV PRN ×2 (18:25→22:27)
[2016-07-24] MEDS ORDERED: METOPROLOL TARTRATE 25 MG TAB PO SCH (21:00)
[2016-07-24] MEDS: oxyCODONE/ACETAMINOPHEN 5 MG/325 MG TAB PO PRN (21:03)
[2016-07-25] VITALS (10 sets, daily range): BP systolic 122–164; BP diastolic 75–97; PULSE 108–136; RESP 16–20; TEMP 97.6–100.7; O2SAT 95–99
[2016-07-25] MEDS ORDERED: QUEtiapine FUMARATE 25 MG TAB PO ONE (00:30)
[2016-07-25] MEDS ORDERED: HALOPERIDOL LACTATE 5 MG/ML AMP IV PRN (00:30)
[2016-07-25] MEDS ORDERED: MELATONIN 5 MG TAB PO ONE (00:30)
[2016-07-25] MEDS: CEFEPIME INJ 2,000 MG in SODIUM CHLORIDE 0.9% INJ 100 ML IV SCH ×2 (01:31→09:04)
[2016-07-25] MEDS: METOPROLOL TARTRATE 5 MG/5 ML VIAL IV PUSH PRN ×6 (02:59→21:33)
[2016-07-25 05:21] LABS: AUTOMATED NEUTROPHIL # 14.8 TH/MM3 (1.8-7.7); BASOPHIL # 0.1 TH/MM3 (0-0.2); BASOPHIL % 0.4 % (0.0-2.0); EOSINOPHIL # 0.3 TH/MM3 (0-0.4); EOSINOPHIL % 1.3 % (0.0-4.0); HEMATOCRIT 34.1 % (35.0-46.0); LYMPH % 11.7 % (9.0-44.0); LYMPHOCYTE # 2.4 TH/MM3 (1.0-4.8); MEAN CORPUSCULAR HEMOGLOBIN 28.5 PG (27.0-34.0); MEAN CORPUSCULAR HGB CONC 33.1 % (32.0-36.0); MONO % 12.8 % (0.0-8.0); NEUT % 73.8 % (16.0-70.0); PLATELET COUNT 148 TH/MM3 (150-450); RED BLOOD COUNT 3.96 MIL/MM3 (4.00-5.30); RED CELL DISTRIBUTION WIDTH 15.2 % (11.6-17.2); WHITE BLOOD COUNT 20.1 TH/MM3 (4.0-11.0)
[2016-07-25 05:52] LABS: ALKALINE PHOSPHATASE 127 U/L (45-117); ALT (GPT) 254 U/L (10-53); TOTAL BILIRUBIN ADULT 0.9 MG/DL (0.2-1.0)
[2016-07-25 06:22] LABS: HEMO FLAGS AUTO DIFF
[2016-07-25] MEDS: PANTOPRAZOLE SOD 40 MG DELAYED RELEASE TAB PO SCH (06:34)
[2016-07-25] MEDS: ENOXAPARIN SODIUM 80 MG/0.8 ML SYRINGE SQ SCH ×2 (06:34→18:09)
[2016-07-25 06:56] LABS: ANION GAP 13 MEQ/L (5-15); AST (GOT) 74 U/L (15-37); BICARBONATE 21.7 MEQ/L (21.0-32.0); BLOOD UREA NITROGEN 15 MG/DL (7-18); CHLORIDE 106 MEQ/L (98-107); GLOMERULAR FILTRATION RATE 95 ML/MIN (>89); POTASSIUM 3.4 MEQ/L (3.5-5.1); SODIUM (NA) 141 MEQ/L (136-145)
[2016-07-25] MEDS: POTASSIUM PHOSPHATE MONOBASIC 500 MG TAB PO SCH ×2 (08:58→19:56)
[2016-07-25] MEDS: carBAMazepine 200 MG TAB PO SCH ×3 (09:00→18:09)
[2016-07-25] MEDS: METOPROLOL TARTRATE 50 MG TAB PO SCH ×2 (09:00→19:56)
[2016-07-25] MEDS ORDERED: VANCOMYCIN INJ 1,000 MG in SODIUM CHLOR 0.9% 250 ML INJ 250 ML IV ONE (09:00)
--- NOTE | 2016-07-25 09:00 | HHI.CCPN ---
Subjective Remarks/Hospital Course 07/16: 55-year-old female with history of seizure disorder, some autoimmune disorder on Humira methotrexate and prednisone, history of asthma underwent uncomplicated minimally Invasive AVR with a 19 mm OnX Mechanical Valve via left percutaneous femoral arterial and venous cannulation for CPB. While in the CVICU she became severely hypotensive hypoxemic and suffered with respiratory arrest. She was emergently intubated and regain spontaneous circulations after 2 cycles of CPR and epinephrine injections. She was found to be hypotensive and severely anemic with hemoglobin level 4, platelet count of 25, fibrinogen less than 50. She was thought to be bleeding retroperitoneally and was taken emergently to CAT scan angiogram. However no source of bleeding was found on the CT. patient did have significant amount of ascites noted on CAT scan. She underwent an EGD which revealed a gastric varix and an esophageal ulcer however no active bleeding. She subsequently underwent paracentesis with drainage of 2.6 L of dark blood from peritoneal cavity which was most definitely the source of her blood loss. 07/17: Remains sedated, orally intubated on mechanical ventilation. Patient spiked a temperature last night and was initiated on empiric antibiotic coverage at [facility] and [facility] after obtaining cultures. Being prepped for colonoscopy however has not had any BMs. Discussed with Dr. Radford from GI who was okay with proceeding with extubation at this point. 07/18: Remains sedated, orally intubated on mechanical ventilation. Being prepped for colonoscopy. Greenish BMs however no blood noted. Hemoglobin remained stable currently. Chest tube/ pacer wires removed. Being diuresed with Lasix. 07/19: Sedated, orally intubated on mechanical ventilation. Colonoscopy performed today which revealed colitis in the rectum with hemorrhoids. Was placed on heparin for anticoagulation last evening which was held for colonoscopy today. Being diuresed to mobilize fluid. 07/20: Remains sedated, arousable, gets agitated on lightening sedation, orally intubated on mechanical ventilation. On heparin for anticoagulation. Underwent colonoscopy yesterday. Diuresed and is -8 L in the last 24 hours. Chest x-ray continues to show bilateral infiltrates/pulmonary edema pattern raising concern for transfusion related acute lung injury (TRALI). 07/21: Sedated, arousable, orally intubated on mechanical ventilation. On heparin for anticoagulation. CT abdomen and pelvis done on 07/20 revealed what looks like a liver laceration with some free fluid in the pelvis. CT chest with bilateral infiltrates and bilateral small effusions. 07/22: Arouses off sedation. On Precedex. Remains on heparin for anticoagulation. Diuresed well overnight. No evidence of active bleeding at this time. Started on tube feeds yesterday which have been held for possible extubation. 07/23: Extubated on 07/22. Requiring BiPAP. Being diuresed. Hemoglobin remained stable. On Precedex for anxiety as needed. 07/24 Patient is off BIPAP on 3L oxygen with good sats. Afebrile. On no drips ( Off Heparin and Precedex drips). Tachycardic. 07/25 Patient shelby 2L oxygen with good sats. Tachycardic. Objective Vital Signs Date Time Temp Pulse Resp B/P Pulse Ox O2 Delivery O2 Flow Rate FiO2 07/25/16 07:38 97.6 134 16 142/88 97 07/25/16 07:38 Nasal Cannula 2.00 07/23/16 20:30 35 Intake and Output 07/24/16 07/24/16 07/24/16 07:59 15:59 23:59 Intake Total 600 ml 1020 ml Output Total 1300 ml 900 ml Balance -700 ml 120 ml Result Diagram: 07/25/16 0447 07/25/16 0447 Other Results Laboratory Tests Test 07/24/16 07/25/16 10:30 04:47 White Blood Count 16.9 TH/MM3 20.1 TH/MM3 Red Blood Count 4.12 MIL/MM3 3.96 MIL/MM3 Hemoglobin 11.3 GM/DL 11.3 GM/DL Hematocrit 35.2 % 34.1 % Mean Corpuscular Volume 85.4 FL 86.0 FL Mean Corpuscular Hemoglobin 27.5 PG 28.5 PG Mean Corpuscular Hemoglobin 32.3 % 33.1 % Concent Red Cell Distribution Width 15.5 % 15.2 % Platelet Count 139 TH/MM3 148 TH/MM3 Mean Platelet Volume 9.7 FL 10.0 FL Neutrophils (%) (Auto) 73.4 % 73.8 % Lymphocytes (%) (Auto) 12.2 % 11.7 % Monocytes (%) (Auto) 11.9 % 12.8 % Eosinophils (%) (Auto) 2.0 % 1.3 % Basophils (%) (Auto) 0.5 % 0.4 % Neutrophils # (Auto) 12.4 TH/MM3 14.8 TH/MM3 Lymphocytes # (Auto) 2.1 TH/MM3 2.4 TH/MM3 Monocytes # (Auto) 2.0 TH/MM3 2.6 TH/MM3 Eosinophils # (Auto) 0.3 TH/MM3 0.3 TH/MM3 Basophils # (Auto) 0.1 TH/MM3 0.1 TH/MM3 CBC Comment AUTO DIFF AUTO DIFF Differential Total Cells 100 Counted Neutrophils % (Manual) 71 % Band Neutrophils % 11 % Lymphocytes % 11 % Monocytes % 7 % Neutrophils # (Manual) 13.9 TH/MM3 Differential Comment FINAL DIFF MANUAL Platelet Estimate LOW Platelet Morphology Comment NORMAL Sodium Level 142 MEQ/L 141 MEQ/L Potassium Level 3.6 MEQ/L 3.4 MEQ/L Chloride Level 105 MEQ/L 106 MEQ/L Carbon Dioxide Level 26.9 MEQ/L 21.7 MEQ/L Anion Gap 10 MEQ/L 13 MEQ/L Blood Urea Nitrogen 16 MG/DL 15 MG/DL Creatinine 0.84 MG/DL 0.77 MG/DL Estimat Glomerular Filtration 86 ML/MIN 95 ML/MIN Rate Random Glucose 128 MG/DL 114 MG/DL Calcium Level 8.6 MG/DL 8.1 MG/DL Phosphorus Level 1.8 MG/DL Magnesium Level 2.2 MG/DL Total Bilirubin 1.0 MG/DL 0.9 MG/DL Aspartate Amino Transf 77 U/L 74 U/L (AST/SGOT) Alanine Aminotransferase 315 U/L 254 U/L (ALT/SGPT) Alkaline Phosphatase 142 U/L 127 U/L Total Protein 7.2 GM/DL 7.0 GM/DL Albumin 2.6 GM/DL 2.7 GM/DL Activated Partial 30.0 SEC Thromboplast Time Imaging Last Impressions Chest X-Ray 07/24/16 0600 Signed Impressions: Service Date/Time: Sunday, July 24, 2016 03:15 - CONCLUSION: 1. Interval increase in opacity at the right lung base. There are apparent bilateral effusions. 2. Interval removal of right internal jugular central venous line. 3. Cardiomegaly. Juan Chakraborty MD Chest CT 07/20/16 0000 Signed Impressions: Service Date/Time: Wednesday, July 20, 2016 17:29 - CONCLUSION: Multifocal subsegmental consolidative infiltrates in both lungs and moderate-sized bilateral pleural effusions. Norbert Figueroa MD Abdomen/Pelvis CT 07/20/16 Signed Impressions: Service Date/Time: Wednesday, July 20, 2016 17:29 - CONCLUSION: 1. Findings suggest laceration of the liver extending to the anterior margin between the left and right lobe.. 2. Significant decrease in the amount of abdominal pelvic fluid with moderate residual pelvic fluid 3. Subcutaneous induration proximal and lateral thigh/pelvis. Norbert Figueroa MD Cyst Biopsy Asp-Paracentesis US 07/16/16 Signed Impressions: Service Date/Time: Saturday, July 16, 2016 21:23 - CONCLUSION: Uncomplicated ultrasound guided paracentesis. Sanguinous fluid obtained. Sample sent to the lab as requested. Norbert Kwong Jr., MD Abdomen Ultrasound 07/16/16 Signed Impressions: Service Date/Time: Saturday, July 16, 2016 19:23 - CONCLUSION: Moderate volume of ascites. Sufficient volume for paracentesis. Norbert Kwong Jr., MD Objective Remarks GENERAL: Patient is 55 yo lying in bed in no acute resp distress. SKIN: Warm and dry. HEAD: Normocephalic. EYES: No scleral icterus. No injection or drainage. NECK: Supple, trachea midline. No JVD or lymphadenopathy. CARDIOVASCULAR: Tachycardic without murmurs, gallops, or rubs. RESPIRATORY: Breath sounds equal bilaterally. No accessory muscle use. GASTROINTESTINAL: Abdomen soft, non-tender, nondistended. MUSCULOSKELETAL: No cyanosis, or edema. Neuro: Awake and alert A/P Assessment and Plan Neuro: Seizure disorder - Tegretol/gabapentin Monitor neuro status and avoid sedatives CVS s/p Cardiopulmonary arrest Aortic incompetence status post aortic valve replacement with mechanical aortic valve - Management per cardiothoracic surgery -Received 4 units of PRBCs Intra-Op. -Anticoagulation with Lovenox which has been cleared by GI/Surgery. -Monitor HR and BP keep MAP>65mmHg -On Lopressor 50mg BID for HR/BP control. On ASA daily, add Cardizem 60mg QID for HR/BP control. -Echo showed EF 50-55% Pulm Acute respiratory failure-Extubated on 07/22. -? TRALI. CT chest with bilateral infiltrates and small effusions Continue with oxygen keep sat >92% Bronchodilators, NIPPV PRN for resp distress On Prednisone 2.5mg BID GI/ liver: s/p Coffee-ground NG aspirate/bloody bowel movement -Status post EGD which revealed gastric varix and esophageal ulcer which was felt to be secondary to OG tube. Dr. Radford from GI following. GI cleared for anticoagulation. Colonoscopy performed 07/19 revealed colitis and rectum with ulceration from which biopsies were taken and Internal hemorrhoids. Elevated LFTs - shock liver from hypotension secondary to cardiac arrest. Follow LFTs. Repeat CT abdomen pelvis with IV contrast on 07/20 to follow-up on hemoperitoneum and to evaluate source off previous bleeding revealed liver laceration and moderate pelvic fluid significantly decreased compared to previous CAT scan. On PO heart healthy diet Heme: - s/p Severe anemia secondary to hemoperitoneum most likely secondary to liver laceration noted on CT done on 07/20 - Postop transfused 4 units of PRBCs/ 4 FFP, 2 PLT, 2 cryo and Kcentra - Status post paracentesis with removal of 2.6 L of bloody peritoneal fluid on . - Hematology consulted and following. Repeat coags normalized. - Monitor CBC. Thrombocytopenia improving. HIT screen negative ID Monitor for signs of infections ( Fever, WBC) Continue with cefepime- started on 07/17. Cultures NGTD. Check sputum cx, UA with cx if indicated. OD eval for worsening leukocytosis. Will give Vanco x1 dose DVT GI prophylaxis - Teds SCDs, Loveox 80mg BID -Protonix Discuss with [facility] TECHNICIAN. Level 3 Alexei Caba MD Jul 25, 2016 09:00
[2016-07-25] MEDS: GABAPENTIN 300 MG CAP PO SCH ×2 (09:01→19:56)
[2016-07-25] MEDS: FOLIC ACID 1 MG TAB PO SCH (09:01)
[2016-07-25] MEDS: CYANOCOBALAMIN 1000 MCG/ML VIAL SQ SCH (09:02)
[2016-07-25] MEDS: hydrALAZINE HCL 20 MG/ML VIAL IV PRN (09:02)
[2016-07-25] MEDS: predniSONE 5 MG TAB PO SCH ×2 (09:03→19:56)
[2016-07-25] MEDS: SODIUM CHLORIDE 0.9% FLUSH 10 ML FLUSH IV FLUSH SCH ×2 (09:03→19:56)
[2016-07-25] MEDS: POTASSIUM CHLOR 20 MEQ PREMIX 100 ML IV PRN (09:12)
[2016-07-25 09:28] LABS: MAGNESIUM 2.1 MG/DL (1.5-2.5)
--- NOTE | 2016-07-25 09:34 | PD.CAR.PN ---
CVT Progress Note CVT: POD #: 10 Subjective/Hospital Course: 55/ female, admitted for elective AVR , hx of mod to severe aortic insufficiency EF 55% PMH : osteoarthritis , RA followed by Dr Pacheco on chronic steroid use, Humira , methotrexate , seizure Dz , asthma surgery: 07/15 Minimally Invasive AVR with a 19 mm OnX Mechanical Valve, Left Percutaneous Femoral Arterial and Venous Cannulation for CPB, Intercostal Nerve Block, Perclose Arterial Closure x 2 per CCM note , pt became severely hypotensive hypoxemic and suffered with respiratory arrest. She was emergently re- intubated and regain spontaneous circulations after 2 cycles of CPR and epinephrine injections. She was found to be hypotensive and severely anemic with hemoglobin level 4, platelet count of 25, fibrinogen less than 50. She was thought to be bleeding retroperitoneally and was taken emergently to CAT scan angiogram. However no source of bleeding was found on the CT. She had some coffee ground drainage in NG + bloody stool x one , recieved 8units PRBC,/ 4 FFP, 2 PLT, 2 cryo and Kcentra. 07/16/16 pt remains intubated on vent , will open eyes and respond to simple commands, moves all extremities underwent bedside EGD today , NG trauma in esophagus , gastric varicies gastric fundus, with no evidence of active or recent bleeding elevated LFT's ? shock liver, however elevated amylase and lipase ? acute pancreatitis / elevated ferritin levels ( hemochromatosis ) chest tube drainage 320/12 hrs / on versed and fentanyl for sedation CCM following 07/17 Clinically stable s/p large volume paracentesis of bloody fluid last pm (2.6 L). Hgb stable stable on ventilator. May benefit from gently diuresis Greatly appreciate all the consultants input Planned colonoscopy today Continue CT to drainage 07/[address] removed without difficulty Will need some sort of anticoagulation for the mechanical aortic valve. Will discuss with GI and CCM regarding low-dose IV heparin gtt vs SQ Lovenox Planned Colonoscopy Greatly appreciate Dr. Radford and Dr. Curtis's input and assistance in her care 07/19 pt to start on precedex, to facilitate weaning from ventilator/ start CPAP trials today scleral edema improved still volume overloaded, however diuresing well on low dose heparin gtt , no further signs of bleeding, for colonoscopy today on no pressors, 07/20/16 on precedex and low dose propofol did not tolerate CPAP trails diuresing well, add additional low dose today vent weaning per [facility] on no pressors, not following commands LFT's improving repeat CT abdomen pending 07/21/16 still on low dose precedex CT scan resulted / + liver lac/ general surgery consulted HGB stable at 9.8 remains on vent / not following commands Heparin gtt at 800units /hr 07/22 pt weaned and extubated, following commands will need pt/ot / speech will need to discuss timing to start low dose ASA with Dr Hewitt also when able to transition to lovenox instead of heparin 07/23 requiring intermittent Bipap, still on precedex for anxiety with Bipap additional diuresis given await speech eval ok to start lovenox per general surgery/ will leave to [facility] for timing / in event pt may need thoracentesis she will also need a picc line and CVC line removed 07/24/16 Up in chair for the first time since surgery. Off CPAP. Somewhat confused, tachycardic. Tolerating regular diet. 07/25/16 Weak, lethargic Hypertensive, tachycardic Objective: Vital Signs Date Time Temp Pulse Resp B/P Pulse Ox O2 Delivery O2 Flow Rate FiO2 07/25/16 07:38 97.6 134 16 142/88 97 07/25/16 07:38 97 Nasal Cannula 2.00 07/25/16 07:38 134 07/25/16 03:00 97.9 136 20 139/75 97 07/25/16 03:00 98 Nasal Cannula 0.50 07/25/16 03:00 129 07/25/16 00:31 22 07/24/16 23:00 97.9 127 20 167/86 98 07/24/16 23:00 129 07/24/16 23:00 98 Nasal Cannula 0.50 07/24/16 22:05 18 07/24/16 21:43 96 Nasal Cannula 3.00 07/24/16 19:00 127 07/24/16 19:00 98.2 127 20 161/92 94 07/24/16 19:00 94 Nasal Cannula 0.50 07/24/16 16:32 92 Nasal Cannula 3.00 07/24/16 15:00 95 Nasal Cannula 1.00 07/24/16 15:00 98.8 116 15 142/83 99 07/24/16 15:00 115 6/10/17 11:04 98 Nasal Cannula 3.00 07/24/16 11:04 97.9 123 20 154/95 98 07/24/16 11:00 110 07/24/16 09:35 99 Nasal Cannula 3.00 Labs: Laboratory Tests Test 07/25/16 04:47 White Blood Count 20.1 TH/MM3 (4.0-11.0) Red Blood Count 3.96 MIL/MM3 (4.00-5.30) Hemoglobin 11.3 GM/DL (11.6-15.3) Hematocrit 34.1 % (35.0-46.0) Mean Corpuscular Volume 86.0 FL (80.0-100.0) Mean Corpuscular Hemoglobin 28.5 PG (27.0-34.0) Mean Corpuscular Hemoglobin 33.1 % Concent (32.0-36.0) Red Cell Distribution Width 15.2 % (11.6-17.2) Platelet Count 148 TH/MM3 (150-450) Mean Platelet Volume 10.0 FL (7.0-11.0) Neutrophils (%) (Auto) 73.8 % (16.0-70.0) Lymphocytes (%) (Auto) 11.7 % (9.0-44.0) Monocytes (%) (Auto) 12.8 % (0.0-8.0) Eosinophils (%) (Auto) 1.3 % (0.0-4.0) Basophils (%) (Auto) 0.4 % (0.0-2.0) Neutrophils # (Auto) 14.8 TH/MM3 (1.8-7.7) Lymphocytes # (Auto) 2.4 TH/MM3 (1.0-4.8) Monocytes # (Auto) 2.6 TH/MM3 (0-0.9) Eosinophils # (Auto) 0.3 TH/MM3 (0-0.4) Basophils # (Auto) 0.1 TH/MM3 (0-0.2) CBC Comment AUTO DIFF Activated Partial 30.0 SEC Thromboplast Time (24.3-30.1) Sodium Level 141 MEQ/L (136-145) Potassium Level 3.4 MEQ/L (3.5-5.1) Chloride Level 106 MEQ/L (98-107) Carbon Dioxide Level 21.7 MEQ/L (21.0-32.0) Anion Gap 13 MEQ/L (5-15) Blood Urea Nitrogen 15 MG/DL (7-18) Creatinine 0.77 MG/DL (0.50-1.00) Estimat Glomerular Filtration 95 ML/MIN (>89) Rate Random Glucose 114 MG/DL (74-106) Calcium Level 8.1 MG/DL (8.5-10.1) Total Bilirubin 0.9 MG/DL (0.2-1.0) Aspartate Amino Transf 74 U/L (15-37) (AST/SGOT) Alanine Aminotransferase 254 U/L (10-53) (ALT/SGPT) Alkaline Phosphatase 127 U/L (45-117) Total Protein 7.0 GM/DL (6.4-8.2) Albumin 2.7 GM/DL (3.4-5.0) Result Diagram: 07/25/1644607/25/16446 Cardiovascular: Tachy, RRR Telemetry: ST with PVCs Pulmonary: Decreased BS bilat with few crackles GI/: NABS, NT Incision: dry and intact Plan: Continue in CVICU as she continues to require more nursing care than can tolerate on floor Inpatient rehab placement Continues with leukocytosis - ? pneumonitis Dr. Caba following for critical care management. (1) Left ventricular dysfunction (2) Severe aortic insufficiency (3) S/P AVR (aortic valve replacement) Plan: heparin gtt, monitor for signs of bleeding HGB stable start baby ASA when ok with general surgery and GI transition to lovenox when ok CCM start coumadin in 3-4 weeks / will discuss with general surgery will need to keep INR 2-2.5 x 90 days, then 1.5-1.8 (4) Seizure disorder Plan: on tegretol and gabapentin (5) Pancytopenia Plan: HGB stable monitor plt's now 77>88 >101 / neg HIT panel (6) Shock liver Plan: indices improving (7) Encephalopathy acute (8) Liver laceration Plan: general surgery no surgery indicated, abdominal binder in place stable H&h (9) Pleural effusion, bilateral Plan: may need thoracentesis if still requiring intermittent Bipap to improve ventilation / oxygenation Kathy Licona MD Jul 25, 2016 09:34
[2016-07-25 10:07] LABS: BANDS 10 % (0-6); CORRECTED NUCLEATED RBC 1 /100 WBC (0-0); EOSINOPHILS 1 % (0-4); NEUTROPHIL # MANUAL DIFF 14.9 TH/MM3 (1.8-7.7); POLYS (SEG NEUTROPHILS) 64 % (16-70); WBC DIFF SAMPLE 100
[2016-07-25 10:08] LABS: PLATELET ESTIMATE SMEAR NORMAL (NORMAL); PLATELET MORPHOLOGY NORMAL (NORMAL); POLYCHROMASIA 2.4 % (0.0-1.9); SCAN/DIFF FINAL DIFF MANUAL
[2016-07-25] MEDS: DILTIAZEM HCL 60 MG TAB PO SCH ×4 (11:07→19:55)
[2016-07-25] MEDS ORDERED: RESP: ALBUTEROL 2.5 MG/IPRATROPIUM 0.5 MG NEB (SCH) NEB (12:00)
[2016-07-25 13:01] LABS: BACTERIA, URINE RARE /hpf; BLOOD, URINE MOD (NEG); COMMENT (UR) CATH-CULTURE IND; CULTURE IF INDICATED CATH CULTURE IND; GLUCOSE,URINE 70 mg/dL (NEG); KETONE, URINE NEG (NEG); MUCUS URINE FEW /lpf (OCC); NITRITE,URINE NEG (NEG); URINE COLOR YELLOW (YELLW/STRAW)
--- NOTE | 2016-07-25 14:08 | MB ---
cc: DINO JUÁREZ MD, ALAA M.D. DATE OF CONSULTATION: 07/25/[address] Caba REASON FOR CONSULTATION: Worsening leukocytosis. HISTORY OF PRESENT ILLNESS: This is a 55-year-old black female who was admitted to the hospital for elective cardiovascular surgery 07/16/16. The patient underwent minimally invasive aortic valve replacement with a 19 mm On-X mechanical valve. She subsequently developed hypotension and hypoxemia and suffered respiratory arrest and was emergently intubated. She also was noted to have a laceration of the liver and was noted to have intra-abdominal hemorrhage. The patient's white blood cell count was normal up until 07/19 when it melinda to 12.8 and stayed over 11 and started climbing again on 07/24 when it melinda to 16.9 and today it is 20.1. She is afebrile. She has been off the ventilator and temperature is mostly normal. The last T-max was 100.3 on 07/22. She was having fevers on 07/17 and 07/18 up to 101 degrees. She has been on cefepime since 07/17. All of her cultures have been negative including peritoneal fluid culture, sputum culture on 07/17. Urine culture on 07/17 and blood culture on 07/17. The patient is currently laying in bed and she feels very weak. She speaks with a very weak almost whisper voice. She appears to be somewhat short of breath but is on room air. She was noted by the nurse to have diarrhea today. She states that she has been drinking a lot of liquids and this caused the diarrhea. She has not had a bowel movement prior to that in a couple of days. Chest x-ray from yesterday shows increased opacity in the right lung base and apparent bilateral effusions. The patient had also a removal of her right internal jugular central venous line. The line was removed on July 23. The patient was on BiPap and then was transitioned to nasal cannula yesterday. She was extubated on 07/22/2016. She has a cough and she has some congestion but is not expectorating sputum. She has a Matthews catheter in place which has dark yellow urine. PAST MEDICAL HISTORY 1. Seizure disorder 2. Asthma 3. Unspecified autoimmune disease. 4. History of bilateral knee arthroscopy 5. Recent surgery for aortic stenosis. ALLERGIES NO KNOWN DRUG ALLERGIES. MEDICATIONS 1. Cardizem 2. Lopressor. 3. Potassium. 4. Lovenox. 5. Vitamin B12. 6. Cefepime 7. Tegretol 8. Neurontin. 9. Folic acid. 10. Prednisone 2.5 mg p.o. b.i.d. 11. Protonix. SOCIAL HISTORY No tobacco use. Positive marijuana use. The patient quit drinking alcohol 5 years ago. FAMILY HISTORY: Noncontributory. REVIEW OF SYSTEMS General: Significant for weakness. No fever, no chills. Head, ears, eyes, nose and throat: No visual blurring or diplopia. No difficulty swallowing. Neck: No neck pain or swelling. Cardiovascular: No palpitations. Mild chest soreness. Gastrointestinal: No nausea or vomiting, abdominal pain. Positive diarrhea. Genitourinary: No urgency, frequency or dysuria. Heme: No easy bruising or bleeding. Integumentary: No skin rash or itching. Musculoskeletal: No muscle aches or pains except for mild soreness in the chest. Endocrine: No polyuria, polydipsia. Neurologic: No problems with coordination or dizziness. The patient has history of seizure disorder. Psychiatric: The patient without mode changes or depression. PHYSICAL EXAMINATION: This is a slender female in no acute distress. She is awake, alert, oriented. Vital signs: Include temperature 96.7, heart rate 119, BP 164/95, respirations 18. HEENT: Head is atraumatic. Extraocular movements grossly intact, pupils reactive to light without icterus. Pale, muddy sclera. No visible icterus. Oropharynx: moist mucosa without lesions. Neck: Supple without adenopathy. Lungs: Slight rhonchi at the bases. Heart: Irregular rate and rhythm with a slight systolic murmur at the left sternal border. Abdomen: Bowel sounds present, soft, no tenderness appreciated. Rectal: Not performed. Extremities: No clubbing, cyanosis or edema. Skin: No rash. Dusky fingers. Warm and moist. Neuro: Nonfocal. Psych: The patient is calm and cooperative. LABORATORY DATA WBC 20.1, 73% neutrophils, 11% lymphocytes, 12% monocytes. Differential includes 10% bands, hemoglobin 11.3, platelets 148, creatinine 0.77, BUN 15, sodium 141, AST 74, ALT 254. IMPRESSION Leukocytosis. Questionable etiology. Possible due to pneumonia versus urinary tract infection. The patient h as increased opacity at the right lung base and on latest chest x-ray. Clinically she does not appear toxic. She also has some diarrhea but it just started today. She has been on cefepime and maybe antibiotics associated diarrhea. RECOMMENDATIONS 1. Discontinue cefepime. 2. Begin Azactam for pulmonary coverage. 3. Obtain urinalysis and urine culture if indicated. 4. Obtain sputum culture. 5. Monitor white blood cell count. 6. Antibiotic changes or addition if necessary depending on the cultures or if the white count continues to increase. 7. If she continues to have persistent diarrhea, stool for C. difficile should also be obtained. Thank you for the consultation. The patient's progress will be monitored and further recommendations will be given on follow up. Dino Juárez MD FD/CARLOS /12:13 PM /1:10 PM [place]
[2016-07-25] MEDS: AZTREONAM INJ 1,000 MG in SODIUM CHLORIDE 0.9% INJ 100 ML IV SCH ×2 (14:58→21:33)
[2016-07-25] MEDS: MELATONIN 5 MG TAB PO SCH (19:56)
[2016-07-26] VITALS (11 sets, daily range): BP systolic 123–158; BP diastolic 76–93; PULSE 112–129; RESP 15–20; TEMP 98–99.1; O2SAT 94–100
[2016-07-26] MEDS: METOPROLOL TARTRATE 5 MG/5 ML VIAL IV PUSH PRN ×4 (02:18→23:07)
[2016-07-26 04:26] LABS: AUTOMATED NEUTROPHIL # 13.4 TH/MM3 (1.8-7.7); BASOPHIL # 0.1 TH/MM3 (0-0.2); BASOPHIL % 0.5 % (0.0-2.0); EOSINOPHIL # 0.2 TH/MM3 (0-0.4); EOSINOPHIL % 0.9 % (0.0-4.0); HEMATOCRIT 35.1 % (35.0-46.0); LYMPH % 10.1 % (9.0-44.0); LYMPHOCYTE # 1.8 TH/MM3 (1.0-4.8); MEAN CELL VOLUME 85.7 FL (80.0-100.0); MEAN CORPUSCULAR HEMOGLOBIN 28.6 PG (27.0-34.0); MEAN CORPUSCULAR HGB CONC 33.3 % (32.0-36.0); MONO % 12.7 % (0.0-8.0); NEUT % 75.8 % (16.0-70.0); PLATELET COUNT 141 TH/MM3 (150-450); RED BLOOD COUNT 4.09 MIL/MM3 (4.00-5.30); RED CELL DISTRIBUTION WIDTH 15.5 % (11.6-17.2); WHITE BLOOD COUNT 17.7 TH/MM3 (4.0-11.0)
[2016-07-26 04:35] LABS: HEMO FLAGS AUTO DIFF
[2016-07-26 05:07] LABS: ALKALINE PHOSPHATASE 119 U/L (45-117); ALT (GPT) 195 U/L (10-53); ANION GAP 9 MEQ/L (5-15); AST (GOT) 69 U/L (15-37); BICARBONATE 24.1 MEQ/L (21.0-32.0); BLOOD UREA NITROGEN 14 MG/DL (7-18); CHLORIDE 107 MEQ/L (98-107); GLOMERULAR FILTRATION RATE 92 ML/MIN (>89); POTASSIUM 3.3 MEQ/L (3.5-5.1); SODIUM (NA) 140 MEQ/L (136-145); TOTAL BILIRUBIN ADULT 0.9 MG/DL (0.2-1.0)
[2016-07-26 05:29] LABS: BANDS 2 % (0-6); BASOPHILS 1 % (0-2); EOSINOPHILS 1 % (0-4); MYELOCYTES 1 % (0-0); POLYS (SEG NEUTROPHILS) 76 % (16-70); SCAN/DIFF FINAL DIFF MANUAL; WBC DIFF SAMPLE 100
[2016-07-26] MEDS: PANTOPRAZOLE SOD 40 MG DELAYED RELEASE TAB PO SCH (05:33)
[2016-07-26] MEDS: ENOXAPARIN SODIUM 80 MG/0.8 ML SYRINGE SQ SCH ×2 (05:33→18:12)
[2016-07-26] MEDS: AZTREONAM INJ 1,000 MG in SODIUM CHLORIDE 0.9% INJ 100 ML IV SCH ×3 (05:34→22:19)
[2016-07-26 05:35] LABS: PLATELET ESTIMATE SMEAR NORMAL (NORMAL); PLATELET MORPHOLOGY NORMAL (NORMAL)
[2016-07-26 05:36] LABS: POLYCHROMASIA 2.1 % (0.0-1.9)
[2016-07-26] MEDS: oxyCODONE/ACETAMINOPHEN 5 MG/325 MG TAB PO PRN (05:36)
[2016-07-26 05:38] LABS: ACANTHOCYTES OCC (NORMAL); KERATOCYTES OCC (NORMAL)
[2016-07-26] MEDS: POTASSIUM CHLOR 20 MEQ PREMIX 100 ML IV PRN (05:50)
--- NOTE | 2016-07-26 08:18 | HHI.CCPN ---
Subjective Remarks/Hospital Course 07/16: 55-year-old female with history of seizure disorder, some autoimmune disorder on Humira methotrexate and prednisone, history of asthma underwent uncomplicated minimally Invasive AVR with a 19 mm OnX Mechanical Valve via left percutaneous femoral arterial and venous cannulation for CPB. While in the CVICU she became severely hypotensive hypoxemic and suffered with respiratory arrest. She was emergently intubated and regain spontaneous circulations after 2 cycles of CPR and epinephrine injections. She was found to be hypotensive and severely anemic with hemoglobin level 4, platelet count of 25, fibrinogen less than 50. She was thought to be bleeding retroperitoneally and was taken emergently to CAT scan angiogram. However no source of bleeding was found on the CT. patient did have significant amount of ascites noted on CAT scan. She underwent an EGD which revealed a gastric varix and an esophageal ulcer however no active bleeding. She subsequently underwent paracentesis with drainage of 2.6 L of dark blood from peritoneal cavity which was most definitely the source of her blood loss. 07/17: Remains sedated, orally intubated on mechanical ventilation. Patient spiked a temperature last night and was initiated on empiric antibiotic coverage at [facility] and [facility] after obtaining cultures. Being prepped for colonoscopy however has not had any BMs. Discussed with Dr. Radford from GI who was okay with proceeding with extubation at this point. 07/18: Remains sedated, orally intubated on mechanical ventilation. Being prepped for colonoscopy. Greenish BMs however no blood noted. Hemoglobin remained stable currently. Chest tube/ pacer wires removed. Being diuresed with Lasix. 07/19: Sedated, orally intubated on mechanical ventilation. Colonoscopy performed today which revealed colitis in the rectum with hemorrhoids. Was placed on heparin for anticoagulation last evening which was held for colonoscopy today. Being diuresed to mobilize fluid. 07/20: Remains sedated, arousable, gets agitated on lightening sedation, orally intubated on mechanical ventilation. On heparin for anticoagulation. Underwent colonoscopy yesterday. Diuresed and is -8 L in the last 24 hours. Chest x-ray continues to show bilateral infiltrates/pulmonary edema pattern raising concern for transfusion related acute lung injury (TRALI). 07/21: Sedated, arousable, orally intubated on mechanical ventilation. On heparin for anticoagulation. CT abdomen and pelvis done on 07/20 revealed what looks like a liver laceration with some free fluid in the pelvis. CT chest with bilateral infiltrates and bilateral small effusions. 07/22: Arouses off sedation. On Precedex. Remains on heparin for anticoagulation. Diuresed well overnight. No evidence of active bleeding at this time. Started on tube feeds yesterday which have been held for possible extubation. 07/23: Extubated on 07/22. Requiring BiPAP. Being diuresed. Hemoglobin remained stable. On Precedex for anxiety as needed. 07/24 Patient is off BIPAP on 3L oxygen with good sats. Afebrile. On no drips ( Off Heparin and Precedex drips). Tachycardic. 07/25 Patient is on 2L oxygen with good sats. Tachycardic. 07/26 No acute events overnight. T: 100.7 last night. WBC trending down. Objective Vital Signs Date Time Temp Pulse Resp B/P Pulse Ox O2 Delivery O2 Flow Rate FiO2 07/26/16 07:36 96 21 07/26/16 07:00 126 07/26/16 03:19 99.0 16 149/76 07/26/16 03:19 Room Air 07/25/16 11:36 2.00 Intake and Output 07/25/16 07/25/16 07/26/16 08:00 16:00 00:00 Intake Total 310 ml 1150 ml Output Total 1700 ml 1240 ml Balance -1390 ml -90 ml Result Diagram: 07/26/16 0409 07/26/16 0409 Other Results Laboratory Tests Test 07/25/16 07/26/16 10:25 04:09 Urine Color YELLOW Urine Turbidity CLEAR Urine pH 8.0 Urine Specific [place] 1.014 Urine Protein 100 mg/dL Urine Glucose (UA) 70 mg/dL Urine Ketones NEG mg/dL Urine Occult Blood MOD Urine Nitrite NEG Urine Bilirubin NEG Urine Urobilinogen LESS THAN 2.0 MG/DL Urine Leukocyte Esterase NEG Urine RBC 2 /hpf Urine WBC 2 /hpf Urine Bacteria RARE /hpf Urine Mucus FEW /lpf Urine Yeast (Budding) OCC Microscopic Urinalysis Comment CATH-CULTURE IND White Blood Count 17.7 TH/MM3 Red Blood Count 4.09 MIL/MM3 Hemoglobin 11.7 GM/DL Hematocrit 35.1 % Mean Corpuscular Volume 85.7 FL Mean Corpuscular Hemoglobin 28.6 PG Mean Corpuscular Hemoglobin 33.3 % Concent Red Cell Distribution Width 15.5 % Platelet Count 141 TH/MM3 Mean Platelet Volume 9.7 FL Neutrophils (%) (Auto) 75.8 % Lymphocytes (%) (Auto) 10.1 % Monocytes (%) (Auto) 12.7 % Eosinophils (%) (Auto) 0.9 % Basophils (%) (Auto) 0.5 % Neutrophils # (Auto) 13.4 TH/MM3 Lymphocytes # (Auto) 1.8 TH/MM3 Monocytes # (Auto) 2.2 TH/MM3 Eosinophils # (Auto) 0.2 TH/MM3 Basophils # (Auto) 0.1 TH/MM3 CBC Comment AUTO DIFF Differential Total Cells 100 Counted Neutrophils % (Manual) 76 % Band Neutrophils % 2 % Lymphocytes % 8 % Monocytes % 11 % Eosinophils % 1 % Basophils % 1 % Neutrophils # (Manual) 14.0 TH/MM3 Myelocytes 1 % Differential Comment FINAL DIFF MANUAL Atypical Lymphocytes % Platelet Estimate NORMAL Platelet Morphology Comment NORMAL Polychromasia 2.1 % Acanthocytes OCC Keratocytes OCC Activated Partial 28.0 SEC Thromboplast Time Sodium Level 140 MEQ/L Potassium Level 3.3 MEQ/L Chloride Level 107 MEQ/L Carbon Dioxide Level 24.1 MEQ/L Anion Gap 9 MEQ/L Blood Urea Nitrogen 14 MG/DL Creatinine 0.79 MG/DL Estimat Glomerular Filtration 92 ML/MIN Rate Random Glucose 113 MG/DL Calcium Level 8.6 MG/DL Total Bilirubin 0.9 MG/DL Aspartate Amino Transf 69 U/L (AST/SGOT) Alanine Aminotransferase 195 U/L (ALT/SGPT) Alkaline Phosphatase 119 U/L Total Protein 7.0 GM/DL Albumin 2.8 GM/DL Imaging Last Impressions Chest X-Ray 07/24/16 0600 Signed Impressions: Service Date/Time: Sunday, July 24, 2016 03:15 - CONCLUSION: 1. Interval increase in opacity at the right lung base. There are apparent bilateral effusions. 2. Interval removal of right internal jugular central venous line. 3. Cardiomegaly. Juan Chakraborty MD Chest CT 07/20/16 0000 Signed Impressions: Service Date/Time: Wednesday, July 20, 2016 17:29 - CONCLUSION: Multifocal subsegmental consolidative infiltrates in both lungs and moderate-sized bilateral pleural effusions. Norbert Figueroa MD Abdomen/Pelvis CT 07/20/16 Signed Impressions: Service Date/Time: Wednesday, July 20, 2016 17:29 - CONCLUSION: 1. Findings suggest laceration of the liver extending to the anterior margin between the left and right lobe.. 2. Significant decrease in the amount of abdominal pelvic fluid with moderate residual pelvic fluid 3. Subcutaneous induration proximal and lateral thigh/pelvis. Norbert Figueroa MD Cyst Biopsy Asp-Paracentesis US 07/16/16 Signed Impressions: Service Date/Time: Saturday, July 16, 2016 21:23 - CONCLUSION: Uncomplicated ultrasound guided paracentesis. Sanguinous fluid obtained. Sample sent to the lab as requested. Norbert Kwong Jr., MD Abdomen Ultrasound 07/16/16 Signed Impressions: Service Date/Time: Saturday, July 16, 2016 19:23 - CONCLUSION: Moderate volume of ascites. Sufficient volume for paracentesis. Norbert Kwong Jr., MD Objective Remarks GENERAL: Patient is 55 yo lying in bed in no acute resp distress. SKIN: Warm and dry. HEAD: Normocephalic. EYES: No scleral icterus. No injection or drainage. NECK: Supple, trachea midline. No JVD or lymphadenopathy. CARDIOVASCULAR: Tachycardic without murmurs, gallops, or rubs. RESPIRATORY: Breath sounds equal bilaterally. No accessory muscle use. GASTROINTESTINAL: Abdomen soft, non-tender, nondistended. MUSCULOSKELETAL: No cyanosis, or edema. Neuro: Awake and alert A/P Assessment and Plan Neuro: Seizure disorder - Tegretol/gabapentin Monitor neuro status and avoid sedatives CVS s/p Cardiopulmonary arrest Aortic incompetence status post aortic valve replacement with mechanical aortic valve - Management per cardiothoracic surgery -Received 4 units of PRBCs Intra-Op. -Anticoagulation with Lovenox which has been cleared by GI/Surgery. -Monitor HR and BP keep MAP>65mmHg -On Lopressor 50mg BID, Cardizem 60mg QID for HR/BP control. On ASA daily, -Echo showed EF 50-55% Pulm Acute respiratory failure-Extubated on 07/22. -? TRALI. CT chest with bilateral infiltrates and small effusions Continue with oxygen keep sat >92% Bronchodilators, NIPPV PRN for resp distress On Prednisone 2.5mg BID. Check CXR GI/ liver: s/p Coffee-ground NG aspirate/bloody bowel movement -Status post EGD which revealed gastric varix and esophageal ulcer which was felt to be secondary to OG tube. Dr. Radford from GI following. GI cleared for anticoagulation. Colonoscopy performed 07/19 revealed colitis and rectum with ulceration from which biopsies were taken and Internal hemorrhoids. Elevated LFTs - Monitor LFT's...trending down Repeat CT abdomen pelvis with IV contrast on 07/20 to follow-up on hemoperitoneum and to evaluate source off previous bleeding revealed liver laceration and moderate pelvic fluid significantly decreased compared to previous CAT scan. On PO heart healthy diet Heme: - s/p Severe anemia secondary to hemoperitoneum most likely secondary to liver laceration noted on CT done on 07/20 - Postop transfused 4 units of PRBCs/ 4 FFP, 2 PLT, 2 cryo and Kcentra - Status post paracentesis with removal of 2.6 L of bloody peritoneal fluid on . - Hematology consulted and following. Repeat coags normalized. - Monitor CBC. Thrombocytopenia improving. HIT screen negative : Monitor renal function, I/O's, electrolytes replacement per protocol. Will nee K replacement today. Place on NS@84ml/hr ID Monitor for signs of infections ( Fever, WBC) Abx per ID ( Aztreonam), given Vanco x1 dose yesterday. ID is following. Monitor for signs of infections ( Fever, WBC) follow up on cxs. Endo: Place on SSI if needed. DVT GI prophylaxis - Teds SCDs, Loveox 80mg BID -Protonix Discuss with MATHEMATICAL ENGINEERING TECHNICIAN. Level 3 Alexei Caba MD Jul 26, 2016 08:18
[2016-07-26] MEDS: GABAPENTIN 300 MG CAP PO SCH ×2 (08:53→20:15)
[2016-07-26] MEDS: FOLIC ACID 1 MG TAB PO SCH (08:53)
[2016-07-26] MEDS: POTASSIUM PHOSPHATE MONOBASIC 500 MG TAB PO SCH ×2 (08:53→20:16)
[2016-07-26] MEDS: METOPROLOL TARTRATE 50 MG TAB PO SCH ×2 (08:53→20:15)
[2016-07-26] MEDS: DILTIAZEM HCL 60 MG TAB PO SCH ×4 (08:53→20:15)
[2016-07-26] MEDS: predniSONE 5 MG TAB PO SCH ×2 (08:54→20:16)
[2016-07-26] MEDS: carBAMazepine 200 MG TAB PO SCH ×3 (08:54→18:12)
[2016-07-26] MEDS: SODIUM CHLORIDE 0.9% FLUSH 10 ML FLUSH IV FLUSH SCH ×2 (08:58→20:15)
[2016-07-26] MEDS: SODIUM CHLOR 0.9% 1000 ML INJ 1,000 ML IV SCH ×2 (08:58→22:19)
[2016-07-26] MEDS: CYANOCOBALAMIN 1000 MCG/ML VIAL SQ SCH (09:00)
--- NOTE | 2016-07-26 09:40 | RADRPT ---
EXAM DATE/TIME: 07/26/2016 08:19 [place] COMPARISON: CHEST SINGLE AP, July 24, 2016, 3:15. INDICATIONS : Short of breath. MEDICAL HISTORY : Hypertension. Cardiovascular disease. Seizures. SURGICAL HISTORY : None. ENCOUNTER: Subsequent ACUITY: 1 week PAIN SCORE: 0/10 LOCATION: Bilateral chest FINDINGS: Left lung is clear. Consolidative changes are present in the right base. Heart remains enlarged. Pulmonary vascularity is normal. CONCLUSION: 1. Improvement with better aeration on the left. 2. Consolidative changes persist right base. Silvestre Singh MD FACR on July 26, 2016 at 9:30 Board Certified Radiologist. This report was verified electronically.
--- NOTE | 2016-07-26 14:23 | HHI.IDPN ---
Note Infectious Disease Note Patient feels better. Up in bedside chair. Voice stronger. Has cough. No chills, nausea. T max 100.7 yesterday. Notes that her uncle told her that there is history of enlarged heart including her younger brother. PAST MEDICAL HISTORY 1. Seizure disorder 2. Asthma 3. Unspecified autoimmune disease. 4. History of bilateral knee arthroscopy 5. Recent surgery for aortic stenosis. ALLERGIES NO KNOWN DRUG ALLERGIES. Current Medications Medications (Trade) Dose Ordered Sig/Everardo Route PRN Reason Start Time Stop Time Status Last Admin Dose Admin Sodium Chloride (NS Flush) 2 ml BID IV FLUSH 07/15/16 21:00 07/26/16 08:58 Sodium Chloride (NS Flush) 2 ml UNSCH PRN IV FLUSH FLUSH AFTER USING IV ACCESS 07/15/16 13:45 Albumin Human (Albumin 5% Inj) 12.5 gm UNSCH PRN IV SEE LABEL COMMENTS 07/15/16 13:45 07/15/16 16:43 Aspirin (Aspirin Chew) 81 mg DAILY PO 07/16/16 09:00 Hold Pantoprazole Sodium (Protonix) 40 mg DAILY@06 PO 07/16/16 06:00 07/26/16 05:33 Acetaminophen (Tylenol) 650 mg Q4H PRN PO TEMPERATURE > 101 F 07/15/16 13:45 07/17/16 01:15 Oxycodone/ Acetaminophen (Percocet 5-325 Mg) 1 tab Q3H PRN PO PAIN SCALE 1 TO 5 07/15/16 13:45 07/26/16 05:36 Fentanyl Citrate (fentaNYL INJ) 25 mcg Q1H PRN IV BREAKTHROUGH PAIN 07/15/16 13:45 07/25/16 00:35 Ondansetron HCl (Zofran Inj) 4 mg Q6H PRN IV PUSH NAUSEA OR VOMITING 07/15/16 13:45 07/15/16 16:19 Hydralazine HCl (Apresoline Inj) 10 mg Q4H PRN IV SEE LABEL COMMENTS 07/15/16 13:45 07/25/16 09:02 Metoprolol Tartrate 2.5 mg 2.5 mg Q1H PRN IV PUSH SEE LABEL COMMENTS 07/15/16 13:45 07/26/16 02:18 Potassium Chloride 100 ml @ 50 mls/hr UNSCH PRN IV SEE LABEL COMMENTS 07/15/16 13:45 07/23/16 08:41 Potassium Chloride 100 ml @ 50 mls/hr UNSCH PRN IV SEE LABEL COMMENTS 07/15/16 13:45 07/26/16 05:50 Potassium Chloride 100 ml @ 50 mls/hr UNSCH PRN IV SEE LABEL COMMENTS 07/15/16 13:45 07/20/16 05:48 Magnesium Sulfate 2 gm/Sodium Chloride 104 ml @ 100 mls/hr UNSCH PRN IV SEE LABEL COMMENTS 07/15/16 13:45 Magnesium Sulfate/ Sodium Chloride (Magnesium Sulfate Inj/NS Inj) 104 ml @ 50 mls/hr UNSCH PRN IV SEE LABEL COMMENTS 07/15/16 13:45 07/21/16 07:39 Dextrose (D50w (Vial) Inj) 50 ml UNSCH PRN IV PUSH HYPOGLYCEMIA-SEE COMMENTS 07/15/16 13:45 07/15/16 22:59 Carbamazepine (TEGretol) 200 mg TID PO 07/16/16 09:00 07/26/16 13:21 Gabapentin (Neurontin) 600 mg BID PO 07/16/16 09:00 07/26/16 08:53 Folic Acid (Folate) 1 mg DAILY PO 07/16/16 09:00 07/26/16 08:53 Prednisone (Deltasone) 2.5 mg BID PO 07/16/16 09:00 07/26/16 08:54 Cyanocobalamin (Vitamin B12 Inj) 1,000 mcg DAILY SQ 07/17/16 14:00 07/25/16 09:02 Enoxaparin Sodium (Lovenox Inj) 80 mg Q12H SQ 07/23/16 18:00 07/26/16 05:33 Metoprolol Tartrate (Lopressor) 50 mg Q12HR PO 07/24/16 10:15 07/26/16 08:53 Potassium Phosphate (K-Phos) 500 mg Q12HR PO 07/24/16 11:30 07/26/16 08:53 Metoprolol Tartrate (Lopressor Inj) 5 mg Q6HR PRN IV PUSH RAPID HEART RATE 07/24/16 12:25 07/26/16 04:36 Haloperidol Lactate (Haldol Inj) 2 mg Q6H PRN IV DELIRIUM 07/25/16 00:30 07/25/16 04:28 Melatonin (Melatonin) 5 mg HS PO 07/25/16 21:00 07/25/16 19:56 Diltiazem HCl 60 mg 60 mg QID PO 07/25/16 10:30 07/26/16 13:24 Aztreonam 1000 mg/ Sodium Chloride 100 ml @ 200 mls/hr Q8HR IV 07/25/16 14:00 07/26/16 13:25 Sodium Chloride (NS 1000 ml Inj) 1,000 ml @ 84 mls/hr [id number] IV 07/26/16 09:00 07/26/16 08:58 SOCIAL HISTORY No tobacco use. Positive marijuana use. The patient quit drinking alcohol 5 years ago. OBJECTIVE: Vital Signs Date Time Temp Pulse Resp B/P Pulse Ox O2 Delivery O2 Flow Rate FiO2 07/26/16 11:10 100 Room Air 07/26/16 11:10 98.0 117 20 123/82 100 07/26/16 11:00 120 07/26/16 08:05 94 Room Air 07/26/16 08:05 98.6 128 20 152/92 94 07/26/16 07:36 96 21 07/26/16 07:00 126 07/26/16 03:19 99.0 124 16 149/76 96 07/26/16 03:19 96 Room Air 07/26/16 03:19 125 07/25/16 23:16 108 07/25/16 23:16 99.1 109 16 155/90 96 07/25/16 23:16 96 Room Air 07/25/16 21:00 109 122/82 07/25/16 20:54 95 21 07/25/16 19:32 96 Room Air 07/25/16 19:32 100.7 125 18 161/95 96 07/25/16 19:00 120 07/25/16 16:23 134 07/25/16 16:23 97.6 134 16 148/97 97 07/25/16 16:23 97 Room Air 07/25/16 07/25/16 07/26/16 15:00 23:00 07:00 Intake Total 1150 ml 820 ml Output Total 1240 ml 1350 ml Balance -90 ml -530 ml Intake Oral 500 ml 720 ml IV Total 650 ml 100 ml Output Urine Total 1240 ml 1350 ml # Bowel Movements 0 2 Laboratory Tests Test 07/25/16 07/26/16 04:47 04:09 White Blood Count 20.1 TH/MM3 17.7 TH/MM3 Red Blood Count 3.96 MIL/MM3 4.09 MIL/MM3 Hemoglobin 11.3 GM/DL 11.7 GM/DL Hematocrit 34.1 % 35.1 % Mean Corpuscular Volume 86.0 FL 85.7 FL Mean Corpuscular Hemoglobin 28.5 PG 28.6 PG Mean Corpuscular Hemoglobin 33.1 % 33.3 % Concent Red Cell Distribution Width 15.2 % 15.5 % Platelet Count 148 TH/MM3 141 TH/MM3 Mean Platelet Volume 10.0 FL 9.7 FL Neutrophils (%) (Auto) 73.8 % 75.8 % Lymphocytes (%) (Auto) 11.7 % 10.1 % Monocytes (%) (Auto) 12.8 % 12.7 % Eosinophils (%) (Auto) 1.3 % 0.9 % Basophils (%) (Auto) 0.4 % 0.5 % Neutrophils # (Auto) 14.8 TH/MM3 13.4 TH/MM3 Lymphocytes # (Auto) 2.4 TH/MM3 1.8 TH/MM3 Monocytes # (Auto) 2.6 TH/MM3 2.2 TH/MM3 Eosinophils # (Auto) 0.3 TH/MM3 0.2 TH/MM3 Basophils # (Auto) 0.1 TH/MM3 0.1 TH/MM3 CBC Comment AUTO DIFF AUTO DIFF Differential Total Cells 100 100 Counted Neutrophils % (Manual) 64 % 76 % Band Neutrophils % 10 % 2 % Lymphocytes % 11 % 8 % Monocytes % 14 % 11 % Eosinophils % 1 % 1 % Neutrophils # (Manual) 14.9 TH/MM3 14.0 TH/MM3 Nucleated Red Blood Cells 1 /100 WBC Differential Comment FINAL DIFF FINAL DIFF MANUAL MANUAL Platelet Estimate NORMAL NORMAL Platelet Morphology Comment NORMAL NORMAL Polychromasia 2.4 % 2.1 % Basophils % 1 % Myelocytes 1 % Atypical Lymphocytes % Acanthocytes OCC Keratocytes OCC Laboratory Tests Test 07/25/16 07/26/16 04:47 04:09 Sodium Level 141 MEQ/L 140 MEQ/L Potassium Level 3.4 MEQ/L 3.3 MEQ/L Chloride Level 106 MEQ/L 107 MEQ/L Carbon Dioxide Level 21.7 MEQ/L 24.1 MEQ/L Anion Gap 13 MEQ/L 9 MEQ/L Blood Urea Nitrogen 15 MG/DL 14 MG/DL Creatinine 0.77 MG/DL 0.79 MG/DL Estimat Glomerular Filtration 95 ML/MIN 92 ML/MIN Rate Random Glucose 114 MG/DL 113 MG/DL Calcium Level 8.1 MG/DL 8.6 MG/DL Phosphorus Level 2.3 MG/DL Magnesium Level 2.1 MG/DL Total Bilirubin 0.9 MG/DL 0.9 MG/DL Aspartate Amino Transf 74 U/L 69 U/L (AST/SGOT) Alanine Aminotransferase 254 U/L 195 U/L (ALT/SGPT) Alkaline Phosphatase 127 U/L 119 U/L Total Protein 7.0 GM/DL 7.0 GM/DL Albumin 2.7 GM/DL 2.8 GM/DL Microbiology Date/Time Procedure Status Source Growth 07/25/16 10:25 Urine Culture - Preliminary Resulted Urine Catheterized Urine IMMATURE GROWTH - REINCUBATE 07/25/16 21:38 Gram Stain Ordered Sputum Expectorated Sputum Pending 07/25/16 21:38 Sputum Culture Ordered Sputum Expectorated Sputum Pending 07/26/16 00:01 Gram Stain - Final Resulted Sputum Expectorated Sputum 07/26/16 00:01 Sputum Culture Resulted Sputum Expectorated Sputum Pending IMAGING: Chest X-Ray 07/24/16 0600 Signed Impressions: Service Date/Time: Sunday, July 24, 2016 03:15 - CONCLUSION: 1. Interval increase in opacity at the right lung base. There are apparent bilateral effusions. 2. Interval removal of right internal jugular central venous line. 3. Cardiomegaly. Juan Chakraborty MD Chest CT 07/20/16 0000 Signed Impressions: Service Date/Time: Wednesday, July 20, 2016 17:29 - CONCLUSION: Multifocal subsegmental consolidative infiltrates in both lungs and moderate-sized bilateral pleural effusions. Norbert Figureoa MD Abdomen/Pelvis CT 07/20/16 0000 Signed Impressions: Service Date/Time: Wednesday, July 20, 2016 17:29 - CONCLUSION: 1. Findings suggest laceration of the liver extending to the anterior margin between the left and right lobe.. 2. Significant decrease in the amount of abdominal pelvic fluid with moderate residual pelvic fluid 3. Subcutaneous induration proximal and lateral thigh/pelvis. Norbert Figueroa MD Cyst Biopsy Asp-Paracentesis US 07/16/16 0000 Signed Impressions: Service Date/Time: Saturday, July 16, 2016 21:23 - CONCLUSION: Uncomplicated ultrasound guided paracentesis. Sanguinous fluid obtained. Sample sent to the lab as requested. Norbert Kwong Jr., MD Abdomen Ultrasound 07/16/16 0000 Signed Impressions: Service Date/Time: Saturday, July 16, 2016 19:23 - CONCLUSION: Moderate volume of ascites. Sufficient volume for paracentesis. Norbert Kwong Jr., MD PHYSICAL EXAMINATION: GENERAL: No acute distress. She is awake, alert, oriented. HEENT: Head is atraumatic. Pale, muddy sclera. No visible icterus. Oropharynx: moist mucosa without lesions. Neck: Supple without adenopathy. Lungs: Slight rhonchi at the bases. Heart: Irregular rate and rhythm with a slight systolic murmur at the left sternal border. Abdomen: Bowel sounds present, soft, no tenderness appreciated. Extremities: No clubbing, cyanosis or edema. Skin: No rash. dusky hyperpigmentation at the fingers. Neuro: Nonfocal. Psych: The patient is calm and cooperative. IMPRESSION Leukocytosis. Questionable etiology. Possible due to pneumonia versus urinary tract infection. WBC slightly lower. Probably UTI. Post op minimal invasive AVR mechanical. RECOMMENDATIONS 1. Continue Azactam for pulmonary coverage. 3. Monitor urine culture. 3. Monitor sputum culture. 4. Monitor white blood cell count. Torito Chacko MD Jul 26, 2016 14:23
--- NOTE | 2016-07-26 15:08 | HHI.PR ---
Subjective Subjective Notes DAILY PROGRESS NOTE FOR SURGICAL ATTENDING, DR. ANDREY HEWITT Up to chair RN at bedside Objective Vitals/I&O Vital Signs Date Time Temp Pulse Resp B/P Pulse Ox O2 Delivery O2 Flow Rate FiO2 07/26/16 11:10 100 Room Air 07/26/16 11:10 98.0 117 20 123/82 07/26/16 07:36 21 07/25/16 11:36 2.00 Labs Laboratory Tests Test 07/26/16 04:09 White Blood Count 17.7 Red Blood Count 4.09 Hemoglobin 11.7 Hematocrit 35.1 Mean Corpuscular Volume 85.7 Mean Corpuscular Hemoglobin 28.6 Mean Corpuscular Hemoglobin 33.3 Concent Red Cell Distribution Width 15.5 Platelet Count 141 Mean Platelet Volume 9.7 Neutrophils (%) (Auto) 75.8 Lymphocytes (%) (Auto) 10.1 Monocytes (%) (Auto) 12.7 Eosinophils (%) (Auto) 0.9 Basophils (%) (Auto) 0.5 Neutrophils # (Auto) 13.4 Lymphocytes # (Auto) 1.8 Monocytes # (Auto) 2.2 Eosinophils # (Auto) 0.2 Basophils # (Auto) 0.1 CBC Comment AUTO DIFF Differential Total Cells 100 Counted Neutrophils % (Manual) 76 Band Neutrophils % 2 Lymphocytes % 8 Monocytes % 11 Eosinophils % 1 Basophils % 1 Neutrophils # (Manual) 14.0 Myelocytes 1 Differential Comment FINAL DIFF MANUAL Atypical Lymphocytes Platelet Estimate NORMAL Platelet Morphology Comment NORMAL Polychromasia 2.1 Acanthocytes OCC Keratocytes OCC Activated Partial 28.0 Thromboplast Time Sodium Level 140 Potassium Level 3.3 Chloride Level 107 Carbon Dioxide Level 24.1 Anion Gap 9 Blood Urea Nitrogen 14 Creatinine 0.79 Estimat Glomerular Filtration 92 Rate Random Glucose 113 Calcium Level 8.6 Total Bilirubin 0.9 Aspartate Amino Transf 69 (AST/SGOT) Alanine Aminotransferase 195 (ALT/SGPT) Alkaline Phosphatase 119 Total Protein 7.0 Albumin 2.8 Date/Time Procedure Status Source Growth 07/26/16 00:01 Gram Stain - Final Resulted Sputum Expectorated Sputum 07/26/16 00:01 Sputum Culture Resulted Sputum Expectorated Sputum Pending 07/25/16 21:38 Gram Stain Ordered Sputum Expectorated Sputum Pending 07/25/16 21:38 Sputum Culture Ordered Sputum Expectorated Sputum Pending 07/25/16 10:25 Urine Culture - Preliminary Resulted Urine Catheterized Urine IMMATURE GROWTH - REINCUBATE Radiology Last 48 hours Impressions Chest X-Ray 07/20/16 0600 Signed Impressions: Service Date/Time: Wednesday, July 20, 2016 04:25 - CONCLUSION: Patchy areas of consolidation right worse in left, tubes and catheter are in good position. Alfredo Alves MD Chest CT 07/20/16 0000 Signed Impressions: Service Date/Time: Wednesday, July 20, 2016 17:29 - CONCLUSION: Multifocal subsegmental consolidative infiltrates in both lungs and moderate-sized bilateral pleural effusions. Norbert Figueroa MD Abdomen/Pelvis CT 07/20/16 0000 Signed Impressions: Service Date/Time: Wednesday, July 20, 2016 17:29 - CONCLUSION: 1. Findings suggest laceration of the liver extending to the anterior margin between the left and right lobe.. 2. Significant decrease in the amount of abdominal pelvic fluid with moderate residual pelvic fluid 3. Subcutaneous induration proximal and lateral thigh/pelvis. Norbert Figueroa MD Cardiovascular: Regular Lungs: Clear Abdomen: Non-distended, Non-tender Extremities: No edema A/P Assessment and Plan 55 year old female s/p minimally invasive AVR; with liver laceration of unknown etiology -Hmg stable today---11.7 -VSS; hemodynamically stable -Continue abdominal binder -Stable on NC -We will continue to monitor patient -Lovenox -GS will see peripherally; please call with questions Attending Statement NOTE FOR SURGICAL ATTENDING, DR. ANDREY HEWITT I agree with above assessment and plan. The exam, history, and the medical decision-making described in the above note were completed with the assistance of the mid-level provider. I reviewed and agree with the findings presented. I attest that I had a [id number] encounter with the patient on the same day, and personally performed and documented my assessment and findings in the medical record. Appears to be recovering Call if needed The following services were provided during this hospital visit: Chart data review, vital sign assessments/reviewing monitor data Review of consultations notes if present. Medication orders/review and/or management Ordering and/or reviewing lab tests Ordering and/or interpreting/reviewing x-rays and/or diagnostic studies Care of the patient and discussion of the patient with the care team Documentation time To help prompt me to consider important information that might be impacting today's encounter and assessment, information from prior notes written by myself or my colleagues may have been "brought forward/copy and pasted" into today's note. Katiuska Sharma Jul 26, 2016 15:08 Andrey Hewitt MD Jul 26, 2016 19:29
--- NOTE | 2016-07-26 16:52 | PD.CAR.PN ---
CVT Progress Note Subjective/Hospital Course: 55/ female, admitted for elective AVR , hx of mod to severe aortic insufficiency EF 55% PMH : osteoarthritis , RA followed by Dr Pacheco on chronic steroid use, Humira , methotrexate , seizure Dz , asthma surgery: 07/15 Minimally Invasive AVR with a 19 mm OnX Mechanical Valve, Left Percutaneous Femoral Arterial and Venous Cannulation for CPB, Intercostal Nerve Block, Perclose Arterial Closure x 2 per CCM note , pt became severely hypotensive hypoxemic and suffered with respiratory arrest. She was emergently re- intubated and regain spontaneous circulations after 2 cycles of CPR and epinephrine injections. She was found to be hypotensive and severely anemic with hemoglobin level 4, platelet count of 25, fibrinogen less than 50. She was thought to be bleeding retroperitoneally and was taken emergently to CAT scan angiogram. However no source of bleeding was found on the CT. She had some coffee ground drainage in NG + bloody stool x one , recieved 8units PRBC,/ 4 FFP, 2 PLT, 2 cryo and Kcentra. 07/16/16 pt remains intubated on vent , will open eyes and respond to simple commands, moves all extremities underwent bedside EGD today , NG trauma in esophagus , gastric varicies gastric fundus, with no evidence of active or recent bleeding elevated LFT's ? shock liver, however elevated amylase and lipase ? acute pancreatitis / elevated ferritin levels ( hemochromatosis ) chest tube drainage 320/12 hrs / on versed and fentanyl for sedation CCM following 07/17 Clinically stable s/p large volume paracentesis of bloody fluid last pm (2.6 L). Hgb stable stable on ventilator. May benefit from gently diuresis Greatly appreciate all the consultants input Planned colonoscopy today Continue CT to drainage 07/[address] removed without difficulty Will need some sort of anticoagulation for the mechanical aortic valve. Will discuss with GI and CCM regarding low-dose IV heparin gtt vs SQ Lovenox Planned Colonoscopy Greatly appreciate Dr. Radford and Dr. Curtis's input and assistance in her care 07/19 pt to start on precedex, to facilitate weaning from ventilator/ start CPAP trials today scleral edema improved still volume overloaded, however diuresing well on low dose heparin gtt , no further signs of bleeding, for colonoscopy today on no pressors, 07/20/16 on precedex and low dose propofol did not tolerate CPAP trails diuresing well, add additional low dose today vent weaning per [facility] on no pressors, not following commands LFT's improving repeat CT abdomen pending 07/21/16 still on low dose precedex CT scan resulted / + liver lac/ general surgery consulted HGB stable at 9.8 remains on vent / not following commands Heparin gtt at 800units /hr 07/22 pt weaned and extubated, following commands will need pt/ot / speech will need to discuss timing to start low dose ASA with Dr Hewitt also when able to transition to lovenox instead of heparin 07/23 requiring intermittent Bipap, still on precedex for anxiety with Bipap additional diuresis given await speech eval ok to start lovenox per general surgery/ will leave to [facility] for timing / in event pt may need thoracentesis she will also need a picc line and CVC line removed 07/24/16 Up in chair for the first time since surgery. Off CPAP. Somewhat confused, tachycardic. Tolerating regular diet. 07/25/16 Weak, lethargic Hypertensive, tachycardic 07/26 still weak up in chair on cardizem / lopressor ID folliwng pt / possible PNA/UTI Objective: GENERAL: generally weak , A&0 x 3 SKIN: Warm and dry. HEAD: Normocephalic. EYES: No scleral icterus. No injection or drainage. NECK: Supple, trachea midline. No JVD or lymphadenopathy. CARDIOVASCULAR: sinus tach rhythm without murmurs, gallops, or rubs. RESPIRATORY: diminished in bases, few coarse breath sounds Breath sounds equal bilaterally. No accessory muscle use. GASTROINTESTINAL: Abdomen soft, non-tender, nondistended. MUSCULOSKELETAL: No cyanosis, or edema. BACK: Nontender without obvious deformity. No CVA tenderness. Vital Signs Date Time Temp Pulse Resp B/P Pulse Ox O2 Delivery O2 Flow Rate FiO2 07/26/16 15:15 112 07/26/16 15:13 98.9 129 18 127/77 97 07/26/16 15:13 97 Room Air 07/26/16 11:10 100 Room Air 07/26/16 11:10 98.0 117 20 123/82 100 07/26/16 11:00 120 07/26/16 08:05 94 Room Air 07/26/16 08:05 98.6 128 20 152/92 94 07/26/16 07:36 96 21 07/26/16 07:00 126 07/26/16 03:19 99.0 124 16 149/76 96 07/26/16 03:19 96 Room Air 07/26/16 03:19 125 07/25/16 23:16 108 07/25/16 23:16 99.1 109 16 155/90 96 07/25/16 23:16 96 Room Air 07/25/16 21:00 109 122/82 07/25/16 20:54 95 21 07/25/16 19:32 96 Room Air 07/25/16 19:32 100.7 125 18 161/95 96 07/25/16 19:00 120 Result Diagram: 07/26/169 07/26/16408 Telemetry: sinus tach (1) Left ventricular dysfunction (2) Severe aortic insufficiency (3) S/P AVR (aortic valve replacement) Plan: now on lovenox monitor for signs of bleeding HGB stable start baby ASA start coumadin in 3-4 weeks / will discuss with general surgery will need to keep INR 2-2.5 x 90 days, then 1.5-1.8 (4) Seizure disorder Plan: on tegretol and gabapentin (5) Pancytopenia Plan: HGB stable monitor plt's now 77>88 >101 / neg HIT panel (6) Encephalopathy acute (7) Liver laceration Plan: general surgery no surgery indicated, abdominal binder in place stable H&h (8) Pleural effusion, bilateral Plan: may need thoracentesis if still requiring intermittent Bipap to improve ventilation / oxygenation Laurie Mascorro Jul 26, 2016 16:52
[2016-07-26] MEDS: MELATONIN 5 MG TAB PO SCH (20:16)
[2016-07-27] VITALS (19 sets, daily range): BP systolic 119–173; BP diastolic 74–90; PULSE 98–134; RESP 15–20; TEMP 98.4–99.6; O2SAT 96–100
[2016-07-27 04:48] LABS: ALT (GPT) 163 U/L (10-53); ANION GAP 11 MEQ/L (5-15); AST (GOT) 52 U/L (15-37); BLOOD UREA NITROGEN 12 MG/DL (7-18); CHLORIDE 111 MEQ/L (98-107); GLOMERULAR FILTRATION RATE 92 ML/MIN (>89); MAGNESIUM 2.2 MG/DL (1.5-2.5); POTASSIUM 3.6 MEQ/L (3.5-5.1); SODIUM (NA) 144 MEQ/L (136-145)
[2016-07-27 04:49] LABS: AUTOMATED NEUTROPHIL # 11.6 TH/MM3 (1.8-7.7); BASOPHIL # 0.1 TH/MM3 (0-0.2); BASOPHIL % 0.5 % (0.0-2.0); EOSINOPHIL # 0.3 TH/MM3 (0-0.4); EOSINOPHIL % 1.5 % (0.0-4.0); HEMATOCRIT 36.9 % (35.0-46.0); HEMO FLAGS AUTO DIFF; LYMPH % 16.6 % (9.0-44.0); LYMPHOCYTE # 2.9 TH/MM3 (1.0-4.8); MEAN CELL VOLUME 87.3 FL (80.0-100.0); MEAN CORPUSCULAR HEMOGLOBIN 28.1 PG (27.0-34.0); MEAN CORPUSCULAR HGB CONC 32.2 % (32.0-36.0); MONO % 14.3 % (0.0-8.0); NEUT % 67.1 % (16.0-70.0); PLATELET COUNT 150 TH/MM3 (150-450); RED BLOOD COUNT 4.22 MIL/MM3 (4.00-5.30); RED CELL DISTRIBUTION WIDTH 15.7 % (11.6-17.2); WHITE BLOOD COUNT 17.3 TH/MM3 (4.0-11.0)
[2016-07-27 04:50] LABS: ALKALINE PHOSPHATASE 119 U/L (45-117); TOTAL BILIRUBIN ADULT 0.7 MG/DL (0.2-1.0)
[2016-07-27 04:58] LABS: APTT (PATIENT) 24.6 SEC (24.3-30.1)
[2016-07-27 05:38] LABS: BANDS 1 % (0-6); CORRECTED NUCLEATED RBC 1 /100 WBC (0-0); EOSINOPHILS 3 % (0-4); MYELOCYTES 1 % (0-0); NEUTROPHIL # MANUAL DIFF 11.6 TH/MM3 (1.8-7.7); POLYS (SEG NEUTROPHILS) 65 % (16-70); WBC DIFF SAMPLE 100
[2016-07-27 05:39] LABS: OVALOCYTES 1+ (NORMAL); PLATELET ESTIMATE SMEAR LOW (NORMAL); PLATELET MORPHOLOGY NORMAL (NORMAL); SCAN/DIFF FINAL DIFF MANUAL
[2016-07-27] MEDS: METOPROLOL TARTRATE 50 MG TAB PO SCH ×3 (06:34→22:06)
[2016-07-27] MEDS: ENOXAPARIN SODIUM 80 MG/0.8 ML SYRINGE SQ SCH ×2 (06:34→17:29)
[2016-07-27] MEDS: AZTREONAM INJ 1,000 MG in SODIUM CHLORIDE 0.9% INJ 100 ML IV SCH ×2 (06:34→16:02)
[2016-07-27] MEDS: PANTOPRAZOLE SOD 40 MG DELAYED RELEASE TAB PO SCH (06:34)
[2016-07-27] MEDS: POTASSIUM CHLOR 20 MEQ PREMIX 100 ML IV PRN (06:37)
[2016-07-27] MEDS: SODIUM CHLORIDE 0.9% FLUSH 10 ML FLUSH IV FLUSH SCH ×2 (09:00→21:00)
--- NOTE | 2016-07-27 09:03 | HHI.PR ---
Subjective Subjective Notes DAILY PROGRESS NOTE FOR SURGICAL ATTENDING, DR. MINOR HEWITT Patient doing a lot better Sitting up in the chair Walk to the edge of the room Tolerating breakfast Objective Vitals/I&O Vital Signs Date Time Temp Pulse Resp B/P Pulse Ox O2 Delivery O2 Flow Rate FiO2 07/27/16 03:24 96 Room Air 07/27/16 03:24 99.0 98 15 119/88 07/26/16 07:36 21 07/25/16 11:36 2.00 Labs Laboratory Tests Test 07/27/16 04:09 White Blood Count 17.3 Red Blood Count 4.22 Hemoglobin 11.9 Hematocrit 36.9 Mean Corpuscular Volume 87.3 Mean Corpuscular Hemoglobin 28.1 Mean Corpuscular Hemoglobin 32.2 Concent Red Cell Distribution Width 15.7 Platelet Count 150 Mean Platelet Volume 10.6 Neutrophils (%) (Auto) 67.1 Lymphocytes (%) (Auto) 16.6 Monocytes (%) (Auto) 14.3 Eosinophils (%) (Auto) 1.5 Basophils (%) (Auto) 0.5 Neutrophils # (Auto) 11.6 Lymphocytes # (Auto) 2.9 Monocytes # (Auto) 2.5 Eosinophils # (Auto) 0.3 Basophils # (Auto) 0.1 CBC Comment AUTO DIFF Differential Total Cells 100 Counted Neutrophils % (Manual) 65 Band Neutrophils % 1 Lymphocytes % 19 Monocytes % 11 Eosinophils % 3 Neutrophils # (Manual) 11.6 Myelocytes 1 Nucleated Red Blood Cells 1 Differential Comment FINAL DIFF MANUAL Platelet Estimate LOW Platelet Morphology Comment NORMAL Ovalocytes 1+ Hematology Comments * Activated Partial 24.6 Thromboplast Time Sodium Level 144 Potassium Level 3.6 Chloride Level 111 Carbon Dioxide Level 22.0 Anion Gap 11 Blood Urea Nitrogen 12 Creatinine 0.79 Estimat Glomerular Filtration 92 Rate Random Glucose 116 Calcium Level 8.2 Phosphorus Level 2.5 Magnesium Level 2.2 Total Bilirubin 0.7 Aspartate Amino Transf 52 (AST/SGOT) Alanine Aminotransferase 163 (ALT/SGPT) Alkaline Phosphatase 119 Total Protein 6.6 Albumin 3.1 Date/Time Procedure Status Source Growth 07/26/16 00:01 Gram Stain - Final Resulted Sputum Expectorated Sputum 07/26/16 00:01 Sputum Culture Resulted Sputum Expectorated Sputum Pending 07/25/16 21:38 Gram Stain Ordered Sputum Expectorated Sputum Pending 07/25/16 21:38 Sputum Culture Ordered Sputum Expectorated Sputum Pending 07/25/16 10:25 Urine Culture - Preliminary Resulted Urine Catheterized Urine IMMATURE GROWTH - REINCUBATE Radiology Last Impressions Chest X-Ray 07/26/16 0000 Signed Impressions: Service Date/Time: Tuesday, July 26, 2016 08:19 - CONCLUSION: 1. Improvement with better aeration on the left. 2. Consolidative changes persist right base. Silvestre Singh MD FACR Chest CT 07/20/16 0000 Signed Impressions: Service Date/Time: Wednesday, July 20, 2016 17:29 - CONCLUSION: Multifocal subsegmental consolidative infiltrates in both lungs and moderate-sized bilateral pleural effusions. Norbert Figueroa MD Abdomen/Pelvis CT 07/20/16 0000 Signed Impressions: Service Date/Time: Wednesday, July 20, 2016 17:29 - CONCLUSION: 1. Findings suggest laceration of the liver extending to the anterior margin between the left and right lobe.. 2. Significant decrease in the amount of abdominal pelvic fluid with moderate residual pelvic fluid 3. Subcutaneous induration proximal and lateral thigh/pelvis. Norbert Figueroa MD Cyst Biopsy Asp-Paracentesis US 07/16/16 Signed Impressions: Service Date/Time: Saturday, July 16, 2016 21:23 - CONCLUSION: Uncomplicated ultrasound guided paracentesis. Sanguinous fluid obtained. Sample sent to the lab as requested. Norbert Kwong Jr., MD Abdomen Ultrasound 07/16/16 Signed Impressions: Service Date/Time: Saturday, July 16, 2016 19:23 - CONCLUSION: Moderate volume of ascites. Sufficient volume for paracentesis. Norbert Kwong Jr., MD Cardiovascular: Regular, Irregular Lungs: Clear Abdomen: Non-distended, Non-tender A/P Problem List: (1) Seizure disorder (2) Blood loss anemia (3) Liver laceration (4) S/P AVR (aortic valve replacement) Assessment and Plan 55-year-old female who had some aortic surgery and then developed a liver laceration. Today she is much more alert stable. I was able to ask her about a history before she came to the hospital and she thinks she remembers falling and possibly have any seizure sometime before she came to the hospital this may be the source of her liver laceration Okay to start Coumadin Gen. surgery will sign off call if needed Attending Statement NOTE FOR SURGICAL ATTENDING, DR. MINOR HEWITT I attest that I had a [id number] encounter with the patient on the same day, and personally performed and documented my assessment and findings in the medical record. The following services were provided during this hospital visit: Chart data review, vital sign assessments/reviewing monitor data Review of consultations notes if present. Medication orders/review and/or management Ordering and/or reviewing lab tests Ordering and/or interpreting/reviewing x-rays and/or diagnostic studies Care of the patient and discussion of the patient with the care team Documentation time To help prompt me to consider important information that might be impacting today's encounter and assessment, information from prior notes written by myself or my colleagues may have been "brought forward/copy and pasted" into today's note. iMnor Hewitt MD Jul 27, 2016 09:03
[2016-07-27] MEDS: GABAPENTIN 300 MG CAP PO SCH ×2 (09:08→22:06)
[2016-07-27] MEDS: carBAMazepine 200 MG TAB PO SCH ×3 (09:08→17:28)
[2016-07-27] MEDS: FOLIC ACID 1 MG TAB PO SCH (09:08)
[2016-07-27] MEDS: predniSONE 5 MG TAB PO SCH ×2 (09:08→22:05)
[2016-07-27] MEDS: DILTIAZEM HCL 60 MG TAB PO SCH ×4 (09:08→22:05)
[2016-07-27] MEDS: POTASSIUM PHOSPHATE MONOBASIC 500 MG TAB PO SCH ×2 (09:08→22:02)
[2016-07-27 09:13] LABS: PROTHROMBIN TIME - PATIENT 11.4 SEC (9.8-11.6)
--- NOTE | 2016-07-27 10:10 | HHI.CCPN ---
Subjective Remarks/Hospital Course 07/16: 55-year-old female with history of seizure disorder, some autoimmune disorder on Humira methotrexate and prednisone, history of asthma underwent uncomplicated minimally Invasive AVR with a 19 mm OnX Mechanical Valve via left percutaneous femoral arterial and venous cannulation for CPB. While in the CVICU she became severely hypotensive hypoxemic and suffered with respiratory arrest. She was emergently intubated and regain spontaneous circulations after 2 cycles of CPR and epinephrine injections. She was found to be hypotensive and severely anemic with hemoglobin level 4, platelet count of 25, fibrinogen less than 50. She was thought to be bleeding retroperitoneally and was taken emergently to CAT scan angiogram. However no source of bleeding was found on the CT. patient did have significant amount of ascites noted on CAT scan. She underwent an EGD which revealed a gastric varix and an esophageal ulcer however no active bleeding. She subsequently underwent paracentesis with drainage of 2.6 L of dark blood from peritoneal cavity which was most definitely the source of her blood loss. 07/17: Remains sedated, orally intubated on mechanical ventilation. Patient spiked a temperature last night and was initiated on empiric antibiotic coverage at [facility] and [facility] after obtaining cultures. Being prepped for colonoscopy however has not had any BMs. Discussed with Dr. Radford from GI who was okay with proceeding with extubation at this point. 07/18: Remains sedated, orally intubated on mechanical ventilation. Being prepped for colonoscopy. Greenish BMs however no blood noted. Hemoglobin remained stable currently. Chest tube/ pacer wires removed. Being diuresed with Lasix. 07/19: Sedated, orally intubated on mechanical ventilation. Colonoscopy performed today which revealed colitis in the rectum with hemorrhoids. Was placed on heparin for anticoagulation last evening which was held for colonoscopy today. Being diuresed to mobilize fluid. 07/20: Remains sedated, arousable, gets agitated on lightening sedation, orally intubated on mechanical ventilation. On heparin for anticoagulation. Underwent colonoscopy yesterday. Diuresed and is -8 L in the last 24 hours. Chest x-ray continues to show bilateral infiltrates/pulmonary edema pattern raising concern for transfusion related acute lung injury (TRALI). 07/21: Sedated, arousable, orally intubated on mechanical ventilation. On heparin for anticoagulation. CT abdomen and pelvis done on 07/20 revealed what looks like a liver laceration with some free fluid in the pelvis. CT chest with bilateral infiltrates and bilateral small effusions. 07/22: Arouses off sedation. On Precedex. Remains on heparin for anticoagulation. Diuresed well overnight. No evidence of active bleeding at this time. Started on tube feeds yesterday which have been held for possible extubation. 07/23: Extubated on 07/22. Requiring BiPAP. Being diuresed. Hemoglobin remained stable. On Precedex for anxiety as needed. 07/24 Patient is off BIPAP on 3L oxygen with good sats. Afebrile. On no drips ( Off Heparin and Precedex drips). Tachycardic. 07/25 Patient is on 2L oxygen with good sats. Tachycardic. 07/26 No acute events overnight. T: 100.7 last night. WBC trending down. 07/27 Patient is sitting in chair in no resp distress. On room air oxygen. Afebrile. Objective Vital Signs Date Time Temp Pulse Resp B/P Pulse Ox O2 Delivery O2 Flow Rate FiO2 07/27/16 09:05 97 21 07/27/16 07:00 120 07/27/16 07:00 Room Air 07/27/16 07:00 99.1 20 173/90 07/25/16 11:36 2.00 Intake and Output 07/26/16 07/26/16 07/27/16 08:00 16:00 00:00 Intake Total 820 ml 1812 ml Output Total 1350 ml 1580 ml Balance -530 ml 232 ml Result Diagram: 07/27/16 0409 07/27/16 0409 Other Results Laboratory Tests Test 07/27/16 04:09 White Blood Count 17.3 TH/MM3 Red Blood Count 4.22 MIL/MM3 Hemoglobin 11.9 GM/DL Hematocrit 36.9 % Mean Corpuscular Volume 87.3 FL Mean Corpuscular Hemoglobin 28.1 PG Mean Corpuscular Hemoglobin 32.2 % Concent Red Cell Distribution Width 15.7 % Platelet Count 150 TH/MM3 Mean Platelet Volume 10.6 FL Neutrophils (%) (Auto) 67.1 % Lymphocytes (%) (Auto) 16.6 % Monocytes (%) (Auto) 14.3 % Eosinophils (%) (Auto) 1.5 % Basophils (%) (Auto) 0.5 % Neutrophils # (Auto) 11.6 TH/MM3 Lymphocytes # (Auto) 2.9 TH/MM3 Monocytes # (Auto) 2.5 TH/MM3 Eosinophils # (Auto) 0.3 TH/MM3 Basophils # (Auto) 0.1 TH/MM3 CBC Comment AUTO DIFF Differential Total Cells 100 Counted Neutrophils % (Manual) 65 % Band Neutrophils % 1 % Lymphocytes % 19 % Monocytes % 11 % Eosinophils % 3 % Neutrophils # (Manual) 11.6 TH/MM3 Myelocytes 1 % Nucleated Red Blood Cells 1 /100 WBC Differential Comment FINAL DIFF MANUAL Platelet Estimate LOW Platelet Morphology Comment NORMAL Ovalocytes 1+ Hematology Comments * Prothrombin Time 11.4 SEC Prothromb Time International 1.0 RATIO Ratio Activated Partial 24.6 SEC Thromboplast Time Sodium Level 144 MEQ/L Potassium Level 3.6 MEQ/L Chloride Level 111 MEQ/L Carbon Dioxide Level 22.0 MEQ/L Anion Gap 11 MEQ/L Blood Urea Nitrogen 12 MG/DL Creatinine 0.79 MG/DL Estimat Glomerular Filtration 92 ML/MIN Rate Random Glucose 116 MG/DL Calcium Level 8.2 MG/DL Phosphorus Level 2.5 MG/DL Magnesium Level 2.2 MG/DL Total Bilirubin 0.7 MG/DL Aspartate Amino Transf 52 U/L (AST/SGOT) Alanine Aminotransferase 163 U/L (ALT/SGPT) Alkaline Phosphatase 119 U/L Total Protein 6.6 GM/DL Albumin 3.1 GM/DL Imaging Last Impressions Chest X-Ray 07/26/16 0000 Signed Impressions: Service Date/Time: Tuesday, July 26, 2016 08:19 - CONCLUSION: 1. Improvement with better aeration on the left. 2. Consolidative changes persist right base. Silvestre Singh MD FACR Chest CT 07/20/16 0000 Signed Impressions: Service Date/Time: Wednesday, July 20, 2016 17:29 - CONCLUSION: Multifocal subsegmental consolidative infiltrates in both lungs and moderate-sized bilateral pleural effusions. Norbert Figueroa MD Abdomen/Pelvis CT 07/20/16 0000 Signed Impressions: Service Date/Time: Wednesday, July 20, 2016 17:29 - CONCLUSION: 1. Findings suggest laceration of the liver extending to the anterior margin between the left and right lobe.. 2. Significant decrease in the amount of abdominal pelvic fluid with moderate residual pelvic fluid 3. Subcutaneous induration proximal and lateral thigh/pelvis. Norbert Figueroa MD Cyst Biopsy Asp-Paracentesis US 07/16/16 Signed Impressions: Service Date/Time: Saturday, July 16, 2016 21:23 - CONCLUSION: Uncomplicated ultrasound guided paracentesis. Sanguinous fluid obtained. Sample sent to the lab as requested. Norbert Kwnog Jr., MD Abdomen Ultrasound 07/16/16 Signed Impressions: Service Date/Time: Saturday, July 16, 2016 19:23 - CONCLUSION: Moderate volume of ascites. Sufficient volume for paracentesis. Norbert Kwong Jr., MD Objective Remarks GENERAL: Patient is 55 yo sitting in chair in no acute resp distress. SKIN: Warm and dry. HEAD: Normocephalic. EYES: No scleral icterus. No injection or drainage. NECK: Supple, trachea midline. No JVD or lymphadenopathy. CARDIOVASCULAR: Tachycardic without murmurs, gallops, or rubs. RESPIRATORY: Breath sounds equal bilaterally. No accessory muscle use. GASTROINTESTINAL: Abdomen soft, non-tender, nondistended. MUSCULOSKELETAL: No cyanosis, or edema. Neuro: Awake and alert A/P Assessment and Plan Neuro: Seizure disorder - Tegretol/gabapentin Monitor neuro status and avoid sedatives CVS s/p Cardiopulmonary arrest Aortic incompetence status post aortic valve replacement with mechanical aortic valve - Management per cardiothoracic surgery -Received 4 units of PRBCs Intra-Op. -Anticoagulation with Lovenox which has been cleared by GI/Surgery. -Monitor HR and BP keep MAP>65mmHg - Lopressor changed 50mgQ8, Cardizem 60mg QID for HR/BP control. On ASA daily, -Echo showed EF 50-55% Pulm Acute respiratory failure-Extubated on 07/22. -? TRALI. CT chest with bilateral infiltrates and small effusions Oxygen PRN keep sat >92% Bronchodilators, NIPPV PRN for resp distress, IS On Prednisone 2.5mg BID. CXR yesterday showed improvements with better aeration on left. GI/ liver: s/p Coffee-ground NG aspirate/bloody bowel movement -Status post EGD which revealed gastric varix and esophageal ulcer which was felt to be secondary to OG tube. Dr. Radford from GI following. GI cleared for anticoagulation. Colonoscopy performed 07/19 revealed colitis and rectum with ulceration from which biopsies were taken and Internal hemorrhoids. Elevated LFTs - Monitor LFT's...trending down Repeat CT abdomen pelvis with IV contrast on 07/20 to follow-up on hemoperitoneum and to evaluate source off previous bleeding revealed liver laceration and moderate pelvic fluid significantly decreased compared to previous CAT scan. On PO heart healthy diet Heme: - s/p Severe anemia secondary to hemoperitoneum most likely secondary to liver laceration noted on CT done on 07/20 - Postop transfused 4 units of PRBCs/ 4 FFP, 2 PLT, 2 cryo and Kcentra - Status post paracentesis with removal of 2.6 L of bloody peritoneal fluid on . - Hematology consulted and following. Repeat coags normalized. - Monitor CBC. Thrombocytopenia improving. HIT screen negative : Monitor renal function, I/O's, electrolytes replacement per protocol. Will nee K replacement today. On NS@84ml/hr ID Monitor for signs of infections ( Fever, WBC) Abx per ID ( Aztreonam). ID is following. Monitor for signs of infections ( Fever, WBC) follow up on cxs. 07/25 Urine cx: Yeast.. Add Diflucan Endo: Place on SSI if needed. DVT GI prophylaxis - Teds SCDs, Lovenox 80mg BID, Coumadin started by CTS- monitor INR/PT. -Protonix Will sign off Level 3 Alexei Caba MD Jul 27, 2016 10:10
[2016-07-27] MEDS: oxyCODONE/ACETAMINOPHEN 5 MG/325 MG TAB PO PRN (10:58)
[2016-07-27] MEDS: SODIUM CHLOR 0.9% 1000 ML INJ 1,000 ML IV SCH ×2 (14:36→22:07)
--- NOTE | 2016-07-27 15:00 | PD.CAR.PN ---
CVT Progress Note Subjective/Hospital Course: 55/ female, admitted for elective AVR , hx of mod to severe aortic insufficiency EF 55% PMH : osteoarthritis , RA followed by Dr Pacheco on chronic steroid use, Humira , methotrexate , seizure Dz , asthma surgery: 07/15 Minimally Invasive AVR with a 19 mm OnX Mechanical Valve, Left Percutaneous Femoral Arterial and Venous Cannulation for CPB, Intercostal Nerve Block, Perclose Arterial Closure x 2 per CCM note , pt became severely hypotensive hypoxemic and suffered with respiratory arrest. She was emergently re- intubated and regain spontaneous circulations after 2 cycles of CPR and epinephrine injections. She was found to be hypotensive and severely anemic with hemoglobin level 4, platelet count of 25, fibrinogen less than 50. She was thought to be bleeding retroperitoneally and was taken emergently to CAT scan angiogram. However no source of bleeding was found on the CT. She had some coffee ground drainage in NG + bloody stool x one , recieved 8units PRBC,/ 4 FFP, 2 PLT, 2 cryo and Kcentra. 07/16/16 pt remains intubated on vent , will open eyes and respond to simple commands, moves all extremities underwent bedside EGD today , NG trauma in esophagus , gastric varicies gastric fundus, with no evidence of active or recent bleeding elevated LFT's ? shock liver, however elevated amylase and lipase ? acute pancreatitis / elevated ferritin levels ( hemochromatosis ) chest tube drainage 320/12 hrs / on versed and fentanyl for sedation CCM following 07/17 Clinically stable s/p large volume paracentesis of bloody fluid last pm (2.6 L). Hgb stable stable on ventilator. May benefit from gently diuresis Greatly appreciate all the consultants input Planned colonoscopy today Continue CT to drainage 07/[address] removed without difficulty Will need some sort of anticoagulation for the mechanical aortic valve. Will discuss with GI and CCM regarding low-dose IV heparin gtt vs SQ Lovenox Planned Colonoscopy Greatly appreciate Dr. Radford and Dr. Curtis's input and assistance in her care 07/19 pt to start on precedex, to facilitate weaning from ventilator/ start CPAP trials today scleral edema improved still volume overloaded, however diuresing well on low dose heparin gtt , no further signs of bleeding, for colonoscopy today on no pressors, 07/20/16 on precedex and low dose propofol did not tolerate CPAP trails diuresing well, add additional low dose today vent weaning per [facility] on no pressors, not following commands LFT's improving repeat CT abdomen pending 07/21/16 still on low dose precedex CT scan resulted / + liver lac/ general surgery consulted HGB stable at 9.8 remains on vent / not following commands Heparin gtt at 800units /hr 07/22 pt weaned and extubated, following commands will need pt/ot / speech will need to discuss timing to start low dose ASA with Dr Hewitt also when able to transition to lovenox instead of heparin 07/23 requiring intermittent Bipap, still on precedex for anxiety with Bipap additional diuresis given await speech eval ok to start lovenox per general surgery/ will leave to [facility] for timing / in event pt may need thoracentesis she will also need a picc line and CVC line removed 07/24/16 Up in chair for the first time since surgery. Off CPAP. Somewhat confused, tachycardic. Tolerating regular diet. 07/25/16 Weak, lethargic Hypertensive, tachycardic 07/26 still weak up in chair on cardizem / lopressor ID folliwng pt / possible PNA/UTI 07/27 tachycardia improving continue IV fluids until am will need rehab at discharge continue IV antibiotics per ID start coumadin today / discussed with Dr Hewitt transfer to stepdown Objective: GENERAL: still weak, but improving SKIN: Warm and dry. incision right chest intact and well approximated HEAD: Normocephalic. EYES: No scleral icterus. No injection or drainage. NECK: Supple, trachea midline. No JVD or lymphadenopathy. CARDIOVASCULAR: sinus tach murmurs, gallops, or rubs. RESPIRATORY: diminished in bases Breath sounds equal bilaterally. No accessory muscle use. GASTROINTESTINAL: Abdomen soft, non-tender, nondistended. MUSCULOSKELETAL: No cyanosis, or edema. BACK: Nontender without obvious deformity. No CVA tenderness. Vital Signs Date Time Temp Pulse Resp B/P Pulse Ox O2 Delivery O2 Flow Rate FiO2 07/27/16 12:38 98.4 114 18 147/90 100 07/27/16 11:50 16 07/27/16 11:00 123 07/27/16 09:05 97 21 07/27/16 07:00 120 07/27/16 07:00 99 Room Air 07/27/16 07:00 99.1 120 20 173/90 99 07/27/16 03:24 96 Room Air 07/27/16 03:24 99.0 98 15 119/88 96 07/27/16 03:24 105 07/26/16 23:15 99.1 129 15 158/93 99 07/26/16 23:15 99 Room Air 07/26/16 23:15 120 07/26/16 19:21 100 Room Air 07/26/16 19:21 98.2 128 18 146/89 100 07/26/16 19:00 128 07/26/16 15:15 112 07/26/16 15:13 98.9 129 18 127/77 97 07/26/16 15:13 97 Room Air Labs: Laboratory Tests Test 07/27/16 04:09 White Blood Count 17.3 TH/MM3 (4.0-11.0) Red Blood Count 4.22 MIL/MM3 (4.00-5.30) Hemoglobin 11.9 GM/DL (11.6-15.3) Hematocrit 36.9 % (35.0-46.0) Mean Corpuscular Volume 87.3 FL (80.0-100.0) Mean Corpuscular Hemoglobin 28.1 PG (27.0-34.0) Mean Corpuscular Hemoglobin 32.2 % Concent (32.0-36.0) Red Cell Distribution Width 15.7 % (11.6-17.2) Platelet Count 150 TH/MM3 (150-450) Mean Platelet Volume 10.6 FL (7.0-11.0) Neutrophils (%) (Auto) 67.1 % (16.0-70.0) Lymphocytes (%) (Auto) 16.6 % (9.0-44.0) Monocytes (%) (Auto) 14.3 % (0.0-8.0) Eosinophils (%) (Auto) 1.5 % (0.0-4.0) Basophils (%) (Auto) 0.5 % (0.0-2.0) Neutrophils # (Auto) 11.6 TH/MM3 (1.8-7.7) Lymphocytes # (Auto) 2.9 TH/MM3 (1.0-4.8) Monocytes # (Auto) 2.5 TH/MM3 (0-0.9) Eosinophils # (Auto) 0.3 TH/MM3 (0-0.4) Basophils # (Auto) 0.1 TH/MM3 (0-0.2) CBC Comment AUTO DIFF Differential Total Cells 100 Counted Neutrophils % (Manual) 65 % (16-70) Band Neutrophils % 1 % (0-6) Lymphocytes % 19 % (9-44) Monocytes % 11 % (0-8) Eosinophils % 3 % (0-4) Neutrophils # (Manual) 11.6 TH/MM3 (1.8-7.7) Myelocytes 1 % (0-0) Nucleated Red Blood Cells 1 /100 WBC (0-0) Differential Comment FINAL DIFF MANUAL Platelet Estimate LOW (NORMAL) Platelet Morphology Comment NORMAL (NORMAL) Ovalocytes 1+ (NORMAL) Hematology Comments * Prothrombin Time 11.4 SEC (9.8-11.6) Prothromb Time International 1.0 RATIO Ratio Activated Partial 24.6 SEC Thromboplast Time (24.3-30.1) Sodium Level 144 MEQ/L (136-145) Potassium Level 3.6 MEQ/L (3.5-5.1) Chloride Level 111 MEQ/L (98-107) Carbon Dioxide Level 22.0 MEQ/L (21.0-32.0) Anion Gap 11 MEQ/L (5-15) Blood Urea Nitrogen 12 MG/DL (7-18) Creatinine 0.79 MG/DL (0.50-1.00) Estimat Glomerular Filtration 92 ML/MIN (>89) Rate Random Glucose 116 MG/DL (74-106) Calcium Level 8.2 MG/DL (8.5-10.1) Phosphorus Level 2.5 MG/DL (2.5-4.9) Magnesium Level 2.2 MG/DL (1.5-2.5) Total Bilirubin 0.7 MG/DL (0.2-1.0) Aspartate Amino Transf 52 U/L (15-37) (AST/SGOT) Alanine Aminotransferase 163 U/L (10-53) (ALT/SGPT) Alkaline Phosphatase 119 U/L (45-117) Total Protein 6.6 GM/DL (6.4-8.2) Albumin 3.1 GM/DL (3.4-5.0) Result Diagram: 07/27/1640807/27/16408 (1) Left ventricular dysfunction (2) Severe aortic insufficiency (3) S/P AVR (aortic valve replacement) Plan: now on lovenox / start coumadin today monitor for signs of bleeding HGB stable start baby ASA will need to keep INR 2-2.5 x 90 days, then 1.5-1.8 (4) Seizure disorder Plan: on tegretol and gabapentin (5) Pancytopenia Plan: HGB stable monitor plt's now 77>88 >101 > 150 / neg HIT panel (6) Encephalopathy acute (7) Liver laceration Plan: general surgery no surgery indicated, abdominal binder in place stable H&h Laurie Mascorro Jul 27, 2016 15:00
[2016-07-27] MEDS: FLUCONAZOLE 100 MG TAB PO SCH (16:02)
--- NOTE | 2016-07-27 16:36 | HHI.IDPN ---
Note Infectious Disease Note Patient feels better. Did some ambulation today. Has cough. Occasional phlegm. No chills, nausea. Afebrile. PAST MEDICAL HISTORY 1. Seizure disorder 2. Asthma 3. Unspecified autoimmune disease. 4. History of bilateral knee arthroscopy 5. Recent surgery for aortic stenosis. ALLERGIES NO KNOWN DRUG ALLERGIES. SOCIAL HISTORY No tobacco use. Positive marijuana use. The patient quit drinking alcohol 5 years ago. OBJECTIVE: Vital Signs Date Time Temp Pulse Resp B/P Pulse Ox O2 Delivery O2 Flow Rate FiO2 07/27/16 12:38 98.4 114 18 147/90 100 07/27/16 11:50 16 07/27/16 11:00 123 07/27/16 09:05 97 21 07/27/16 07:00 120 07/27/16 07:00 99 Room Air 07/27/16 07:00 99.1 120 20 173/90 99 07/27/16 03:24 96 Room Air 07/27/16 03:24 99.0 98 15 119/88 96 07/27/16 03:24 105 07/26/16 23:15 99.1 129 15 158/93 99 07/26/16 23:15 99 Room Air 07/26/16 23:15 120 07/26/16 19:21 100 Room Air 07/26/16 19:21 98.2 128 18 146/89 100 07/26/16 19:00 128 07/26/16 07/26/16 07/27/16 15:00 23:00 07:00 Intake Total 1812 ml 1580 ml Output Total 1580 ml 1300 ml Balance 232 ml 280 ml Intake Oral 740 ml 480 ml IV Total 1072 ml 1100 ml Output Urine Total 1580 ml 1300 ml # Voids 0 # Bowel Movements 0 0 Laboratory Tests Test 07/26/16 07/27/16 04:09 04:09 White Blood Count 17.7 TH/MM3 17.3 TH/MM3 Red Blood Count 4.09 MIL/MM3 4.22 MIL/MM3 Hemoglobin 11.7 GM/DL 11.9 GM/DL Hematocrit 35.1 % 36.9 % Mean Corpuscular Volume 85.7 FL 87.3 FL Mean Corpuscular Hemoglobin 28.6 PG 28.1 PG Mean Corpuscular Hemoglobin 33.3 % 32.2 % Concent Red Cell Distribution Width 15.5 % 15.7 % Platelet Count 141 TH/MM3 150 TH/MM3 Mean Platelet Volume 9.7 FL 10.6 FL Neutrophils (%) (Auto) 75.8 % 67.1 % Lymphocytes (%) (Auto) 10.1 % 16.6 % Monocytes (%) (Auto) 12.7 % 14.3 % Eosinophils (%) (Auto) 0.9 % 1.5 % Basophils (%) (Auto) 0.5 % 0.5 % Neutrophils # (Auto) 13.4 TH/MM3 11.6 TH/MM3 Lymphocytes # (Auto) 1.8 TH/MM3 2.9 TH/MM3 Monocytes # (Auto) 2.2 TH/MM3 2.5 TH/MM3 Eosinophils # (Auto) 0.2 TH/MM3 0.3 TH/MM3 Basophils # (Auto) 0.1 TH/MM3 0.1 TH/MM3 CBC Comment AUTO DIFF AUTO DIFF Differential Total Cells 100 100 Counted Neutrophils % (Manual) 76 % 65 % Band Neutrophils % 2 % 1 % Lymphocytes % 8 % 19 % Monocytes % 11 % 11 % Eosinophils % 1 % 3 % Basophils % 1 % Neutrophils # (Manual) 14.0 TH/MM3 11.6 TH/MM3 Myelocytes 1 % 1 % Differential Comment FINAL DIFF FINAL DIFF MANUAL MANUAL Atypical Lymphocytes % Platelet Estimate NORMAL LOW Platelet Morphology Comment NORMAL NORMAL Polychromasia 2.1 % Acanthocytes OCC Keratocytes OCC Nucleated Red Blood Cells 1 /100 WBC Ovalocytes 1+ Hematology Comments * Laboratory Tests Test 07/26/16 07/27/16 04:09 04:09 Sodium Level 140 MEQ/L 144 MEQ/L Potassium Level 3.3 MEQ/L 3.6 MEQ/L Chloride Level 107 MEQ/L 111 MEQ/L Carbon Dioxide Level 24.1 MEQ/L 22.0 MEQ/L Anion Gap 9 MEQ/L 11 MEQ/L Blood Urea Nitrogen 14 MG/DL 12 MG/DL Creatinine 0.79 MG/DL 0.79 MG/DL Estimat Glomerular Filtration 92 ML/MIN 92 ML/MIN Rate Random Glucose 113 MG/DL 116 MG/DL Calcium Level 8.6 MG/DL 8.2 MG/DL Total Bilirubin 0.9 MG/DL 0.7 MG/DL Aspartate Amino Transf 69 U/L 52 U/L (AST/SGOT) Alanine Aminotransferase 195 U/L 163 U/L (ALT/SGPT) Alkaline Phosphatase 119 U/L 119 U/L Total Protein 7.0 GM/DL 6.6 GM/DL Albumin 2.8 GM/DL 3.1 GM/DL Phosphorus Level 2.5 MG/DL Magnesium Level 2.2 MG/DL Microbiology Date/Time Procedure Status Source Growth 07/25/16 10:25 Urine Culture - Preliminary Resulted Urine Catheterized Urine Yeast Species 07/25/16 21:38 Gram Stain Ordered Sputum Expectorated Sputum Pending 07/25/16 21:38 Sputum Culture Ordered Sputum Expectorated Sputum Pending 07/26/16 00:01 Gram Stain - Final Resulted Sputum Expectorated Sputum 07/26/16 00:01 Sputum Culture - Preliminary Resulted Sputum Expectorated Sputum HEAVY GROWTH NORMAL RESPIRATORY JASON... IMAGING: Chest X-Ray 07/24/16 0600 Signed Impressions: Service Date/Time: Sunday, July 24, 2016 03:15 - CONCLUSION: 1. Interval increase in opacity at the right lung base. There are apparent bilateral effusions. 2. Interval removal of right internal jugular central venous line. 3. Cardiomegaly. Juan Chakraborty MD Chest CT 07/20/16 0000 Signed Impressions: Service Date/Time: Wednesday, July 20, 2016 17:29 - CONCLUSION: Multifocal subsegmental consolidative infiltrates in both lungs and moderate-sized bilateral pleural effusions. Norbert Figueroa MD Abdomen/Pelvis CT 07/20/16 0000 Signed Impressions: Service Date/Time: Wednesday, July 20, 2016 17:29 - CONCLUSION: 1. Findings suggest laceration of the liver extending to the anterior margin between the left and right lobe.. 2. Significant decrease in the amount of abdominal pelvic fluid with moderate residual pelvic fluid 3. Subcutaneous induration proximal and lateral thigh/pelvis. Norbert Figueroa MD Cyst Biopsy Asp-Paracentesis US 07/16/16 0000 Signed Impressions: Service Date/Time: Saturday, July 16, 2016 21:23 - CONCLUSION: Uncomplicated ultrasound guided paracentesis. Sanguinous fluid obtained. Sample sent to the lab as requested. Norbert Kwong Jr., MD Abdomen Ultrasound 07/16/16 0000 Signed Impressions: Service Date/Time: Saturday, July 16, 2016 19:23 - CONCLUSION: Moderate volume of ascites. Sufficient volume for paracentesis. Norbert Kwong Jr., MD PHYSICAL EXAMINATION: GENERAL: No acute distress. Awake, alert, oriented. HEENT: Head is atraumatic. Pale, muddy sclera. No visible icterus. Oropharynx: moist mucosa without lesions. Neck: Supple without adenopathy. Lungs: Slight rhonchi at the bases. Heart: Irregular rate and rhythm with a slight systolic murmur at the left sternal border. Abdomen: Bowel sounds present, soft, no tenderness. Extremities: No clubbing, cyanosis or edema. Skin: No rash. dusky hyperpigmentation at the fingers. Neuro: Nonfocal. Psych: The patient is calm and cooperative. IMPRESSION Leukocytosis. Questionable etiology. Could be from [place] UTI or PNA. WBC still elevated. Diflucan started today. [place] UTI Post op minimal invasive AVR mechanical. RECOMMENDATIONS 1. Continue Diflucan. 2. Stop Azactam. 3. Monitor white blood cell count. Torito Chacko MD Jul 27, 2016 16:35
[2016-07-27] MEDS: WARFARIN SOD 5 MG TAB PO SCH (17:28)
[2016-07-27] MEDS: MELATONIN 5 MG TAB PO SCH (22:02)
[2016-07-28] VITALS (24 sets, daily range): BP systolic 124–164; BP diastolic 60–99; PULSE 82–116; RESP 16–18; TEMP 98.6–99.2; O2SAT 96–100
[2016-07-28] MEDS: SODIUM CHLOR 0.9% 1000 ML INJ 1,000 ML IV SCH (05:56)
[2016-07-28] MEDS: ENOXAPARIN SODIUM 80 MG/0.8 ML SYRINGE SQ SCH ×2 (05:56→18:30)
[2016-07-28] MEDS: METOPROLOL TARTRATE 50 MG TAB PO SCH ×3 (05:56→19:32)
[2016-07-28] MEDS: PANTOPRAZOLE SOD 40 MG DELAYED RELEASE TAB PO SCH (05:56)
[2016-07-28 06:57] LABS: AUTOMATED NEUTROPHIL # 9.2 TH/MM3 (1.8-7.7); BASOPHIL # 0.1 TH/MM3 (0-0.2); BASOPHIL % 0.6 % (0.0-2.0); EOSINOPHIL # 0.3 TH/MM3 (0-0.4); EOSINOPHIL % 2.1 % (0.0-4.0); HEMATOCRIT 30.2 % (35.0-46.0); HEMO FLAGS DIFF FINAL; LYMPH % 15.7 % (9.0-44.0); LYMPHOCYTE # 2.1 TH/MM3 (1.0-4.8); MEAN CELL VOLUME 88.1 FL (80.0-100.0); MEAN CORPUSCULAR HGB CONC 31.8 % (32.0-36.0); NEUT % 68.6 % (16.0-70.0); PLATELET COUNT 166 TH/MM3 (150-450); RED BLOOD COUNT 3.43 MIL/MM3 (4.00-5.30); RED CELL DISTRIBUTION WIDTH 15.9 % (11.6-17.2); WHITE BLOOD COUNT 13.4 TH/MM3 (4.0-11.0)
[2016-07-28 07:04] LABS: APTT (PATIENT) 27.2 SEC (24.3-30.1); INTERNATIONAL NORMALIZED RATIO 1.1 RATIO
[2016-07-28 07:25] LABS: ALKALINE PHOSPHATASE 92 U/L (45-117); ALT (GPT) 108 U/L (10-53); ANION GAP 12 MEQ/L (5-15); AST (GOT) 30 U/L (15-37); BICARBONATE 21.6 MEQ/L (21.0-32.0); BLOOD UREA NITROGEN 8 MG/DL (7-18); CHLORIDE 111 MEQ/L (98-107); GLOMERULAR FILTRATION RATE 122 ML/MIN (>89); POTASSIUM 3.2 MEQ/L (3.5-5.1); SODIUM (NA) 145 MEQ/L (136-145); TOTAL BILIRUBIN ADULT 0.5 MG/DL (0.2-1.0)
[2016-07-28] MEDS ORDERED: MAGNESIUM SULFATE 1 GM PREMIX 100 ML IV ONE (08:30)
[2016-07-28] MEDS: SODIUM CHLORIDE 0.9% FLUSH 10 ML FLUSH IV FLUSH SCH ×2 (08:59→19:33)
[2016-07-28] MEDS: DILTIAZEM HCL 60 MG TAB PO SCH ×4 (09:01→19:32)
[2016-07-28] MEDS: FOLIC ACID 1 MG TAB PO SCH (09:01)
[2016-07-28] MEDS: GABAPENTIN 300 MG CAP PO SCH ×2 (09:01→19:32)
[2016-07-28] MEDS: predniSONE 5 MG TAB PO SCH ×2 (09:01→19:33)
[2016-07-28] MEDS: FLUCONAZOLE 100 MG TAB PO SCH (09:01)
[2016-07-28] MEDS: carBAMazepine 200 MG TAB PO SCH ×3 (09:01→18:30)
[2016-07-28] MEDS: POTASSIUM PHOSPHATE MONOBASIC 500 MG TAB PO SCH ×2 (09:02→19:33)
[2016-07-28] MEDS: ASPIRIN 81 MG CHEW TAB PO SCH (09:03)
[2016-07-28] MEDS: RESP: ALBUTEROL 2.5 MG/IPRATROPIUM 0.5 MG NEB (PRN) NEB (10:07)
--- NOTE | 2016-07-28 12:03 | PD.CAR.PN ---
CVT Progress Note Subjective/Hospital Course: 55/ female, admitted for elective AVR , hx of mod to severe aortic insufficiency EF 55% PMH : osteoarthritis , RA followed by Dr Pacheco on chronic steroid use, Humira , methotrexate , seizure Dz , asthma surgery: 07/15 Minimally Invasive AVR with a 19 mm OnX Mechanical Valve, Left Percutaneous Femoral Arterial and Venous Cannulation for CPB, Intercostal Nerve Block, Perclose Arterial Closure x 2 per CCM note , pt became severely hypotensive hypoxemic and suffered with respiratory arrest. She was emergently re- intubated and regain spontaneous circulations after 2 cycles of CPR and epinephrine injections. She was found to be hypotensive and severely anemic with hemoglobin level 4, platelet count of 25, fibrinogen less than 50. She was thought to be bleeding retroperitoneally and was taken emergently to CAT scan angiogram. However no source of bleeding was found on the CT. She had some coffee ground drainage in NG + bloody stool x one , recieved 8units PRBC,/ 4 FFP, 2 PLT, 2 cryo and Kcentra. 07/16/16 pt remains intubated on vent , will open eyes and respond to simple commands, moves all extremities underwent bedside EGD today , NG trauma in esophagus , gastric varicies gastric fundus, with no evidence of active or recent bleeding elevated LFT's ? shock liver, however elevated amylase and lipase ? acute pancreatitis / elevated ferritin levels ( hemochromatosis ) chest tube drainage 320/12 hrs / on versed and fentanyl for sedation CCM following 07/17 Clinically stable s/p large volume paracentesis of bloody fluid last pm (2.6 L). Hgb stable stable on ventilator. May benefit from gently diuresis Greatly appreciate all the consultants input Planned colonoscopy today Continue CT to drainage 07/[address] removed without difficulty Will need some sort of anticoagulation for the mechanical aortic valve. Will discuss with GI and CCM regarding low-dose IV heparin gtt vs SQ Lovenox Planned Colonoscopy Greatly appreciate Dr. Radford and Dr. Curtis's input and assistance in her care 07/19 pt to start on precedex, to facilitate weaning from ventilator/ start CPAP trials today scleral edema improved still volume overloaded, however diuresing well on low dose heparin gtt , no further signs of bleeding, for colonoscopy today on no pressors, 07/20/16 on precedex and low dose propofol did not tolerate CPAP trails diuresing well, add additional low dose today vent weaning per [facility] on no pressors, not following commands LFT's improving repeat CT abdomen pending 07/21/16 still on low dose precedex CT scan resulted / + liver lac/ general surgery consulted HGB stable at 9.8 remains on vent / not following commands Heparin gtt at 800units /hr 07/22 pt weaned and extubated, following commands will need pt/ot / speech will need to discuss timing to start low dose ASA with Dr Hewitt also when able to transition to lovenox instead of heparin 07/23 requiring intermittent Bipap, still on precedex for anxiety with Bipap additional diuresis given await speech eval ok to start lovenox per general surgery/ will leave to [facility] for timing / in event pt may need thoracentesis she will also need a picc line and CVC line removed 07/24/16 Up in chair for the first time since surgery. Off CPAP. Somewhat confused, tachycardic. Tolerating regular diet. 07/25/16 Weak, lethargic Hypertensive, tachycardic 07/26 still weak up in chair on cardizem / lopressor ID folliwng pt / possible PNA/UTI 07/27 tachycardia improving continue IV fluids until am will need rehab at discharge continue IV antibiotics per ID start coumadin today / discussed with Dr Hewitt transfer to stepdown 07/28 still weak, but improving daily/ plan for rehab placement and dc in am continue diflucan per ID x 5 days HGB 9.6 from 2/ hemodilution from IV fluids, which have been dc recheck level in am INR 1.1/ continue coumadin and lovenox Objective: GENERAL: awake and alert, no further confusion SKIN: Warm and dry. incision intact and well approximated right upper chest wall HEAD: Normocephalic. EYES: No scleral icterus. No injection or drainage. NECK: Supple, trachea midline. No JVD or lymphadenopathy. CARDIOVASCULAR: Regular rate and rhythm without murmurs, gallops, or rubs. RESPIRATORY: diminished in bases, Breath sounds equal bilaterally. No accessory muscle use. GASTROINTESTINAL: Abdomen soft, non-tender, nondistended. MUSCULOSKELETAL: No cyanosis, or edema. BACK: Nontender without obvious deformity. No CVA tenderness. Vital Signs Date Time Temp Pulse Resp B/P Pulse Ox O2 Delivery O2 Flow Rate FiO2 6/14/17 11:16 98.7 111 16 124/79 100 07/28/16 11:16 100 Room Air 07/28/16 11:16 116 07/28/16 10:04 110 07/28/16 09:00 103 07/28/16 08:15 101 07/28/16 08:15 96 Room Air 07/28/16 08:15 98.7 88 16 156/99 96 07/28/16 07:00 87 07/28/16 06:38 101 07/28/16 05:15 103 07/28/16 04:02 101 07/28/16 03:46 99.1 82 16 129/69 100 07/28/16 03:46 107 07/28/16 03:12 100 Room Air 07/28/16 02:02 94 07/28/16 01:08 96 07/28/16 00:00 97 07/27/16 23:20 96 Room Air 07/27/16 23:20 99.6 106 16 129/79 96 07/27/16 23:15 107 07/27/16 22:00 134 07/27/16 21:12 99.0 104 20 150/74 97 07/27/16 21:12 112 07/27/16 21:12 97 Room Air 07/27/16 20:00 110 07/27/16 19:34 98 21 07/27/16 18:00 104 07/27/16 17:00 100 07/27/16 16:30 98.9 104 16 153/87 97 07/27/16 16:00 116 07/27/16 15:45 99 Room Air 07/27/16 15:00 126 07/27/16 14:00 118 07/27/16 13:00 120 07/27/16 12:38 98.4 114 18 147/90 100 07/27/16 12:00 120 Labs: Laboratory Tests Test 07/28/16 04:48 White Blood Count 13.4 TH/MM3 (4.0-11.0) Red Blood Count 3.43 MIL/MM3 (4.00-5.30) Hemoglobin 9.6 GM/DL (11.6-15.3) Hematocrit 30.2 % (35.0-46.0) Mean Corpuscular Volume 88.1 FL (80.0-100.0) Mean Corpuscular Hemoglobin 28.0 PG (27.0-34.0) Mean Corpuscular Hemoglobin 31.8 % Concent (32.0-36.0) Red Cell Distribution Width 15.9 % (11.6-17.2) Platelet Count 166 TH/MM3 (150-450) Mean Platelet Volume 10.4 FL (7.0-11.0) Neutrophils (%) (Auto) 68.6 % (16.0-70.0) Lymphocytes (%) (Auto) 15.7 % (9.0-44.0) Monocytes (%) (Auto) 13.0 % (0.0-8.0) Eosinophils (%) (Auto) 2.1 % (0.0-4.0) Basophils (%) (Auto) 0.6 % (0.0-2.0) Neutrophils # (Auto) 9.2 TH/MM3 (1.8-7.7) Lymphocytes # (Auto) 2.1 TH/MM3 (1.0-4.8) Monocytes # (Auto) 1.7 TH/MM3 (0-0.9) Eosinophils # (Auto) 0.3 TH/MM3 (0-0.4) Basophils # (Auto) 0.1 TH/MM3 (0-0.2) CBC Comment DIFF FINAL Differential Comment Prothrombin Time 12.0 SEC (9.8-11.6) Prothromb Time International 1.1 RATIO Ratio Activated Partial 27.2 SEC Thromboplast Time (24.3-30.1) Sodium Level 145 MEQ/L (136-145) Potassium Level 3.2 MEQ/L (3.5-5.1) Chloride Level 111 MEQ/L (98-107) Carbon Dioxide Level 21.6 MEQ/L (21.0-32.0) Anion Gap 12 MEQ/L (5-15) Blood Urea Nitrogen 8 MG/DL (7-18) Creatinine 0.62 MG/DL (0.50-1.00) Estimat Glomerular Filtration 122 ML/MIN Rate (>89) Random Glucose 89 MG/DL (74-106) Calcium Level 7.5 MG/DL (8.5-10.1) Phosphorus Level 2.6 MG/DL (2.5-4.9) Magnesium Level 2.0 MG/DL (1.5-2.5) Total Bilirubin 0.5 MG/DL (0.2-1.0) Aspartate Amino Transf 30 U/L (15-37) (AST/SGOT) Alanine Aminotransferase 108 U/L (10-53) (ALT/SGPT) Alkaline Phosphatase 92 U/L (45-117) Total Protein 6.0 GM/DL (6.4-8.2) Albumin 2.5 GM/DL (3.4-5.0) Result Diagram: 07/28/1644707/28/16447 Telemetry: NSR>ST (1) Left ventricular dysfunction (2) Severe aortic insufficiency (3) S/P AVR (aortic valve replacement) Plan: now on lovenox / coumadin today monitor for signs of bleeding HGB 936 from 03/18 hemodilution recheck HGB in am IB fluids dc baby ASA will need to keep INR 2-2.5 x 90 days, then 1.5-1.8 (4) Seizure disorder Plan: on tegretol and gabapentin (5) Pancytopenia Plan: HGB stable monitor plt's now 77>88 >101 > 150 >166 / neg HIT panel (6) Encephalopathy acute (7) Liver laceration Plan: general surgery no surgery indicated, abdominal binder in place stable H&h Laurie Mascorro Jul 28, 2016 12:03
[2016-07-28] MEDS: POTASSIUM CHLORIDE 10 MEQ CONTROLLED RELEASE TAB PO SCH ×2 (12:13→16:06)
[2016-07-28] MEDS ORDERED: ASPI81CH25 PO (12:27)
[2016-07-28] MEDS ORDERED: METO-309 PO (12:27)
[2016-07-28] MEDS ORDERED: ENOX80P SQ (12:27)
[2016-07-28] MEDS ORDERED: COUM5TAB PO (12:27)
[2016-07-28] MEDS ORDERED: DILT60TA33 PO (12:27)
[2016-07-28] MEDS ORDERED: PANT40TA3 PO (12:27)
[2016-07-28] MEDS ORDERED: OXYC1TAB63 PO (12:27)
[2016-07-28] MEDS ORDERED: GNP5TAB6 PO (12:27)
[2016-07-28] MEDS ORDERED: DIFL100T PO (12:27)
--- NOTE | 2016-07-28 15:14 | HHI.IDPN ---
Note Infectious Disease Note Patient feels okay. Continues to ambulation. Minimal cough. Occasional phlegm. No chills, nausea. Afebrile. PAST MEDICAL HISTORY 1. Seizure disorder 2. Asthma 3. Unspecified autoimmune disease. 4. History of bilateral knee arthroscopy 5. Recent surgery for aortic stenosis. ALLERGIES NO KNOWN DRUG ALLERGIES. SOCIAL HISTORY No tobacco use. Positive marijuana use. The patient quit drinking alcohol 5 years ago. OBJECTIVE: Vital Signs Date Time Temp Pulse Resp B/P Pulse Ox O2 Delivery O2 Flow Rate FiO2 07/28/16 14:05 116 07/28/16 13:01 107 07/28/16 12:04 107 07/28/16 11:16 98.7 111 16 124/79 100 07/28/16 11:16 100 Room Air 07/28/16 11:16 116 07/28/16 10:04 110 07/28/16 09:00 103 07/28/16 08:15 101 07/28/16 08:15 96 Room Air 07/28/16 08:15 98.7 88 16 156/99 96 07/28/16 07:00 87 07/28/16 06:38 101 07/28/16 05:15 103 07/28/16 04:02 101 07/28/16 03:46 99.1 82 16 129/69 100 07/28/16 03:46 107 07/28/16 03:12 100 Room Air 07/28/16 02:02 94 07/28/16 01:08 96 07/28/16 00:00 97 07/27/16 23:20 96 Room Air 07/27/16 23:20 99.6 106 16 129/79 96 07/27/16 23:15 107 07/27/16 22:00 134 07/27/16 21:12 99.0 104 20 150/74 97 07/27/16 21:12 112 07/27/16 21:12 97 Room Air 07/27/16 20:00 110 07/27/16 19:34 98 21 07/27/16 18:00 104 07/27/16 17:00 100 07/27/16 16:30 98.9 104 16 153/87 97 07/27/16 16:00 116 07/27/16 15:45 99 Room Air 07/27/16 07/27/16 07/28/16 15:00 23:00 07:00 Intake Total 800 ml 1466 ml 1304 ml Output Total 350 ml 250 ml 900 ml Balance 450 ml 1216 ml 404 ml Intake Oral 200 ml 720 ml 480 ml IV Total 600 ml 746 ml 824 ml Output Urine Total 350 ml 250 ml 900 ml Bladder Scan Volume Amount 250 ml # Voids 3 # Bowel Movements 1 Laboratory Tests Test 07/27/16 07/28/16 04:09 04:48 White Blood Count 17.3 TH/MM3 13.4 TH/MM3 Red Blood Count 4.22 MIL/MM3 3.43 MIL/MM3 Hemoglobin 11.9 GM/DL 9.6 GM/DL Hematocrit 36.9 % 30.2 % Mean Corpuscular Volume 87.3 FL 88.1 FL Mean Corpuscular Hemoglobin 28.1 PG 28.0 PG Mean Corpuscular Hemoglobin 32.2 % 31.8 % Concent Red Cell Distribution Width 15.7 % 15.9 % Platelet Count 150 TH/MM3 166 TH/MM3 Mean Platelet Volume 10.6 FL 10.4 FL Neutrophils (%) (Auto) 67.1 % 68.6 % Lymphocytes (%) (Auto) 16.6 % 15.7 % Monocytes (%) (Auto) 14.3 % 13.0 % Eosinophils (%) (Auto) 1.5 % 2.1 % Basophils (%) (Auto) 0.5 % 0.6 % Neutrophils # (Auto) 11.6 TH/MM3 9.2 TH/MM3 Lymphocytes # (Auto) 2.9 TH/MM3 2.1 TH/MM3 Monocytes # (Auto) 2.5 TH/MM3 1.7 TH/MM3 Eosinophils # (Auto) 0.3 TH/MM3 0.3 TH/MM3 Basophils # (Auto) 0.1 TH/MM3 0.1 TH/MM3 CBC Comment AUTO DIFF DIFF FINAL Differential Total Cells 100 Counted Neutrophils % (Manual) 65 % Band Neutrophils % 1 % Lymphocytes % 19 % Monocytes % 11 % Eosinophils % 3 % Neutrophils # (Manual) 11.6 TH/MM3 Myelocytes 1 % Nucleated Red Blood Cells 1 /100 WBC Differential Comment FINAL DIFF MANUAL Platelet Estimate LOW Platelet Morphology Comment NORMAL Ovalocytes 1+ Hematology Comments * Laboratory Tests Test 07/27/16 07/28/16 04:09 04:48 Sodium Level 144 MEQ/L 145 MEQ/L Potassium Level 3.6 MEQ/L 3.2 MEQ/L Chloride Level 111 MEQ/L 111 MEQ/L Carbon Dioxide Level 22.0 MEQ/L 21.6 MEQ/L Anion Gap 11 MEQ/L 12 MEQ/L Blood Urea Nitrogen 12 MG/DL 8 MG/DL Creatinine 0.79 MG/DL 0.62 MG/DL Estimat Glomerular Filtration 92 ML/MIN 122 ML/MIN Rate Random Glucose 116 MG/DL 89 MG/DL Calcium Level 8.2 MG/DL 7.5 MG/DL Phosphorus Level 2.5 MG/DL 2.6 MG/DL Magnesium Level 2.2 MG/DL 2.0 MG/DL Total Bilirubin 0.7 MG/DL 0.5 MG/DL Aspartate Amino Transf 52 U/L 30 U/L (AST/SGOT) Alanine Aminotransferase 163 U/L 108 U/L (ALT/SGPT) Alkaline Phosphatase 119 U/L 92 U/L Total Protein 6.6 GM/DL 6.0 GM/DL Albumin 3.1 GM/DL 2.5 GM/DL Microbiology Date/Time Procedure Status Source Growth 07/25/16 21:38 Gram Stain Ordered Sputum Expectorated Sputum Pending 07/25/16 21:38 Sputum Culture Ordered Sputum Expectorated Sputum Pending 07/26/16 00:01 Gram Stain - Final Complete Sputum Expectorated Sputum 07/26/16 00:01 Sputum Culture - Final Complete Sputum Expectorated Sputum HEAVY GROWTH NORMAL RESPIRATORY JASON IMAGING: Chest X-Ray 07/24/16 0600 Signed Impressions: Service Date/Time: Sunday, July 24, 2016 03:15 - CONCLUSION: 1. Interval increase in opacity at the right lung base. There are apparent bilateral effusions. 2. Interval removal of right internal jugular central venous line. 3. Cardiomegaly. Juan Chakraborty MD Chest CT 07/20/16 0000 Signed Impressions: Service Date/Time: Wednesday, July 20, 2016 17:29 - CONCLUSION: Multifocal subsegmental consolidative infiltrates in both lungs and moderate-sized bilateral pleural effusions. Norbert Figueroa MD Abdomen/Pelvis CT 07/20/16 0000 Signed Impressions: Service Date/Time: Wednesday, July 20, 2016 17:29 - CONCLUSION: 1. Findings suggest laceration of the liver extending to the anterior margin between the left and right lobe.. 2. Significant decrease in the amount of abdominal pelvic fluid with moderate residual pelvic fluid 3. Subcutaneous induration proximal and lateral thigh/pelvis. Norbert Figueroa MD Cyst Biopsy Asp-Paracentesis US 07/16/16 0000 Signed Impressions: Service Date/Time: Saturday, July 16, 2016 21:23 - CONCLUSION: Uncomplicated ultrasound guided paracentesis. Sanguinous fluid obtained. Sample sent to the lab as requested. Norbert Kwong Jr., MD Abdomen Ultrasound 07/16/16 0000 Signed Impressions: Service Date/Time: Saturday, July 16, 2016 19:23 - CONCLUSION: Moderate volume of ascites. Sufficient volume for paracentesis. Norbert Kwong Jr., MD PHYSICAL EXAMINATION: GENERAL: No acute distress. Awake, alert, oriented. HEENT: Head is atraumatic. Pale, muddy sclera. No visible icterus. Oropharynx: moist mucosa without lesions. Neck: Supple without adenopathy. Lungs: Decreased clear BS. Heart: Irregular rate and rhythm with a slight systolic murmur at the left sternal border. Abdomen: Bowel sounds present, soft, no tenderness. Extremities: No clubbing, cyanosis or edema. Skin: No rash. dusky hyperpigmentation at the fingers. Neuro: Nonfocal. Psych: The patient is calm and cooperative. IMPRESSION Leukocytosis. Questionable etiology. likely from [place] UTI. WBC trending down. [place] UTI Post op minimal invasive AVR mechanical. RECOMMENDATIONS Continue Diflucan Po x 5 days more. I will sign of now. Torito Chacko MD Jul 28, 2016 15:14
[2016-07-28] MEDS: WARFARIN SOD 5 MG TAB PO SCH (16:06)
[2016-07-28] MEDS: ACETAMINOPHEN 325 MG TAB PO PRN (19:32)
[2016-07-28] MEDS: MELATONIN 5 MG TAB PO SCH (21:42)
[2016-07-29] VITALS (26 sets, daily range): BP systolic 128–151; BP diastolic 82–86; PULSE 79–110; RESP 18–19; TEMP 98.3–98.9; O2SAT 96–99
[2016-07-29] MEDS: PANTOPRAZOLE SOD 40 MG DELAYED RELEASE TAB PO SCH (05:33)
[2016-07-29] MEDS: ENOXAPARIN SODIUM 80 MG/0.8 ML SYRINGE SQ SCH (05:33)
[2016-07-29] MEDS: METOPROLOL TARTRATE 50 MG TAB PO SCH ×3 (05:33→22:32)
[2016-07-29 06:58] LABS: MEAN CELL VOLUME 86.7 FL (80.0-100.0); MEAN CORPUSCULAR HEMOGLOBIN 28.5 PG (27.0-34.0); MEAN CORPUSCULAR HGB CONC 32.9 % (32.0-36.0); PLATELET COUNT 205 TH/MM3 (150-450); RED BLOOD COUNT 3.46 MIL/MM3 (4.00-5.30); RED CELL DISTRIBUTION WIDTH 15.7 % (11.6-17.2); REVIEW FLAG FINAL; WHITE BLOOD COUNT 11.8 TH/MM3 (4.0-11.0)
[2016-07-29 07:26] LABS: APTT (PATIENT) 30.8 SEC (24.3-30.1); INTERNATIONAL NORMALIZED RATIO 1.7 RATIO; PROTHROMBIN TIME - PATIENT 19.3 SEC (9.8-11.6)
[2016-07-29 07:36] LABS: BICARBONATE 25.7 MEQ/L (21.0-32.0); MAGNESIUM 2.2 MG/DL (1.5-2.5); POTASSIUM 3.4 MEQ/L (3.5-5.1)
[2016-07-29] MEDS: GABAPENTIN 300 MG CAP PO SCH ×2 (08:30→20:52)
[2016-07-29] MEDS: DILTIAZEM HCL 60 MG TAB PO SCH ×4 (08:31→20:52)
[2016-07-29] MEDS: FOLIC ACID 1 MG TAB PO SCH (08:31)
[2016-07-29] MEDS: carBAMazepine 200 MG TAB PO SCH ×3 (08:31→17:41)
[2016-07-29] MEDS: predniSONE 5 MG TAB PO SCH ×2 (08:31→20:52)
[2016-07-29] MEDS: FLUCONAZOLE 100 MG TAB PO SCH (08:31)
[2016-07-29] MEDS: POTASSIUM PHOSPHATE MONOBASIC 500 MG TAB PO SCH ×2 (08:32→20:52)
[2016-07-29] MEDS: SODIUM CHLORIDE 0.9% FLUSH 10 ML FLUSH IV FLUSH SCH ×2 (08:32→20:53)
[2016-07-29] MEDS: ASPIRIN 81 MG CHEW TAB PO SCH (08:32)
[2016-07-29] MEDS ORDERED: CYANOCOBALAMIN 1000 MCG/ML VIAL SQ SCH (09:00)
[2016-07-29] MEDS ORDERED: POTASSIUM CHLORIDE 10 MEQ CONTROLLED RELEASE TAB PO SCH ×2 (09:15→09:46)
[2016-07-29] MEDS ORDERED: COUM3TAB PO (14:59)
--- NOTE | 2016-07-29 15:06 | HHI.DS ---
Discharge Summary Admission Date Jul 15, 2016 at 05:36 Discharge Date: Jul 29, 2016 Admitting Diagnosis GENERAL: SKIN: Warm and dry. HEAD: Normocephalic. EYES: No scleral icterus. No injection or drainage. NECK: Supple, trachea midline. No JVD or lymphadenopathy. CARDIOVASCULAR: Regular rate and rhythm without murmurs, gallops, or rubs. RESPIRATORY: Breath sounds equal bilaterally. No accessory muscle use. GASTROINTESTINAL: Abdomen soft, non-tender, nondistended. MUSCULOSKELETAL: No cyanosis, or edema. BACK: Nontender without obvious deformity. No CVA tenderness. (1) ventilator dependent respiratory distress Diagnosis: Secondary (2) SIRS (systemic inflammatory response syndrome) Diagnosis: Secondary (3) ventilator dependent respiratory failure Diagnosis: Secondary (4) Thrombocytopenia Diagnosis: Secondary (5) Encephalopathy acute Diagnosis: Secondary (6) Pleural effusion, bilateral Diagnosis: Secondary (7) Blood loss anemia Diagnosis: Secondary (8) Pancytopenia Diagnosis: Secondary (9) Shock liver Diagnosis: Secondary (10) Liver laceration Diagnosis: Secondary (11) S/P AVR (aortic valve replacement) Diagnosis: Secondary (12) Seizure disorder Diagnosis: Principal (13) Aortic insufficiency Diagnosis: Principal Procedures 1. Minimally Invasive AVR with a 19 mm OnX Mechanical Valve 07/15 2. Left Percutaneous Femoral Arterial and Venous Cannulation for CPB 3. Intercostal Nerve Block 4. Perclose Arterial Closure x 2 Brief History 55/ female, admitted for elective AVR , hx of mod to severe aortic insufficiency EF 55% PMH : osteoarthritis , RA followed by Dr Pacheco on chronic steroid use, Humira , methotrexate , seizure Dz , asthma surgery: 07/15 Minimally Invasive AVR with a 19 mm OnX Mechanical Valve, Left Percutaneous Femoral Arterial and Venous Cannulation for CPB, Intercostal Nerve Block, Perclose Arterial Closure x 2 per CCM note , pt became severely hypotensive hypoxemic and suffered with respiratory arrest. She was emergently re- intubated and regain spontaneous circulations after 2 cycles of CPR and epinephrine injections. She was found to be hypotensive and severely anemic with hemoglobin level 4, platelet count of 25, fibrinogen less than 50. She was thought to be bleeding retroperitoneally and was taken emergently to CAT scan angiogram. However no source of bleeding was found on the CT. She had some coffee ground drainage in NG + bloody stool x one , recieved 8units PRBC,/ 4 FFP, 2 PLT, 2 cryo and Kcentra. 07/17: Remains sedated, orally intubated on mechanical ventilation. Patient spiked a temperature last night and was initiated on empiric antibiotic coverage at [facility] and [facility] after obtaining cultures. Being prepped for colonoscopy however has not had any BMs. Discussed with Dr. Radford from who was okay with proceeding with extubation at this point. 07/18: Remains sedated, orally intubated on mechanical ventilation. Being prepped for colonoscopy. Greenish BMs however no blood noted. Hemoglobin remained stable currently. Chest tube/ pacer wires removed. Being diuresed with Lasix. 07/19: Sedated, orally intubated on mechanical ventilation. Colonoscopy performed today which revealed colitis in the rectum with hemorrhoids. Was placed on heparin for anticoagulation last evening which was held for colonoscopy today. Being diuresed to mobilize fluid. 07/20: Remains sedated, arousable, gets agitated on lightening sedation, orally intubated on mechanical ventilation. On heparin for anticoagulation. Underwent colonoscopy yesterday. Diuresed and is -8 L in the last 24 hours. Chest x-ray continues to show bilateral infiltrates/pulmonary edema pattern raising concern for transfusion related acute lung injury (TRALI). 07/21: Sedated, arousable, orally intubated on mechanical ventilation. On heparin for anticoagulation. CT abdomen and pelvis done on 07/20 revealed what looks like a liver laceration with some free fluid in the pelvis. CT chest with bilateral infiltrates and bilateral small effusions. 07/22: Arouses off sedation. On Precedex. Remains on heparin for anticoagulation. Diuresed well overnight. No evidence of active bleeding at this time. Started on tube feeds yesterday which have been held for possible extubation. 07/23: Extubated on 07/22. Requiring BiPAP. Being diuresed. Hemoglobin remained stable. On Precedex for anxiety as needed. 07/24 Patient is off BIPAP on 3L oxygen with good sats. Afebrile. On no drips ( Off Heparin and Precedex drips). Tachycardic. 07/25 Patient is on 2L oxygen with good sats. Tachycardic. 07/26 No acute events overnight. T: 100.7 last night. WBC trending down. CBC/BMP: 07/29/16 0535 07/29/16 0535 Significant Findings Laboratory Tests Test 07/27/16 07/28/16 07/29/16 04:09 04:48 05:35 White Blood Count 17.3 TH/MM3 13.4 TH/MM3 11.8 TH/MM3 (4.0-11.0) (4.0-11.0) (4.0-11.0) Monocytes (%) (Auto) 14.3 % 13.0 % (0.0-8.0) (0.0-8.0) Neutrophils # (Auto) 11.6 TH/MM3 9.2 TH/MM3 (1.8-7.7) (1.8-7.7) Monocytes # (Auto) 2.5 TH/MM3 1.7 TH/MM3 (0-0.9) (0-0.9) Monocytes % 11 % (0-8) Neutrophils # (Manual) 11.6 TH/MM3 (1.8-7.7) Myelocytes 1 % (0-0) Nucleated Red Blood Cells 1 /100 WBC (0-0) Platelet Estimate LOW (NORMAL) Ovalocytes 1+ (NORMAL) Chloride Level 111 MEQ/L 111 MEQ/L 113 MEQ/L (98-107) (98-107) (98-107) Random Glucose 116 MG/DL (74-106) Calcium Level 8.2 MG/DL 7.5 MG/DL 8.2 MG/DL (8.5-10.1) (8.5-10.1) (8.5-10.1) Aspartate Amino Transf 52 U/L (15-37) (AST/SGOT) Alanine Aminotransferase 163 U/L (10-53) 108 U/L (10-53) (ALT/SGPT) Alkaline Phosphatase 119 U/L (45-117) Albumin 3.1 GM/DL 2.5 GM/DL (3.4-5.0) (3.4-5.0) Red Blood Count 3.43 MIL/MM3 3.46 MIL/MM3 (4.00-5.30) (4.00-5.30) Hemoglobin 9.6 GM/DL 9.9 GM/DL (11.6-15.3) (11.6-15.3) Hematocrit 30.2 % 30.0 % (35.0-46.0) (35.0-46.0) Mean Corpuscular Hemoglobin 31.8 % Concent (32.0-36.0) Prothrombin Time 12.0 SEC 19.3 SEC (9.8-11.6) (9.8-11.6) Potassium Level 3.2 MEQ/L 3.4 MEQ/L (3.5-5.1) (3.5-5.1) Total Protein 6.0 GM/DL (6.4-8.2) Activated Partial 30.8 SEC Thromboplast Time (24.3-30.1) Imaging Last Impressions Chest X-Ray 07/26/16 0000 Signed Impressions: Service Date/Time: Tuesday, July 26, 2016 08:19 - CONCLUSION: 1. Improvement with better aeration on the left. 2. Consolidative changes persist right base. Silvestre Singh MD FACR Chest CT 07/20/16 0000 Signed Impressions: Service Date/Time: Wednesday, July 20, 2016 17:29 - CONCLUSION: Multifocal subsegmental consolidative infiltrates in both lungs and moderate-sized bilateral pleural effusions. Norbert Figueroa MD Abdomen/Pelvis CT 07/20/16 0000 Signed Impressions: Service Date/Time: Wednesday, July 20, 2016 17:29 - CONCLUSION: 1. Findings suggest laceration of the liver extending to the anterior margin between the left and right lobe.. 2. Significant decrease in the amount of abdominal pelvic fluid with moderate residual pelvic fluid 3. Subcutaneous induration proximal and lateral thigh/pelvis. Norbert Figueroa MD Cyst Biopsy Asp-Paracentesis US 07/16/16 0000 Signed Impressions: Service Date/Time: Saturday, July 16, 2016 21:23 - CONCLUSION: Uncomplicated ultrasound guided paracentesis. Sanguinous fluid obtained. Sample sent to the lab as requested. Norbert Kwong Jr., MD Abdomen Ultrasound 07/16/16 0000 Signed Impressions: Service Date/Time: Saturday, July 16, 2016 19:23 - CONCLUSION: Moderate volume of ascites. Sufficient volume for paracentesis. Norbert Kwong Jr., MD PE at Discharge GENERAL: SKIN: Warm and dry. incision right upper chest intact and well approximated HEAD: Normocephalic. EYES: No scleral icterus. No injection or drainage. NECK: Supple, trachea midline. No JVD or lymphadenopathy. CARDIOVASCULAR: Regular rate and rhythm without murmurs, gallops, or rubs. RESPIRATORY: Breath sounds equal bilaterally. No accessory muscle use. diminished in bases GASTROINTESTINAL: Abdomen soft, non-tender, nondistended. MUSCULOSKELETAL: No cyanosis, or edema. BACK: Nontender without obvious deformity. No CVA tenderness. Hospital Course surgery: 07/15 Minimally Invasive AVR with a 19 mm OnX Mechanical Valve, Left Percutaneous Femoral Arterial and Venous Cannulation for CPB, Intercostal Nerve Block, Perclose Arterial Closure x 2 per CCM note , pt became severely hypotensive hypoxemic and suffered with respiratory arrest. She was emergently re- intubated and regain spontaneous circulations after 2 cycles of CPR and epinephrine injections. She was found to be hypotensive and severely anemic with hemoglobin level 4, platelet count of 25, fibrinogen less than 50. She was thought to be bleeding retroperitoneally and was taken emergently to CAT scan angiogram. However no source of bleeding was found on the CT. She had some coffee ground drainage in NG + bloody stool x one , recieved 8units PRBC,/ 4 FFP, 2 PLT, 2 cryo and Kcentra. 07/16/16 pt remains intubated on vent , will open eyes and respond to simple commands, moves all extremities underwent bedside EGD today , NG trauma in esophagus , gastric varicies gastric fundus, with no evidence of active or recent bleeding elevated LFT's ? shock liver, however elevated amylase and lipase ? acute pancreatitis / elevated ferritin levels ( hemochromatosis ) chest tube drainage 320/12 hrs / on versed and fentanyl for sedation CCM following 07/17 Clinically stable s/p large volume paracentesis of bloody fluid last pm (2.6 L). Hgb stable stable on ventilator. May benefit from gently diuresis Greatly appreciate all the consultants input Planned colonoscopy today Continue CT to drainage 07/[address] removed without difficulty Will need some sort of anticoagulation for the mechanical aortic valve. Will discuss with GI and CCM regarding low-dose IV heparin gtt vs SQ Lovenox Planned Colonoscopy Greatly appreciate Dr. Radford and Dr. Curtis's input and assistance in her care 07/19 pt to start on precedex, to facilitate weaning from ventilator/ start CPAP trials today scleral edema improved still volume overloaded, however diuresing well on low dose heparin gtt , no further signs of bleeding, for colonoscopy today on no pressors, 07/20/16 on precedex and low dose propofol did not tolerate CPAP trails diuresing well, add additional low dose today vent weaning per [facility] on no pressors, not following commands LFT's improving repeat CT abdomen pending 07/21/16 still on low dose precedex CT scan resulted / + liver lac/ general surgery consulted HGB stable at 9.8 remains on vent / not following commands Heparin gtt at 800units /hr 07/22 pt weaned and extubated, following commands will need pt/ot / speech will need to discuss timing to start low dose ASA with Dr Hewitt also when able to transition to lovenox instead of heparin 07/23 requiring intermittent Bipap, still on precedex for anxiety with Bipap additional diuresis given await speech eval ok to start lovenox per general surgery/ will leave to [facility] for timing / in event pt may need thoracentesis she will also need a picc line and CVC line removed 07/24/16 Up in chair for the first time since surgery. Off CPAP. Somewhat confused, tachycardic. Tolerating regular diet. 07/25/16 Weak, lethargic Hypertensive, tachycardic 07/26 still weak up in chair on cardizem / lopressor ID folliwng pt / possible PNA/UTI 07/27 tachycardia improving continue IV fluids until am will need rehab at discharge continue IV antibiotics per ID start coumadin today / discussed with Dr Hewitt transfer to stepdown 07/28 still weak, but improving daily/ plan for rehab placement and dc in am continue diflucan per ID x 5 days HGB 9.6 from 03/18 hemodilution from IV fluids, which have been dc recheck level in am INR 1.1/ continue coumadin and lovenox Discharge Disposition: Discharge to SNF Discharge Instructions DIET: Follow Instructions for: Heart Healthy Diet, Coumadin (Warfarin) Diet Speech Therapy-Diet Recommenda: Soft Activities you can perform: Shower Only-No Bath Activities to avoid: Strenuous Activity, Driving Additional Activity Instructio: no lifting > 8 lbs or gallon of milk Follow up Referrals: Appointment for Follow Up Appointment for Follow Up Appointment for Follow Up Surgical New Orders: CBC WITH DIFF - 3-5 Days COMP MET PROF (CMP) - 3-5 Days PT/INR - Daily New Medications: Warfarin (Coumadin) 3 Mg Tab 3 MG PO DAILY LILI mechancial valve/ ok to keep INR 1.8-2.0// HOld INR >2.5 Prevent Blood Clot #30 Ref 0 TAB Aspirin (Aspirin Low Strength) 81 Mg Chew 81 MG PO DAILY Blood Clot Prevention #100 Ref 2 EA Diltiazem (Cardizem) 60 Mg Tab 60 MG PO QID heart rate #120 Ref 2 TAB Fluconazole (Diflucan) 100 Mg Tab 100 MG PO DAILY UTI #5 Ref 0 TAB Melatonin (Gnp Melatonin Maximum Str) 5 Mg Tab 5 MG PO HS sleep #30 TAB Metoprolol Tartrate (Lopressor) 50 Mg Tab 50 MG PO Q8HR heart rate #90 Ref 2 TAB Oxycodone-Acetaminophen (Oxycodone-Acetaminophen) 5-325 mg Tab 1 TAB PO Q4HR PRN PAIN SCALE 1 TO 5 #40 Ref 0 TAB Pantoprazole (Pantoprazole) 40 Mg Tab 40 MG PO DAILY@06 gastritis #30 Ref 2 TAB Continued Medications: Albuterol 18 GM Inh (Ventolin Hfa 18 GM Inh) 90 Mcg/Act Aer 2 PUFF INH Q4-6H PRN SHORTNESS OF BREATH #1 Ref 0 INHALER Carbamazepine (Tegretol) 200 Mg Tab 200 MG PO TID #60 Ref 0 TAB Folic Acid (Folic Acid) 20 Mg Cap 1 MG PO DAILY Gabapentin (Gabapentin) 600 Mg Tab 600 MG PO BID #60 Ref 0 TAB Prednisone (Prednisone) 2.5 Mg Tab 2.5 MG PO BID Ref 0 TAB Discontinued Medications: Adalimumab 2-Pack Inj (Humira 2-Pack Inj) 40 Mg/0.8 Ml Syr 40 MG SQ Q14D #1 Ref 0 KIT Methotrexate Inj (Methotrexate Inj) 50 Mg/2 Ml Inj 0.8 ML SQ WEEKLY Metoprolol Succinate ER 24 HR (Toprol XL) 25 Mg Tab 25 MG PO DAILY #30 Ref 0 TAB Tizanidine (Tizanidine) 4 Mg Cap 6 MG PO TID Muscle Spasm Ref 0 CAP Laurie Mascorro Jul 29, 2016 15:06
[2016-07-29] MEDS ORDERED: WARFARIN SOD 3 MG TAB PO SCH (16:00)
[2016-07-29] MEDS: oxyCODONE/ACETAMINOPHEN 5 MG/325 MG TAB PO PRN (17:45)
[2016-07-29] MEDS: MELATONIN 5 MG TAB PO SCH (20:52)
[2016-07-30] VITALS (13 sets, daily range): BP systolic 108–146; BP diastolic 60–98; PULSE 88–109; RESP 18–19; TEMP 98.2–99.1; O2SAT 98–100
[2016-07-30] MEDS: METOPROLOL TARTRATE 50 MG TAB PO SCH (05:43)
[2016-07-30] MEDS: PANTOPRAZOLE SOD 40 MG DELAYED RELEASE TAB PO SCH (05:43)
[2016-07-30 07:23] LABS: INTERNATIONAL NORMALIZED RATIO 2.1 RATIO; PROTHROMBIN TIME - PATIENT 23.8 SEC (9.8-11.6)
[2016-07-30] MEDS: DILTIAZEM HCL 60 MG TAB PO SCH (08:28)
[2016-07-30] MEDS: POTASSIUM PHOSPHATE MONOBASIC 500 MG TAB PO SCH (08:28)
[2016-07-30] MEDS: predniSONE 5 MG TAB PO SCH (08:28)
[2016-07-30] MEDS: GABAPENTIN 300 MG CAP PO SCH (08:28)
[2016-07-30] MEDS: FLUCONAZOLE 100 MG TAB PO SCH (08:29)
[2016-07-30] MEDS: SODIUM CHLORIDE 0.9% FLUSH 10 ML FLUSH IV FLUSH SCH (08:29)
[2016-07-30] MEDS: ASPIRIN 81 MG CHEW TAB PO SCH (08:29)
[2016-07-30] MEDS: carBAMazepine 200 MG TAB PO SCH (08:29)
[2016-07-30] MEDS: FOLIC ACID 1 MG TAB PO SCH (08:29)
[2016-07-30] MEDS ORDERED: METOPROLOL TARTRATE 50 MG TAB PO SCH (08:45)
[2016-07-30] MEDS ORDERED: CARD360C PO (13:14)
[2016-07-30] MEDS ORDERED: METO50TA PO (13:14)
[2016-07-30] MEDS ORDERED: METOPROLOL TARTRATE 100 MG TAB PO SCH (21:00)
[2016-08-02] MEDS ORDERED: COMMODE 3-IN-11 MIS (09:26)
== END 2016-07-30 13:35 | disposition home health service (06) | DRG 219 ==
LOC: HSDI 07-15 05:36 → HCVR 07-15 13:43 → HCIN 07-27 10:23
PROVIDERS: ADMIT Thoracic Surgery (Cardiothoracic Vascular Surgery); ATTEND Thoracic Surgery (Cardiothoracic Vascular Surgery)
PROC: 06QN0ZZ Repair Left Femoral Vein, Open Approach (ICD-10-PCS; 2016-07-15)
PROC: 5A1221Z Performance of Cardiac Output, Continuous (ICD-10-PCS; 2016-07-15)
PROC: B246ZZ4 Ultrasonography of Right and Left Heart, Transesophageal (ICD-10-PCS; 2016-07-15)
PROC: 3E0T3CZ (ICD-10-PCS; 2016-07-15)
PROC: 30233N1 Transfusion of Nonautologous Red Blood Cells into Peripheral Vein, Percutaneous Approach (ICD-10-PCS; 2016-07-15)
PROC: 02RF0JZ Replacement of Aortic Valve with Synthetic Substitute, Open Approach (ICD-10-PCS; principal; 2016-07-15 07:04)
PROC: 5A12012 Performance of Cardiac Output, Single, Manual (ICD-10-PCS; 2016-07-16)
PROC: 5A1955Z Respiratory Ventilation, Greater than 96 Consecutive Hours (ICD-10-PCS; 2016-07-16)
PROC: 0BH17EZ Insertion of Endotracheal Airway into Trachea, Via Natural or Artificial Opening (ICD-10-PCS; 2016-07-16)
PROC: 0DJ08ZZ Inspection of Upper Intestinal Tract, Via Natural or Artificial Opening Endoscopic (ICD-10-PCS; 2016-07-16)
PROC: 0W9G3ZX Drainage of Peritoneal Cavity, Percutaneous Approach, Diagnostic (ICD-10-PCS; 2016-07-16)
PROC: 30233K1 Transfusion of Nonautologous Frozen Plasma into Peripheral Vein, Percutaneous Approach (ICD-10-PCS; 2016-07-16)
PROC: 30233R1 Transfusion of Nonautologous Platelets into Peripheral Vein, Percutaneous Approach (ICD-10-PCS; 2016-07-16)
PROC: 0DBP8ZX Excision of Rectum, Via Natural or Artificial Opening Endoscopic, Diagnostic (ICD-10-PCS; 2016-07-19)
DX: I35.1 Nonrheumatic aortic (valve) insufficiency (principal); I46.9 Cardiac arrest, cause unspecified; D65 Disseminated intravascular coagulation [defibrination syndrome]; J96.01 Acute respiratory failure with hypoxia; K72.00 Acute and subacute hepatic failure without coma; G93.40 Encephalopathy, unspecified; J90 Pleural effusion, not elsewhere classified; J95.84 Transfusion-related acute lung injury (TRALI); S36.113A Laceration of liver, unspecified degree, initial encounter; R18.8 Other ascites; Z99.11 Dependence on respirator [ventilator] status; K92.1 Melena; D62 Acute posthemorrhagic anemia; D61.818 Other pancytopenia; B37.49 Other urogenital candidiasis; G40.909 Epilepsy, unspecified, not intractable, without status epilepticus; I86.4 Gastric varices; K64.8 Other hemorrhoids; J45.909 Unspecified asthma, uncomplicated; K52.9 Noninfective gastroenteritis and colitis, unspecified; K62.89 Other specified diseases of anus and rectum; M06.9 Rheumatoid arthritis, unspecified; M19.90 Unspecified osteoarthritis, unspecified site; E87.70 Fluid overload, unspecified; F41.9 Anxiety disorder, unspecified; Z79.52 Long term (current) use of systemic steroids; W19.XXXA Unspecified fall, initial encounter
CPT/HCPCS: 31500; 36430; 36556; 49083; 71010; 71020; 71260; 74174; 74177; 76705; 76937; 80048; 80053; 80156; 80299; 81001; 82042; 82140; 82150; 82247; 82248; 82728; 82805; 82945; 82948; 83010; 83540; 83550; 83615; 83690; 83735; 84100; 84157; 85007; 85014; 85018; 85025; 85027; 85044; 85060; 85384; 85610; 85730; 86022; 86403; 86850; 86880; 86900; 86901; 86920; 86927; 86965; 87015; 87040; 87070; 87086; 87102; 87106; 87116; 87205; 87206; 88305; 88311; 89051; 93005; 93308; 93318; 94002; 94003; 94150; 94640; 94664; 94667; 94668; C1729; C9113; C9132; C9290; J0131; J0171; J0360; J0461; J0610; J0690; J0692; J1100; J1265; J1630; J1644; J1650; J1885; J1940; J2150; J2250; J2270; J2370; J2405; J2720; J3010; J3370; J3420; J3475; J3480; J7030; J7040; J7050; J7120; J7512; P9016; P9017; P9035; P9045; P9047; Q9967